=== PATIENT | female | born 1960 | race Caucasian/White ===

== ENCOUNTER → 2020-08-31 12:50 | Outpatient (BNVA) | payer OTHER, SELFPAY | PROVIDERS: PCP Internal Medicine; Referring Provider Internal Medicine; Visit Provider Internal Medicine Gastroenterology | DX: K57.92 Diverticulitis of intestine, part unspecified, without perforation or abscess without bleeding (principal); Z86.010 Personal history of colon polyps | CPT/HCPCS: 99212 ==

== ENCOUNTER 2020-10-02 11:37 | Outpatient (REF) | payer OTHER, SELFPAY ==
[2020-10-02 14:36] LABS: Hematocrit 45.6 % (37-47); Hemoglobin 14.2 g/dl (12.0-16.0); Mean Corpuscular HGB Conc 31.1 g/dl (31.0-35.0); Mean Corpuscular Hemoglobin 26.6 pg (27.0-33.0); Mean Corpuscular Volume 85.6 fL (80-98); Mean Platelet Volume 11.9 fL (9.4-12.3); Platelet Count 216 X10*3/uL (160-400); Red Blood Count 5.33 X10*6/uL (4.20-5.50); Red Cell Distribution Width 14.2 % (11.0-16.0); White Blood Count 9.5 X10*3/uL (4.8-10.8)
[2020-10-02 15:12] LABS: Alanine Aminotransferase 31 U/L (0-31); Albumin Level 4.3 g/dL (3.5-5.0); Alkaline Phosphatase 88 U/L (39-117); Anion Gap 14 (12-20); Aspartate Amino Transferase 20 U/L (5-31); Bilirubin Total 0.4 mg/dL (0.0-1.0); Blood Urea Nitrogen 14 mg/dL (9-16); Calcium 8.9 mg/dL (8.4-10.2); Carbon Dioxide 27 mmol/L (22-29); Chloride 103 mmol/L (96-108); Cholesterol 324 mg/dL; Estimated Glomerular Filt Rate > 60; Glucose Fasting 79 mg/dL (60-99); HDL Cholesterol 37 mg/dL; Potassium 4.1 mmol/l (3.3-5.1); Sodium 140 mmol/L (135-145); Total Protein 7.1 g/dL (6.5-8.0); Triglycerides 528 mg/dL
[2020-10-02 15:27] LABS: TSH reflex Free T4 0.77 mIU/mL (0.32-4.0)
== END 2020-10-02 11:38 | disposition home or self-care (01) ==
LOC: HO.HMGCLDS 11:37
PROVIDERS: PCP Internal Medicine; Visit Provider Internal Medicine
DX: E78.5 Hyperlipidemia, unspecified (principal); M54.30 Sciatica, unspecified side
CPT/HCPCS: 36415; 80053; 80061; 84443; 85027

== ENCOUNTER → 2020-12-28 09:01 | Outpatient (BNVA) | payer OTHER, SELFPAY | PROVIDERS: PCP Internal Medicine; Visit Provider Internal Medicine Gastroenterology ==

== ENCOUNTER 2021-01-12 09:00 | Outpatient (RCR) | payer OTHER, SELFPAY ==
--- NOTE | 2020-11-08 18:05 | MHC.PT.EP ---
[facility] [place] Office [place] Office [place] Office [address] Tyler Clark [address] [phone] F: [phone] F: [phone] F: [phone] F: [phone] Physical Therapy Plan of Care Date of Evaluation: 11/08/20 Date of Surgery: Diagnosis: This is a 60 yo female presenting to skilled PT with a script for LBP. Assessment: This is a 60 yo female presenting to skilled PT with a script for LBP. Patient reports chronic and recurrent lower back pain radiating to both lower extremities. Her pain started 10 years ago when she had surgery (unknown surgery, suspects discectomy?) and continues to have BLE pain and back pain. Today and more recently her pain is located more often on the R side low back and down the posterior aspect of the R leg into the bottom of the foot. Her pain comes and goes and is described as cramping and achy. Denies numbness or tingling. States that the doctor reports only PT will help this now. She has had cortisone injections and these do not help as well. She also has had an ankle surgery as well and reports that this was a year ago and still bothers her (she did have PT for this). Assessment reveals pain averaging about an 8/10 mainly with prolonged positioning. She demos decreased core strength and glut strength, impaired gross lumbar and hip ROM, impaired pain tolerance and management, decreased functional tolerance and mobility as well as impaired joint mobility. Patient is functionally limited in sitting, standing and walking. She is a good candidate for skilled PT 2x/wk for 6wks. Frequency and Duration: The patient will be seen 2x/wk and 6wks Short Term Goals: I in HEP Improvement in hip mobility ROM by 25% without pain when performing rotational movements Demos good core stability without cuing from PT Snf Goals: Patient will tolerate squatting and lifting without pain and without cuing Demos good ROM and strength Improvement in general well being by at least 50% Tolerate walking without pain for 10 mins Treatment Plan: Modalities to reduce pain, spasms and effusion. Manual therapy to restore motion and function. Therapeutic exercise to improve strength and flexibility. Neuromuscular re-education for posture and balance. Therapeutic activities to return to functional activities of daily living. Electronically signed by: Vickie Carranza PT Please sign and return to therapist. Thank you for your referral.
--- NOTE | 2021-04-30 14:33 | MHC.PT.DC ---
[facility] [place] Office [employer] Office [place] Office [address] Tyler Clark [address] [phone] F: [phone] F: [phone] F: [phone] F: [phone] Physical Therapy Discharge Report Diagnosis: This is a 60 yo female presenting to skilled PT with a script for LBP. Date of Surgery: Date of Evaluation: 11/08/20 Date of Discharge: 04/30/21 Treatments to Date: 11 Cancellations to Date: 0 No Shows to Date: 0 Discharge Status: Achieved Goals Improved Function Independent with HEP Discharge Summary: we reviewed her HEP And answered all questions. she d/c to HEP at this time due to plateau of s/s. Electronically signed by: Vickie Carranza PT Please sign and return to therapist. Thank you for your referral.
== END 2021-04-30 14:34 | disposition home or self-care (01) ==
LOC: HO.PTCHIC 09:00
PROVIDERS: PCP Internal Medicine; Visit Provider Internal Medicine
DX: M54.30 Sciatica, unspecified side (principal)
CPT/HCPCS: 97110; 97112; 97140; 97161

== ENCOUNTER 2021-02-26 08:08 | Outpatient (REF) | payer OTHER, SELFPAY ==
[2021-02-26 11:50] LABS: Hematocrit 46.1 % (37-47); Hemoglobin 14.3 g/dl (12.0-16.0); Mean Corpuscular Hemoglobin 26.3 pg (27.0-33.0); Mean Corpuscular Volume 84.9 fL (80-98); Mean Platelet Volume 11.6 fL (9.4-12.3); Platelet Count 217 X10*3/uL (160-400); Red Blood Count 5.43 X10*6/uL (4.20-5.50); Red Cell Distribution Width 14.4 % (11.0-16.0); White Blood Count 10.3 X10*3/uL (4.8-10.8)
[2021-02-26 11:57] LABS: Alanine Aminotransferase 22 U/L (0-31); Albumin Level 4.4 g/dL (3.5-5.0); Alkaline Phosphatase 107 U/L (39-117); Anion Gap 16 (12-20); Aspartate Amino Transferase 16 U/L (5-31); Bilirubin Total 0.5 mg/dL (0.0-1.0); Blood Urea Nitrogen 13 mg/dL (9-16); Calcium 8.9 mg/dL (8.4-10.2); Carbon Dioxide 24 mmol/L (22-29); Chloride 107 mmol/L (96-108); Cholesterol 168 mg/dL; Estimated Glomerular Filt Rate > 60; Glucose Fasting 126 mg/dL (60-99); HDL Cholesterol 36 mg/dL; LDL Cholesterol Calculated 94 mg/dl; Sodium 143 mmol/L (135-145); Triglycerides 190 mg/dL
[2021-02-26 12:20] LABS: TSH reflex Free T4 0.46 uIU/mL (0.32-4.0)
== END 2021-02-26 08:09 | disposition home or self-care (01) ==
LOC: HO.HMGCLDS 08:08
PROVIDERS: PCP Internal Medicine; Visit Provider Internal Medicine
DX: R07.9 Chest pain, unspecified (principal); E78.5 Hyperlipidemia, unspecified
CPT/HCPCS: 36415; 80053; 80061; 84443; 85027

== ENCOUNTER 2021-05-24 14:02 | Outpatient (REF) | payer OTHER, SELFPAY ==
[2021-05-24 15:51] LABS: MANUAL DIFF FLAG NO
[2021-05-24 15:59] LABS: Basophils Percent Auto 0.3 % (0-2); Eosinophils Percent Auto 0.2 % (0-4); Hematocrit 45.1 % (37-47); Hemoglobin 14.5 g/dl (12.0-16.0); Imm Gran Abs Auto 0.18 X10*3/uL (0.00-0.03); Imm Gran Pct Auto 1.2 % (0.0-0.4); Lymphocytes Percent Auto 12.9 % (20-40); Mean Corpuscular HGB Conc 32.2 g/dl (31.0-35.0); Mean Corpuscular Hemoglobin 26.5 pg (27.0-33.0); Mean Corpuscular Volume 82.4 fL (80-98); Mean Platelet Volume 10.6 fL (9.4-12.3); Monocytes Absolute Auto 0.8 X10*3/uL (0.1-1.2); Monocytes Percent Auto 5.3 % (2-11); Neutrophils Absolute Auto 12.2 X10*3/uL (2.0-8.3); Neutrophils Percent Auto 80.1 % (45-73); Platelet Count 227 X10*3/uL (160-400); Red Blood Count 5.47 X10*6/uL (4.20-5.50); Red Cell Distribution Width 14.6 % (11.0-16.0); White Blood Count 15.3 X10*3/uL (4.8-10.8)
[2021-05-24 16:11] LABS: C Reactive Protein 0.07 mg/dL (< or = 0.50)
== END 2021-05-24 14:03 | disposition home or self-care (01) ==
LOC: HO.LAB 14:02
PROVIDERS: PCP Internal Medicine; Referring Provider Internal Medicine; Visit Provider Internal Medicine Gastroenterology
DX: R10.31 Right lower quadrant pain (principal); K21.9 Gastro-esophageal reflux disease without esophagitis; E66.9 Obesity, unspecified; Z86.010 Personal history of colon polyps; Z87.19 Personal history of other diseases of the digestive system
CPT/HCPCS: 36415; 85025; 86140; 99212

== ENCOUNTER → 2021-09-03 12:46 | Outpatient (BNVA) | payer OTHER, SELFPAY | PROVIDERS: Visit Provider Internal Medicine Gastroenterology | DX: K21.9 Gastro-esophageal reflux disease without esophagitis (principal); Z86.010 Personal history of colon polyps; Z87.19 Personal history of other diseases of the digestive system | CPT/HCPCS: 99212 ==

== ENCOUNTER 2021-09-10 10:23 | Day surgery (SDC) | payer OTHER, SELFPAY ==
--- NOTE | 2021-09-07 11:36 | HO.ANESPROP2 ---
Documented by User: Christina Vargas NP 09/07/21 11:38 HPI - Anesthesia Eval Consult details Narrative: 61yo F for Upper Endoscopy PMFSH Active Problems Active Problems: All Active Problems (Updated 05/24/21 @ 15:06 by Seymour Fisher MD) Abdominal pain, acute, right lower quadrant (Acute) Tracheobronchitis (Acute) Hyperglycemia (Acute) Chronic GERD (Acute) Obesity (Acute) Chest pain (Acute) Mammogram normal (Acute) Hyperlipidemia (Acute) Sciatica (Acute) History of colon polyps (Acute) History of diverticulitis of colon (Acute) Nephrolithiasis (Acute) Past Medical History Medical History Chest pain Chronic GERD History of colon polyps History of diverticulitis of colon Hyperglycemia Hyperlipidemia Mammogram normal Nephrolithiasis Obesity Sciatica Family History Family History Father Heart attack Mother Diabetes Heart problem Arthritis Surgical History Surgical History H/O section H/O Spinal surgery History of ankle surgery (10/06/19) History of esophagogastroduodenoscopy (EGD) History of kidney surgery Hx of colonoscopy Social History Social History Household Members: Children Alcohol intake: current Alcohol intake frequency: does not drink Patient Tobacco Use Status: Current everyday Tobacco user Tobacco use type: Cigarette Cigarette Packs Per Day: 0.5 Cigarettes Per Day: 15 Years Smoked: 25 Use of substances other than those prescribed or required for medical reasons: No Are you DNR?: No Advance Directives: No Advance Directives Information Provided: Yes Meds Allergies Allergy/AdvReac Type Severity Reaction Status Date / Time No Known Allergies Allergy Verified 09/03/21 13:11 [No Known Allergies*] Home Medications Medication Instructions Recorded Confirmed Last Taken Type aspirin 81 mg tablet,delayed 81 mg PO DAILY 02/20/21 09/03/21 Unknown History release ibuprofen 600 mg tablet 600 mg PO Q6H PRN 03/27/21 09/03/21 Unknown History ondansetron HCl 4 mg tablet 4 mg PO Q8H PRN 03/27/21 09/03/21 Unknown History sulfamethoxazole 800 1 tab PO BID 03/27/21 09/03/21 Unknown History mg-trimethoprim 160 mg tablet Exam Exam Date and Time: September 07, 2021 1136 Pertinent Lab Results Pertinent Lab Results: Laboratory Tests 02/26/21 05/24/21 08:15 15:30 WBC 15.3 H Hgb 14.5 Hct 45.1 Plt Count 227 Sodium 143 Potassium 4.0 Chloride 107 Carbon Dioxide 24 BUN 13 Creatinine 0.74 Assessment and Plan Assessment Anesthesia Assessment: Chart Reviewed Documented by User: Antoinette Corona MD 09/10/21 10:54 PMFSH Past Medical History Medical History Chest pain Chronic GERD History of colon polyps History of diverticulitis of colon Hyperglycemia Hyperlipidemia Mammogram normal Nephrolithiasis Obesity Sciatica Family History Family History Father Heart attack Mother Diabetes Heart problem Arthritis Family history of problems with anesthesia: No Surgical History Surgical History H/O section H/O Spinal surgery History of ankle surgery (10/06/19) History of esophagogastroduodenoscopy (EGD) History of kidney surgery Hx of colonoscopy History of Problems with Anesthesia: No Social History Social History Household Members: Children Alcohol intake: current Alcohol intake frequency: does not drink Patient Tobacco Use Status: Current everyday Tobacco user Tobacco use type: Cigarette Cigarette Packs Per Day: 0.5 Cigarettes Per Day: 15 Years Smoked: 25 Use of substances other than those prescribed or required for medical reasons: No Are you DNR?: No Advance Directives: No Advance Directives Information Provided: Yes Meds Allergies Allergy/AdvReac Type Severity Reaction Status Date / Time No Known Allergies Allergy Verified 09/03/21 13:11 [No Known Allergies*] Home Medications Medication Instructions Recorded Confirmed Last Taken Type aspirin 81 mg tablet,delayed 81 mg PO DAILY 02/20/21 09/03/21 Unknown History release ibuprofen 600 mg tablet 600 mg PO Q6H PRN 03/27/21 09/03/21 Unknown History ondansetron HCl 4 mg tablet 4 mg PO Q8H PRN 03/27/21 09/03/21 Unknown History sulfamethoxazole 800 1 tab PO BID 03/27/21 09/03/21 Unknown History mg-trimethoprim 160 mg tablet Exam Airway Mallampati Class: II TM Dist: >3cm Neck ROM: Full Denture: Upper Heart: rrr Lungs: cta Assessment and Plan Assessment Anesthesia Assessment: Anesthesia Plan Discussed and Chart Reviewed Final Anesthetic Review Family History of Problems with Anesthesia: No History of Problems with Anesthesia: No NPO: Yes ASA Class: III Final Preanesthetic Review: No Changes in Pt Med Stat, Meds/Allgs Chart Reviewed and Consent Obtained/Reviewed Patient Risk: Intermediate Procedure Risk: Intermediate Anesthetic Plan Anesthetic Plan: MAC: Disposition: Standard PACU
[2021-09-10 10:31] VITALS: BMI 36.8
[2021-09-10 10:40] VITALS: BP 148/80; PULSE 74; RESP 18; TEMP 36.8; O2SAT 96
[2021-09-10] MEDS: Lactated Ringers 1,000 ML 100 ML IVCONT (11:02)
--- NOTE | 2021-09-10 11:25 | MHC.SHP ---
Pre-Procedural Eval Section A Date of Service: 09/10/21 The patient is an INPATIENT: No Changes since office visit: Yes Patient answered all questions; No Cold of Flu in the past 2 weeks, No New Medical Problems and No Changes in Medication The History & Physical has been completed within 30 days and I have reviewed it.: Yes Section B Chief Complaint: GERD Allergies: Allergies Allergy/AdvReac Type Severity Reaction Status Date / Time No Known Allergies Allergy Verified 09/03/21 13:11 [No Known Allergies*] Plan I have reviewed the history and physical and performed a pertinent physical examination on my patient. No changes have occurred unless specified.
--- NOTE | 2021-09-10 11:32 | W.PM.OPN ---
Operative Note Operative Note Date of Service: 09/10/21 Narrative: Pre-op diagnosis:?Atypical chest pain, GERD Post-op diagnosis:?other (GERD, Gastritis, pyloric channel ulcer) Procedure:? FLEXIBLE TRANSORAL UPPER GASTROINTESTINAL ENDOSCOPY WITH BIOPSIES Consent:?Indications for the procedure and potential complications of bleeding, perforation, reaction to medications and missed diagnosis were discussed with the patient with the help of a Romanian honing machine operator tool and informed consent was obtained. Instrument:?Olympus GIF H 190 mid size upper endoscope Monitoring: Vital signs and clinical assessment, continuous EKG monitoring, Pulse oximetry, Carbon Dioxide monitoring and blood pressure monitoring were done throughout the procedure. Procedure:?The patient was placed in the left lateral decubitis position and pre-procedure medications were administered and a bite block was placed. The endoscope was inserted into the mouth and advanced under direct vision to the third part of duodenum. A careful inspection was made as the upper endoscope was withdrawn including a retroflexed examination of the proximal stomach; Findings and interventions are described below. Findings: Larynx:? Normal Esophagus: GE junction at 38 cms. No esophagitis or Mckeon's. Biopsies were obtained from distal esophagus to check for esophagitis. Stomach: Mild gastric erythema. Biopsies were obtained. A 1 cms clean based ulcer in the pyloric channel - biopsied. Grade 2 flap valve on retroflexed examination of the cardia. Duodenum: Normal bulb and descending duodenum Intervention: Biopsies as noted above Intervention: Biopsies as noted above Impression and Post Procedure Diagnosis: Endoscopy Findings: ESOPHAGUS: GE junction at 38 cms. No esophagitis or Mckeon's. Biopsies were obtained from distal esophagus to check for esophagitis. STOMACH: Antral gastritis.? A 1 cms clean based ulcer in the pyloric channel - biopsied. Plan: Await pathology results. Repeat EGD in 10-12 weeks to confirm pyloric channel ulcer has healed. Patient has an appointment on 12/06/21 in the GI Clinic with Seymour Fisher M.D.. Above findings were reviewed with the patient and GERD and Gastritis handouts were given in the discharge area Surgeon:?Seymour Fisher MD Anesthesia:?MARTÍNEZ (Dr Blanchard) Was an Pantograph Transferrer used for this Procedure?:?No Pantograph Transferrer:?Chip Sibley Estimated blood loss (mL):?0 Pathology:?other (A- ANTRAL BXS? R/O H. PYLORI? B- ULCER PYLORIC CHANNEL BXS? C- BXS DISTAL ESOPHAGUS? R/O ESOPHAGITIS) Condition:?stable Disposition:?PACU
[2021-09-10 11:52] VITALS: BP 123/79; PULSE 80; RESP 16; TEMP 37.2; O2SAT 95
[2021-09-10 12:10] VITALS: BP 129/78; PULSE 80; RESP 18; TEMP 36.7; O2SAT 98
== END 2021-09-10 12:45 | disposition home or self-care (01) ==
PROVIDERS: PCP Internal Medicine; Visit Provider Internal Medicine Gastroenterology
PROC: 0DJ08ZZ Inspection of Upper Intestinal Tract, Via Natural or Artificial Opening Endoscopic (ICD-10-PCS; CPT 43235; principal; 2021-09-10 11:40)
DX: K21.9 Gastro-esophageal reflux disease without esophagitis (principal); R07.89 Other chest pain; K29.50 Unspecified chronic gastritis without bleeding; B96.81 Helicobacter pylori [H. pylori] as the cause of diseases classified elsewhere; K25.9 Gastric ulcer, unspecified as acute or chronic, without hemorrhage or perforation; Z87.19 Personal history of other diseases of the digestive system; R73.9 Hyperglycemia, unspecified; E78.5 Hyperlipidemia, unspecified; E66.9 Obesity, unspecified; Z79.82 Long term (current) use of aspirin; Z79.899 Other long term (current) drug therapy
CPT/HCPCS: 43239; 88305; 88342

== ENCOUNTER 2021-10-23 07:19 | Outpatient (REF) | payer OTHER, SELFPAY ==
[2021-10-23 11:39] LABS: Hematocrit 45.6 % (37.0-47.0); Hemoglobin 14.4 g/dl (12.0-16.0); Mean Corpuscular HGB Conc 31.6 g/dl (31.0-35.0); Mean Corpuscular Hemoglobin 26.6 pg (27.0-33.0); Mean Corpuscular Volume 84.3 fL (80.0-98.0); Mean Platelet Volume 11.7 fL (9.4-12.3); Platelet Count 196 X10*3/uL (160-400); Red Blood Count 5.41 X10*6/uL (4.20-5.50); White Blood Count 9.3 X10*3/uL (4.8-10.8)
[2021-10-23 11:44] LABS: Estimated Average Glucose 128 mg/dL; Hemoglobin A1c % 6.1 %
[2021-10-23 11:57] LABS: Appearance Urine HAZY; Color Urine YELLOW; Glucose Urine UA NEG (NEG); Leukocyte Esterase Urine 2+ (NEG); Nitrite Urine NEG (NEG); Urine Blood NEG (NEG); Urine Ketones NEG (NEG); Urine Protein NEG (NEG-TRACE)
[2021-10-23 12:09] LABS: Alanine Aminotransferase 29 U/L (0-31); Albumin Level 4.1 g/dL (3.5-5.0); Alkaline Phosphatase 85 U/L (39-117); Anion Gap 14 (12-20); Aspartate Amino Transferase 18 U/L (5-31); Bilirubin Total 0.4 mg/dL (0.0-1.0); Blood Urea Nitrogen 12 mg/dL (9-16); Calcium 9.3 mg/dL (8.4-10.2); Carbon Dioxide 23 mmol/L (22-29); Chloride 108 mmol/L (96-108); Cholesterol 276 mg/dL; Estimated Glomerular Filt Rate > 60; Glucose Fasting 121 mg/dL (60-99); HDL Cholesterol 33 mg/dL; LDL Cholesterol Calculated 183 mg/dl; Potassium 4.3 mmol/L (3.3-5.1); Sodium 141 mmol/L (135-145); Total Protein 6.9 g/dL (6.5-8.0); Triglycerides 300 mg/dL
[2021-10-23 12:16] LABS: TSH reflex Free T4 0.43 uIU/mL (0.32-4.0)
[2021-10-23 12:17] LABS: Creatinine Urine 149.35 mg/dL; Microalbum/Creatinine Ratio Ur 13.3 ug/mg cr
[2021-10-23 12:26] LABS: Bacteria Urine 1+ /LPF; Squamous Epithelial Cell Urine 2+ /LPF
== END 2021-10-23 07:20 | disposition home or self-care (01) ==
LOC: HO.HMGCLDS 07:19
PROVIDERS: PCP Internal Medicine; Visit Provider Internal Medicine
DX: E78.5 Hyperlipidemia, unspecified (principal); R73.9 Hyperglycemia, unspecified; M54.30 Sciatica, unspecified side
CPT/HCPCS: 36415; 80053; 80061; 81001; 82043; 83036; 84443; 85027

== ENCOUNTER → 2022-01-31 11:48 | Outpatient (BNVA) | payer MEDICARE, MEDICAID, SELFPAY | PROVIDERS: Visit Provider Internal Medicine Gastroenterology | DX: K21.9 Gastro-esophageal reflux disease without esophagitis (principal); Z86.010 Personal history of colon polyps; Z87.19 Personal history of other diseases of the digestive system | CPT/HCPCS: Q3014 ==

== ENCOUNTER 2022-02-20 16:00 | Outpatient (RCR) | payer MEDICARE, MEDICAID, SELFPAY ==
--- NOTE | 2022-01-16 19:15 | MHC.PT.EP ---
[facility] [place] Office [place] Office [place] Office [address]rika Clark [address] [phone] F: [phone] F: [phone] F: [phone] F: [phone] Physical Therapy Plan of Care Date of Evaluation: Date of Surgery: Diagnosis: Cervicalgia. Assessment: Pt is a 61 y/o female referred to PT fr eval and treat of cervicalgia which results in decreased tolerance for lifting objects of weight, performing HH chores, read for duration, as well as disturbed sleep and pain secondary to increased cervical tissue tension, ESTEVEZ, forward head and scap protraction posturing, decreased cervical strength, mild ROM deficit, and pain. Pt is deemed an appropriate candidate to receive skilled PT in order to address her physical limitations to improve her functional ability. Frequency and Duration: The patient will be seen 2 x / wk x 5 wks. Short Term Goals: Initiate HEP. improve baseline pain from 8/10 to < 5 / 10. Salon Stylist Goals: I with HEP. Pt will no longer be painful in bed. Pt will report at least 50% improvement in frequency and duration of ESTEVEZ. Improve DNF endurance from 8 sec to > 20 in order to demonstrate improved cervical stability. Treatment Plan: Modalities to reduce pain, spasms and effusion. Manual therapy to restore motion and function. Therapeutic exercise to improve strength and flexibility. Neuromuscular re-education for posture and balance. Therapeutic activities to return to functional activities of daily living. Electronically signed by: Chris Najera PT. Please sign and return to therapist. Thank you for your referral.
--- NOTE | 2022-03-01 09:43 | MHC.PT.DC ---
[facility] [place] Office [place] Office [place] Office [address] Tyler Clark [address] [phone] F: [phone] F: [phone] F: [phone] F: [phone] Physical Therapy Discharge Report Diagnosis: Cervicalgia. Date of Surgery: Date of Evaluation: 01/16/22 Date of Discharge: 03/01/22 Treatments to Date: 9 Cancellations to Date: 1 No Shows to Date: Discharge Status: Improved Function Independent with HEP Patient Elected to Stop Discharge Summary: Pt called to DC herself from therapy before her last visit; final assessment not performed though Pt reported improved Sx and has a basic home program she had reported she is motivated to continue. Electronically signed by: Chris Najera PT. Please sign and return to therapist. Thank you for your referral.
== END 2022-03-01 09:45 | disposition home or self-care (01) ==
LOC: HO.PTCHIC 16:00
PROVIDERS: PCP Internal Medicine; Visit Provider Internal Medicine
DX: M54.2 Cervicalgia (principal)
CPT/HCPCS: 97014; 97110; 97140; 97161

== ENCOUNTER → 2022-03-14 08:56 | Outpatient (BNVA) | payer MEDICARE, MEDICAID, SELFPAY | PROVIDERS: PCP Internal Medicine; Visit Provider Psychiatry & Neurology Neurology | DX: H93.19 Tinnitus, unspecified ear (principal); G47.00 Insomnia, unspecified; G47.10 Hypersomnia, unspecified; R06.83 Snoring; E66.9 Obesity, unspecified; M54.2 Cervicalgia; R25.2 Cramp and spasm; Z68.35 Body mass index [BMI] 35.0-35.9, adult | CPT/HCPCS: 99202 ==

== ENCOUNTER 2022-03-18 09:07 | Outpatient (REF) | payer MEDICARE, MEDICAID, SELFPAY ==
--- NOTE | ~2022-03-18 | XR_ITS ---
EXAMINATION: XR cervical spine 3V CLINICAL INFORMATION: Pain COMPARISON: None TECHNIQUE: 3 views of the cervical spine were obtained. XR/XR cervical spine 3V FINDINGS/IMPRESSION: * Vertebral body heights are maintained and vertebral body and atlantodental alignment are maintained without evidence of acute fracture. * Mild multilevel degenerative disc disease with loss of disc space height, degenerative endplate spurring and facet arthropathy.
[2022-03-18 11:49] LABS: Alanine Aminotransferase 33 U/L (0-31); Albumin Level 4.4 g/dL (3.5-5.0); Alkaline Phosphatase 97 U/L (39-117); Anion Gap 13 (12-20); Aspartate Amino Transferase 21 U/L (5-31); Bilirubin Total 0.5 mg/dL (0.0-1.0); Blood Urea Nitrogen 13 mg/dL (9-16); Calcium 9.5 mg/dL (8.4-10.2); Carbon Dioxide 25 mmol/L (22-29); Chloride 106 mmol/L (96-108); Cholesterol 216 mg/dL; Estimated Glomerular Filt Rate > 60; Glucose Fasting 122 mg/dL (60-99); HDL Cholesterol 37 mg/dL; LDL Cholesterol Calculated 131 mg/dl; Potassium 4.3 mmol/L (3.3-5.1); Sodium 140 mmol/L (135-145); Total Protein 7.2 g/dL (6.5-8.0); Triglycerides 242 mg/dL
[2022-03-18 11:51] LABS: Estimated Average Glucose 131 mg/dL; Hemoglobin A1c % 6.2 %
[2022-03-18 12:16] LABS: TSH reflex Free T4 0.69 uIU/mL (0.32-4.0)
== END 2022-03-18 09:08 | disposition home or self-care (01) ==
LOC: HO.HMGCX 09:07
PROVIDERS: PCP Internal Medicine; Visit Provider Psychiatry & Neurology Neurology
DX: E78.5 Hyperlipidemia, unspecified (principal); R73.9 Hyperglycemia, unspecified
CPT/HCPCS: 36415; 72040; 80053; 80061; 83036; 84443

== ENCOUNTER → 2022-03-26 10:10 | Outpatient (BNVA) | payer MEDICARE, MEDICAID, SELFPAY | PROVIDERS: PCP Internal Medicine; Visit Provider Psychiatry & Neurology Neurology | DX: M54.2 Cervicalgia (principal); H93.19 Tinnitus, unspecified ear; G47.00 Insomnia, unspecified; E66.9 Obesity, unspecified; G47.10 Hypersomnia, unspecified; R25.2 Cramp and spasm | CPT/HCPCS: 99212 ==

== ENCOUNTER 2022-05-07 18:08 | Outpatient (REF) | payer MEDICARE, MEDICAID, SELFPAY ==
--- NOTE | ~2022-05-07 | MR_ITS ---
EXAMINATION: MR BRAIN WITHOUT CONTRAST CLINICAL INFORMATION: Headache, unspecified. COMPARISON: None available. TECHNIQUE: Multiplanar, multisequence imaging of the brain was performed without intravenous contrast. FINDINGS: There is no acute infarction, mass, hemorrhage, or extra-axial collection. The ventricles, sulci, and basilar cisterns are normal in size and configuration. A few minimal nonspecific foci of T2/FLAIR hyperintensity are seen within the cerebral white matter. The flow voids of the major intracranial arteries appear intact. The bones and extracranial soft tissues are unremarkable. There is mild paranasal sinus mucosal thickening without fluid levels. MR/MR head/brain wo con IMPRESSION: No acute infarct, mass lesion, intracranial hemorrhage, or evidence of hydrocephalus. Mild nonspecific T2/FLAIR hyperintensity seen within the white matter.
== END 2022-05-07 18:09 | disposition home or self-care (01) ==
LOC: HO.MRI 18:08
PROVIDERS: Visit Provider Psychiatry & Neurology Neurology
DX: R51.9 Headache, unspecified (principal)
CPT/HCPCS: 70551

== ENCOUNTER → 2022-05-10 20:30 | Outpatient (REF) | payer MEDICARE, MEDICAID, SELFPAY | LOC: HO.SL 20:30 | PROVIDERS: Visit Provider Psychiatry & Neurology Neurology | DX: R06.83 Snoring (principal); R25.2 Cramp and spasm; R51.9 Headache, unspecified; G47.19 Other hypersomnia | CPT/HCPCS: 95810 ==

== ENCOUNTER → 2022-05-13 08:08 | Outpatient (BNVA) | payer MEDICARE, MEDICAID, SELFPAY | PROVIDERS: PCP Internal Medicine; Visit Provider Nurse Practitioner Family | DX: G47.10 Hypersomnia, unspecified (principal); G89.29 Other chronic pain; R51.9 Headache, unspecified; M54.2 Cervicalgia; F41.9 Anxiety disorder, unspecified; H93.19 Tinnitus, unspecified ear; R25.2 Cramp and spasm | CPT/HCPCS: 99212; Q3014 ==

== ENCOUNTER 2022-06-17 10:43 | Outpatient (REF) | payer MEDICARE, MEDICAID, SELFPAY ==
[2022-06-17 13:47] LABS: MANUAL DIFF FLAG NO
[2022-06-17 13:57] LABS: Estimated Average Glucose 123 mg/dL; Hemoglobin A1c % 5.9 %
[2022-06-17 14:03] LABS: Alanine Aminotransferase 28 U/L (0-31); Albumin Level 4.4 g/dL (3.5-5.0); Alkaline Phosphatase 85 U/L (39-117); Anion Gap 15 (12-20); Aspartate Amino Transferase 19 U/L (5-31); Bilirubin Total 0.7 mg/dL (0.0-1.0); Blood Urea Nitrogen 16 mg/dL (9-16); Calcium 9.1 mg/dL (8.4-10.2); Carbon Dioxide 25 mmol/L (22-29); Chloride 106 mmol/L (96-108); Cholesterol 184 mg/dL; Estimated Glomerular Filt Rate > 60; Glucose Fasting 109 mg/dL (60-99); HDL Cholesterol 36 mg/dL; LDL Cholesterol Calculated 105 mg/dl; Potassium 4.2 mmol/L (3.3-5.1); Sodium 142 mmol/L (135-145); Total Protein 7.1 g/dL (6.5-8.0); Triglycerides 219 mg/dL
[2022-06-17 18:26] LABS: Basophils Absolute Auto 0.1 X10*3/uL (0.0-0.2); Basophils Percent Auto 0.7 % (0-2); Eosinophils Absolute Auto 0.3 X10*3/uL (0.0-0.4); Eosinophils Percent Auto 3.5 % (0-4); Hematocrit 46.3 % (37.0-47.0); Hemoglobin 14.9 g/dl (12.0-16.0); Imm Gran Abs Auto 0.02 X10*3/uL (0.00-0.03); Imm Gran Pct Auto 0.2 % (0.0-0.4); Lymphocytes Absolute Auto 2.7 X10*3/uL (1.2-4.9); Lymphocytes Percent Auto 29.5 % (20-40); Mean Corpuscular HGB Conc 32.2 g/dl (31.0-35.0); Mean Corpuscular Hemoglobin 26.9 pg (27.0-33.0); Mean Corpuscular Volume 83.7 fL (80.0-98.0); Mean Platelet Volume 11.4 fL (9.4-12.3); Monocytes Percent Auto 10.4 % (2-11); Neutrophils Absolute Auto 5.1 x10*3/uL (2.0-8.3); Neutrophils Percent Auto 55.7 % (45-73); Platelet Count 203 X10*3/uL (160-400); Red Blood Count 5.53 X10*6/uL (4.20-5.50); Red Cell Distribution Width 14.4 % (11.0-16.0); White Blood Count 9.2 X10*3/uL (4.8-10.8)
== END 2022-06-17 10:44 | disposition home or self-care (01) ==
LOC: HO.HMGCLDS 10:43
PROVIDERS: PCP Internal Medicine; Visit Provider Internal Medicine
DX: E78.5 Hyperlipidemia, unspecified (principal); R73.9 Hyperglycemia, unspecified; G89.29 Other chronic pain; M25.529 Pain in unspecified elbow
CPT/HCPCS: 36415; 80053; 80061; 83036; 85025; 86140

== ENCOUNTER → 2022-06-24 15:19 | Outpatient (BNVA) | payer MEDICARE, MEDICAID, SELFPAY | PROVIDERS: PCP Internal Medicine; Visit Provider Psychiatry & Neurology Neurology | DX: M54.2 Cervicalgia (principal); R51.9 Headache, unspecified; R53.1 Weakness; F32.A Depression, unspecified; F41.9 Anxiety disorder, unspecified; G89.29 Other chronic pain; F17.210 Nicotine dependence, cigarettes, uncomplicated; Z79.899 Other long term (current) drug therapy | CPT/HCPCS: 99212 ==

== ENCOUNTER → 2022-07-15 07:48 | Outpatient (BNVA) | payer MEDICARE, MEDICAID, SELFPAY | PROVIDERS: PCP Internal Medicine; Visit Provider Nurse Practitioner Family | DX: R51.9 Headache, unspecified (principal); R29.898 Other symptoms and signs involving the musculoskeletal system; G89.29 Other chronic pain; F41.9 Anxiety disorder, unspecified; M54.2 Cervicalgia | CPT/HCPCS: 99212 ==

== ENCOUNTER → 2022-09-02 07:47 | Outpatient (BNVA) | payer MEDICARE, MEDICAID, SELFPAY | PROVIDERS: PCP Internal Medicine; Visit Provider Nurse Practitioner Family | DX: R51.9 Headache, unspecified (principal); G89.29 Other chronic pain; F41.9 Anxiety disorder, unspecified; F32.A Depression, unspecified; G47.00 Insomnia, unspecified; M54.2 Cervicalgia; Z79.899 Other long term (current) drug therapy | CPT/HCPCS: 99212 ==

== ENCOUNTER 2022-09-02 10:00 | Outpatient (RCR) | payer MEDICARE, MEDICAID, SELFPAY ==
--- NOTE | 2022-09-02 11:56 | MHC.PT.DC ---
[facility] [place] Office [place] Office [place] Office [address] Tyler Clark [address] [phone] F: [phone] F: [phone] F: [phone] F: [phone] Physical Therapy Discharge Report Diagnosis: cervicalgia Date of Surgery: n/a Date of Evaluation: 07/29/22 Date of Discharge: 09/02/22 Treatments to Date: 8 Cancellations to Date: 0 No Shows to Date: 0 Discharge Status: Achieved Goals Improved Function Independent with HEP Discharge Summary: 09/02/2022: Pt has made progress since beginning skilled PT. She has been presenting with no pain at the start of her sessions recently and feels further improvement after exercising. She does have long standing neck pain so discussed with her that she will need to be diligent with continuing with her HEP mcc to maintain gains made thus far. At this time max benefits of PT have been provided and skilled PT is no longer indicated. Pt is in agreement with d/c today. Electronically signed by: Emma Diggs, PT, DPT, ATC Please sign and return to therapist. Thank you for your referral.
== END 2022-09-02 10:51 | disposition home or self-care (01) ==
LOC: HO.PTCHIC 10:00
PROVIDERS: PCP Internal Medicine; Visit Provider Psychiatry & Neurology Neurology
DX: M54.2 Cervicalgia (principal); R29.898 Other symptoms and signs involving the musculoskeletal system
CPT/HCPCS: 97110; 97140; 97161

== ENCOUNTER 2022-09-23 15:46 | Outpatient (REF) | payer MEDICARE, MEDICAID, SELFPAY ==
--- NOTE | ~2022-09-23 | XR_ITS ---
EXAMINATION: XR KNEE, LEFT CLINICAL INFORMATION: Pain COMPARISON: None TECHNIQUE: Four views of the left knee. FINDINGS: Bone alignment is normal. No fracture or dislocation. Normal joint spaces. Large joint effusion. XR/XR knee LT 4V IMPRESSION: Large joint effusion.
== END 2022-09-23 15:47 | disposition home or self-care (01) ==
LOC: HO.HMGCX 15:46
PROVIDERS: PCP Internal Medicine; Visit Provider Nurse Practitioner Family
DX: M25.562 Pain in left knee (principal)
CPT/HCPCS: 73564

== ENCOUNTER 2022-11-11 07:11 | Day surgery (SDC) | payer MEDICARE, MEDICAID, SELFPAY ==
[2022-11-07 09:38] VITALS: BMI 35.3
--- NOTE | 2022-11-11 07:03 | HO.ANESPROP2 ---
[facility] Active Problems Active Problems: All Active Problems (Updated 09/02/22 @ 08:39 by Avis Landis CNP) Depression (Acute) Hand weakness (Acute) Chronic elbow pain (Acute) Chronic headache (Acute) Anxiety (Acute) Spasms of the hands or feet (Acute) Hypersomnia (Acute) Snoring (Acute) Insomnia (Acute) Chronic headaches (Acute) Tinnitus (Acute) Neck pain (Acute) Annual physical exam (Acute) Tracheobronchitis (Acute) Abdominal pain, acute, right lower quadrant (Acute) Hyperglycemia (Acute) Chronic GERD (Acute) Obesity (Acute) Chest pain (Acute) Mammogram normal (Acute) Hyperlipidemia (Acute) Sciatica (Acute) History of colon polyps (Acute) History of diverticulitis of colon (Acute) Nephrolithiasis (Acute) Past Medical History Medical History Annual physical exam Anxiety Chest pain Chronic GERD Chronic headaches History of colon polyps History of diverticulitis of colon Hyperglycemia Hyperlipidemia Mammogram normal Neck pain Nephrolithiasis Obesity Sciatica Tinnitus Functional capacity: independent ambulation Patient : No Family History Family History Father Heart attack Mother Diabetes Heart problem Arthritis Family history of problems with anesthesia: No Surgical History Surgical History H/O section H/O Spinal surgery History of ankle surgery (10/06/19) History of esophagogastroduodenoscopy (EGD) History of kidney surgery Hx of colonoscopy History of Problems with Anesthesia: No Social History Social History Household Members: Children Housing: House Alcohol intake: current Alcohol intake frequency: does not drink Patient Tobacco Use Status: Current everyday Tobacco user Tobacco use type: Cigarette Cigarette Packs Per Day: 0.5 Cigarettes Per Day: 12 Years Smoked: 25 e-Cigarette/Vaping Use: Never Used Use of substances other than those prescribed or required for medical reasons: No Are you DNR?: No Advance Directives: No Advance Directives Information Provided: Yes Patient : No Current occupational status: employed Cognitive needs: No Hearing needs: No Vision needs: Yes Meds Allergies Allergy/AdvReac Type Severity Reaction Status Date / Time No Known Allergies Allergy Verified 09/23/22 15:26 [No Known Allergies*] Home Medications Medication Instructions Recorded Confirmed Last Taken Type atorvastatin 80 mg tablet 1 tab PO DAILY 11/07/22 11/07/22 Unknown History buspirone 10 mg tablet 1 tab PO BID 11/07/22 11/07/22 Unknown History gabapentin 300 mg capsule 1 cap PO BEDTIME 11/07/22 11/07/22 Unknown History Exam Exam Date and Time: November 11, 2022702 Height,Weight and Vital Signs: Height 5 ft 6 in Weight 99.337 kg Airway Mallampati Class: II TM Dist: >3cm Neck ROM: Full Heart: RRR Lungs: CTA Assessment and Plan Final Anesthetic Review Family History of Problems with Anesthesia: No History of Problems with Anesthesia: No ASA Class: II Final Preanesthetic Review: Meds/Allgs Chart Reviewed, Consent Obtained/Reviewed and Anes Risks/Benef Reviewed Patient Risk: Low Procedure Risk: Low Anesthetic Plan Anesthetic Plan: MAC: Disposition: Standard PACU
[2022-11-11 07:45] VITALS: BP 146/89; PULSE 80; RESP 16; TEMP 36.6; O2SAT 96
--- NOTE | 2022-11-11 08:12 | MHC.SHP ---
Pre-Procedural Eval Section A Date of Service: 11/11/22 The patient is an INPATIENT: No The History & Physical has been completed within 30 days and I have reviewed it.: No Section B Chief Complaint: gastric ulcer,reflux disease Present Medications: see Short Stay Collaborative assessment Medical History: Significant History (Chest pain Chronic GERD History of colon polyps History of diverticulitis of colon Hyperglycemia Hyperlipidemia Mammogram normal Neck pain Nephrolithiasis Obesity Sciatica Tinnitus) History of Previous Operations: Relevant previous surgery/procedure and date(s) (H/O section H/O Spinal surgery History of ankle surgery (10/06/19) History of esophagogastroduodenoscopy (EGD) History of kidney surgery Hx of colonoscopy) Allergies: Allergies Allergy/AdvReac Type Severity Reaction Status Date / Time No Known Allergies Allergy Verified 09/23/22 15:26 [No Known Allergies*] Review of Systems Sugical H&P ROS: Negative: Constitution, Cardiovascular, Respiratory and Gastrointestinal Exam Surgical H&P Exam: Normal: Heart, Normal: Lungs, Normal: Extremities and Normal: Abdomen Plan Diagnosis/Plan: Unchanged I have reviewed the history and physical and performed a pertinent physical examination on my patient. No changes have occurred unless specified. Time Spent With Patient Time: Total time managing care of this patient today ____ minutes.
--- NOTE | 2022-11-11 08:32 | P.OP_ITS ---
Operative Note Operative Note Date of Service: 11/11/22 Narrative: Pre-op diagnosis: follow-up of peptic ulcer disease, GERD, postprandial bloating Post-op diagnosis:?other ( GERD, GASTRITIS, PYLORIC ULCER) Surgeon: Seymour Fisher MD Anesthesia:?MAC FLEXIBLE TRANSORAL UPPER GASTROINTESTINAL ENDOSCOPY WITH BIOPSIES Consent: Indications for the procedure and potential complications of bleeding, perforation, reaction to medications and missed diagnosis were discussed with the patient help of a Turkmen bilingual speech language pathologist and informed consent was obtained. Instrument: Olympus GIF H 190 mid size upper endoscope Monitoring: Vital signs and clinical assessment, continuous EKG monitoring, Pulse oximetry, Carbon Dioxide monitoring and blood pressure monitoring were done throughout the procedure. Procedure: The patient was placed in the left lateral decubitis position and pre-procedure medications were administered and a bite block was placed. The endoscope was inserted into the mouth and advanced under direct vision to the third part of duodenum. A careful inspection was made as the upper endoscope was withdrawn including a retroflexed examination of the proximal stomach; Findings and interventions are described below. Findings: Larynx: Normal Esophagus: GE junction at 38 cms. No esophagitis or Mckeon's. Stomach: Mild diffuse gastric erythema. Biopsies were obtained. A 1 cms clean based chronic appearing ulcer in the pyloric channel - biopsied. Grade 2 flap valve on retroflexed examination of the cardia. Duodenum: Normal bulb and descending duodenum. biopsies were obtained from 3rd part of the duodenum to check for celiac sprue Intervention: Biopsies as noted above Impression and Post Procedure Diagnosis: Endoscopy Findings: STOMACH: Mild diffuse gastric erythema. Biopsies were obtained. A 1 cms clean based chronic appearing ulcer in the pyloric channel - biopsied. DUODENUM: Normal - biopsied to check for celiac sprue Plan: Await pathology results Patient has an appointment on 11/28/22 in the GI Clinic with Seymour Fisher M.D. Above findings were reviewed with the patient with the help of a Turkmen bilingual speech language pathologist and PUD handout was given in the discharge area. Pt stated she takes Ibuprofen infrequently and has not been taking a PPI. She was advised to resume taking Omeprazole 20 mg every morning.
--- NOTE | 2022-11-11 08:32 | PM.OP ---
Brief Operative Note Date of Service: 11/11/22 Pre-op diagnosis: follow-up of peptic ulcer disease, GERD, postprandial bloating Post-op diagnosis: other ( GERD, GASTRITIS, PYLORIC ULCER) Procedure: EGD WITH BIOPSIES Surgeon: Seymour Fisher MD Anesthesia: MAC Was an Lockstitch Topstitcher used for this Procedure?: Yes Lockstitch Topstitcher: Cherrie Otero Estimated blood loss (mL): 0 Pathology: other ( A. small bowel bxs, R/O celiac B. ulcer pyloric channel bxs C. gastric antrum bxs, R/O H. pylori D. gastric body bxs) Condition: stable Disposition: PACU
[2022-11-11] MEDS: Lactated Ringers 1,000 ML 80 ML IVCONT (08:35)
[2022-11-11 09:00] VITALS: BP 147/83; PULSE 71; RESP 16; TEMP 36.6; O2SAT 95
[2022-11-11 09:15] VITALS: BP 126/77; PULSE 69; RESP 16; TEMP 36.6; O2SAT 98
--- NOTE | 2022-11-11 11:03 | HO.POSTANES ---
Post Anesthesia Evaluation Post Anesthesia Evaluation Vital Signs: Vital Signs Temp Pulse Resp BP Pulse Ox O2 Del Method 11/11/22 09:15 98 F 69 16 126/77 98 Room Air 11/11/22 09:00 98 F 71 16 147/83 H 95 Room Air 11/11/22 07:45 97.9 F 80 16 146/89 H 96 Room Air Anesthesia: Monitored Mental Status: Awake Pain Control: Satisfactory Nausea/Vomiting: None Hydration: Adequate Anesthesia-Related Issues: No Anes. Related Issues
== END 2022-11-11 09:42 | disposition home or self-care (01) ==
PROVIDERS: PCP Internal Medicine; Visit Provider Internal Medicine Gastroenterology
PROC: 0DJ08ZZ Inspection of Upper Intestinal Tract, Via Natural or Artificial Opening Endoscopic (ICD-10-PCS; CPT 43235; principal; 2022-11-11 08:30)
DX: K25.9 Gastric ulcer, unspecified as acute or chronic, without hemorrhage or perforation (principal); K21.9 Gastro-esophageal reflux disease without esophagitis; K29.50 Unspecified chronic gastritis without bleeding; B96.81 Helicobacter pylori [H. pylori] as the cause of diseases classified elsewhere; R73.9 Hyperglycemia, unspecified; E78.5 Hyperlipidemia, unspecified; Z87.19 Personal history of other diseases of the digestive system; Z79.82 Long term (current) use of aspirin; Z79.899 Other long term (current) drug therapy; F17.210 Nicotine dependence, cigarettes, uncomplicated
CPT/HCPCS: 43239; 88305; 88342

== ENCOUNTER → 2022-11-13 09:11 | Outpatient (BNVA) | payer MEDICARE, MEDICAID, SELFPAY | PROVIDERS: PCP Internal Medicine; Visit Provider Nurse Practitioner Family | DX: G47.00 Insomnia, unspecified (principal); F41.9 Anxiety disorder, unspecified; F32.A Depression, unspecified; R51.9 Headache, unspecified; G89.29 Other chronic pain; M54.2 Cervicalgia | CPT/HCPCS: 99212 ==

== ENCOUNTER → 2022-11-28 12:55 | Outpatient (BNVA) | payer MEDICARE, MEDICAID, SELFPAY | PROVIDERS: PCP Internal Medicine; Visit Provider Internal Medicine Gastroenterology | DX: K25.9 Gastric ulcer, unspecified as acute or chronic, without hemorrhage or perforation (principal); K21.9 Gastro-esophageal reflux disease without esophagitis; Z86.010 Personal history of colon polyps; Z87.19 Personal history of other diseases of the digestive system | CPT/HCPCS: 99212 ==

== ENCOUNTER → 2022-12-16 08:27 | Outpatient (BNVA) | payer MEDICARE, MEDICAID, SELFPAY | PROVIDERS: PCP Internal Medicine; Visit Provider Nurse Practitioner Family | DX: F41.9 Anxiety disorder, unspecified (principal); F32.A Depression, unspecified; M54.2 Cervicalgia; R51.9 Headache, unspecified; G89.29 Other chronic pain | CPT/HCPCS: 99212 ==

== ENCOUNTER 2022-12-30 09:25 | Outpatient (REF) | payer MEDICARE, MEDICAID, SELFPAY ==
[2022-12-30 11:50] LABS: MANUAL DIFF FLAG NO
[2022-12-30 12:16] LABS: Basophils Absolute Auto 0.1 X10*3/uL (0.0-0.2); Basophils Percent Auto 0.6 % (0-2); Eosinophils Absolute Auto 0.2 X10*3/uL (0.0-0.4); Eosinophils Percent Auto 1.8 % (0-4); Hematocrit 44.9 % (37.0-47.0); Hemoglobin 14.3 g/dl (12.0-16.0); Imm Gran Abs Auto 0.03 X10*3/uL (0.00-0.03); Imm Gran Pct Auto 0.4 % (0.0-0.4); Lymphocytes Absolute Auto 2.2 X10*3/uL (1.2-4.9); Lymphocytes Percent Auto 27.6 % (20-40); Mean Corpuscular HGB Conc 31.8 g/dl (31.0-35.0); Mean Corpuscular Hemoglobin 26.7 pg (27.0-33.0); Mean Corpuscular Volume 83.9 fL (80.0-98.0); Mean Platelet Volume 11.5 fL (9.4-12.3); Monocytes Absolute Auto 1.1 X10*3/uL (0.1-1.2); Monocytes Percent Auto 13.4 % (2-11); Neutrophils Absolute Auto 4.6 x10*3/uL (2.0-8.3); Neutrophils Percent Auto 56.2 % (45-73); Platelet Count 197 X10*3/uL (160-400); Red Blood Count 5.35 X10*6/uL (4.20-5.50); Red Cell Distribution Width 14.1 % (11.0-16.0); White Blood Count 8.1 X10*3/uL (4.8-10.8)
[2022-12-30 12:27] LABS: Alanine Aminotransferase 41 U/L (0-31); Albumin Level 4.1 g/dL (3.5-5.0); Alkaline Phosphatase 85 U/L (39-117); Anion Gap 12 (12-20); Aspartate Amino Transferase 22 U/L (5-31); Bilirubin Total 0.6 mg/dL (0.0-1.0); Blood Urea Nitrogen 12 mg/dL (9-16); Calcium 9.1 mg/dL (8.4-10.2); Carbon Dioxide 28 mmol/L (22-29); Chloride 107 mmol/L (96-108); Cholesterol 213 mg/dL; Estimated Glomerular Filt Rate > 60; Glucose Fasting 119 mg/dL (60-99); HDL Cholesterol 36 mg/dL; LDL Cholesterol Calculated 124 mg/dl; Potassium 4.3 mmol/L (3.3-5.1); Sodium 143 mmol/L (135-145); Total Protein 6.7 g/dL (6.5-8.0); Triglycerides 268 mg/dL
[2022-12-30 12:41] LABS: Estimated Average Glucose 137 mg/dL; Hemoglobin A1c % 6.4 %
== END 2022-12-30 09:26 | disposition home or self-care (01) ==
LOC: HO.HMGCLDS 09:25
PROVIDERS: PCP Internal Medicine; Visit Provider Internal Medicine
DX: R73.9 Hyperglycemia, unspecified (principal); E78.5 Hyperlipidemia, unspecified; R51.9 Headache, unspecified; G89.29 Other chronic pain
CPT/HCPCS: 36415; 80053; 80061; 83036; 85025

== ENCOUNTER 2023-01-21 18:13 | Outpatient (REF) | payer MEDICARE, MEDICAID, SELFPAY ==
--- NOTE | ~2023-01-21 | MR_ITS ---
EXAMINATION: MR CERVICAL SPINE WITHOUT CONTRAST CLINICAL INFORMATION: Radiculopathy, cervical region. COMPARISON: Plain films of the cervical spine 03/18/2022. TECHNIQUE: MRI of the cervical spine was obtained using routine sequences without contrast. FINDINGS: VERTEBRAL BODIES AND PARASPINAL SOFT TISSUES: There is a nonspecific mild hyperlordosis. Intervertebral disc heights are maintained. The vertebral bodies have normal height and contour and no fractures are demonstrated. Overall, marrow signal is homogenous. The paravertebral structures are unremarkable. CERVICOMEDULLARY JUNCTION AND VISUALIZED POSTERIOR FOSSA: The craniocervical and posterior fossa structures are normal. There is mild prominent of the central canal of the spinal cord extending caudad from the level of C4-C5 through T1-T2, with a maximum caliber of 2 mm at the level of C6-C7. There also appears to be mild prominence of the central canal of the cord more caudad in the thoracic spine, incompletely visualized SPINAL LEVELS: C2-C3: There is mild right facet arthropathy. Posterior disc contour is normal. There is no central stenosis and the neural foramina are patent bilaterally. C3-C4: There is mild bilateral facet arthropathy. Posterior disc contour is normal with no cord compression or central stenosis. There are uncovertebral osteophytes and there is mild right foraminal narrowing. C4-C5: There is mild right facet arthropathy. Posterior disc contour is normal and there is no cord compression or central stenosis. There are uncovertebral osteophytes, and there is moderate right and mild left foraminal narrowing. C5-C6: There is mild bilateral facet arthropathy. Posterior disc contour is normal with no cord compression or central stenosis. There are uncovertebral osteophytes, and there is moderate left and mild right foraminal narrowing. C6-C7: The facet joints appear normal bilaterally. Posterior disc contour is normal. There is no spinal cord compression or central stenosis. The neural foramina are patent bilaterally. C7-T1: There is moderate to severe left facet arthropathy. Posterior disc contour is normal and there is no central stenosis or cord compression. There is an intervertebral osteophyte on the left and there is moderate left foraminal narrowing. MR/MR cervical spine wo con IMPRESSION: 1. There is moderate to severe left facet arthropathy at C7-T1. There is no central stenosis or cord compression. There is moderate left foraminal narrowing. 2. At C4-C5 there is facet arthropathy and there are uncovertebral osteophytes. There is moderate right and mild left foraminal narrowing. There is no cord compression or central stenosis. 3. At C5-C6 there is facet arthropathy and there are uncovertebral osteophytes. There is moderate left and mild right foraminal narrowing. 4. There is mild prominence of the central canal of the spinal cord in the cervical and thoracic spine. This could be further evaluated with MRI scan of the thoracic spine without and with contrast and postcontrast images of the cervical spine.
== END 2023-01-21 18:14 | disposition home or self-care (01) ==
LOC: HO.MRI 18:13
PROVIDERS: PCP Internal Medicine; Visit Provider Internal Medicine
DX: M47.22 Other spondylosis with radiculopathy, cervical region (principal); M54.30 Sciatica, unspecified side
CPT/HCPCS: 72141

== ENCOUNTER 2023-02-24 | Outpatient (REF) | payer MEDICARE, MEDICAID, SELFPAY ==
[2023-02-25 15:18] LABS: H Pylori Breath Test Positive (Negative)
== END 2023-02-24 00:01 | disposition home or self-care (01) ==
LOC: HO.LNP
PROVIDERS: Visit Provider Internal Medicine Gastroenterology
DX: K25.9 Gastric ulcer, unspecified as acute or chronic, without hemorrhage or perforation (principal); B96.81 Helicobacter pylori [H. pylori] as the cause of diseases classified elsewhere
CPT/HCPCS: 83013

== ENCOUNTER → 2023-02-24 08:12 | Outpatient (BNVA) | payer MEDICARE, MEDICAID, SELFPAY | PROVIDERS: PCP Internal Medicine; Visit Provider Internal Medicine Gastroenterology | DX: K25.9 Gastric ulcer, unspecified as acute or chronic, without hemorrhage or perforation (principal); K21.9 Gastro-esophageal reflux disease without esophagitis; B96.81 Helicobacter pylori [H. pylori] as the cause of diseases classified elsewhere; Z86.010 Personal history of colon polyps; Z87.19 Personal history of other diseases of the digestive system | CPT/HCPCS: 99212 ==

== ENCOUNTER → 2023-03-03 11:20 | Outpatient (BNVA) | payer MEDICARE, MEDICAID, SELFPAY | PROVIDERS: PCP Internal Medicine; Visit Provider Nurse Practitioner Family | DX: G43.709 Chronic migraine without aura, not intractable, without status migrainosus (principal); M54.2 Cervicalgia; F41.9 Anxiety disorder, unspecified; F32.A Depression, unspecified; G89.29 Other chronic pain | CPT/HCPCS: 99212 ==

== ENCOUNTER 2023-03-12 17:00 | Outpatient (RCR) | payer MEDICARE, MEDICAID, SELFPAY ==
--- NOTE | 2023-02-10 14:55 | MHC.PT.EP ---
[facility] [place] Office [place] Office [place] [facility] [address] Tyler Clark [address] [phone] F: [phone] F: [phone] F: [phone] F: [phone] Physical Therapy Plan of Care Date of Evaluation: Date of Surgery: n/a Diagnosis: headache, cervicalgia Assessment: Patient is a 62 year old female presenting to PT with complaints of pain in her neck and headaches. Pt reports onset of pain began January 2022 due to insidious onset. She presents today with impairments in pain, cervical ROM, posture. Pt's current occupation is none, with baseline physical activities including ADLs. Pt expresses usp goal of reducing pain, and is motivated to work towards this in PT. Clinical presentation today is most consistent with signs and sx associated with degenerative changes as seen on MRI and pt will benefit from skilled PT 1 week x 4 weeks to address the following problems and impairments noted upon evaluation: pain, cervical ROM, posture. Her rehab potential is fair due to this being the third time in the last year she has attended PT for the same diagnosis each time with only slight improvement but minimal rn long term care carry over in terms of managing her pain indicating that it is likely time for her to follow up with a job training specialist as she has not done so in the past. These problems limit the patient with the following functional activities: ADLs. The prescribed treatment plan of care is medically necessary. Co-morbidities of chronic neck pain and headaches were identified and taken into considerations of plan of care. Pt was educated on HEP, role of PT, prognosis, POC. Frequency and Duration: The patient will be seen 1 x week x 4 weeks Short Term Goals: Pt will demonstrate ability to move through available cervical ROM with min to no pain in 2 weeks. Pt will demonstrate improved postural awareness by sitting with biomechanically correct posture without cues throughout session to improve overall postural function in 2 weeks. Yeast Stacker Goals: Pt will demonstrate improved NDI score by 10% in 4 weeks for improved functional mobility. Pt will demonstrate good understanding/compliance of HEP for long management of sx and use at home to maintain any gains made thus far in 4 weeks. Treatment Plan: Modalities to reduce pain, spasms and effusion. Manual therapy to restore motion and function. Therapeutic exercise to improve strength and flexibility. Neuromuscular re-education for posture and balance. Therapeutic activities to return to functional activities of daily living. Electronically signed by: Emma Diggs, PT, DPT, ATC Please sign and return to therapist. Thank you for your referral.
--- NOTE | 2023-03-21 08:34 | MHC.PT.DC ---
[facility] [place] Office [place] Office [place] Office [address] Tyler Clark [address] [phone] F: [phone] F: [phone] F: [phone] F: [phone] Physical Therapy Discharge Report Diagnosis: headache, cervicalgia Date of Surgery: n/a Date of Evaluation: 02/10/23 Date of Discharge: 03/21/23 Treatments to Date: 5 Cancellations to Date: 0 No Shows to Date: 0 Discharge Status: Independent with HEP Recommend MD Follow-up Discharge Summary: Pt saw IT SERVICE TECHNICIAN for final appointment. Pt independent in her program and should follow up with her doctor as scheduled. Electronically signed by: Emma Diggs, PT, DPT, ATC Please sign and return to therapist. Thank you for your referral.
== END 2023-03-21 08:34 | disposition home or self-care (01) ==
LOC: HO.PTCHIC 17:00
PROVIDERS: PCP Internal Medicine; Visit Provider Nurse Practitioner Family
DX: R51.9 Headache, unspecified (principal); M54.2 Cervicalgia
CPT/HCPCS: 97110; 97161

== ENCOUNTER → 2023-04-08 12:12 | Outpatient (BNVA) | payer MEDICARE, MEDICAID, SELFPAY | PROVIDERS: PCP Internal Medicine; Visit Provider Psychiatry & Neurology Neurology | DX: G43.709 Chronic migraine without aura, not intractable, without status migrainosus (principal) | CPT/HCPCS: 64615; 99211; J0585 ==

== ENCOUNTER 2023-05-20 08:15 | Outpatient (REF) | payer MEDICARE, MEDICAID, SELFPAY ==
[2023-05-20 11:32] LABS: MANUAL DIFF FLAG NO
[2023-05-20 11:49] LABS: Basophils Absolute Auto 0.1 X10*3/uL (0.0-0.2); Basophils Percent Auto 0.6 % (0-2); Eosinophils Absolute Auto 0.3 X10*3/uL (0.0-0.4); Eosinophils Percent Auto 3.1 % (0-4); Hematocrit 45.5 % (37.0-47.0); Hemoglobin 14.2 g/dl (12.0-16.0); Imm Gran Abs Auto 0.03 X10*3/uL (0.00-0.03); Imm Gran Pct Auto 0.3 % (0.0-0.4); Lymphocytes Percent Auto 34.8 % (20-40); Mean Corpuscular HGB Conc 31.2 g/dl (31.0-35.0); Mean Corpuscular Hemoglobin 26.2 pg (27.0-33.0); Mean Corpuscular Volume 83.8 fL (80.0-98.0); Mean Platelet Volume 11.6 fL (9.4-12.3); Monocytes Absolute Auto 1.1 X10*3/uL (0.1-1.2); Monocytes Percent Auto 12.6 % (2-11); Neutrophils Absolute Auto 4.3 x10*3/uL (2.0-8.3); Neutrophils Percent Auto 48.6 % (45-73); Platelet Count 196 X10*3/uL (160-400); Red Blood Count 5.43 X10*6/uL (4.20-5.50); Red Cell Distribution Width 14.3 % (11.0-16.0); White Blood Count 8.7 X10*3/uL (4.8-10.8)
[2023-05-20 12:05] LABS: Alanine Aminotransferase 35 U/L (0-31); Albumin Level 4.1 g/dL (3.5-5.0); Alkaline Phosphatase 90 U/L (39-117); Anion Gap 12 (12-20); Aspartate Amino Transferase 18 U/L (5-31); Bilirubin Total 0.5 mg/dL (0.0-1.0); Blood Urea Nitrogen 14 mg/dL (9-16); Calcium 9.3 mg/dL (8.4-10.2); Carbon Dioxide 25 mmol/L (22-29); Chloride 107 mmol/L (96-108); Cholesterol 182 mg/dL; Estimated Glomerular Filt Rate > 60; Glucose Fasting 108 mg/dL (60-99); HDL Cholesterol 33 mg/dL; Iron 99 mcg/dL (30-160); LDL Cholesterol Calculated 91 mg/dl; Percent Iron Saturation 37 % (15-50); Sodium 140 mmol/L (135-145); Total Iron Binding Capacity 269 mcg/dL (228-428); Triglycerides 290 mg/dL; Unsaturated Iron Binding 170 ug/dL
[2023-05-20 12:10] LABS: Estimated Average Glucose 131 mg/dL; Hemoglobin A1c % 6.2 %
== END 2023-05-20 08:16 | disposition home or self-care (01) ==
LOC: HO.HMGCLDS 08:15
PROVIDERS: PCP Internal Medicine; Visit Provider Internal Medicine
DX: R73.9 Hyperglycemia, unspecified (principal); E78.5 Hyperlipidemia, unspecified
CPT/HCPCS: 36415; 80053; 80061; 83036; 83540; 83735; 85025

== ENCOUNTER 2023-07-24 14:44 | Outpatient (AMB) | payer MEDICARE, MEDICAID, SELFPAY ==
--- NOTE | 2023-07-24 14:46 | A.OFFVIS_ITS ---
Intake Vital Signs 07/24/23 14:52 Weight 231 lb 6 oz BP 140/92 H Blood Pressure Location Rt brachial Position Sitting Pulse 106 H Pulse Source Pulse Oximeter Pulse Oximetry (%) 98 Intake Visit Reasons: Botox-confirmed Allergies amitriptyline Adverse Reaction (Intermediate, Verified 07/24/23 14:55) Palpitations propranolol Adverse Reaction (Intermediate, Verified 07/24/23 14:55) Palpitations Medication List - Last Reconciled 07/24/23 by Vane Salmeron MD alprazolam (Xanax) 1 tab 60 min prior to appointment and repeat in 30minutes orally daily; atorvastatin 80 mg PO DAILY buspirone 10 mg PO DAILY magnesium oxide 400 mg PO DAILY omeprazole 20 mg PO DAILY 90 days onabotulinumtoxinA (Botox) 200 units IM ONCE 12 weeks riboflavin (vitamin B2) 400 mg PO DAILY 30 days HPI HPI Comments History of Present Illness Details ? 63y/o female comes for treatment of migraines with botox. ??? Most frequent reported adverse reactions following injection of botox for chronic migraine include neck pain (9%), headache(5%), eyelid ptosis(4%), migraine(4%), muscular weakness(4%), musculuskeletal stiffness(4%), bronchitis(3%), injection site pain (3%), musculoskeletal pain(3%), myalgia(3%), facial paresis(2%), HTN(2%) and muscle spasms(2%) were discussed in detail. ??? Botulinum toxin typeA 200units Lot no [id number] expiration Dec 2025 was diluted with 4 cc of normal saline . ??? Muscles injected- ??? Frontalis 4 sites ??? Procerus 1 site ??? Operations Developer- 2 sites ??? Temporalis- 8 sites ??? Occipitalis- 6 sites ??? Cervical paraspinals- 4 sites ??? Trapezius- 6 sites- 10 units each ??? 5 units each in 31 site ??? Total use- 185units ??? Discarded-15units [facility] Medical History Anxiety Chronic headaches Tinnitus Neck pain Annual physical exam Hyperglycemia Chronic GERD Obesity Chest pain Mammogram normal Hyperlipidemia Sciatica History of colon polyps History of diverticulitis of colon Nephrolithiasis Surgical History History of esophagogastroduodenoscopy (EGD) Hx of colonoscopy History of ankle surgery (10/06/19) H/O Spinal surgery History of kidney surgery H/O section Family History Father Heart attack Mother Diabetes Heart problem Arthritis Social History Household Members: Children Housing: House Alcohol intake: never Patient Tobacco Use Status: Current everyday Tobacco user Tobacco use type: Cigarette Cigarette Packs Per Day: 0.5 Cigarettes Per Day: 12 Years Smoked: 25 e-Cigarette/Vaping Use: Never Used Current occupational status: employed Cognitive needs: No Hearing needs: No Vision needs: Yes Physical Exam Vital Signs: Last Vital Signs Pulse 106 H 07/24/23 14:52 BP 140/92 H 07/24/23 14:52 Pulse Ox 98 07/24/23 14:52 Const General: cooperative, healthy appearing, comfortable and anxious Nutritional Appearance: overweight Orientation/consciousness: patient oriented x3 HEENT Other: No scalp tenderness on palpation. Head: Yes normal to inspection Neck Other: tightness in her neck muscles Resp Effort & Inspection: normal respiratory effort and able to speak in complete sentences Neuro General: patient oriented x3, moves all extremities and CN's II-XI intact bilaterally Cognition (Neuro): normal cognition Motor exam (neuro): 5/5 motor strength present throughout, Normal motor muscle tone present throughout and Other motor observations present (alks with cane ) Deep tendon reflexes (DTR's): Right brachioradialis reflex intensity grade: 2+ and Left brachioradialis reflex intensity grade: 2+ Psych Appearance: grossly normal Mental Status: mental status grossly normal Affect: Anxious affect present Office Procedures Botulinum toxin Injection 94432 - Migraine Procedure code (CPT) selection complete Office Meds onabotulinumtoxinA 200 unit solution for injection Performing Provider: Vane Salmeron MD Performing Location: [facility] [place] [facility] Administered by: Vane Salmeron MD on 07/24/23 15:24 Dose Route Admin Location Dispensed Lot Number Expiration Date [facility] [place] Merchandise Displayer 185 unit subcut 200 units [id number] 12/04/25 5828-4522-30 [employer] Comments: see HPI Assessment & Plan Assessment & Plan (1) Chronic migraine without aura, not intractable, without status migrainosus: Code(s): G43.709 - Chronic migraine without aura, not intractable, without status migrainosus Plan Patient tolerated the procedure well she will call with any side effects, Orders: Orders AMB Botulinum toxin Injection Today G43.709 - Chronic migraine without aura, not intractable, without status migrainosus Medications: New alprazolam (Xanax) 1 tab 60 min prior to appointment and repeat in 30minutes orally daily; 2 tabs 0RF Coding Level of Care Code Est Pt Level 1 (11063) Diagnoses Chronic migraine without aura, not intractable, without status migrainosus G43.709 CPT Codes Botox Injection - Botox 3: 00763 - Migraine ([id number])
[2023-07-24 14:52] VITALS: BP 140/92; PULSE 106; O2SAT 98
== END 2023-07-24 15:35 | disposition home or self-care (01) ==
PROVIDERS: PCP Internal Medicine; Visit Provider Psychiatry & Neurology Neurology
DX: G43.709 Chronic migraine without aura, not intractable, without status migrainosus (principal)
CPT/HCPCS: 64615

== ENCOUNTER → 2023-07-24 14:44 | Outpatient (BNVA) | payer MEDICARE, MEDICAID, SELFPAY | PROVIDERS: PCP Internal Medicine; Visit Provider Psychiatry & Neurology Neurology | DX: G43.709 Chronic migraine without aura, not intractable, without status migrainosus (principal) | CPT/HCPCS: 64615; 99211; J0585 ==

== ENCOUNTER 2023-08-14 09:46 | Outpatient (AMB) | payer MEDICARE, MEDICAID, SELFPAY ==
--- NOTE | 2023-08-14 09:55 | A.OFFVIS_ITS ---
Intake Vital Signs 08/14/23 10:01 Height 5 ft 7 in Weight 232 lb BMI 36.3 BP 140/79 H Blood Pressure Location Lt brachial Position Sitting Pulse 88 Intake Visit Reasons: 6 month follow up Intake Note: Patient follow up for chronic GERD and h pylori results. Patient cc: GERD on and off. Denies any other GI issues. Language Path Required: No Accompanied by: Daughter Allergies amitriptyline Adverse Reaction (Intermediate, Verified 09/11/23 08:47) Palpitations propranolol Adverse Reaction (Intermediate, Verified 09/11/23 08:47) Palpitations Medication List - Last Reconciled 08/14/23 by Seymour Fisher MD alprazolam (Xanax) 1 tab 60 min prior to appointment and repeat in 30minutes orally daily; atorvastatin 80 mg PO DAILY buspirone 10 mg PO DAILY magnesium oxide 400 mg PO DAILY omeprazole 20 mg PO DAILY 90 days onabotulinumtoxinA (Botox) 200 units IM ONCE 12 weeks riboflavin (vitamin B2) 400 mg PO DAILY 30 days HPI 6 month follow up HPI Details CLINIC VISIT FOR THIS 62-YEAR-OLD URDU 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 ?IMAGING STUDIES: 12/28/[address] scan showed: ? Focal colonic wall thickening and pericolonic inflammatory changes in ? the mid ascending colon in the region of a small thickened ? diverticulum. Overall the appearance is most suggestive of right-side diverticulitis. ?ENDOSCOPIC STUDIES:?11/11/22 EGD SHOWED: STOMACH: Mild diffuse gastric erythema. Biopsies were obtained. A 1 cms clean based chronic appearing ulcer in the pyloric channel - biopsied. DUODENUM: Normal -? biopsied to check for celiac sprue Plan:? Patient has an appointment on 11/28/22 in the GI Clinic with Seymour Fisher M.D. Above findings were reviewed with the patient with the help of a Finnish language and literature division chair and PUD handout was given in the discharge area. Pt stated she takes Ibuprofen infrequently and has not been taking a PPI. She was advised to resume taking Omeprazole 20 mg every morning. BIOPSIES SHOWED: A.? Small bowel, biopsy:? Small intestinal mucosa with mildly increased intraepithelial lymphocytes and preserved villous architecture.? See comment. B.? Stomach, pyloric channel ulcer, biopsy: - Mixed pyloric and small intestinal muc alexandra with chronic active inflammation. - Positive for H pylori. C.? Stomach, antrum, biopsy: - Antral-type mucosa with moderate chron ic active inflammation. - Positive for H pylori. D.? Stomach, body, biopsy: - Oxyntic mucosa with mild chronic inact bertram inflammation. - Positive for H pylori. COMMENT:? The lymphocytes in the small bowel (part A) are likely secondary to the H pylori infection. 09/2021 EGD SHOWED: ESOPHAGUS: GE junction at 38 cms. No esophagitis or Mckeon's. Biopsies were obtained from distal esophagus to check for esophagitis. STOMACH: Antral gastritis.? A 1 cms clean based ulcer in the pyloric channel - biopsied. Plan:? Repeat EGD in 10-12 weeks to confirm pyloric channel ulcer has healed. Patient has an appointment on 12/06/21 in the GI Clinic with Seymour Fisher M.D.. 05/15/20? COLONOSCOPY SHOWED: Four polyps removed Moderate diverticulosis seen in the left colon Moderate hemorrhoids on retroflexed exam. Plan: Await pathology results Patient has an appointment on 05/15/20 in the GI Clinic with Seymour Fisher M.D.- Repeat Colonoscopy interval based on path results in 3-5 years if polyps are adenomatous and 10 years if polyps are hyperplastic. Above findings were reviewed with the patient and colon polyps and diverticulosis handouts were given in the discharge area BIOPSIES SHOWED: A. Colon, transverse polyps, polypectomy: Fragments of tubular adenomas. B. Colon, ascending polyp, polypectomy: Fragments of tubular adenoma. C. Rectum, polyp, polypectomy: Fragments of hyperplastic polyp. ?TODAY'S VISIT Pt is accompanied by her daughter who interpreted for the patient Continues to have intermittent heartburn - sometimes it feels like a heart attack Has not been taking Omeprazole for the past 2 months after she ran out - advised to resume. Complains of post prandial bloating Pt was treated with Pylera for H pylori gastritis associated with an ulcer. She stopped PPI for 2 weeks prior to today's visit. Continues to have abdominal bloating after she finishes eating. PAST VISIT: Called patient's daughter, Louise, at [phone] Patient cc: some abdominal pain and denies any other GI issues. 09/2021 pt was treated with Calrithromyc in 500 mg twice daily, amoxicillin 1 gram twice daily and Omeprazole 20 mg twice daily x 14 days for H Pylori infection. Pt completed antibiotic therapy in 09/2021 She was advised to schedule repeat EGD to confirm has healed and H pylori has been eradicated. Pt is accompanied by her daughter, Amy and her 17 month old son. Pt's daughter interpreted for the patient. Pt has been having chest pain and thought she was having a heart attack. Seen at [facility] ED and had blood tests which were negative. Had 8/10 burning retrosternal pain ? Pain was not related to exertion. Pain started in the evening, she went to sleep and pain became worse when she woke. Ate chocolate before pain started. Pain lasted all day. Prescribed Omeprazole 20 mg daily. Patient denies having an upper endoscopy in the past. Had some twinging pain a week ago in the same area as during past episode of diverticulitis. Pain lasted for a day.? Noted some pain today. ? patient denies fever or chills. an episode of diverticulitis in Oct and 2nd episode in Dec. ? Took antibiotics and symptoms have resolved. ? Now I have to be very careful with my diet. ? Notes piercing pain if she takes any spicy food. ? Patient denies change in bowel habits, black stools or rectal bleeding ? Denies dysphagia, heartburn, nausea or vomiting. ? Does not eat much and has gained weight since she is not working due to an ankle injury. ? Continues to have ankle pain ? due to suspected nerve injury. ? Patient denies major cardiac or pulmonary problems, loud snoring was sleep apnea. ? Patient denies being on chronic anticoagulation. ? She denies past problems with anesthesia. ? She had a colonoscopy in 2013 at [facility] in [place] which was negative. ? Patient denies known family history of colon polyps,, colon cancer or other GI malignancy COUNTS INCLUDE 234 BEDS AT THE [facility] Medical History (Updated 09/11/23 @ 09:51 by Lisa Porras MD) Anxiety Chronic headaches Tinnitus Neck pain Annual physical exam Chronic GERD Obesity Chest pain Mammogram normal Hyperlipidemia Sciatica History of colon polyps History of diverticulitis of colon Nephrolithiasis Surgical History History of esophagogastroduodenoscopy (EGD) Hx of colonoscopy History of ankle surgery (10/06/19) H/O Spinal surgery History of kidney surgery H/O section Family History Father Heart attack Mother Diabetes Heart problem Arthritis Social History Household Members: Children Housing: House Alcohol intake: never Patient Tobacco Use Status: Current everyday Tobacco user Tobacco use type: Cigarette Cigarette Packs Per Day: 0.5 Cigarettes Per Day: 12 Years Smoked: 25 e-Cigarette/Vaping Use: Never Used Current occupational status: employed Cognitive needs: No Hearing needs: No Vision needs: Yes Review of Systems Const All systems reviewed & are unremarkable except as noted in HPI and below Physical Exam Vital Signs: Last Vital Signs Pulse 88 08/14/23 10:01 BP 140/79 H 08/14/23 10:01 BMI result Body Mass Index 36.3 Const General: healthy appearing and no acute distress Nutritional Appearance: obese Orientation/consciousness: patient oriented x3 Limitations: language barrier HEENT Head: Yes normal to inspection Ears: hearing grossly normal bilaterally Mouth: Normal oral and palatal mucosa present Eyes Sclerae: sclerae normal Pupils: Equal, round and reactive pupils present Neck Neck: Yes normal visual inspection Chest Chest palpation & inspection: normal inspection of the chest Resp Effort & Inspection: normal respiratory effort Auscultation: clear to auscultation bilaterally Cardio Palpation: normal PMI Rate: regular rate Rhythm: regular rhythm Heart sounds: S1 normal heart sound present, S2 normal heart sound present and no murmurs GI Palpation (GI): Soft to palpation, nontender and No hepatosplenomegaly present Auscultation: normal bowel sounds Rectal Exam - Female: deferred Skin General skin exam: no rashes or lesions noted Neuro General: patient oriented x3, gait normal and moves all extremities Cranial nerves: Yes Equal, round and reactive pupils present Psych Appearance: grossly normal Mental Status: mental status grossly normal Assessment & Plan Assessment & Plan (1) Gastric ulcer due to Helicobacter pylori: Code(s): K25.9 - Gastric ulcer, unspecified as acute or chronic, without hemorrhage or perforation; B96.81 - Helicobacter pylori [H. pylori] as the cause of diseases classified elsewhere (2) Chronic GERD: Comment: EGD 09/2021 s/p H pylori tx Code(s): K21.9 - Gastro-esophageal reflux disease without esophagitis (3) History of colon polyps: Comment: 05/15/20 colonoscopy showed diverticulosis and 3 small (< 10 mm) adenomatous polyps were removed, repeat colon in 3 yrs. Code(s): Z86.010 - Personal history of colonic polyps (4) History of diverticulitis of colon: Code(s): Z87.19 - Personal history of other diseases of the digestive system (5) Abdominal bloating: Code(s): R14.0 - Abdominal distension (gaseous) Plan 63-year-old Finnish speaking female referred to GI to schedule a colonoscopy for screening and due to 2 episodes of diverticulitis over 6 months in the past. Patient denied known family history of colon polyps or cancer and is considered average risk for colon cancer. She had a colonoscopy in 2013 at [facility] in [place] which was negative. 05/15/2020 colonoscopy showed diverticulosis and 3 small (< 10 mm) adenomatous polyps were removed. ? Repeat colonoscopy is advised in 3 years. 05/23 pt was seen with abd pain and given PO antibiotics for suspected diverticu litis with resolution 09/03/21 Pt complains of atypical chest pain, seen at [facility] ED and prescribed Omeprazole 20 mg daily - only taking intermittently and advised to take daily. 09/2021 EGD showed a?1 cms clean based ulcer in the pyloric channel - biopsied. Gastric biopsies were positive for Helicobacter pylori - 09/2021 pt was treated with Calrithromycin 500 mg twice daily, amoxicillin 1 gram twice daily and Omeprazole 20 mg twice daily x 14 days for H Pylori infection. Pt completed antibiotic therapy in 09/2021 FU EGD was performed and showed a 1 cms clean based chronic appearing ulcer in the pyloric channel. Gastric biopsies were positive for H Pylori and pt was given a prescription for Pylera x 14 days. 02/24/23 H Pylori breath test today Schedule an EGD (FU of ) and a colonoscopy for FU of colon polyps - scheduled on 12/01/23 FU in 6 months. Medications: New simethicone (Gas Relief (simethicone)) 250 mg (2 x 125 mg) PO BID PRN 60 tabs 3RF abdominal distention 30 days R14.0 - Abdominal distension (gaseous) Refilled omeprazole 20 mg PO DAILY 90 caps 1RF 90 days K25.9 - Gastric ulcer, unspecified as acute or chronic, without hemorrhage or perforation, B96.81 - Helicobacter pylori [H. pylori] as the cause of diseases classified elsewhere Coding Level of Care Code Est Pt Level 4 (17208) Diagnoses Gastric ulcer due to Helicobacter pylori K25.9; B96.81 Chronic GERD K21.9 History of colon polyps Z86.010 History of diverticulitis of colon Z87.19 Abdominal bloating R14.0 Time Spent (min) 22
[2023-08-14 10:01] VITALS: BP 140/79; PULSE 88; BMI 36.3
== END 2023-08-14 10:19 | disposition home or self-care (01) ==
PROVIDERS: Visit Provider Internal Medicine Gastroenterology
DX: K25.9 Gastric ulcer, unspecified as acute or chronic, without hemorrhage or perforation (principal); B96.81 Helicobacter pylori [H. pylori] as the cause of diseases classified elsewhere; K21.9 Gastro-esophageal reflux disease without esophagitis; Z86.010 Personal history of colon polyps; Z87.19 Personal history of other diseases of the digestive system; R14.0 Abdominal distension (gaseous)
CPT/HCPCS: 99214

== ENCOUNTER → 2023-08-14 09:46 | Outpatient (BNVA) | payer MEDICARE, MEDICAID, SELFPAY | PROVIDERS: Visit Provider Internal Medicine Gastroenterology | DX: K25.9 Gastric ulcer, unspecified as acute or chronic, without hemorrhage or perforation (principal); B96.81 Helicobacter pylori [H. pylori] as the cause of diseases classified elsewhere; K21.9 Gastro-esophageal reflux disease without esophagitis; R14.0 Abdominal distension (gaseous); Z87.19 Personal history of other diseases of the digestive system; Z86.010 Personal history of colon polyps | CPT/HCPCS: 99212 ==

== ENCOUNTER 2023-09-11 08:45 | Outpatient (AMB) | payer MEDICARE, MEDICAID, SELFPAY ==
[2023-09-11 08:47] VITALS: BP 138/78; PULSE 99; O2SAT 99; BMI 36.3
--- NOTE | 2023-09-11 08:47 | A.OFFVIS_ITS ---
Intake Vital Signs 09/11/23 08:47 Height 5 ft 7 in Weight 232 lb BMI 36.3 BP 138/78 Blood Pressure Location Lt brachial Position Sitting Pulse 99 Pulse Source Pulse Oximeter Pulse Oximetry (%) 99 Oxygen Delivery Method Room Air Intake Visit Reasons: AWV G0439 Allergies amitriptyline Adverse Reaction (Intermediate, Verified 09/11/23 08:47) Palpitations propranolol Adverse Reaction (Intermediate, Verified 09/11/23 08:47) Palpitations Medication List - Last Reconciled 09/11/23 by Lisa Porras MD alprazolam (Xanax) 1 tab 60 min prior to appointment and repeat in 30minutes orally daily; atorvastatin 80 mg PO DAILY buspirone 10 mg PO DAILY magnesium oxide 400 mg PO DAILY omeprazole 20 mg PO DAILY 90 days onabotulinumtoxinA (Botox) 200 units IM ONCE 12 weeks riboflavin (vitamin B2) 400 mg PO DAILY 30 days simethicone (Gas Relief (simethicone)) 250 mg (2 x 125 mg) PO BID PRN 30 days HPI AWV G0439 HPI Details Pt presents for annual. Patient complains of intermittent chest pain pressure-like with left shoulder tingling sensation and numbness on and off usually when under lot of stress. The symptoms usually last few minutes, once or twice a week. Patient is not physically active. Patient denies diaphoresis palpitations radiation of the pain to the jaw, PND or orthopnea Initiated the conversation about Advanced Directives. Advanced Directives help? patients prepare for current and future decisions about their medical treatment? and place of care. Discussed with patient that it is a process where a patients? current condition and prognosis are reviewed, their wishes for information? regarding their illness are elicited, and likely medical dilemmas are presented? and options discussed. The form can be amended as needed, reviewed yearly and? make changes as needed IPPE/AWV ? year old presents? for her ? Annual? Wellness Visit, initial visit.? Medical / Social History Reviewed? Past Medical History ?Yes? . ? [place]? of Care / Care Team list updated ?Yes . ? Surgical/Hospitalization? History ?Yes . ? Current Medications? (including OTC and supplements) ?Yes . ? Family History ?Yes? . ? Tobacco? Control form ?Yes . ? AUDIT-C (Alcohol use) form? ?Yes . ? Illicit drug use in Social? History ?Yes . ? Current diagnosis of? depression? ?No ? Appropriate PHQ2/PHQ9? completed ?Yes . ? Data entered by ?Medical? Warehouse Specialist and reviewed by provider ? Fall Risk ? Fall? History? Have you had any falls with? injury in the past year? ?No . ? Have you had two or more? falls in the past year? ?No . ? Fall Risk Assessment: ?No? falls in the past year . ? HRA filled out by? the patient, reviewed by Provider and scanned. ? IPPE/AWV ? Balance? [place]? ?Yes . ? Tandem? walk ?Yes . ? Walk and? Turn ?Yes . ? Rise from? sit to stand ?Yes . ?Vision? Corrective? lens ?Yes ? Vision? screen ? Up-to-date, has an appointment [] for vision? screening and glaucoma screening ?Hearing? Whisper? test ?pass .? Initiated the conversation about Advanced Directives. Advanced Directives help? patients prepare for current and future decisions about their medical treatment? and place of care. Discussed with patient that it is a process where a patie nts? current condition and prognosis are reviewed, their wishes for information? regarding their illness are elicited, and likely medical dilemmas are presented? and options discussed. The form can be amended as needed, reviewed yearly and? make changes as needed Written? Plan?Completed. See Patient? Documents. [facility] Medical History (Updated 09/11/23 @ 09:51 by Lisa Porras MD) Anxiety Chronic headaches Tinnitus Neck pain Annual physical exam Chronic GERD Obesity Chest pain Mammogram normal Hyperlipidemia Sciatica History of colon polyps History of diverticulitis of colon Nephrolithiasis Surgical History History of esophagogastroduodenoscopy (EGD) Hx of colonoscopy History of ankle surgery (10/06/19) H/O Spinal surgery History of kidney surgery H/O section Family History Father Heart attack Mother Diabetes Heart problem Arthritis Social History Household Members: Children Housing: House Alcohol intake: never Patient Tobacco Use Status: Current everyday Tobacco user Tobacco use type: Cigarette Cigarette Packs Per Day: 0.5 Cigarettes Per Day: 12 Years Smoked: 25 e-Cigarette/Vaping Use: Never Used Current occupational status: employed Cognitive needs: No Hearing needs: No Vision needs: Yes Questionnaire Medicare Wellness Checkup What gender do you identify with?: female During the past 4 weeks, how much have you been bothered by emotional problems such as feeling anxious, depressed, irritable, sad or downhearted, and blue?: moderately During the past 4 weeks, has your physical & emotional health limited your social activities with family, friends, neighbors, or groups?: not at all During the past 4 weeks, how much bodily pain have you generally had?: moderate pain During the past 4 weeks, was someone available to help you if you needed & wanted help?: yes, as much as I wanted During the past 4 weeks, what was the hardest physical activity you could do for at least 2 minutes?: moderate Can you get to places out of walking distance without help? (For eg., can you travel alone on buses, taxis or drive your car?): Yes Can you go shopping for groceries or clothes without someone's help?: Yes Can you prepare your own meals?: Yes Can you do your housework without help?: No Because of any health problems, do you need the help of another person with your personal care needs such as eating, bathing, dressing or getting around the house?: No Can you handle your own money without help?: Yes During the past 4 weeks, how would you rate your health in general?: fair During the past 4 weeks how have things been going for you?: good & bad parts about equal Are you having difficulties driving your car?: no Do you always fasten your seat belt when you are in a car?: yes, usually During past 4 weeks, have you been bothered by the following: never: Falling or dizzy when standing up, Sexual problems?, Teeth or denture problems? and Problems using the telephone? and seldom: Trouble eating well? and Tiredness or fatigue? Have you fallen 2 or more times in the past year?: No Are you afraid of falling?: Yes Are you a smoker?: yes, and I might quit During the past 4 weeks, how many drinks of wine, beer, or other alcoholic beverages did you have?: no alcohol at all Do you exercise for about 20 minutes 3 or more times a week?: yes, some of the time Have you been given information to help with the following?: no: Hazards in your house that might hurt you? and no: Keeping track of your medications? How often do you have trouble taking medicines the way you have been told to take them?: I always take medicine as prescribed How confident are you that you can control & manage most of your health problems?: somewhat confident What is your race?: White Mini Mental State Exam (MMSE) Orientation What is the (year) (season) (date) (day) (month)?: year, season, date, day and month Where are we (state) (county) (town or city) (hospital) (floor)?: state, county, town or city, hospital/clinic and floor Registration Name of 3 unrelated objects clearly and slowly, then ask patient to repeat all 3 of them. (1st repeat determines score. Make sure they can repeat all three): object 1, object 2 and object 3 Attention & Calculation (CHOOSE ONE) Spell WORLD backwards (DLROW): 5 letters Recall Ask patient to repeat the 3 items from question #3.: object 1, object 2 and object 3 Language Show patient a wristwatch & ask what it is. Repeat for pencil.: watch and pencil Ask the patient to repeat the phrase 'No ifs, ands, or buts' after you.: correct Ask the patient to 'take a piece of paper with their right hand' 'fold paper in half' 'place paper on floor': take paper in right hand, fold paper in half and place paper on floor Print the sentence 'CLOSE YOUR EYES' on a piece. If patient actually closes eyes then score.: followed written direction Give patient a blank piece of paper & ask to write a sentence. Score if it contains a noun & verb.: sentence contains subject and verb Score Score: 29 Activity of Daily Living Bathing - sponge bath, tub bath or shower: receives no assistance (gets in/out by self, if usual bathing means Dressing - getting clothes from closets & drawers, including inner/outer garments & fasteners.: gets clothes & gets completely dressed without help Toileting - going to the 'toilet room' for urine/bowel elimination & cleaning self/arranging clothes: goes to toilet room, cleans self, arranges clothes without help Transfer: moves in & out of bed and chair without help (may use support object) Continence: controls urination/bowel movements completely by self Feeding: feeds self without help Total Score: 0 Information obtained from: patient Using telephone: independent Traveling: independent Shopping: independent Preparing meals: needs assistance Housework: needs assistance Taking medicine: independent Managing money: independent PHQ-9 Over the last 2 weeks, how often have you been bothered by any of the following problems? 1. Little interest or pleasure in doing things: not at all 2. Feeling down, depressed, or hopeless: not at all 3. Trouble falling or staying asleep, or sleeping too much: not at all 4. Feeling tired or having little energy: not at all 5. Poor appetite or overeating: not at all 6. Feeling bad about yourself - or that you are a failure or have let yourself or your family down: not at all 7. Trouble concentrating on things, such as reading the newspaper or watching television: not at all 8. Moving or speaking so slowly that other people could have noticed. Or the opposite - being so fidgety or restless that you have been moving around a lot more than usual: not at all 9. Thoughts that you would be better off or of hurting yourself in some way: not at all Total score: 0 Depression Screening Interpretation: Negative Depression Screening Done: Yes Source: Developed by Drs. Markel Mendes, Chuyita Da Silva, Chadwick Cabello and colleagues, with an educational bayron from [employer]. Review of Systems Const All systems reviewed & are unremarkable except as noted in HPI and below Reports no additional complaints Eyes Reports no additional complaints ENT Reports no additional complaints Card Reports no additional complaints Resp Reports no additional complaints GI Reports no additional complaints Reports no additional complaints Physical Exam Vital Signs: Last Vital Signs Pulse 99 09/11/23 08:47 BP 138/78 09/11/23 08:47 Pulse Ox 99 09/11/23 08:47 Oxygen Delivery Method Room Air 09/11/23 08:47 BMI result Body Mass Index 36.3 Const General: no acute distress HEENT Head: Yes normal to inspection Ears: hearing grossly normal bilaterally General nose exam: Normal external nose present Face and sinus: Yes normal facial exam Mouth: Normal oral and palatal mucosa present Throat: Yes posterior oropharynx normal Eyes General: appearance normal, both eyes and all related structures Neck Neck: Yes no lymphadenopathy and Yes supple Resp Effort & Inspection: normal respiratory effort Auscultation: clear to auscultation bilaterally Cardio Rhythm: regular rhythm Heart sounds: S1 normal heart sound present and S2 normal heart sound present GI Inspection: Yes normal to inspection Palpation (GI): Soft to palpation Auscultation: normal bowel sounds Extrem General: Yes normal to inspection and Yes no clubbing, cyanosis or edema Assessment & Plan Assessment & Plan (1) Hyperglycemia: Code(s): R73.9 - Hyperglycemia, unspecified Plan: Patient will return for fasting labs including A1c, ADA diet increase exercise weight loss discussed with the patient. If A1c is elevated GLP 1 agonist will be tried (2) Annual physical exam: Code(s): Z00.00 - Encounter for general adult medical examination without abnormal findings Plan: Of anesthetic physical activity weight loss discussed with the patient. She is up-to-date with mammogram. Patient follows up with GI for peptic ulcer disease and will have repeat EGD (3) Hyperlipidemia: Code(s): E78.5 - Hyperlipidemia, unspecified Plan: Continue statin (4) Depression: Comment: Follows up with Psychiatry counseling Code(s): F32.A - Depression, unspecified Plan: Continue buspirone for chronic anxiety and hydroxyzine as needed. (5) Chest pain: Code(s): R07.9 - Chest pain, unspecified Plan: For atypical chest pain and risk factors including hyperlipidemia morbid obesity and hyperglycemia patient will be referred for nuclear stress test (6) Sciatica: Code(s): M54.30 - Sciatica, unspecified side Plan: Refer for physical therapy (7) Chronic migraine without aura, not intractable, without status migrainosus: Comment: f/u with neurology , getting botox inj Code(s): G43.709 - Chronic migraine without aura, not intractable, without status migrainosus (8) Morbid obesity: Code(s): E66.01 - Morbid (severe) obesity due to excess calories Plan: Weight loss discussed with patient Orders: Orders Comprehensive [place]. Panel Fast Today E78.5 - Hyperlipidemia, unspecified, F32.A - Depression, unspecified, R07.9 - Chest pain, unspecified, R73.9 - Hyperglycemia, unspecified, Z00.00 - Encounter for general adult medical examination without abnormal findings Hemoglobin A1c Today E78.5 - Hyperlipidemia, unspecified, F32.A - Depression, unspecified, R07.9 - Chest pain, unspecified, R73.9 - Hyperglycemia, unspecified, Z00.00 - Encounter for general adult medical examination without abnormal findings Lipid Panel Today E78.5 - Hyperlipidemia, unspecified, F32.A - Depression, unspecified, R07.9 - Chest pain, unspecified, R73.9 - Hyperglycemia, unspecified, Z00.00 - Encounter for general adult medical examination without abnormal findings Comprehensive [place]. Panel Fast 6 Months E78.5 - Hyperlipidemia, unspecified, R73.9 - Hyperglycemia, unspecified, Z00.00 - Encounter for general adult medical examination without abnormal findings Complete Blood Count Auto Diff 6 Months E78.5 - Hyperlipidemia, unspecified, R73.9 - Hyperglycemia, unspecified, Z00.00 - Encounter for general adult medical examination without abnormal findings Complete Blood Count Auto Diff Today E78.5 - Hyperlipidemia, unspecified, F32.A - Depression, unspecified, R07.9 - Chest pain, unspecified, R73.9 - Hyperglycemia, unspecified, Z00.00 - Encounter for general adult medical examination without abnormal findings TSH reflex Free T4 Today E78.5 - Hyperlipidemia, unspecified, F32.A - Depression, unspecified, R07.9 - Chest pain, unspecified, R73.9 - Hyperglycemia, unspecified, Z00.00 - Encounter for general adult medical examination without abnormal findings CA stress test Today E78.5 - Hyperlipidemia, unspecified, R07.9 - Chest pain, unspecified, R73.9 - Hyperglycemia, unspecified CA lexiscan stress w sal Today R07.9 - Chest pain, unspecified PT Evaluation and Treatment Today M54.30 - Sciatica, unspecified side Hemoglobin A1c 6 Months E78.5 - Hyperlipidemia, unspecified, R73.9 - Hyperglycemia, unspecified, Z00.00 - Encounter for general adult medical examination without abnormal findings Lipid Panel 6 Months E78.5 - Hyperlipidemia, unspecified, R73.9 - Hyperglycemia, unspecified, Z00.00 - Encounter for general adult medical examination without abnormal findings Medications: New buspirone 10 mg PO BID 180 tabs 3RF Refilled atorvastatin 80 mg PO DAILY 90 tabs 3RF Quality Reporting (2019) Depression/Bipolar (159/160/161/177) PHQ-9: Total score: 0 Coding Level of Care Code Medicare Subsequent (G0439) Diagnoses Hyperglycemia R73.9 Annual physical exam Z00.00 Hyperlipidemia E78.5 Depression F32.A Chest pain R07.9 Sciatica M54.30 Chronic migraine without aura, not intractable, without status migrainosus G43.709 Morbid obesity E66.01 CPT Codes Advance Care Planning - Time spent: 1-15 minutes, not on file ([id number]) Advance Care Planning Advance Care Planning discussion: Exists, not on file Forms completed: Health Care Proxy Time spent: 1-15 minutes, not on file
== END 2023-09-11 09:41 | disposition home or self-care (01) ==
PROVIDERS: PCP Internal Medicine; Visit Provider Internal Medicine
DX: Z00.00 Encounter for general adult medical examination without abnormal findings (principal); E66.01 Morbid (severe) obesity due to excess calories; Z68.36 Body mass index [BMI] 36.0-36.9, adult; R73.9 Hyperglycemia, unspecified; E78.5 Hyperlipidemia, unspecified; F32.A Depression, unspecified; R07.9 Chest pain, unspecified; M54.30 Sciatica, unspecified side; G43.709 Chronic migraine without aura, not intractable, without status migrainosus
CPT/HCPCS: 1124F; G0439

== ENCOUNTER 2023-09-15 06:35 | Outpatient (REF) | payer MEDICARE, MEDICAID, SELFPAY ==
[2023-09-15 11:13] LABS: MANUAL DIFF FLAG NO
[2023-09-15 11:34] LABS: Estimated Average Glucose 137 mg/dL; Hemoglobin A1c % 6.4 % (<6.0)
[2023-09-15 11:35] LABS: Basophils Absolute Auto 0.1 X10*3/uL (0.0-0.2); Basophils Percent Auto 0.6 % (0-2); Eosinophils Absolute Auto 0.2 X10*3/uL (0.0-0.4); Eosinophils Percent Auto 2.6 % (0-4); Hematocrit 45.5 % (37.0-47.0); Hemoglobin 14.7 g/dl (12.0-16.0); Imm Gran Abs Auto 0.03 X10*3/uL (0.00-0.03); Imm Gran Pct Auto 0.3 % (0.0-0.4); Lymphocytes Absolute Auto 2.6 X10*3/uL (1.2-4.9); Lymphocytes Percent Auto 28.7 % (20-40); Mean Corpuscular HGB Conc 32.3 g/dl (31.0-35.0); Mean Corpuscular Hemoglobin 26.5 pg (27.0-33.0); Mean Platelet Volume 11.1 fL (9.4-12.3); Monocytes Percent Auto 11.1 % (2-11); Neutrophils Absolute Auto 5.1 x10*3/uL (2.0-8.3); Neutrophils Percent Auto 56.7 % (45-73); Platelet Count 201 X10*3/uL (160-400); Red Blood Count 5.55 X10*6/uL (4.20-5.50); Red Cell Distribution Width 14.1 % (11.0-16.0); White Blood Count 9.1 X10*3/uL (4.8-10.8)
[2023-09-15 11:38] LABS: Alanine Aminotransferase 40 U/L (0-31); Albumin Level 4.3 g/dL (3.5-5.0); Alkaline Phosphatase 94 U/L (39-117); Anion Gap 15 (12-20); Aspartate Amino Transferase 24 U/L (5-31); Bilirubin Total 0.5 mg/dL (0.0-1.0); Blood Urea Nitrogen 11 mg/dL (9-16); Calcium 9.4 mg/dL (8.4-10.2); Carbon Dioxide 28 mmol/L (22-29); Chloride 102 mmol/L (96-108); Cholesterol 209 mg/dL (<200); Estimated Glomerular Filt Rate > 60; Glucose Fasting 128 mg/dL (60-99); HDL Cholesterol 32 mg/dL (>40); LDL Cholesterol Calculated 125 mg/dL (<100); Potassium 3.8 mmol/L (3.3-5.1); Sodium 141 mmol/L (135-145); Total Protein 7.4 g/dL (6.5-8.0); Triglycerides 261 mg/dL (<150)
[2023-09-15 12:01] LABS: TSH reflex Free T4 0.84 uIU/mL (0.32-4.0)
== END 2023-09-15 06:36 | disposition home or self-care (01) ==
LOC: HO.HMGCLDS 06:35
PROVIDERS: PCP Internal Medicine; Visit Provider Internal Medicine
DX: Z00.00 Encounter for general adult medical examination without abnormal findings (principal); R73.9 Hyperglycemia, unspecified; E78.5 Hyperlipidemia, unspecified; F32.A Depression, unspecified; R07.9 Chest pain, unspecified
CPT/HCPCS: 36415; 80053; 80061; 83036; 84443; 85025

== ENCOUNTER → 2023-10-06 08:19 | Outpatient (REF) | payer MEDICARE, MEDICAID, SELFPAY ==
--- NOTE | 2023-10-06 08:21 | CA_ITS ---
Acquisition Time: 2023-10-06 08:34:37 Total Exercise Time: 00:05:01 Test Indications: CHEST PAIN Medications: ATORVASTATIN BUSPIRONE ALPRAZOLAM OMEPRAZOLE Protocol: AMIE Max HR: 146 BPM 92% of Pred: 157 BPM Max BP: 166/080 mmHG Max Work Load: 6.2 METS Exercise stress test exercise 5 min 1 sec of Amie protocol (stage 2 reduced speed to 2.2 MPH) achieving 92% MPHR, with mild SOB, no chest disomfort, without arrhythmias, with normotensive response to exericse, with ST depressions in leads 2, 3, aVF. Test reviewed with Dr. Sanchez. Referred By: Lisa Porras Overread By: Cynthia Wolfe
== END ==
LOC: HO.CARD 08:19
PROVIDERS: Visit Provider Internal Medicine
DX: R07.9 Chest pain, unspecified (principal); R73.9 Hyperglycemia, unspecified; E78.5 Hyperlipidemia, unspecified
CPT/HCPCS: 93017

== ENCOUNTER → 2023-10-06 08:21 | Outpatient (BNV) | payer MEDICARE, MEDICAID, SELFPAY | PROVIDERS: Visit Provider Nurse Practitioner | DX: R06.02 Shortness of breath (principal) | CPT/HCPCS: 93016; 93018 ==

== ENCOUNTER → 2023-11-04 14:04 | Outpatient (BNVA) | payer MEDICARE, MEDICAID, SELFPAY | PROVIDERS: PCP Internal Medicine; Visit Provider Psychiatry & Neurology Neurology ==

== ENCOUNTER 2023-11-10 09:07 | Outpatient (AMB) | payer MEDICARE, MEDICAID, SELFPAY ==
[2023-11-10 09:33] VITALS: BP 120/84; PULSE 91; O2SAT 95; BMI 36.3
--- NOTE | 2023-11-10 09:33 | MHC.OFFVIS ---
Intake Vital Signs 11/10/23 09:33 Height 5 ft 7 in Weight 231 lb 8 oz BMI 36.3 BP 120/84 Blood Pressure Location Lt brachial Position Sitting Pulse 91 Pulse Source Pulse Oximeter Pulse Oximetry (%) 95 Oxygen Delivery Method Room Air Intake Visit Reasons: Botox - Confirmed Intake Note: Pt presents to the office today for botox injections. Allergies amitriptyline Adverse Reaction (Intermediate, Verified 11/10/23 09:35) Palpitations propranolol Adverse Reaction (Intermediate, Verified 11/10/23 09:35) Palpitations Medication List - Last Reconciled 11/10/23 by Vane Salmerno MD alprazolam (Xanax) 1 tab 60 min prior to appointment and repeat in 30minutes orally daily; atorvastatin 80 mg PO DAILY duloxetine 30 mg PO DAILY hydroxyzine HCl 10 mg PO BEDTIME magnesium oxide 400 mg PO DAILY omeprazole 20 mg PO DAILY 90 days onabotulinumtoxinA (Botox) 200 units IM ONCE 12 weeks riboflavin (vitamin B2) 400 mg PO DAILY 30 days simethicone (Gas Relief (simethicone)) 250 mg (2 x 125 mg) PO BID PRN 30 days HPI HPI Comments History of Present Illness Details ? 63y/o female comes for treatment of migraines with botox. How many migraine days prior to botox 30 days How long do the migraines last- 1 day Intensity of migraine8/10 ER visits related to migraine -2 Effectiveness of botox from last two treatment(s) How many migraine days since receiving treatment:20 days Change? in intensity of migraine?4/10 Change in frequency of migraine?decreased Change in use of acute medication for migraine?decreased Change in quality of life?better ER visits related to migraine?none Have at least three months elapsed since last treatment (Last botox date - frequency of injections) 07/24/23 ??? Most frequent reported adverse reactions following injection of botox for chronic migraine include neck pain (9%), headache(5%), eyelid ptosis(4%), migraine(4%), muscular weakness(4%), musculuskeletal stiffness(4%), bronchitis(3%), injection site pain (3%), musculoskeletal pain(3%), myalgia(3%), facial paresis(2%), HTN(2%) and muscle spasms(2%) were discussed in detail. ??? Botulinum toxin typeA 200units Lot no [id number] expiration February 2026 was diluted with 4 cc of normal saline . ??? Muscles injected- ??? Frontalis 4 sites ??? Procerus 1 site ??? Human Resources Director- 2 sites ??? Temporalis- 8 sites ??? Occipitalis- 6 sites ??? Cervical paraspinals- 4 sites ??? Trapezius- 6 sites- 10 units each ??? 5 units each in 31 site ??? Total use- 185units ??? Discarded-15units [facility] Medical History Anxiety Chronic headaches Tinnitus Neck pain Annual physical exam Chronic GERD Obesity Chest pain Mammogram normal Hyperlipidemia Sciatica History of colon polyps History of diverticulitis of colon Nephrolithiasis Surgical History History of esophagogastroduodenoscopy (EGD) Hx of colonoscopy History of ankle surgery (10/06/19) H/O Spinal surgery History of kidney surgery H/O section Family History Father Heart attack Mother Diabetes Heart problem Arthritis Social History Household Members: Children Housing: House Alcohol intake: never Patient Tobacco Use Status: Current everyday Tobacco user Tobacco use type: Cigarette Cigarette Packs Per Day: 0.5 Cigarettes Per Day: 12 Years Smoked: 25 e-Cigarette/Vaping Use: Never Used Current occupational status: employed Cognitive needs: No Hearing needs: No Vision needs: Yes Physical Exam Vital Signs: Last Vital Signs Pulse 91 11/10/23 09:33 BP 120/84 11/10/23 09:33 Pulse Ox 95 11/10/23 09:33 Oxygen Delivery Method Room Air 11/10/23 09:33 BMI result Body Mass Index 36.3 Const General: cooperative, healthy appearing, comfortable and anxious Nutritional Appearance: overweight Orientation/consciousness: patient oriented x3 HEENT Other: No scalp tenderness on palpation. Head: Yes normal to inspection Neck Other: tightness in her neck muscles Resp Effort & Inspection: normal respiratory effort and able to speak in complete sentences Neuro General: patient oriented x3, moves all extremities and CN's II-XI intact bilaterally Cognition (Neuro): normal cognition Motor exam (neuro): 5/5 motor strength present throughout, Normal motor muscle tone present throughout and Other motor observations present (alks with cane ) Deep tendon reflexes (DTR's): Right brachioradialis reflex intensity grade: 2+ and Left brachioradialis reflex intensity grade: 2+ Psych Appearance: grossly normal Mental Status: mental status grossly normal Affect: Anxious affect present Office Procedures Botulinum toxin Injection 35576 - Migraine Procedure code (CPT) selection complete Office Meds onabotulinumtoxinA 200 unit solution for injection Performing Provider: Vane Salmeron MD Performing Location: [facility] [place] [facility] Administered by: Vane Salmeron MD on 11/10/23 10:12 Dose Route Admin Location Dispensed Lot Number Expiration Date [facility] [employer] 185 unit IM 200 units [id number] 02/01/26 2574-6903-85 [employer]OTOX Comments: see hpi Assessment & Plan Assessment & Plan (1) Chronic migraine without aura, not intractable, without status migrainosus: Comment: f/u with neurology , getting botox inj Code(s): G43.709 - Chronic migraine without aura, not intractable, without status migrainosus Plan Patient tolerated the procedure well she will call with any side effects, Orders: Orders AMB Botulinum toxin Injection Today G43.709 - Chronic migraine without aura, not intractable, without status migrainosus Coding Level of Care Code Est Pt Level 1 (78155) Diagnoses Chronic migraine without aura, not intractable, without status migrainosus G43.709 CPT Codes Botox Injection - Botox 3: 16634 - Migraine ([id number])
== END 2023-11-10 10:00 | disposition home or self-care (01) ==
PROVIDERS: PCP Internal Medicine; Visit Provider Psychiatry & Neurology Neurology
DX: G43.709 Chronic migraine without aura, not intractable, without status migrainosus (principal)
CPT/HCPCS: 64615

== ENCOUNTER → 2023-11-10 09:07 | Outpatient (BNVA) | payer MEDICARE, MEDICAID, SELFPAY | PROVIDERS: PCP Internal Medicine; Visit Provider Psychiatry & Neurology Neurology | DX: G43.709 Chronic migraine without aura, not intractable, without status migrainosus (principal) | CPT/HCPCS: 64615; 99211; J0585 ==

== ENCOUNTER → 2023-11-27 08:53 | Outpatient (REF) | payer MEDICARE, MEDICAID, SELFPAY ==
--- NOTE | ~2023-11-27 | NM_ITS ---
Exercise Myocardial perfusion study Indication: Chronic ischemic heart disease to evaluate for myocardial ischemia Technique: The patient was brought in for an exercise perfusion study on 11/27/2023. Patient performed exercise as per Roman protocol and was injected 35 mCi of sestamibi was given intravenously one target HR was achieved. Images were obtained using the SPECT gamma camera interlaced with the gating device. Images were obtained in supine position. Resting perfusion study was performed on 11/28/2023. Patient was administered 35 mCi of sestamibi intravenously at rest. Images were then obtained in supine position. Images obtained with and without CT attenuation. Total DLP 190 mGy-cm. Images were processed with the software and compared side to side in short axis, horizontal long axis and vertical long axis views. Findings: The stress perfusion study showed non attenuated images show absent uptake in the apex of the LV myocardium. Remainder of the myocardium is normally perfused. Attenuation corrected images show mildly reduced uptake in the apex of the LV myocardium.. The gated study shows normal LV systolic function with calculated LVEF of 58%. LV cavity is normal in size. The gated study shows normal systolic wall thickening and contraction of all segments. There is no transient ischemic dilation. Resting study shows non attenuated images show minimal thinning of the apex of the LV myocardium otherwise normal uptake. Gating at rest reveals normal systolic wall motion with visually estimated ejection fraction at greater than 60%. The findings are consistent with small area of at least moderate intensity apical ischemia. NM/NM cardiolite stress test Impression: 1. Moderate intensity apical ischemia 2. Gated LVEF is 58% 3. Transient ischemic dilatation not present Stress EKG is suggestive of ischemia
--- NOTE | 2023-11-27 08:57 | CA_ITS ---
Acquisition Time: 2023-11-27 09:18:50 Total Exercise Time: 00:05:01 Test Indications: ABN ETT, PREOP Medications: SEE H Protocol: AMIE Max HR: 137 BPM 87% of Pred: 157 BPM Max BP: 164/078 mmHG Max Work Load: 6.1 METS Exercise stress test exercise 5 min 1 sec of Amie protocol stage 2 decreased speed of 2.2 mph, achieving 87% MPHR, without anginal symptoms, without arrhythmias, with normotensive response to exercise, with horizontal depressions in leads 1, 2, 3, aVF, v3-v6. Nuclear images pending. Test reviewed with Dr. Oscar. Referred By: Lisa Porras Overread By: Cynthia Wolfe
== END ==
LOC: HO.CARD 08:53
PROVIDERS: PCP Internal Medicine; Visit Provider Internal Medicine
DX: R07.9 Chest pain, unspecified (principal); I25.9 Chronic ischemic heart disease, unspecified
CPT/HCPCS: 78452; 93017; A9500

== ENCOUNTER → 2023-11-27 08:57 | Outpatient (BNV) | payer MEDICARE, MEDICAID, SELFPAY | PROVIDERS: PCP Internal Medicine; Visit Provider Nurse Practitioner | DX: I25.10 Atherosclerotic heart disease of native coronary artery without angina pectoris (principal) | CPT/HCPCS: 78452; 93016; 93018 ==

== ENCOUNTER 2023-11-28 13:33 | Outpatient (AMB) | payer MEDICARE, MEDICAID, SELFPAY ==
--- NOTE | 2023-11-28 14:00 | MHC.PC.OV ---
Vital Signs 11/28/23 14:01 Height 5 ft 7 in Weight 235 lb BMI 36.8 BP 124/76 Blood Pressure Location Rt brachial Position Sitting Pulse 82 Pulse Source Pulse Oximeter Pulse Oximetry (%) 97 Oxygen Delivery Method Room Air Intake Visit Reasons: Follow up discuss referral Intake Note: Pt is here today for a follow up visit. Allergies amitriptyline Adverse Reaction (Intermediate, Verified 11/28/23 14:04) Palpitations propranolol Adverse Reaction (Intermediate, Verified 11/28/23 14:04) Palpitations Tobacco use date assessed: 11/28/23 Dental Screening Dental Screen Date: 11/28/23 Did you have a dental visit in the last 12 months?: No Did you have a dental problem in the last 6 months where you did not have access to dental care?: No Was dental information given to patient?: Patient declined HPI Follow up discuss referral HPI Details Patient presents for the follow-up on hypertension hyperlipidemia. She had nuclear stress test yesterday for intermittent atypical chest pains for colonoscopy/EGD clearance but results are still pending. Patient complains of chronic neck and shoulder pain and tension/migraine headaches. She has been taking duloxetine for 2 months and feels slightly better. [facility] Medical History (Updated 11/28/23 @ 14:53 by Lisa Porras MD) Anxiety Chronic headaches Tinnitus Neck pain Annual physical exam Chronic GERD Obesity Chest pain Mammogram normal Hyperlipidemia Sciatica History of colon polyps History of diverticulitis of colon Nephrolithiasis Surgical History History of esophagogastroduodenoscopy (EGD) Hx of colonoscopy History of ankle surgery (10/06/19) H/O Spinal surgery History of kidney surgery H/O section Family History Father Heart attack Mother Diabetes Heart problem Arthritis Social History Household Members: Children Housing: House Alcohol intake: never Patient Tobacco Use Status: Current everyday Tobacco user Tobacco use type: Cigarette Cigarette Packs Per Day: 0.5 Cigarettes Per Day: 12 Years Smoked: 25 Packs Per Year: 13 Packs per year/per ci.00 e-Cigarette/Vaping Use: Never Used Current occupational status: employed Cognitive needs: No Hearing needs: No Vision needs: Yes Questionnaire PHQ-9 Over the last 2 weeks, how often have you been bothered by any of the following problems? 1. Little interest or pleasure in doing things: not at all 2. Feeling down, depressed, or hopeless: not at all 3. Trouble falling or staying asleep, or sleeping too much: not at all 4. Feeling tired or having little energy: not at all 5. Poor appetite or overeating: not at all 6. Feeling bad about yourself - or that you are a failure or have let yourself or your family down: not at all 7. Trouble concentrating on things, such as reading the newspaper or watching television: not at all 8. Moving or speaking so slowly that other people could have noticed. Or the opposite - being so fidgety or restless that you have been moving around a lot more than usual: not at all 9. Thoughts that you would be better off or of hurting yourself in some way: not at all Total score: 0 Depression Screening Interpretation: Negative Depression Screening Done: Yes Source: Developed by Drs. Markel Mendes, Chuyita Da Silva, Chadwick Cabello and colleagues, with an educational bayron from [employer] Thrive Questionnaire Date Thrive assessed: 11/28/23 I am a: Patient What is your living situation today?: I have a steady place to live Within the past 12 months, did the food you bought not last and you didn't have the money to get more?: Never true Within the past 12 months, did you worry whether your food would run out before you got money to buy more?: Never true Do you have trouble paying for medicines?: No Do you have trouble getting transportation to medical appointments?: No Do you have trouble paying your heating and electricity bill?: No Do you have trouble taking care of your child, family member or friend?: No Do you have trouble with day-to-day activities such as bathing, preparing meals, shopping, managing finances, etc.?: No Are you currently unemployed and looking for a job?: No Are you interested in more education?: No Please select the resources that you would like help with: None THRIVE Score: 0 AUDIT C Alcohol Use Questionnaire (AUDIT-C) 1. How often do you have a drink containing alcohol?: Never 3. How often do you have six or more drinks on one occasion?: Never Total Score: 0 CHRISTIE-7 AMB Questionnaire CHRISTIE-7 Date CHRISTIE - 7 assessed: 11/28/23 Feeling nervous, anxious, or on edge: 0 = Not at all Not being able to stop or control worryin = Not at all Worrying too much about different things: 0 = Not at all Trouble relaxin = Not at all Being so restless that it is hard to sit still: 0 = Not at all Becoming easily annoyed or irritable: 0 = Not at all Feeling afraid as if something awful might happen: 0 = Not at all Total CHRISTIE-7 score (0-4 normal; 5-9 mild; 10-14 moderate; 15-21 severe): 0 Source: Developed by Drs. Markel Mendes, Chuyita Da Silva, Chadwick Cabello and colleagues, with an educational bayron from [employer] Review of Systems Const All systems reviewed & are unremarkable except as noted in HPI and below Reports no additional complaints Eyes Reports no additional complaints ENT Reports no additional complaints Card Reports no additional complaints Resp Reports no additional complaints GI Reports no additional complaints Physical exam (Primary Care) Vital Signs: Last Vital Signs Pulse 82 11/28/23 14:01 BP 124/76 11/28/23 14:01 Pulse Ox 97 11/28/23 14:01 Oxygen Delivery Method Room Air 11/28/23 14:01 BMI result Body Mass Index 36.8 Tobacco/Smoking Status: Tobacco use Status Tobacco use date assessed 11/28/23 11/28/23 14:05 Patient Tobacco Use Status Current everyday Tobacco 11/28/23 14:02 Tobacco use type Cigarette 11/28/23 14:02 e-Cigarette/Vaping Use Never Used 11/28/23 14:02 PHQ-9: PHQ-9 Score PHQ-9: Total score 0 11/28/23 14:06 Depression Screening Interpretation: Negative Thrive Assessment: Date of Thrive Assessment Date Thrive assessed 11/28/23 11/28/23 14:06 Const General: no acute distress HENMT Head: Yes normal to inspection Neck Neck: Yes no lymphadenopathy and Yes supple Resp Effort & Inspection: normal respiratory effort Auscultation: clear to auscultation bilaterally Cardio Rhythm: regular rhythm Heart sounds: S1 normal heart sound present and S2 normal heart sound present GI Inspection: Yes normal to inspection Palpation (GI): Soft to palpation Percussion: Yes normal to percussion Assessment and Plan Assessment & Plan (1) Neck pain: Code(s): M54.2 - Cervicalgia Plan: For chronic neck pain patient will be referred to physical therapy (2) Chronic headache: Comment: f/u Neurology, getting Botox injections Code(s): R51.9 - Headache, unspecified; G89.29 - Other chronic pain Plan: Continue duloxetine follow-up with Neurology (3) Hyperlipidemia: Code(s): E78.5 - Hyperlipidemia, unspecified Plan: Continue statin (4) Chest pain: Comment: Nuclear stress test 11/26 Code(s): R07.9 - Chest pain, unspecified Plan: Check results of the stress test Orders: Orders PT Evaluation and Treatment Today M54.2 - Cervicalgia Coding Level of Care Code Est Pt Level 4 (91172) Diagnoses Neck pain M54.2 Chronic headache R51.9; G89.29 Hyperlipidemia E78.5 Chest pain R07.9
[2023-11-28 14:01] VITALS: BP 124/76; PULSE 82; O2SAT 97; BMI 36.8
== END 2023-11-28 14:55 | disposition home or self-care (01) ==
PROVIDERS: PCP Internal Medicine; Visit Provider Internal Medicine
DX: M54.2 Cervicalgia (principal); R51.9 Headache, unspecified; G89.29 Other chronic pain; E78.5 Hyperlipidemia, unspecified; R07.9 Chest pain, unspecified
CPT/HCPCS: 99214

== ENCOUNTER 2023-12-17 13:34 | Outpatient (AMB) | payer MEDICARE, MEDICAID, SELFPAY ==
--- NOTE | 2023-12-17 13:46 | MHC.OFFVIS ---
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 Intake Note: New patient abnormal stress test c/o chest pain sometimes Transportation Job Titles Required: Yes Transportation Job Titles Name: Magjosé manuela cyracom Allergies amitriptyline Adverse Reaction (Intermediate, Verified 11/28/23 14:04) Palpitations propranolol Adverse Reaction (Intermediate, Verified 11/28/23 14:04) Palpitations Medication List - Last Reconciled 12/17/23 by Dylan Cordon MD atorvastatin 80 mg PO DAILY duloxetine 30 mg PO DAILY magnesium oxide 400 mg PO DAILY omeprazole 20 mg PO DAILY 90 days riboflavin (vitamin B2) 400 mg PO DAILY 30 days HPI HPI Comments History of Present Illness Details Thank you for referring Brittney in cardiology consultation today for abnormal myocardial perfusion imaging. History was obtained with help of for [employer] rehab care assistant over the telephone. Despite the rehab care assistant patient is not a very good historian. She says she underwent a stress test recently initially she says she was not clear but on further inquiry she says whenever she gets anxious she gets symptoms of rapid heart rate and then gets left inframammary chest discomfort. Patient also said few months ago she had severe retrosternal chest discomfort which she describes a burning but not sure if this was related to acid reflux. She subsequently underwent a regular treadmill stress test which was abnormal and subsequently underwent a myocardial perfusion imaging which shows apical ischemia. She has been referred here for further evaluation. She continues to have intermittent symptoms although not with exertion. She says with exertion she has no symptoms of chest discomfort or palpitations. She thinks the symptoms are related to anxiety/panic attacks. In 2012 she had chest discomfort at that time underwent a cardiac catheterization which had shown nonobstructive coronary artery disease. Since then she has been on high-intensity statin therapy. She does not exercise on a regular basis. Denies any heart failure symptoms. [facility] Medical History Anxiety Chronic headaches Tinnitus Neck pain Annual physical exam Chronic GERD Obesity Chest pain Mammogram normal Hyperlipidemia Sciatica History of colon polyps History of diverticulitis of colon Nephrolithiasis Surgical History History of esophagogastroduodenoscopy (EGD) Hx of colonoscopy History of ankle surgery (10/06/19) H/O Spinal surgery History of kidney surgery H/O section Family History Father Heart attack Mother Diabetes Heart problem Arthritis Social History Household Members: Children Housing: House Alcohol intake: never Patient Tobacco Use Status: Current everyday Tobacco user Tobacco use type: Cigarette Cigarette Packs Per Day: 0.5 Cigarettes Per Day: 12 Years Smoked: 25 e-Cigarette/Vaping Use: Never Used Current occupational status: employed Cognitive needs: No Hearing needs: No Vision needs: Yes Review of Systems Const Denies chills, Denies daytime sleepiness, Denies fatigue, Denies fever(s), Denies frequent falls, Denies poor appetite, Denies snoring, Denies stops breathing during sleep, Denies weakness, Denies weight gain and Denies weight loss Eyes Denies loss of vision ENT Denies dizziness and Denies hearing loss Card Denies chest pain, Denies claudication, Denies leg edema, Denies lightheadedness, Denies palpitations, Denies dyspnea, Denies dyspnea on exertion and Denies orthopnea Resp Denies cough, Denies excessive phlegm production, Denies dyspnea, Denies dyspnea on exertion, Denies snoring and Denies wheezing GI Denies abdominal pain, Denies hematochezia, Denies change in bowel habits, Denies nausea and Denies vomiting Denies urinary frequency and Denies dysuria Musc Denies arthralgias, Denies muscle weakness, Denies numbness and Denies other (frequent falls) Skin/Breast Denies nail changes and Denies rash Neuro Denies Abnormal speech present, Denies dizziness, Denies frequent falls, Denies loss of vision, Denies memory loss, Denies numbness and Denies weakness Psych Denies depression and Denies memory loss Endo Denies fatigue and Denies palpitations Dorian/Lymph Reports easy bruising and Reports other (anemia) Aller/Immun Denies wheezing Physical Exam Vital Signs: Last Vital Signs Pulse 84 12/17/23 13:47 BP 120/80 12/17/23 13:47 BMI result Body Mass Index 36.9 Const General: cooperative, comfortable, no acute distress, alert and awake Nutritional Appearance: obese Orientation/consciousness: patient oriented x3 Limitations: no limitations HEENT Head: Yes normocephalic and Yes atraumatic Neck Neck: Yes trachea midline, Yes supple and Yes no JVD Resp Effort & Inspection: normal respiratory effort Auscultation: clear to auscultation bilaterally Cardio Jugular venous distension: no JVD Rate: regular rate Rhythm: regular rhythm Heart sounds: S1 normal heart sound present, S2 normal heart sound present, no click, no gallops, no murmurs and no rubs GI Auscultation: normal bowel sounds Skin General skin exam: no rashes or lesions noted Neuro General: patient oriented x3 and no focal motor deficits Speech: No Abnormal speech present Extrem General: Yes no clubbing, cyanosis or edema Office Procedures EKG Details: EKG shows normal sinus rhythm with normal EKG [id number], Complete Assessment & Plan Assessment & Plan (1) Positive cardiac stress test: Code(s): R94.39 - Abnormal result of other cardiovascular function study Plan: Patient has abnormal EKG portion to treadmill stress test along with abnormal myocardial perfusion imaging finding of apical ischemia. There is likelihood of progressive coronary artery disease given her risk factors of significant obesity and hyperlipidemia with prior history of nonobstructive coronary disease although she has very atypical symptoms and no exertional symptoms. Likelihood of false-positive testing based on her body habitus is also likely. Continue high-intensity statin therapy based on her prior atherosclerotic coronary artery disease. I would suggest her to undergo coronary CTA for further evaluation of progressive coronary artery disease as her symptoms are very atypical. Further treatment based on the findings of the coronary CTA. This was discussed with her in details. She understands and agrees. Advised to seek emergency care she has unrelenting chest discomfort. Will follow up in the clinic after coronary CTA. Orders: Orders CT Cardiac Coronary Angio 1 Week R94.39 - Abnormal result of other cardiovascular function study Coding Level of Care Code Tele New Pt Level 4 (15775) Diagnoses Positive cardiac stress test R94.39 CPT Codes EKG - CPT: 35972-[id number], Complete ([id number])
[2023-12-17 13:47] VITALS: BP 120/80; PULSE 84; BMI 36.9
== END 2023-12-17 14:37 | disposition home or self-care (01) ==
PROVIDERS: PCP Internal Medicine; Visit Provider Internal Medicine Cardiovascular Disease
DX: R94.39 Abnormal result of other cardiovascular function study (principal)
CPT/HCPCS: 93010; 99203

== ENCOUNTER → 2023-12-17 13:34 | Outpatient (BNVA) | payer MEDICARE, MEDICAID, SELFPAY | PROVIDERS: PCP Internal Medicine; Visit Provider Internal Medicine Cardiovascular Disease | DX: R94.39 Abnormal result of other cardiovascular function study (principal) | CPT/HCPCS: 93005; 99202 ==

== ENCOUNTER 2024-02-12 13:16 | Outpatient (AMB) | payer MEDICARE, MEDICAID, SELFPAY ==
--- NOTE | 2024-02-12 13:19 | A.OFFVIS_ITS ---
Intake Vital Signs 02/12/24 13:28 Height 5 ft 7 in Weight 232 lb BMI 36.3 BP 149/76 H Blood Pressure Location Lt brachial Position Sitting Pulse 101 H Intake Visit Reasons: 6 month follow up Intake Note: Patient follow up for bloating. Patient cc: bloating with coffee. Denies any other GI issues. Director Social Welfare Required: Yes Director Social Welfare Name: Gracy Lennon [id number] Accompanied by: Self / Same As Patient Allergies amitriptyline Adverse Reaction (Intermediate, Verified 02/12/24 13:24) Palpitations propranolol Adverse Reaction (Intermediate, Verified 02/12/24 13:24) Palpitations Medication List - Last Reconciled 02/12/24 by Seymour Fisher MD atorvastatin 80 mg PO DAILY duloxetine 30 mg PO DAILY magnesium oxide 400 mg PO DAILY omeprazole 20 mg PO DAILY 90 days riboflavin (vitamin B2) 400 mg PO DAILY 30 days HPI 6 month follow up HPI Details CLINIC VISIT FOR THIS 63-YEAR-OLD HAITIAN 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 ?IMAGING STUDIES: 12/28/[address] scan showed: ? Focal colonic wall thickening and pericolonic inflammatory changes in ? the mid ascending colon in the region of a small thickened ? diverticulum. Overall the appearance is most suggestive of right-side diverticulitis. ?ENDOSCOPIC STUDIES:?11/11/22 EGD SHOWED: STOMACH: Mild diffuse gastric erythema. Biopsies were obtained. A 1 cms clean based chronic appearing ulcer in the pyloric channel - biopsied. DUODENUM: Normal -? biopsied to check for celiac sprue Plan:? Patient has an appointment on 11/28/22 in the GI Clinic with Seymour Fisher M.D. Above findings were reviewed with the patient with the help of a [place] speech language pathologist travel and PUD handout was given in the discharge area. Pt stated she takes Ibuprofen infrequently and has not been taking a PPI. She was advised to resume taking Omeprazole 20 mg every morning. BIOPSIES SHOWED: A.? Small bowel, biopsy:? Small intestinal mucosa with mildly increased intraepithelial lymphocytes and preserved villous architecture.? See comment. B.? Stomach, pyloric channel ulcer, biopsy: - Mixed pyloric and small intestinal muc alexandra with chronic active inflammation. - Positive for H pylori.C.? Stomach, ant rum, biopsy: - Antral-type mucosa with moderate chron ic active inflammation. - Positive for H pylori.D.? Stomach, bod y, biopsy: - Oxyntic mucosa with mild chronic inact bertram inflammation. - Positive for H pylori. COMMENT:? The lymphocytes in the small bowel (part A) are likely secondary to the H pylori infection. 09/2021 EGD SHOWED:ESOPHAGUS: GE junctio n at 38 cms. No esophagitis or Mckeon's. Biopsies were obtained from distal esophagus to check for esophagitis. STOMACH: Antral gastritis.? A 1 cms clean based ulcer in the pyloric channel - biopsied. Plan:? Repeat EGD in 10-12 weeks to confirm pyloric channel ulcer has healed. Patient has an appointment on 12/06/21 in the GI Clinic with Seymour Fisher M.D.. 05/15/20? COLONOSCOPY SHOWED: Four polyps removed Moderate diverticulosis seen in the left colon Moderate hemorrhoids on retroflexed exam. Plan: Await pathology results Patient has an appointment on 05/15/20 in the GI Clinic with Seymour Fisher M.D.- Repeat Colonoscopy interval based on path results in 3-5 years if polyps are adenomatous and 10 years if polyps are hyperplastic. Above findings were reviewed with the patient and colon polyps and diverticulosis handouts were given in the discharge area BIOPSIES SHOWED: A. Colon, transverse polyps, polypectomy: Fragments of tubular adenomas. B. Colon, ascending polyp, polypectomy: Fragments of tubular adenoma. C. Rectum, polyp, polypectomy: Fragments of hyperplastic polyp. ?TODAY'S VISIT Telephone [place] Director Social WelfareRaven # [id number] Notes intermittent heartburn - rare since she resumed taking Omeprazole. Feels nervous when she drinks coffee Notes bloating when she eats cabbage and drinks coffee. EGD and colon were cancelled since she was undergoing cardiac aviles. Scheduled for coronary angiography in Mar, 2024 PAST VISIT: Pt is accompanied by her daughter who interpreted for the patient Continues to have intermittent heartburn - sometimes it feels like a heart attack Has not been taking Omeprazole for the past 2 months after she ran out - advised to resume. Complains of post prandial bloating Pt was treated with Pylera for H pylori gastritis associated with an ulcer. She stopped PPI for 2 weeks prior to today's visit. Continues to have abdominal bloating after she finishes eating. Called patient's daughter, Louise, at [phone] Patient cc: some abdominal pain and denies any other GI issues. 09/2021 pt was treated with Calrithromyc in 500 mg twice daily, amoxicillin 1 gram twice daily and Omeprazole 20 mg twice daily x 14 days for H Pylori infection.Pt completed antibiotic therapy in 09/2021 She was advised to schedule repeat EGD to confirm has healed and H pylori has been eradicated. Pt is accompanied by her daughter, Amy and her 17 month old son. Pt's daughter interpreted for the patient. Pt has been having chest pain and thought she was having a heart attack. Seen at [facility] ED and had blood tests which were negative. Had 8/10 burning retrosternal pain ? Pain was not related to exertion. Pain started in the evening, she went to sleep and pain became worse when she woke. Ate chocolate before pain started. Pain lasted all day. Prescribed Omeprazole 20 mg daily. Patient denies having an upper endoscopy in the past. Had some twinging pain a week ago in the same area as during past episode of diverticulitis. Pain lasted for a day.? Noted some pain today. ? patient denies fever or chills. an episode of diverticulitis in Oct and 2nd episode in Dec. ? Took antibiotics and symptoms have resolved. ? Now I have to be very careful with my diet. ? Notes piercing pain if she takes any spicy food. ? Patient denies change in bowel habits, black stools or rectal bleeding ? Denies dysphagia, heartburn, nausea or vomiting. ? Does not eat much and has gained weight since she is not working due to an ankle injury. ? Continues to have ankle pain ? due to suspected nerve injury. ? Patient denies major cardiac or pulmonary problems, loud snoring was sleep apnea. ? Patient denies being on chronic anticoagulation. ? She denies past problems with anesthesia. ? She had a colonoscopy in 2013 at [facility] in [place] which was negative. ? Patient denies known family history of colon polyps,, colon cancer or other GI malignancy [facility] Medical History Anxiety Chronic headaches Tinnitus Neck pain Annual physical exam Chronic GERD Obesity Chest pain Mammogram normal Hyperlipidemia Sciatica History of colon polyps History of diverticulitis of colon Nephrolithiasis Surgical History History of esophagogastroduodenoscopy (EGD) Hx of colonoscopy History of ankle surgery (10/06/19) H/O Spinal surgery History of kidney surgery H/O section Family History Father Heart attack Mother Diabetes Heart problem Arthritis Social History Household Members: Children Housing: House Alcohol intake: never Patient Tobacco Use Status: Current everyday Tobacco user Tobacco use type: Cigarette Cigarette Packs Per Day: 0.5 Cigarettes Per Day: 12 Years Smoked: 25 e-Cigarette/Vaping Use: Never Used Current occupational status: employed Cognitive needs: No Hearing needs: No Vision needs: Yes Review of Systems Const All systems reviewed & are unremarkable except as noted in HPI and below Physical Exam Vital Signs: Last Vital Signs Pulse 101 H 02/12/24 13:28 BP 149/76 H 02/12/24 13:28 BMI result Body Mass Index 36.3 Const General: no acute distress Nutritional Appearance: obese Orientation/consciousness: patient oriented x3 Limitations: language barrier ([place] speaking) HEENT Head: Yes normal to inspection Ears: hearing grossly normal bilaterally Eyes Sclerae: sclerae normal Pupils: Equal, round and reactive pupils present Neck Neck: Yes normal visual inspection Chest Chest palpation & inspection: normal inspection of the chest Resp Effort & Inspection: normal respiratory effort Auscultation: clear to auscultation bilaterally Cardio Palpation: normal PMI Rate: regular rate Rhythm: regular rhythm Heart sounds: S1 normal heart sound present, S2 normal heart sound present and no murmurs GI Palpation (GI): Soft to palpation, nontender and No hepatosplenomegaly present Auscultation: normal bowel sounds Rectal Exam - Female: deferred Skin General skin exam: no rashes or lesions noted Neuro General: patient oriented x3, gait normal and moves all extremities Cranial nerves: Yes Equal, round and reactive pupils present Psych Appearance: grossly normal Mental Status: mental status grossly normal Assessment & Plan Assessment & Plan (1) History of diverticulitis of colon: Code(s): Z87.19 - Personal history of other diseases of the digestive system (2) History of colon polyps: Comment: 05/15/20 colonoscopy showed diverticulosis and 3 small (< 10 mm) adenomatous polyps were removed, repeat colon in 3 yrs. Code(s): Z86.010 - Personal history of colonic polyps (3) Chronic GERD: Comment: EGD 09/2021 s/p H pylori tx Code(s): K21.9 - Gastro-esophageal reflux disease without esophagitis (4) Gastric ulcer due to Helicobacter pylori: Code(s): K25.9 - Gastric ulcer, unspecified as acute or chronic, without hemorrhage or perforation; B96.81 - Helicobacter pylori [H. pylori] as the cause of diseases classified elsewhere (5) Abdominal bloating: Code(s): R14.0 - Abdominal distension (gaseous) Plan 63-year-old [place] speaking female referred to GI to schedule a colonoscopy for screening and due to 2 episodes of diverticulitis over 6 months in the past. Patient denied known family history of colon polyps or cancer and is considered average risk for colon cancer. She had a colonoscopy in 2013 at [facility] in [place] which was negative. 05/15/2020 colonoscopy showed diverticulosis and 3 small (< 10 mm) adenomatous polyps were removed. ? Repeat colonoscopy is advised in 3 years. 05/23 pt was seen with abd pain and given PO antibiotics for suspected diverticulitis with resolution 09/03/21 Pt complains of atypical chest pain, seen at [facility] ED and prescribed Omeprazole 20 mg daily - only taking intermittently and advised to take daily. 09/2021 EGD showed a?1 cms clean based ulcer in the pyloric channel - biopsied. Gastric biopsies were positive for Helicobacter pylori - 09/2021 pt was treated with Calrithromycin 500 mg twice daily, amoxicillin 1 gram twice daily and Omeprazole 20 mg twice daily x 14 days for H Pylori infection. Pt completed antibiotic therapy in 09/2021 FU EGD was performed and showed a 1 cms clean based chronic appearing ulcer in the pyloric channel. Gastric biopsies were positive for H Pylori and pt was given a prescription for Pylera x 14 days. 02/24/23 H Pylori breath test today Schedule an EGD (FU of ) and a colonoscopy for FU of colon polyps - scheduled on 12/01/23 02/12/24 Notes intermittent heartburn - rare since she resumed taking Omeprazole. Feels nervous when she drinks coffee Notes bloating when she eats cabbage and drinks coffee. EGD and colon scheduled in Nov, 2023 were cancelled since she was undergoing cardiac work up Scheduled for coronary angiography in Mar, 2024 and a FU appt with Dr Cordon on 04/19/24 Pt advised to schedule EGD + bx for HP culture and sensitivity (FU of and persistent H Pylori infection) and a colonoscopy (FU of polyps) in Jul, 2024 Prep - Dulcolax + Miralax split prep FU in 6 months. Coding Level of Care Code Est Pt Level 4 (82235) Diagnoses History of diverticulitis of colon Z87.19 History of colon polyps Z86.010 Chronic GERD K21.9 Gastric ulcer due to Helicobacter pylori K25.9; B96.81 Abdominal bloating R14.0 Time Spent (min) 24
[2024-02-12 13:28] VITALS: BP 149/76; PULSE 101; BMI 36.3
== END 2024-02-12 14:40 | disposition home or self-care (01) ==
PROVIDERS: PCP Internal Medicine; Visit Provider Internal Medicine Gastroenterology
DX: Z87.19 Personal history of other diseases of the digestive system (principal); Z86.010 Personal history of colon polyps; K21.9 Gastro-esophageal reflux disease without esophagitis; K25.9 Gastric ulcer, unspecified as acute or chronic, without hemorrhage or perforation; B96.81 Helicobacter pylori [H. pylori] as the cause of diseases classified elsewhere; R14.0 Abdominal distension (gaseous)
CPT/HCPCS: 99214

== ENCOUNTER → 2024-02-12 13:16 | Outpatient (BNVA) | payer MEDICARE, MEDICAID, SELFPAY | PROVIDERS: PCP Internal Medicine; Visit Provider Internal Medicine Gastroenterology | DX: K21.9 Gastro-esophageal reflux disease without esophagitis (principal); K25.9 Gastric ulcer, unspecified as acute or chronic, without hemorrhage or perforation; R14.0 Abdominal distension (gaseous); B96.81 Helicobacter pylori [H. pylori] as the cause of diseases classified elsewhere; Z86.010 Personal history of colon polyps; Z87.19 Personal history of other diseases of the digestive system | CPT/HCPCS: 99212 ==

== ENCOUNTER 2024-02-17 16:00 | Outpatient (RCR) | payer MEDICARE, MEDICAID, SELFPAY ==
--- NOTE | 2024-01-21 14:00 | MHC.PT.EP ---
[facility] [place] Office [place] Office [place] Office [address] Tyler Clark [address] [phone] F: [phone] F: [phone] F: [phone] F: [phone] Physical Therapy Plan of Care Date of Evaluation: 01/20/24 Date of Surgery: Diagnosis: neck pain, headaches Assessment: Pt is a 63yo female who was referred to PT for treatment of neck pain with headaches. PT exam reveals abnormal movement pattern, poor cervicothoracic posture, weakness of periscap and DNF musculature, reduced ROM. Skilled PT indicated to address these impairments, teach HEP to manage symptoms at home I. Pt in agreement with POC and is motivated to participate. Frequency and Duration: The patient will be seen 2x/week, x 4 weeks Short Term Goals: 1. In 2 weeks, patient will tolerate neutral cervical positioning x 20 minutes without increased pain/numbness. 2. In 2 weeks, patient will be I with HEP for chin tucks and scapular stability exercises with compliance > 50%. 3. In 2 weeks, patient will report ability to rotate head in both directions without marked difference in tightness or restriction one side. Orange Picking Supervisor Goals: 1. In 4 weeks, patient will improve DNF endurance to 20 seconds to improve cervical stability. 2. In 4 weeks, patient will be able to complete modified prone exercises with neutral cervical spine for periscap strengthening exercises, I for HEP. 3. Improve NDI score by 25% indicating reduced pain and improved function overall. Treatment Plan: Modalities to reduce pain, spasms and effusion. Manual therapy to restore motion and function. Therapeutic exercise to improve strength and flexibility. Neuromuscular re-education for posture and balance. Therapeutic activities to return to functional activities of daily living. Electronically signed by: Beverley Sommer PT, DPT Please sign and return to therapist. Thank you for your referral.
--- NOTE | 2024-08-30 13:29 | MHC.PT.DC ---
[facility] [place] Office [place] Office [place] Office [address] Tyler Clark [address] [phone] F: [phone] F: [phone] F: [phone] F: [phone] Physical Therapy Discharge Report Diagnosis: neck pain, headaches Date of Surgery: Date of Evaluation: 01/20/24 Date of Discharge: 02/17/24 Treatments to Date: 8 Cancellations to Date: No Shows to Date: Discharge Status: Achieved Goals Improved Function Independent with HEP Discharge Summary: Pt is a 63yo female referred to PT for head/neck pain and some dizziness. PT exam reveals abnormal movement pattern, poor cervicothoracic posture, weakness of periscap and DNF musculature, reduced ROM. Skilled PT indicated to address these impairments, teach HEP to manage symptoms at home I. Pt in agreement with POC fully participated in 8 sessions. ROM improvements: R c/s rotation 70 degrees, L c/s rotation 60 degrees. Pt I with HEP. Pt pain 0-10-2 decreased pain overall. Pt DC with HEP. Electronically signed by: Beverley Sommer PT, DPT Please sign and return to therapist. Thank you for your referral.
== END 2024-08-30 13:29 | disposition home or self-care (01) ==
LOC: HO.PTCHIC 16:00
PROVIDERS: PCP Internal Medicine; Visit Provider Internal Medicine
DX: M54.2 Cervicalgia (principal)
CPT/HCPCS: 97110; 97140; 97161

== ENCOUNTER 2024-03-15 08:13 | Outpatient (AMB) | payer MEDICARE, MEDICAID, SELFPAY ==
[2024-03-15 08:16] VITALS: BP 124/78; PULSE 98; O2SAT 97; BMI 36.8
--- NOTE | 2024-03-15 08:16 | MHC.PC.OV ---
Vital Signs 03/15/24 08:16 Height 5 ft 7 in Weight 235 lb BMI 36.8 BP 124/78 Blood Pressure Location Lt brachial Position Sitting Pulse 98 Pulse Source Pulse Oximeter Pulse Oximetry (%) 97 Oxygen Delivery Method Room Air Intake Visit Reasons: 6 Month follow up Intake Note: Pt is here today for 6 months follow up visit. Allergies amitriptyline Adverse Reaction (Intermediate, Verified 03/15/24 08:34) Palpitations propranolol Adverse Reaction (Intermediate, Verified 03/15/24 08:34) Palpitations Medication List - Last Reconciled 03/15/24 by Lisa Porras MD atorvastatin 80 mg PO DAILY duloxetine 30 mg PO DAILY hydroxyzine HCl 10 mg PO BEDTIME omeprazole 20 mg PO DAILY 90 days riboflavin (vitamin B2) 400 mg PO DAILY 30 days Tobacco use date assessed: 03/15/24 Dental Screening Dental Screen Date: 11/28/23 HPI 6 Month follow up HPI Details Patient presents for the follow-up of hyperlipidemia chronic anxiety and depression. She complains of chronic lower back pain and bilateral leg pain and urgency to move worse when trying to fall asleep. Patient denies claudication but reports lower extremity pain after prolonged walking relieved by sitting down consistent with spinal stenosis [facility] Medical History Anxiety Chronic headaches Tinnitus Neck pain Annual physical exam Chronic GERD Obesity Chest pain Mammogram normal Hyperlipidemia Sciatica History of colon polyps History of diverticulitis of colon Nephrolithiasis Surgical History History of esophagogastroduodenoscopy (EGD) Hx of colonoscopy History of ankle surgery (10/06/19) H/O Spinal surgery History of kidney surgery H/O section Family History Father Heart attack Mother Diabetes Heart problem Arthritis Social History Household Members: Children Housing: House Alcohol intake: never Patient Tobacco Use Status: Current everyday Tobacco user Tobacco use type: Cigarette Cigarette Packs Per Day: 0.5 Cigarettes Per Day: 12 Years Smoked: 25 e-Cigarette/Vaping Use: Never Used service: No Current occupational status: employed Cognitive needs: No Hearing needs: No Vision needs: Yes Questionnaire Thrive Questionnaire Date Thrive assessed: 11/28/23 AUDIT C Alcohol Use Questionnaire (AUDIT-C) 1. How often do you have a drink containing alcohol?: Never 3. How often do you have six or more drinks on one occasion?: Never Total Score: 0 CHRISTIE-7 AMB Questionnaire CHRISTIE-7 Date CHRISTIE - 7 assessed: 11/28/23 Source: Developed by Drs. Markel Mendes, Chuyita Da Silva, Chadwick Cabello and colleagues, with an educational bayron from [employer]. Review of Systems Const All systems reviewed & are unremarkable except as noted in HPI and below Eyes Reports no additional complaints Card Reports no additional complaints Resp Reports no additional complaints GI Reports no additional complaints Reports no additional complaints Physical exam (Primary Care) Vital Signs: Last Vital Signs Pulse 98 03/15/24 08:16 BP 124/78 03/15/24 08:16 Pulse Ox 97 03/15/24 08:16 Oxygen Delivery Method Room Air 03/15/24 08:16 BMI result Body Mass Index 36.8 Tobacco/Smoking Status: Tobacco use Status Tobacco use date assessed 03/15/24 03/15/24 08:37 Patient Tobacco Use Status Current everyday Tobacco 03/15/24 08:16 Tobacco use type Cigarette 03/15/24 08:16 e-Cigarette/Vaping Use Never Used 03/15/24 08:16 Thrive Assessment: Date of Thrive Assessment Date Thrive assessed 11/28/23 03/15/24 08:16 Const General: no acute distress Resp Effort & Inspection: normal respiratory effort Auscultation: clear to auscultation bilaterally Cardio Rhythm: regular rhythm Heart sounds: S1 normal heart sound present and S2 normal heart sound present GI Inspection: Yes normal to inspection Palpation (GI): Soft to palpation Percussion: Yes normal to percussion Auscultation: normal bowel sounds Assessment and Plan Assessment & Plan (1) Morbid obesity: Code(s): E66.01 - Morbid (severe) obesity due to excess calories Plan: Increase physical activity decrease caloric intake and weight loss discussed with the patient (2) Hyperglycemia: Code(s): R73.9 - Hyperglycemia, unspecified Plan: Continue ADA diet return for fasting blood work including A1c (3) Hyperlipidemia: Code(s): E78.5 - Hyperlipidemia, unspecified Plan: Continue atorvastatin (4) Anxiety: Code(s): F41.9 - Anxiety disorder, unspecified Plan: Continue current medication and follow-up with the therapist (5) Lower back pain: Code(s): M54.50 - Low back pain, unspecified Plan: For chronic lower back pain spinal stenosis patient will try PT, (6) Restless leg syndrome: Code(s): G25.81 - Restless legs syndrome Plan: Check iron studies and try ropinirole 1 mg q.h.s. Orders: Orders Comprehensive [place]. Panel Fast Today E66.01 - Morbid (severe) obesity due to excess calories, E78.5 - Hyperlipidemia, unspecified, F41.9 - Anxiety disorder, unspecified, R73.9 - Hyperglycemia, unspecified Lipid Panel Today E66.01 - Morbid (severe) obesity due to excess calories, E78.5 - Hyperlipidemia, unspecified, F41.9 - Anxiety disorder, unspecified, R73.9 - Hyperglycemia, unspecified Microalbumin, Random (w Creat) Today E66.01 - Morbid (severe) obesity due to excess calories, E78.5 - Hyperlipidemia, unspecified, F41.9 - Anxiety disorder, unspecified, R73.9 - Hyperglycemia, unspecified Lipid Panel 6 Months E78.5 - Hyperlipidemia, unspecified, R73.9 - Hyperglycemia, unspecified Hemoglobin A1c 6 Months E78.5 - Hyperlipidemia, unspecified, R73.9 - Hyperglycemia, unspecified PT Evaluation and Treatment Today M54.50 - Low back pain, unspecified Vitamin D 25-OH Total Today E66.01 - Morbid (severe) obesity due to excess calories, E78.5 - Hyperlipidemia, unspecified, F41.9 - Anxiety disorder, unspecified, R73.9 - Hyperglycemia, unspecified IRON PROFILE Today E66.01 - Morbid (severe) obesity due to excess calories, E78.5 - Hyperlipidemia, unspecified, F41.9 - Anxiety disorder, unspecified, R73.9 - Hyperglycemia, unspecified Complete Blood Count Auto Diff Today E66.01 - Morbid (severe) obesity due to excess calories, E78.5 - Hyperlipidemia, unspecified, F41.9 - Anxiety disorder, unspecified, R73.9 - Hyperglycemia, unspecified Hemoglobin A1c Today E66.01 - Morbid (severe) obesity due to excess calories, E78.5 - Hyperlipidemia, unspecified, F41.9 - Anxiety disorder, unspecified, R73.9 - Hyperglycemia, unspecified Comprehensive [place]. Panel Fast 6 Months E78.5 - Hyperlipidemia, unspecified, R73.9 - Hyperglycemia, unspecified Vitamin D 25-OH Total 6 Months E78.5 - Hyperlipidemia, unspecified, R73.9 - Hyperglycemia, unspecified Medications: New ropinirole administer 1-3 hours before bedtime 1 mg PO BEDTIME 90 tabs 1RF Coding Level of Care Code Est Pt Level 4 (75691) Diagnoses Morbid obesity E66.01 Hyperglycemia R73.9 Hyperlipidemia E78.5 Anxiety F41.9 Lower back pain M54.50 Restless leg syndrome G25.81
== END 2024-03-15 09:09 | disposition home or self-care (01) ==
PROVIDERS: PCP Internal Medicine; Visit Provider Internal Medicine
DX: R73.9 Hyperglycemia, unspecified (principal); E66.01 Morbid (severe) obesity due to excess calories; Z68.43 Body mass index [BMI] 50.0-59.9, adult; E78.5 Hyperlipidemia, unspecified; F41.9 Anxiety disorder, unspecified; M54.50 Low back pain, unspecified; G25.81 Restless legs syndrome
CPT/HCPCS: 99214

== ENCOUNTER 2024-03-15 09:10 | Outpatient (REF) | payer MEDICARE, MEDICAID, SELFPAY ==
[2024-03-15 10:31] LABS: Basophils Percent Auto 0.3 % (0-2); Eosinophils Absolute Auto 0.2 X10*3/uL (0.0-0.4); Eosinophils Percent Auto 2.5 % (0-4); Hematocrit 45.5 % (37.0-47.0); Hemoglobin 14.7 g/dl (12.0-16.0); Imm Gran Abs Auto 0.03 X10*3/uL (0.00-0.03); Imm Gran Pct Auto 0.3 % (0.0-0.4); Lymphocytes Absolute Auto 2.4 X10*3/uL (1.2-4.9); Lymphocytes Percent Auto 26.5 % (20-40); MANUAL DIFF FLAG NO; Mean Corpuscular HGB Conc 32.3 g/dl (31.0-35.0); Mean Corpuscular Hemoglobin 26.6 pg (27.0-33.0); Mean Corpuscular Volume 82.3 fL (80.0-98.0); Mean Platelet Volume 10.5 fL (9.4-12.3); Monocytes Percent Auto 11.5 % (2-11); Neutrophils Absolute Auto 5.3 x10*3/uL (2.0-8.3); Neutrophils Percent Auto 58.9 % (45-73); Platelet Count 195 X10*3/uL (160-400); Red Blood Count 5.53 X10*6/uL (4.20-5.50); Red Cell Distribution Width 14.7 % (11.0-16.0)
[2024-03-15 10:36] LABS: Estimated Average Glucose 148 mg/dL; Hemoglobin A1c % 6.8 % (<6.0)
[2024-03-15 11:04] LABS: Alanine Aminotransferase 50 U/L (0-31); Albumin Level 4.4 g/dL (3.5-5.0); Alkaline Phosphatase 103 U/L (39-117); Anion Gap 18 (12-20); Aspartate Amino Transferase 29 U/L (5-31); Bilirubin Total 0.4 mg/dL (0.0-1.0); Blood Urea Nitrogen 11 mg/dL (9-16); Calcium 9.6 mg/dL (8.4-10.2); Carbon Dioxide 23 mmol/L (22-29); Chloride 106 mmol/L (96-108); Cholesterol 199 mg/dL (<200); Estimated Glomerular Filt Rate > 60; Glucose Fasting 137 mg/dL (60-99); HDL Cholesterol 28 mg/dL (>40); Iron 82 mcg/dL (30-160); LDL Cholesterol Calculated 116 mg/dL (<100); Percent Iron Saturation 31 % (15-50); Sodium 143 mmol/L (135-145); Total Iron Binding Capacity 267 mcg/dL (228-428); Total Protein 7.5 g/dL (6.5-8.0); Triglycerides 279 mg/dL (<150); Unsaturated Iron Binding 185 ug/dL
[2024-03-15 11:19] LABS: Vitamin D 25-OH Total 27.5 ng/mL (>30)
[2024-03-15 14:28] LABS: Creatinine Urine 186.04 mg/dL; Microalbum/Creatinine Ratio Ur 23.1 ug/mg cr (<30)
== END 2024-03-15 09:11 | disposition home or self-care (01) ==
LOC: HO.HMGCLDS 09:10
PROVIDERS: PCP Internal Medicine; Visit Provider Internal Medicine
DX: R73.9 Hyperglycemia, unspecified (principal); Z00.00 Encounter for general adult medical examination without abnormal findings; E78.5 Hyperlipidemia, unspecified; E66.01 Morbid (severe) obesity due to excess calories; F41.9 Anxiety disorder, unspecified
CPT/HCPCS: 36415; 80053; 80061; 82043; 82306; 82570; 83036; 83540; 85025

== ENCOUNTER 2024-04-19 13:38 | Outpatient (AMB) | payer MEDICARE, MEDICAID, SELFPAY ==
[2024-04-19 13:57] VITALS: BP 124/80; PULSE 96; BMI 35.6
--- NOTE | 2024-04-19 13:57 | A.OFFVIS_ITS ---
Vital Signs 04/19/24 13:57 Height 5 ft 7 in Weight 227 lb 1.218 oz BMI 35.6 BP 124/80 Blood Pressure Location Lt brachial Position Sitting Pulse 96 Intake Visit Reasons: f/up cta Intake Note: Follow-up CTA feeling ok has a pain on left breast but not sure if its mx Physics Technical Officer: Physics Technical Officer Present Accompanied by: Friend Allergies amitriptyline Adverse Reaction (Intermediate, Verified 03/15/24 08:34) Palpitations propranolol Adverse Reaction (Intermediate, Verified 03/15/24 08:34) Palpitations Medication List - Last Reconciled 04/19/24 by Dylan Cordon MD atorvastatin 80 mg PO DAILY duloxetine 30 mg PO DAILY hydroxyzine HCl 10 mg PO BEDTIME PRN multivitamin (Daily Multi-Vitamin tablet) 1 tab PO DAILY omeprazole 20 mg PO DAILY 90 days riboflavin (vitamin B2) 400 mg PO DAILY 30 days HPI Comments Details: Brittney comes for follow-up accompanied by her friend who acts as clipper machine operator. Declined a certified clipper machine operator. Patient has no active chest pain syndrome. Coronary CTA shows branch vessel disease in a medium caliber diagonal branch at 60%, nonobstructive. She takes all her medications. Does not exercise on regular basis. Last LDL at 160 mg/dL. [facility] Medical History (Updated 04/19/24 @ 14:35 by Dylan Cordon MD) CAD (coronary artery disease) Anxiety Chronic headaches Tinnitus Neck pain Annual physical exam Chronic GERD Obesity Chest pain Mammogram normal Hyperlipidemia Sciatica History of colon polyps History of diverticulitis of colon Nephrolithiasis Surgical History History of esophagogastroduodenoscopy (EGD) Hx of colonoscopy History of ankle surgery (10/06/19) H/O Spinal surgery History of kidney surgery H/O section Family History Father Heart attack Mother Diabetes Heart problem Arthritis Social History Household Members: Children Housing: House Alcohol intake: never Patient Tobacco Use Status: Current everyday Tobacco user Tobacco use type: Cigarette Cigarette Packs Per Day: 0.5 Cigarettes Per Day: 12 Years Smoked: 25 e-Cigarette/Vaping Use: Never Used service: No Current occupational status: employed Cognitive needs: No Hearing needs: No Vision needs: Yes Review of Systems Const Denies chills, Denies fatigue, Denies fever(s), Denies frequent falls, Denies weakness, Denies weight gain and Denies weight loss ENT Denies dizziness Card Denies chest pain, Denies leg edema, Denies lightheadedness, Denies palpitations, Denies dyspnea, Denies dyspnea on exertion, Denies orthopnea and Denies other (loss of consciousness) Resp Denies cough, Denies dyspnea and Denies dyspnea on exertion GI Denies hematochezia and Denies change in stool character Musc Denies abnormal gait, Denies muscle weakness, Denies numbness, Denies radiating pain into limb and Denies tingling Neuro Denies Abnormal speech present, Denies abnormal gait, Denies dizziness, Denies frequent falls, Denies numbness, Denies tingling and Denies weakness Endo Denies fatigue and Denies palpitations Physical Exam Vital Signs: Last Vital Signs Pulse 96 04/19/24 13:57 BP 124/80 04/19/24 13:57 BMI result Body Mass Index 35.6 Const General: cooperative, comfortable, no acute distress, alert and awake Nutritional Appearance: obese Orientation/consciousness: patient oriented x3 Limitations: no limitations HEENT Head: Yes normocephalic and Yes atraumatic Neck Neck: Yes trachea midline, Yes supple and Yes no JVD Resp Effort & Inspection: normal respiratory effort Auscultation: clear to auscultation bilaterally Cardio Jugular venous distension: no JVD Rate: regular rate Rhythm: regular rhythm Heart sounds: S1 normal heart sound present, S2 normal heart sound present, no click, no gallops, no murmurs and no rubs GI Auscultation: normal bowel sounds Skin General skin exam: no rashes or lesions noted Neuro General: patient oriented x3 and no focal motor deficits Speech: No Abnormal speech present Extrem General: Yes no clubbing, cyanosis or edema Assessment & Plan Assessment & Plan (1) CAD (coronary artery disease): Code(s): I25.10 - Atherosclerotic heart disease of [place] coronary artery without angina pectoris Category: Medical Plan: CAD nonobstructive by coronary CTA and in the small to medium size branch vessel. Not likely to cause symptoms. Continue aggressive medical therapy. Advise low-dose aspirin therapy. Advised to add ezetimibe 10 mg to regimen. Follow-up lipid panel in 3 months with target goal LDL less than 70 mg/dL. More aggressive weight loss as well as dietary modification was discussed with her. Blood pressure is currently well optimized. Continue current therapy. Importance of regular physical activity was discussed. She understands agrees. Follow up in the clinic if need be. Thank you for allowing me to partake in the care Orders: Orders Lipid Panel 3 Months I25.10 - Atherosclerotic heart disease of [place] coronary artery without angina pectoris Medications: New aspirin (Ecotrin Low Strength) 81 mg PO DAILY 30 tabs 5RF ezetimibe 10 mg PO DAILY 30 tabs 5RF Coding Level of Care Code Est Pt Level 3 (18289) Diagnoses CAD (coronary artery disease) I25.10
== END 2024-04-19 14:45 | disposition home or self-care (01) ==
PROVIDERS: PCP Internal Medicine; Visit Provider Internal Medicine Cardiovascular Disease
DX: I25.10 Atherosclerotic heart disease of native coronary artery without angina pectoris (principal)
CPT/HCPCS: 99213

== ENCOUNTER → 2024-04-19 13:38 | Outpatient (BNVA) | payer MEDICARE, MEDICAID, SELFPAY | PROVIDERS: PCP Internal Medicine; Visit Provider Internal Medicine Cardiovascular Disease | DX: I25.10 Atherosclerotic heart disease of native coronary artery without angina pectoris (principal) | CPT/HCPCS: 99212 ==

== ENCOUNTER 2024-04-28 19:18 | Emergency (ER) | payer MEDICARE, MEDICAID, SELFPAY ==
--- NOTE | ~2024-04-28 | CT_ITS ---
EXAMINATION: CT ABDOMEN AND PELVIS WITHOUT CONTRAST CLINICAL INFORMATION: Bilateral inguinal hernias and abdominal pain COMPARISON: CT abdomen pelvis 12/28/2019 TECHNIQUE: Multidetector volumetric imaging was performed from the superior aspect of the liver through the pubic symphysis. Sagittal and coronal reformatted images were obtained on the technologist's workstation. This CT examination was performed using dose optimization techniques as appropriate, variously including the following: *Automated exposure control *Adjustment of mA and/or kV according to patient size (this includes techniques or standardized protocols for targeted exams where dose is matched to indication/reason for exam; i.e. extremities or head) *Use of iterative reconstruction technique DLP: 882 mGy-cm FINDINGS: LUNG BASES: The visualized lung bases are unremarkable. LIVER, GALLBLADDER, AND BILIARY TREE: The liver is enlarged measuring over 21 cm in greatest length with decreased attenuation consistent with hepatic steatosis. Some minimal focal fatty sparing seen around the gallbladder. No focal hepatic lesion or biliary ductal dilatation is present. The gallbladder is unremarkable with no evidence of radiopaque gallstones, gallbladder wall thickening, or obvious pericholecystic inflammatory changes. PANCREAS: Unremarkable. SPLEEN: Spleen is enlarged measuring 13.5 cm in greatest transverse dimension ADRENAL GLANDS: Unremarkable. KIDNEYS AND URETERS: The kidneys are normal in size, shape, and attenuation. No hydronephrosis, hydroureter, or calculi seen. No perinephric stranding. BLADDER: Unremarkable. GASTROINTESTINAL TRACT: The small and large bowel are unremarkable. The appendix is unremarkable. ABDOMINAL WALL: No significant hernia is appreciated. LYMPH NODES: No retroperitoneal lymphadenopathy. VASCULAR: Calcific atherosclerotic changes are present in the aorta and iliofemoral vessels. There is no evidence of an abdominal aortic aneurysm. PELVIC VISCERA: The uterus and adnexa are unremarkable. OSSEOUS STRUCTURES: Degenerative changes are present throughout the spine. No bony destructive lesions. CT/CT abdomen pelvis wo IV con IMPRESSION: 1. A cause for the patient's abdominal pain has not been found. 2. There are no abdominal wall hernias. 3. Incidental note made of an enlarged fatty liver and mild splenomegaly. Fleischner guidelines were followed.
[2024-04-28 19:52] VITALS: BP 151/86; PULSE 91; RESP 18; TEMP 36.7; O2SAT 96; BMI 36.6
--- NOTE | 2024-04-28 19:57 | ED.GENADULT ---
HPI - General Adult General Chief complaint: Abdominal Pain Stated complaint: Severe abd pain since this morning Time Seen by Provider: 04/29/24 00:14 Source: patient and family Mode of arrival: ambulatory Limitations: no limitations History of Present Illness ED Provider: Dr. Julia Jha HPI narrative: Patient comes to the emergency room complaining of bilateral inguinal pain. 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 Patient states that it has not abdominal pain, but whenever she moves a certain way or flexes her legs/hips it hurts more. Patient denies any falls. Denies any URI or UTI symptoms. Denies fever chills, no flank pain. Related Data Home Medications ?Medication ?Instructions ?Recorded ?Confirmed duloxetine 30 mg capsule,delayed 30 mg PO DAILY 11/10/23 04/19/24 release hydroxyzine HCl 10 mg tablet 10 mg PO BEDTIME PRN 04/19/24 04/19/24 multivitamin (Daily Multi-Vitamin 1 tab PO DAILY 04/19/24 04/19/24 tablet) Previous Rx's ?Medication ?Instructions ?Recorded riboflavin (vitamin B2) 400 mg 400 mg PO DAILY 30 days #30 tabs 03/03/23 tablet atorvastatin 80 mg tablet 80 mg PO DAILY #90 tabs 09/11/23 omeprazole 20 mg capsule,delayed 20 mg PO DAILY 90 days #90 caps 11/17/23 release aspirin 81 mg tablet,delayed 81 mg PO DAILY #30 tabs 04/19/24 release (Ecotrin Low Strength) ezetimibe 10 mg tablet 10 mg PO DAILY #30 tabs 04/19/24 ibuprofen 600 mg tablet 600 mg PO TID PRN fever or pain 04/29/24 #20 tabs Allergies Allergy/AdvReac Type Severity Reaction Status Date / Time amitriptyline AdvReac Intermediate Palpitation Verified 04/28/24 19:57 s propranolol AdvReac Intermediate Palpitation Verified 04/28/24 19:57 s Review of Systems Review of Systems: Constitutional : No Weight loss, No Fever, No Chills, No Night Sweats, No Fatigue, No Malaise ENT/Mouth : No Hearing loss, No Ear Pain, No Nasal Congestion, No Sinus Pain, No Hoarseness, No sore throat, No Rhinorrhea, No Swallowing Difficulty Eyes: No Eye Pain, No Swelling, No Redness, No Foreign Body, No Discharge, No Vision Changes Cardiovascular : No Chest Pain, No SOB, No Dyspnea on Exertion, No Orthopnea, No Edema, No Palpitations Respiratory : No Cough, No Sputum, No Wheezing, No Smoke Exposure, No Dyspnea Gastrointestinal : No Nausea, No Vomiting, No Diarrhea, No Constipation, No abdominal Pain, No Hematochezia, No Melena Genitourinary : no irregular bleeding, No Dysuria, No Urinary Frequency, No Hematuria, No Urinary Incontinence, No Urgency, No Flank Pain, No Urinary Flow Changes, No Hesitancy Musculoskeletal : Complaining of bilateral inguinal pain No joint pain, No Myalgias, No Joint Swelling Skin : No Skin Lesions, No rash Neuro : No Weakness, No Numbness, No Paresthesias, No Loss of Consciousness, No Dizziness, No Headache Psych : No Anxiety/Panic, No Depression, No SI/HI/AH/VH, No Social Issues, Heme/Lymph: No Bruising, No Bleeding,No Lymphadenopathy Endocrine : No Polyuria, No Polydipsia, No Temperature Intolerance [facility] Past Medical History Medical History (Updated 04/29/24 @ 00:31 by Julia Jha MD) CAD (coronary artery disease) Anxiety Chronic headaches Tinnitus Neck pain Annual physical exam Chronic GERD Obesity Chest pain Mammogram normal Hyperlipidemia Sciatica History of colon polyps History of diverticulitis of colon Nephrolithiasis Surgical History History of esophagogastroduodenoscopy (EGD) Hx of colonoscopy History of ankle surgery (10/06/19) H/O Spinal surgery History of kidney surgery H/O section Family History Family History Father Heart attack Mother Diabetes Heart problem Arthritis Social History Social History Household Members: Children Housing: House Alcohol intake: never Patient Tobacco Use Status: Current everyday Tobacco user Tobacco use type: Cigarette Cigarette Packs Per Day: 0.5 Cigarettes Per Day: 12 Years Smoked: 25 Smoked in Last 30 Days: Yes e-Cigarette/Vaping Use: Never Used Advance Directives: No Advance Directives Information Provided: No Do you have a plan to hurt others: No Plan Patient : No service: No Current occupational status: employed Cognitive needs: No Hearing needs: No Vision needs: Yes Physical Exam ED Vital Signs: Vital Signs - 24 hr 04/28/24 19:52 04/28/24 23:35 04/29/24 00:00 Temperature 98.1 F 98.1 F 98.2 F Pulse Rate 91 79 81 Respiratory Rate 18 20 16 Blood Pressure 151/86 H 142/78 H 142/71 H Pulse Oximetry 96 96 95 Oxygen Delivery Method Room Air Room Air Room Air BMI result Body Mass Index 36.6 Const Other: Appearance: Alert. Oriented X3. No acute distress. Patient well-appearing Eyes: Pupils equal, round and reactive to light. ENT: Pharynx normal. Neck: Normal inspection. Neck supple. No lymph nodes noted. No crepitus CVS: Normal heart rate and rhythm. Pulses normal. Normal S1 and S2 Respiratory: No respiratory distress. Breath sounds normal. No Wheezing. No rales Abdomen: Soft and nontender. No rigidity. No distention. No pain to palpation on abdominal pain. However, when patient flexes her legs upwards, it reproduces the pain., no rebound, no guarding, no palpable inguinal or femoral hernias Skin: Skin warm and dry. Normal skin color. Normal skin turgor. Extremities: No lower extremity edema. No Lacerations. No Rash Neuro: Oriented X 3. No motor deficit. No sensory deficit. Moving all extremities. No slurred speech. CN 2 through 12 grossly intact Psych: calm, cooperative, normal affect Course Course Course Narrative: This is a Rapid Medical Examination (RME) performed by Ousmane Brunner PA-C in triage. Full HPI, ROS, assessment and treatment plan per primary provider in the Main ED. 64-year-old female with hx of coronary artery disease, nephrolithiasis, diverticulitis, GERD, anxiety here for evaluation of lower abdominal pain that began acutely this morning while walking down her stairs. She reports bending forward and feeling like something popped in her lower abdomen. Reports pain to bilateral lower abdomen, improved with bending over. Not exacerbated with coughing. Reports 9/10 pain with palpation. She denies constipation, diarrhea, dysuria, hematuria, nausea or vomiting. On exam, obese abdomen, tender to palpation of bilateral lower abdomen, jumping as I press down. No palpable hernia however exam limited in triage. Plan: Labs, CT, UA ordered. Medical Decision Making Medical Decision Making [facility] Narrative: -I discussed the labs with the patient, hematology at baseline, chemistry at baseline, urine has +2 leukocyte esterase with normal white blood cell count and no bacteria seen, no UTI symptoms, antibiotics not indicated at this time -my interpretation of CT scan, no obvious abnormality. Discussed with the patient and her daughter that the source of the pain most likely musculoskeletal given the patient's physical exam and mechanism of injury -at this time, patient declined any pain medication Differential Diagnosis Differential Diagnoses: The differential diagnosis associated with the presentation includes (SBO, inguinal hernia, femoral hernia, UTI musculoskeletal pain) Admission/Observation Consideration of admission/observation: Escalation of care including admission/observation considered (Given patient's presentation complaints, observation considered) Lab Data [facility] Lab Attestation statement: I reviewed the patient's lab results. 04/28/24 20:43 04/28/24 20:43 Labs: Lab Results 04/28/24 04/28/24 Range/Units 20:43 23:28 WBC 9.8 (4.8-10.8) X10*3/uL RBC 5.23 (4.20-5.50) X10*6/uL Hgb 13.9 (12.0-16.0) g/dl Hct 42.3 (37.0-47.0) % MCV 80.9 (80.0-98.0) fL MCH 26.6 L (27.0-33.0) pg MCHC 32.9 (31.0-35.0) g/dl RDW 14.6 (11.0-16.0) % Plt Count 189 (160-400) X10*3/uL MPV 10.4 (9.4-12.3) fL Immature Gran % (Auto) 0.2 (0.0-0.4) % Neut % (Auto) 51.9 (45-73) % Lymph % (Auto) 30.8 (20-40) % [place] % (Auto) 12.8 H (2-11) % Eos % (Auto) 3.9 (0-4) % Baso % (Auto) 0.4 (0-2) % Lymph # (Auto) 3.0 (1.2-4.9) X10*3/uL [place] # (Auto) 1.3 H (0.1-1.2) X10*3/uL Eos # (Auto) 0.4 (0.0-0.4) X10*3/uL Baso # (Auto) 0.0 (0.0-0.2) X10*3/uL Abs Immat Gran (auto) 0.02 (0.00-0.03) X10*3/uL Absolute Neuts (auto) 5.1 (2.0-8.3) x10*3/uL Absolute Nucleated RBC 0.000 (0.0-0.012) X10*3/uL Nucleated RBC % (auto) 0.0 (0.0-0.2) /100WBC Sodium 142 (135-145) mmol/L Potassium 4.1 (3.3-5.1) mmol/L Chloride 107 (96-108) mmol/L Carbon Dioxide 23 (22-29) mmol/L Anion Gap 16 (12-20) BUN 13 (9-16) mg/dL Creatinine 0.70 (0.5-1.4) mg/dL Estim Creat Clear Calc 101.7 Estimated GFR > 60 Random Glucose 153 H (60-115) mg/dL Calcium 9.1 (8.4-10.2) mg/dL Magnesium 2.1 (1.6-2.6) mg/dL Total Bilirubin 0.3 (0.0-1.0) mg/dL AST 36 H (5-31) U/L ALT 56 H (0-31) U/L Alkaline Phosphatase 92 (39-117) U/L Total Protein 7.2 (6.5-8.0) g/dL Albumin 4.1 (3.5-5.0) g/dL Lipase 27 (8-78) U/L Urine Color Yellow Urine Appearance Clear Urine pH 6.5 (5.0-9.0) Ur Specific [place] 1.025 (1.005-1.025) Urine Protein Negative (Neg-Trace) mg/dL Urine Glucose (UA) Negative (Negative) mg/dL Urine Ketones Negative (Negative) mg/dL Urine Blood Negative (Negative) Urine Nitrite Negative (Negative) Ur Leukocyte Esterase Moderate (2+) H (Negative) Urine RBC 0-2 (0-2) /HPF Urine WBC 0-5 (0-5) /HPF Ur Squamous Epith Cells 0-2 (0-2) /HPF Urine Bacteria None Seen (None Seen) Hyaline Casts 0-2 (0-2) /LPF Independent Interpretation I performed an independent interpretation of an: CT Scan Radiology Impression Discussion of test interpretation with radiology: I have reviewed the radiologist's reading. Radiologist Impression: FINDINGS: LUNG BASES: The visualized lung bases are unremarkable. LIVER, GALLBLADDER, AND BILIARY TREE: The liver is enlarged measuring over 21 cm in greatest length with decreased attenuation consistent with hepatic steatosis. Some minimal focal fatty sparing seen around the gallbladder. No focal hepatic lesion or biliary ductal dilatation is present. The gallbladder is unremarkable with no evidence of radiopaque gallstones, gallbladder wall thickening, or obvious pericholecystic inflammatory changes. PANCREAS: Unremarkable. SPLEEN: Spleen is enlarged measuring 13.5 cm in greatest transverse dimension ADRENAL GLANDS: Unremarkable. KIDNEYS AND URETERS: The kidneys are normal in size, shape, and attenuation. No hydronephrosis, hydroureter, or calculi seen. No perinephric stranding. BLADDER: Unremarkable. GASTROINTESTINAL TRACT: The small and large bowel are unremarkable. The appendix is unremarkable. ABDOMINAL WALL: No significant hernia is appreciated. LYMPH NODES: No retroperitoneal lymphadenopathy. VASCULAR: Calcific atherosclerotic changes are present in the aorta and iliofemoral vessels. There is no evidence of an abdominal aortic aneurysm. PELVIC VISCERA: The uterus and adnexa are unremarkable. OSSEOUS STRUCTURES: Degenerative changes are present throughout the spine. No bony destructive lesions. CT/CT abdomen pelvis wo IV con IMPRESSION: 1. A cause for the patient's abdominal pain has not been found. 2. There are no abdominal wall hernias. 3. Incidental note made of an enlarged fatty liver and mild splenomegaly. Fleischner guidelines were followed. Discharge Plan Discharge Clinical Impression: Abdominal pain Patient Disposition: Home, Self-Care Instructions: Abdominal Pain (ED) Additional Instructions: Please follow-up with your primary care physician tomorrow. If you have any worsening or new symptoms, please return to the emergency room or call 911 Prescriptions: New ibuprofen 600 mg tablet 600 mg PO TID PRN (Reason: fever or pain) Qty: 20 0RF No Action omeprazole 20 mg capsule,delayed release(DR/EC) 20 mg PO DAILY 90 Days Qty: 90 1RF atorvastatin 80 mg tablet 80 mg PO DAILY Qty: 90 3RF hydroxyzine HCl 10 mg tablet 10 mg PO BEDTIME PRN riboflavin (vitamin B2) 400 mg tablet 400 mg PO DAILY 30 Days Qty: 30 1RF multivitamin [Daily Multi-Vitamin] Tablet 1 tab PO DAILY aspirin [Ecotrin Low Strength] 81 mg tablet,delayed release (DR/EC) 81 mg PO DAILY Qty: 30 5RF ezetimibe 10 mg tablet 10 mg PO DAILY Qty: 30 5RF duloxetine 30 mg capsule,delayed release(DR/EC) 30 mg PO DAILY Print Language: Belarusian
[2024-04-28 20:52] LABS: MANUAL DIFF FLAG NO
[2024-04-28 20:53] LABS: Basophils Percent Auto 0.4 % (0-2); Eosinophils Absolute Auto 0.4 X10*3/uL (0.0-0.4); Eosinophils Percent Auto 3.9 % (0-4); Hematocrit 42.3 % (37.0-47.0); Hemoglobin 13.9 g/dl (12.0-16.0); Imm Gran Abs Auto 0.02 X10*3/uL (0.00-0.03); Imm Gran Pct Auto 0.2 % (0.0-0.4); Lymphocytes Percent Auto 30.8 % (20-40); Mean Corpuscular HGB Conc 32.9 g/dl (31.0-35.0); Mean Corpuscular Hemoglobin 26.6 pg (27.0-33.0); Mean Corpuscular Volume 80.9 fL (80.0-98.0); Mean Platelet Volume 10.4 fL (9.4-12.3); Monocytes Absolute Auto 1.3 X10*3/uL (0.1-1.2); Monocytes Percent Auto 12.8 % (2-11); Neutrophils Absolute Auto 5.1 x10*3/uL (2.0-8.3); Neutrophils Percent Auto 51.9 % (45-73); Platelet Count 189 X10*3/uL (160-400); Red Blood Count 5.23 X10*6/uL (4.20-5.50); Red Cell Distribution Width 14.6 % (11.0-16.0); White Blood Count 9.8 X10*3/uL (4.8-10.8)
[2024-04-28 21:09] LABS: Alanine Aminotransferase 56 U/L (0-31); Albumin Level 4.1 g/dL (3.5-5.0); Alkaline Phosphatase 92 U/L (39-117); Anion Gap 16 (12-20); Aspartate Amino Transferase 36 U/L (5-31); Bilirubin Total 0.3 mg/dL (0.0-1.0); Blood Urea Nitrogen 13 mg/dL (9-16); Calcium 9.1 mg/dL (8.4-10.2); Carbon Dioxide 23 mmol/L (22-29); Chloride 107 mmol/L (96-108); Creatinine Clr Calc Pharmacy 101.7; Estimated Glomerular Filt Rate > 60; Glucose Random 153 mg/dL (60-115); Lipase 27 U/L (8-78); Magnesium 2.1 mg/dL (1.6-2.6); Potassium 4.1 mmol/L (3.3-5.1); Sodium 142 mmol/L (135-145); Total Protein 7.2 g/dL (6.5-8.0)
--- NOTE | 2024-04-28 23:32 | PC.NURSE ---
[id number] historic interpreter ID
[2024-04-28 23:34] LABS: Appearance Urine Clear; Color Urine Yellow; Glucose Urine UA Negative (Negative); Leukocyte Esterase Urine Moderate (2+) (Negative); Nitrite Urine Negative (Negative); PH 6.5 (5.0-9.0); Specific Gravity - Urine 1.025 (1.005-1.025); UMIC TRIGGER UACC YES; Urine Blood Negative (Negative); Urine Ketones Negative (Negative); Urine Protein Negative (Neg-Trace)
--- NOTE | 2024-04-28 23:34 | PC.NURSE ---
Patient refused to utilize seismic interpreter, insisted on daughter interpreting. was able to use the seismic interpreter to undertand that she is up to date on her immunizations, does smoke, does not drink alcohol or use other illicit substances.
[2024-04-28 23:35] VITALS: BP 142/78; PULSE 79; RESP 20; TEMP 36.7; O2SAT 96
[2024-04-28 23:41] LABS: Bacteria Urine None Seen (None Seen); Hyaline Casts Urine 0-2 /LPF (0-2); RBC Urine 0-2 /HPF (0-2); Squamous Epithelial Cell Urine 0-2 /HPF (0-2); WBC Urine 0-5 /HPF (0-5)
[2024-04-29] VITALS: BP 142/71; PULSE 81; RESP 16; TEMP 36.8; O2SAT 95
[2024-04-29 00:53] VITALS: BP 145/82; PULSE 79; RESP 15; TEMP 36.6; O2SAT 95
== END 2024-04-29 00:54 | disposition home or self-care (01) ==
PROVIDERS: Physician Assistant Medical; Emergency Provider Emergency Medicine; PCP Internal Medicine
DX: R10.30 Lower abdominal pain, unspecified (principal); E78.5 Hyperlipidemia, unspecified; Z79.899 Other long term (current) drug therapy; Z79.02 Long term (current) use of antithrombotics/antiplatelets; Z79.82 Long term (current) use of aspirin; F17.210 Nicotine dependence, cigarettes, uncomplicated
CPT/HCPCS: 36415; 74176; 80053; 81001; 83690; 83735; 85025; 99284

== ENCOUNTER 2024-06-22 08:47 | Outpatient (AMB) | payer MEDICARE, MEDICAID, SELFPAY ==
[2024-06-22 08:55] VITALS: BP 134/80; PULSE 90; O2SAT 96; BMI 36.6
--- NOTE | 2024-06-22 08:55 | MHC.PC.OV ---
Vital Signs 06/22/24 08:55 Height 5 ft 7 in Weight 234 lb BMI 36.6 BP 134/80 Blood Pressure Location Lt brachial Position Sitting Pulse 90 Pulse Source Pulse Oximeter Pulse Oximetry (%) 96 Oxygen Delivery Method Room Air Intake Visit Reasons: Lower back pain Intake Note: Pt is here today for a sick visit. Pt c/o L side lower back pain that goes down her L leg. Allergies amitriptyline Adverse Reaction (Intermediate, Verified 06/22/24 09:08) Palpitations propranolol Adverse Reaction (Intermediate, Verified 06/22/24 09:08) Palpitations Medication List - Last Reconciled 06/22/24 by Lisa Porras MD aspirin (Ecotrin Low Strength) 81 mg PO DAILY atorvastatin 80 mg PO DAILY duloxetine 30 mg PO DAILY ezetimibe 10 mg PO DAILY hydroxyzine HCl 10 mg PO BEDTIME PRN ibuprofen 600 mg PO TID PRN multivitamin (Daily Multi-Vitamin tablet) 1 tab PO DAILY omeprazole 20 mg PO DAILY 90 days Ozempic (semaglutide) 0.25 mg (0.368 mL) subcut QWEEK NS riboflavin (vitamin B2) 400 mg PO DAILY 30 days Tobacco use date assessed: 06/22/24 Fall risk assessment: No Falls in past year Last assessed Fall Risk: 06/22/24 Dental Screening Dental Screen Date: 06/22/24 Did you have a dental visit in the last 12 months?: No Did you have a dental problem in the last 6 months where you did not have access to dental care?: No Was dental information given to patient?: Patient declined HPI Lower back pain HPI Details Pt c/o LBP radiating to LLE for 2 months worse when walking for long time or sitting. Patient has been taking ibuprofen 400 mg 3 times a day and baclofen as needed without significant improvement. Pt will be starting PT. Pt denies leg weakness or change in BM. For type 2 diabetes she has been following ADA diet decreasing caloric intake for at least 3 months. [facility] Medical History CAD (coronary artery disease) Anxiety Chronic headaches Tinnitus Neck pain Annual physical exam Chronic GERD Obesity Chest pain Mammogram normal Hyperlipidemia Sciatica History of colon polyps History of diverticulitis of colon Nephrolithiasis Surgical History History of esophagogastroduodenoscopy (EGD) Hx of colonoscopy History of ankle surgery (10/06/19) H/O Spinal surgery History of kidney surgery H/O section Family History Father Heart attack Mother Diabetes Heart problem Arthritis Social History Household Members: Children Housing: House Alcohol intake: never Patient Tobacco Use Status: Current everyday Tobacco user Tobacco use type: Cigarette Cigarette Packs Per Day: 0.5 Cigarettes Per Day: 12 Years Smoked: 25 e-Cigarette/Vaping Use: Never Used service: No Current occupational status: employed Cognitive needs: No Hearing needs: No Vision needs: Yes Questionnaire Thrive Questionnaire Date Thrive assessed: 11/28/23 AUDIT C Alcohol Use Questionnaire (AUDIT-C) 1. How often do you have a drink containing alcohol?: Never 3. How often do you have six or more drinks on one occasion?: Never Total Score: 0 CHRISTIE-7 AMB Questionnaire CHRISTIE-7 Date CHRISTIE - 7 assessed: 11/28/23 Source: Developed by Drs. Markel Mendes, Chuyita Da Silva, Chadwick Cabello and colleagues, with an educational bayron from [employer]. Review of Systems Const All systems reviewed & are unremarkable except as noted in HPI and below Eyes Reports no additional complaints ENT Reports no additional complaints Card Reports no additional complaints Resp Reports no additional complaints GI Reports no additional complaints Reports no additional complaints Physical exam (Primary Care) Vital Signs: Last Vital Signs Pulse 90 06/22/24 08:55 BP 134/80 06/22/24 08:55 Pulse Ox 96 06/22/24 08:55 Oxygen Delivery Method Room Air 06/22/24 08:55 BMI result Body Mass Index 36.6 Tobacco/Smoking Status: Tobacco use Status Tobacco use date assessed 06/22/24 06/22/24 09:16 Patient Tobacco Use Status Current everyday Tobacco 06/22/24 08:55 Tobacco use type Cigarette 06/22/24 08:55 e-Cigarette/Vaping Use Never Used 06/22/24 08:55 Thrive Assessment: Date of Thrive Assessment Date Thrive assessed 11/28/23 06/22/24 08:55 Const General: no acute distress HENMT Face and sinus: Yes normal facial exam Mouth: Normal oral and palatal mucosa present Resp Effort & Inspection: normal respiratory effort Auscultation: clear to auscultation bilaterally Cardio Rhythm: regular rhythm Heart sounds: S1 normal heart sound present and S2 normal heart sound present Extrem Other: Paraspinal tenderness lower lumbar region left more than right, straight leg raising 40 degrees on the left, 90 degrees on the right, deep tendon reflexes 1+ bilaterally. Results AMB Hemoglobin A1c AMB Hemoglobin A1c 7.0 % Last Edit by CED Jones on 06/22/24 09:55 Assessment and Plan Assessment & Plan (1) Sciatica: Code(s): M54.30 - Sciatica, unspecified side Plan: Patient will be starting physical therapy. Continue ibuprofen baclofen p.r.n. weight loss discussed with the patient (2) Type 2 diabetes mellitus: Comment: Intolerant to metformin causing diarrhea Code(s): E11.9 - Type 2 diabetes mellitus without complications Plan: A1c is 7.0 today, increasing A1c despite ADA diet increase physical activity. Patient is intolerant to metformin causing diarrhea. Ozempic 0.25 mg for the 1st month then increase to 0.5 mg weekly will be started (3) Hyperlipidemia: Code(s): E78.5 - Hyperlipidemia, unspecified Plan: Continue atorvastatin and Zetia added by Cardiology in April. Check lipid profile before next visit Orders: Orders AMB Hemoglobin A1c Today Z13.9 - Encounter for screening, unspecified Medications: New Ozempic (semaglutide) for 4 weeks then 0.5 mg weekly 0.25 mg (0.368 mL) subcut QWEEK 9 mL 1RF NS Coding Level of Care Code Est Pt Level 4 (86974) Diagnoses Sciatica M54.30 Type 2 diabetes mellitus E11.9 Hyperlipidemia E78.5
== END 2024-06-22 10:07 | disposition home or self-care (01) ==
PROVIDERS: PCP Internal Medicine; Visit Provider Internal Medicine
DX: M54.30 Sciatica, unspecified side (principal); E11.9 Type 2 diabetes mellitus without complications; E78.5 Hyperlipidemia, unspecified; Z13.9 Encounter for screening, unspecified
CPT/HCPCS: 83036; 99214

== ENCOUNTER 2024-07-26 08:40 | Day surgery (SDC) | payer MEDICARE, MEDICAID, SELFPAY ==
--- NOTE | 2023-11-28 09:58 | P.CONAN_ITS ---
HPI - Anesthesia Eval Consult details Narrative: 63yo F for Upper Endoscopy and Colonoscopy [facility] Active Problems Active Problems: All Active Problems (Updated 09/11/23 @ 09:51 by Lisa Porras MD) Morbid obesity (Acute) Abdominal bloating (Acute) Hyperglycemia (Acute) Chronic migraine without aura, not intractable, without status migrainosus (Acute) Gastric ulcer due to Helicobacter pylori (Acute) Depression (Acute) Chronic elbow pain (Acute) Chronic headache (Acute) Anxiety (Acute) Spasms of the hands or feet (Acute) Hypersomnia (Acute) Snoring (Acute) Insomnia (Acute) Chronic headaches (Acute) Tinnitus (Acute) Neck pain (Acute) Annual physical exam (Acute) Abdominal pain, acute, right lower quadrant (Acute) Chronic GERD (Acute) Obesity (Acute) Chest pain (Acute) Mammogram normal (Acute) Hyperlipidemia (Acute) Sciatica (Acute) History of colon polyps (Acute) History of diverticulitis of colon (Acute) Nephrolithiasis (Acute) Past Medical History Medical History Anxiety Chronic headaches Tinnitus Neck pain Annual physical exam Chronic GERD Obesity Chest pain Mammogram normal Hyperlipidemia Sciatica History of colon polyps History of diverticulitis of colon Nephrolithiasis Family History Family History Father Heart attack Mother Diabetes Heart problem Arthritis Family history of problems with anesthesia: No Surgical History Surgical History History of esophagogastroduodenoscopy (EGD) Hx of colonoscopy History of ankle surgery (10/06/19) H/O Spinal surgery History of kidney surgery H/O section History of Problems with Anesthesia: No Social History Social History Household Members: Children Housing: House Alcohol intake: never Patient Tobacco Use Status: Current everyday Tobacco user Tobacco use type: Cigarette Cigarette Packs Per Day: 0.5 Cigarettes Per Day: 12 Years Smoked: 25 e-Cigarette/Vaping Use: Never Used Current occupational status: employed Cognitive needs: No Hearing needs: No Vision needs: Yes Meds Allergies Allergy/AdvReac Type Severity Reaction Status Date / Time amitriptyline AdvReac Intermediate Palpitation Verified 11/10/23 09:35 s propranolol AdvReac Intermediate Palpitation Verified 11/10/23 09:35 s Home Medications Medication Instructions Recorded Confirmed Last Taken Type duloxetine 30 mg capsule,delayed 30 mg PO DAILY 11/10/23 11/10/23 Unknown History release Assessment and Plan Assessment Anesthesia Assessment: Chart Reviewed Final Anesthetic Review Family History of Problems with Anesthesia: No History of Problems with Anesthesia: No
--- NOTE | 2024-07-23 07:53 | HO.ANESPROP2 ---
Documented by User: Christina Vargas NP 07/23/24 08:02 HPI - Anesthesia Eval Consult details Narrative: 64yo F for Upper Endoscopy and Colonoscopy [place] [facility] [place] Stable at 04/2024 office visit. Anesthesia Pre-Procedure Meds Is the patient on any of the following meds?: GLP1/DPP4 PMFSH Active Problems Active Problems: All Active Problems Type 2 diabetes mellitus (Acute) CAD (coronary artery disease) (Acute) Restless leg syndrome (Acute) Lower back pain (Acute) Positive cardiac stress test (Acute) Morbid obesity (Acute) Abdominal bloating (Acute) Hyperglycemia (Acute) Chronic migraine without aura, not intractable, without status migrainosus (Acute) Gastric ulcer due to Helicobacter pylori (Acute) Depression (Acute) Chronic elbow pain (Acute) Chronic headache (Acute) Anxiety (Acute) Spasms of the hands or feet (Acute) Hypersomnia (Acute) Snoring (Acute) Insomnia (Acute) Chronic headaches (Acute) Tinnitus (Acute) Neck pain (Acute) Annual physical exam (Acute) Abdominal pain, acute, right lower quadrant (Acute) Chronic GERD (Acute) Obesity (Acute) Chest pain (Acute) Mammogram normal (Acute) Hyperlipidemia (Acute) Sciatica (Acute) History of colon polyps (Acute) History of diverticulitis of colon (Acute) Nephrolithiasis (Acute) Past Medical History Medical History CAD (coronary artery disease) Anxiety Chronic headaches Tinnitus Neck pain Annual physical exam Chronic GERD Obesity Chest pain Mammogram normal Hyperlipidemia Sciatica History of colon polyps History of diverticulitis of colon Nephrolithiasis Family History Family History Father Heart attack Mother Diabetes Heart problem Arthritis Family history of problems with anesthesia: No Surgical History Surgical History History of esophagogastroduodenoscopy (EGD) Hx of colonoscopy History of ankle surgery (10/06/19) H/O Spinal surgery History of kidney surgery H/O section History of Problems with Anesthesia: No Social History Social History Household Members: Children Housing: House Are you a primary career law clerk to a significant other at home: No Do you presently have visiting nurse or other home services: No Alcohol intake: never Patient Tobacco Use Status: Current everyday Tobacco user Tobacco use type: Cigarette Cigarette Packs Per Day: 0.5 Cigarettes Per Day: 10.0 Years Smoked: 25 Smoked in Last 30 Days: Yes e-Cigarette/Vaping Use: Never Used Are you DNR?: No Advance Directives: No Advance Directives Information Provided: Yes Recently lost weight without trying: No Nutrition Risks: No Nutritional Risk service: No Current occupational status: employed Cognitive needs: No Hearing needs: No Vision needs: Yes Meds Allergies Allergy/AdvReac Type Severity Reaction Status Date / Time amitriptyline AdvReac Intermediate Palpitation Verified 06/22/24 09:08 s propranolol AdvReac Intermediate Palpitation Verified 06/22/24 09:08 s Home Medications ?Medication ?Instructions ?Recorded ?Confirmed ?Last Taken ?Type duloxetine 30 mg capsule,delayed 30 mg PO DAILY 11/10/23 06/22/24 Unknown History release hydroxyzine HCl 10 mg tablet 10 mg PO BEDTIME PRN 04/19/24 06/22/24 Unknown History multivitamin (Daily Multi-Vitamin 1 tab PO DAILY 04/19/24 06/22/24 Unknown History tablet) Exam Pertinent Lab Results Pertinent Lab Results: Laboratory Tests 04/28/24 20:43 WBC 9.8 Hgb 13.9 Hct 42.3 Plt Count 189 Sodium 142 Potassium 4.1 Chloride 107 Carbon Dioxide 23 BUN 13 Creatinine 0.70 Narrative Narrative: EKG 12/2023 normal sinus rhythm with normal EKG CTA 03/2024 CAD nonobstructive by coronary CTA and in the small to medium size branch vessel. Assessment and Plan Assessment Anesthesia Assessment: Chart Reviewed Final Anesthetic Review Family History of Problems with Anesthesia: No History of Problems with Anesthesia: No Documented by User: Antoinette Corona MD 07/26/24 09:49 [facility] Past Medical History Medical History CAD (coronary artery disease) Anxiety Chronic headaches Tinnitus Neck pain Annual physical exam Chronic GERD Obesity Chest pain Mammogram normal Hyperlipidemia Sciatica History of colon polyps History of diverticulitis of colon Nephrolithiasis Family History Family History Father Heart attack Mother Diabetes Heart problem Arthritis Surgical History Surgical History History of esophagogastroduodenoscopy (EGD) Hx of colonoscopy History of ankle surgery (10/06/19) H/O Spinal surgery History of kidney surgery H/O section Social History Social History Household Members: Children Housing: House Are you a primary career law clerk to a significant other at home: No Do you presently have visiting nurse or other home services: No Alcohol intake: never Patient Tobacco Use Status: Current everyday Tobacco user Tobacco use type: Cigarette Cigarette Packs Per Day: 0.5 Cigarettes Per Day: 10.0 Years Smoked: 25 Smoked in Last 30 Days: Yes e-Cigarette/Vaping Use: Never Used Are you DNR?: No Advance Directives: No Advance Directives Information Provided: Yes Recently lost weight without trying: No Nutrition Risks: No Nutritional Risk service: No Current occupational status: employed Cognitive needs: No Hearing needs: No Vision needs: Yes Meds Allergies Allergy/AdvReac Type Severity Reaction Status Date / Time amitriptyline AdvReac Intermediate Palpitation Verified 06/22/24 09:08 s propranolol AdvReac Intermediate Palpitation Verified 06/22/24 09:08 s Home Medications ?Medication ?Instructions ?Recorded ?Confirmed ?Last Taken ?Type duloxetine 30 mg capsule,delayed 30 mg PO DAILY 11/10/23 06/22/24 Unknown History release hydroxyzine HCl 10 mg tablet 10 mg PO BEDTIME PRN 04/19/24 06/22/24 Unknown History multivitamin (Daily Multi-Vitamin 1 tab PO DAILY 04/19/24 06/22/24 Unknown History tablet) Exam Airway Mallampati Class: II (edentulous) TM Dist: >3cm Neck ROM: Full Heart: rrr Lungs: cta Assessment and Plan Assessment Anesthesia Assessment: Anesthesia Plan Discussed Final Anesthetic Review NPO: Yes ASA Class: III Final Preanesthetic Review: No Changes in Pt Med Stat, Meds/Allgs Chart Reviewed and Consent Obtained/Reviewed Patient Risk: Intermediate Procedure Risk: Intermediate Anesthetic Plan Anesthetic Plan: MAC: Disposition: Standard PACU
--- NOTE | 2024-07-26 09:07 | MHC.SHP ---
Pre-Procedural Eval Section A - 24 Hr Update-Section A only Date of Service: 07/26/24 The patient is an INPATIENT: No The patient has been examined within 24 hours of the surgical procedure. The History & Physical has been completed within 30 days and I have reviewed it.: No Section B - Complete if H&P > 30 days Chief Complaint: Personal history of other diseases of the digestiv Relevant Family History (Specify if Yes): No Relevant Social History: Tobacco Use Present Medications: see Short Stay Collaborative assessment Medical History: Significant History (Chronic headaches Tinnitus Neck pain Annual physical exam Chronic GERD Obesity Chest pain Mammogram normal Hyperlipidemia Sciatica History of colon polyps History of diverticulitis of colon Nephrolithiasis) History of Previous Operations: Relevant previous surgery/procedure and date(s) (History of esophagogastroduodenoscopy (EGD) Hx of colonoscopy History of ankle surgery (10/06/19) H/O Spinal surgery History of kidney surgery H/O section) Allergies: Allergies Allergy/AdvReac Type Severity Reaction Status Date / Time amitriptyline AdvReac Intermediate Palpitation Verified 06/22/24 09:08 s propranolol AdvReac Intermediate Palpitation Verified 06/22/24 09:08 s Review of Systems Sugical H&P ROS: Negative: Constitution, Cardiovascular, Respiratory and Gastrointestinal Exam Surgical H&P Exam: Normal: Heart, Normal: Lungs, Normal: Extremities and Normal: Abdomen Plan Diagnosis/Plan: Unchanged I have reviewed the history and physical and performed a pertinent physical examination on my patient. No changes have occurred unless specified. Time Spent With Patient Time: Total time managing care of this patient today ____ minutes.
[2024-07-26 09:26] VITALS: BMI 39.4
[2024-07-26] MEDS: Lactated Ringers 1,000 ML 100 ML IVCONT (09:45)
--- NOTE | 2024-07-26 09:55 | P.OPN-COLO_ITS ---
Colonoscopy Operative Note Operative Note Date of Service: 07/26/24 Narrative: FLEXIBLE TRANSORAL UPPER GASTROINTESTINAL ENDOSCOPY WITH BIOPSIES AND COLONOSCOPY TILL CECUM WITH SNARE POLYPECTOMY Pre-op diagnosis: Surveillance for colon polyps, GERD, FU of gastric ulcer and H pylori infection Post-op diagnosis: Gastritis, Colon Polyps, Diverticulosis, hemorrhoids Endoscopist:? Seymour Fisher MD Anesthesia:?MAC UPPER ENDOSCOPY Consent: Indications for the procedure and potential complications of bleeding, perforation, reaction to medications and missed diagnosis were discussed with the patient and informed consent was obtained. Instrument: Olympus GIF H 190 mid size upper endoscope Monitoring: Vital signs and clinical assessment, continuous EKG monitoring, Pulse oximetry, Carbon Dioxide monitoring and blood pressure monitoring were done throughout the procedure. Procedure: The patient was placed in the left lateral decubitis position and pre-procedure medications were administered and a bite block was placed. The endoscope was inserted into the mouth and advanced under direct vision to the third part of duodenum. A careful inspection was made as the upper endoscope was withdrawn including a retroflexed examination of the proximal stomach; Findings and interventions are described below. Findings: Larynx: Normal Esophagus: GE junction at 40 cms. No esophagitis or Mckeon's. Stomach: Mild diffuse gastric erythema. Biopsies were obtained from the gastric body. Biopsies were obtained from the gastric antrum and sent for H Pylori culture and sensitivities Pyloric channel ulcer seen on past EGD healed completely. Grade 2 flap valve on retroflexed examination of the cardia. Duodenum: Normal bulb and descending duodenum. Intervention: Biopsies as noted above COLONOSCOPY PROCEDURE NOTE Instrument: Olympus PCF H 190 L variable stiffness pediatric colonoscope Monitoring: Vital signs and clinical assessment, intermittent blood pressure monitoring, continuous EKG monitoring, Pulse oximetry and Carbon Dioxide monitoring were done throughout the procedure. Please see anesthesia flowsheet. Colon withdrawl time was 15 minutes. Procedure: The patient was placed in the left lateral decubitis position and pre-procedure medications were administered. After a digital rectal examination of the ano-rectum, the video colonoscope was inserted into the rectum and advanced through the colon to the cecum. The colonoscope was slowly withdrawn in a retrograde panoramic fashion and the colon mucosa was carefully examined including a retroflexed view of the rectum. Findings and interventions are described below. Procedure Difficulty: without difficulty Findings: Terminal Ileum: Not evaluated Cecum: Normal Ascending Colon: Moderate diverticulosis scattered throughout the entire colon Transverse Colon: A 4-5 mm sessile polyp in the distal TC - removed with a cold snare. Moderate diverticulosis scattered throughout the entire colon Descending Colon: Moderate diverticulosis scattered throughout the entire colon Sigmoid Colon: A few 5 -10 mm diminutive appearing in the rectosigmoid - 1 was removed with a cold snare. Moderate diverticulosis Rectum: A few 5 -10 mm diminutive appearing in the rectosigmoid Ano-rectum: Small internal hemorrhoids Colon preparation: Good after some irrigation. [place] Bowel Preparation Scale Right colon; 2 Transverse colon: 2 Left colon; 2 (0 = Unprepared colon segment with mucosa not seen due to solid stool that cannot be cleared. 1 = Portion of mucosa of the colon segment seen, but other areas of the colon segment not well seen due to staining, residual stool and/or opaque liquid. 2 = Minor amount of residual staining, small fragments of stool and/or opaque li quid, but mucosa of colon segment seen well. 3 = Entire mucosa of colon segment seen well with no residual staining, small fragments of stool or opaque liquid) Impression and Post Procedure Diagnosis: Endoscopy Findings: STOMACH: Mild diffuse gastric erythema. Biopsies were obtained from the gastric body. Biopsies were obtained from the gastric antrum and sent for H Pylori culture and sensitivities Pyloric channel ulcer seen on past EGD healed completely. Colonoscopy Findings: Two small polyps were removed Moderate diverticulosis seen in the entire colon small hemorrhoids on retroflexed exam. Plan: Pt has a FU appointment on 08/05/[address] Fisher Repeat Colonoscopy in 5 years if polyps are adenomatous and due to history of adenomatous colon polyps Above findings were reviewed with the patient and relevant handouts were given and the discharge area. BIOPSIES SHOWED: A. Stomach, antrum, biopsy: Gastric antral mucosa with moderate chronic active gastritis and numerous Helicobacter pylori organisms along with intestinal metaplasia; negative for dysplasia. B. Stomach, body, biopsy: Gastric antral and body mucosa with moderate chronic active gastritis and numerous Helicobacter pylori organisms; negative for intestinal metaplasia and dysplasia. C. Colon, transverse, biopsy: Colonic mucosa within normal limits; negative for active, chronic or microscopic colitis. D. Colon, sigmoid, polypectomy: Hyperplastic polyp Letter sent to the patient advising repeat Colonoscopy in 5 years Awaiting results of H Pylori C&S testing to guide antibiotic therapy for H Pylori.
[2024-07-26 10:21] LABS: Glucose, Whole Blood 144 mg/dL (60-115)
[2024-07-26 10:46] VITALS: BP 128/104; PULSE 98; RESP 16; TEMP 36.3; O2SAT 97
[2024-07-26 11:00] VITALS: BP 157/84; PULSE 76; RESP 16; O2SAT 96
[2024-07-26] MEDS: Acetaminophen 325 MG TABLET 650 MG PO (11:00)
[2024-07-26 11:14] VITALS: BP 142/72; PULSE 72; RESP 16; TEMP 36.9; O2SAT 98
== END 2024-07-26 11:42 | disposition home or self-care (01) ==
PROVIDERS: PCP Internal Medicine; Visit Provider Internal Medicine Gastroenterology
PROC: (CPT 45385; principal; 2024-07-26 11:00)
DX: Z12.11 Encounter for screening for malignant neoplasm of colon (principal); Z86.010 Personal history of colon polyps; K63.5 Polyp of colon; K57.30 Diverticulosis of large intestine without perforation or abscess without bleeding; K64.8 Other hemorrhoids; K21.9 Gastro-esophageal reflux disease without esophagitis; R14.0 Abdominal distension (gaseous); K25.9 Gastric ulcer, unspecified as acute or chronic, without hemorrhage or perforation; Z87.19 Personal history of other diseases of the digestive system; K29.50 Unspecified chronic gastritis without bleeding; B96.81 Helicobacter pylori [H. pylori] as the cause of diseases classified elsewhere; I25.10 Atherosclerotic heart disease of native coronary artery without angina pectoris; Z87.442 Personal history of urinary calculi; Z79.899 Other long term (current) drug therapy; Z98.890 Other specified postprocedural states; F17.210 Nicotine dependence, cigarettes, uncomplicated
CPT/HCPCS: 45385; 43239; 82947; 87081; 87205; 88305; 88313; 88342; J2704

== ENCOUNTER → 2024-07-26 08:40 | Outpatient (BNV) | payer MEDICARE, MEDICAID, SELFPAY | PROVIDERS: PCP Internal Medicine; Visit Provider Internal Medicine Gastroenterology | DX: Z12.11 Encounter for screening for malignant neoplasm of colon (principal); Z86.010 Personal history of colon polyps; K63.5 Polyp of colon; K57.90 Diverticulosis of intestine, part unspecified, without perforation or abscess without bleeding; K21.9 Gastro-esophageal reflux disease without esophagitis; K29.70 Gastritis, unspecified, without bleeding | CPT/HCPCS: 43239; 45385 ==

== ENCOUNTER 2024-08-05 09:49 | Outpatient (AMB) | payer MEDICARE, MEDICAID, SELFPAY ==
--- NOTE | 2024-08-05 10:08 | MHC.OFFVIS ---
Vital Signs 08/05/24 10:12 Height 5 ft 5 in Weight 231 lb BMI 38.4 BP 137/65 Blood Pressure Location Lt brachial Position Sitting Pulse 72 Intake Visit Reasons: S/P Double; Dr. Fisher Intake Note: Patient follow up for abdominal bloating and EGD/Colonoscopy results. Patient cc: abdominal pain on and off with dizziness. Securities Counselor Required: Yes Securities Counselor Name: Sheryl [id number] Accompanied by: Self / Same As Patient Allergies amitriptyline Adverse Reaction (Intermediate, Verified 08/05/24 10:08) Palpitations propranolol Adverse Reaction (Intermediate, Verified 08/05/24 10:08) Palpitations Medication List - Last Reconciled 08/05/24 by Seymour Fisher MD aspirin (Ecotrin Low Strength) 81 mg PO DAILY atorvastatin 80 mg PO DAILY duloxetine 30 mg PO DAILY ezetimibe 10 mg PO DAILY hydroxyzine HCl 10 mg PO BEDTIME PRN ibuprofen 600 mg PO TID PRN multivitamin (Daily Multi-Vitamin tablet) 1 tab PO DAILY omeprazole 20 mg PO DAILY 90 days Ozempic (semaglutide) 0.25 mg (0.368 mL) subcut QWEEK NS riboflavin (vitamin B2) 400 mg PO DAILY 30 days HPI HPI S/P Double; Dr. Fisher: Details: CLINIC VISIT FOR THIS 64-YEAR-OLD ITALIAN 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 TODAY'S VISIT Telephone Malay Securities Counselor, Sheryl # [id number] Patient cc: abdominal pain on and noted some dizziness the day after the procedure which has resolved. EGD and Colon results were reviewed with the patient. Notes intermittent heartburn - rare since she resumed taking Omeprazole. PAST VISIT: Feels nervous when she drinks coffee Notes bloating when she eats cabbage and drinks coffee. EGD and colon were cancelled since she was undergoing cardiac aviles. Scheduled for coronary angiography in Mar, 2024 Pt is accompanied by her daughter who interpreted for the patient Continues to have intermittent heartburn - sometimes it feels like a heart attack Has not been taking Omeprazole for the past 2 months after she ran out - advised to resume. Complains of post prandial bloating Pt was treated with Pylera for H pylori gastritis associated with an ulcer. She stopped PPI for 2 weeks prior to today's visit. Continues to have abdominal bloating after she finishes eating. Called patient's daughter, Louise, at [phone] Patient cc: some abdominal pain and denies any other GI issues. 09/2021 pt was treated with Calrithromycin 500 mg twice daily, amoxicillin 1 gram twice daily and Omeprazole 20 mg twice daily x 14 days for H Pylori infection.Pt completed antibiotic therapy in he was advised to schedule repeat EGD to confirm has healed and H pylori has been eradicated. Pt is accompanied by her daughter, Louise and her 17 month old son. Pt's daughter interpreted for the patient. Pt has been having chest pain and thought she was having a heart attack. Seen at [facility] ED and had blood tests which were negative. Had 8/10 burning retrosternal pain ? Pain was not related to exertion. Pain started in the evening, she went to sleep and pain became worse when she woke. Ate chocolate before pain started. Pain lasted all day. Prescribed Omeprazole 20 mg daily. Patient denies having an upper endoscopy in the past. Had some twinging pain a week ago in the same area as during past episode of diverticulitis. Pain lasted for a day.? Noted some pain today. ? patient denies fever or chills. an episode of diverticulitis in Oct and 2nd episode in Dec. ? Took antibiotics and symptoms have resolved. ? Now I have to be very careful with my diet. ? Notes piercing pain if she takes any spicy food. ? Patient denies change in bowel habits, black stools or rectal bleeding ? Denies dysphagia, heartburn, nausea or vomiting. ? Does not eat much and has gained weight since she is not working due to an ankle injury. ? Continues to have ankle pain ? due to suspected nerve injury. ? Patient denies major cardiac or pulmonary problems, loud snoring was sleep apnea. ? Patient denies being on chronic anticoagulation. ? She denies past problems with anesthesia. ? She had a colonoscopy in 2013 at [facility] in [place] which was negative. ? Patient denies known family history of colon polyps,, colon cancer or other GI malignancy ??IMAGING STUDIES: 12/28/[address] scan showed: ? Focal colonic wall thickening and pericolonic inflammatory changes in ? the mid ascending colon in the region of a small thickened ? diverticulum. Overall the appearance is most suggestive of right-side diverticulitis. ?ENDOSCOPIC STUDIES:?11/11/22 EGD SHOWED: STOMACH: Mild diffuse gastric erythema. Biopsies were obtained. A 1 cms clean based chronic appearing ulcer in the pyloric channel - biopsied. DUODENUM: Normal -? biopsied to check for celiac sprue Plan:? Patient has an appointment on 11/28/22 in the GI Clinic with Seymour Fisher M.D. Above findings were reviewed with the patient with the help of a Malay speech language pathology assistant and PUD handout was given in the discharge area. Pt stated she takes Ibuprofen infrequently and has not been taking a PPI. She was advised to resume taking Omeprazole 20 mg every morning. BIOPSIES SHOWED: A.? Small bowel, biopsy:? Small intestinal mucosa with mildly increased intraepithelial lymphocytes and preserved villous architecture.? See comment. B.? Stomach, pyloric channel ulcer, biopsy: - Mixed pyloric and small intestinal mucosa with chronic active inflammation. - Positive for H pylori.C.? Stomach, antrum, biopsy: - Antral-type mucosa with moderate chronic active inflammation. - Positive for H pylori.D.? Stomach, body, biopsy: - Oxyntic mucosa with mild chronic inactive inflammation. - Positive for H pylori.COMMENT:? The lymphocytes in the small bowel (part A) are likely secondary to the H pylori infection. 09/2021 EGD SHOWED: ESOPHAGUS: GE junction at 38 cms. No esophagitis or Mckeon's.Biopsies were obtained from distal esophagus to check for esophagitis. STOMACH: Antral gastritis.? A 1 cms clean based ulcer in the pyloric channel - biopsied. Plan:? Repeat EGD in 10-12 weeks to confirm pyloric channel ulcer has healed. Patient has an appointment on 12/06/21 in the GI Clinic with Seymour Fisher M.D.. 05/15/20? COLONOSCOPY SHOWED:Four polyps removed Moderate diverticulosis seen in the left colon Moderate hemorrhoids on retroflexed exam. Plan: Await pathology results Patient has an appointment on 05/15/20 in the GI Clinic with Seymour Fisher M.D.- Repeat Colonoscopy interval based on path results in 3-5 years if polyps are adenomatous and 10 years if polyps are hyperplastic. Above findings were reviewed with the patient and colon polyps and diverticulosis handouts were given in the discharge area BIOPSIES SHOWED: A. Colon, transverse polyps, polypectomy: Fragments of tubular adenomas. B. Colon, ascending polyp, polypectomy: Fragments of tubular adenoma. C. Rectum, polyp, polypectomy: Fragments of hyperplastic polyp. [facility] Medical History (Updated 08/05/24 @ 15:51 by Seymour Fisher MD) CAD (coronary artery disease) Anxiety Chronic headaches Tinnitus Neck pain Annual physical exam Chronic GERD Obesity Chest pain Mammogram normal Hyperlipidemia Sciatica History of colon polyps History of diverticulitis of colon Nephrolithiasis Surgical History History of esophagogastroduodenoscopy (EGD) Hx of colonoscopy History of ankle surgery (10/06/19) H/O Spinal surgery History of kidney surgery H/O section Family History Father Heart attack Mother Diabetes Heart problem Arthritis Social History Household Members: Children Housing: House Are you a primary medicare insurance specialist to a significant other at home: No Do you presently have visiting nurse or other home services: No Alcohol intake: never Patient Tobacco Use Status: Current everyday Tobacco user Tobacco use type: Cigarette Cigarette Packs Per Day: 0.5 Cigarettes Per Day: 10.0 Years Smoked: 25 e-Cigarette/Vaping Use: Never Used service: No Current occupational status: employed Cognitive needs: No Hearing needs: No Vision needs: Yes Review of Systems Const All systems reviewed & are unremarkable except as noted in HPI and below Physical Exam Vital Signs: Last Vital Signs Pulse 72 08/05/24 10:12 BP 137/65 08/05/24 10:12 BMI result Body Mass Index 38.4 Const General: healthy appearing and no acute distress Nutritional Appearance: obese Orientation/consciousness: patient oriented x3 Limitations: language barrier HEENT Head: Yes normal to inspection Ears: hearing grossly normal bilaterally Mouth: Normal oral and palatal mucosa present Eyes Sclerae: sclerae normal Pupils: Equal, round and reactive pupils present Neck Neck: Yes normal visual inspection Chest Chest palpation & inspection: normal inspection of the chest Resp Effort & Inspection: normal respiratory effort Auscultation: clear to auscultation bilaterally Cardio Palpation: normal PMI Rate: regular rate Rhythm: regular rhythm Heart sounds: S1 normal heart sound present, S2 normal heart sound present and no murmurs GI Palpation (GI): Soft to palpation, nontender and No hepatosplenomegaly present Auscultation: normal bowel sounds Rectal Exam - Female: deferred Skin General skin exam: no rashes or lesions noted Neuro General: patient oriented x3, gait normal and moves all extremities Cranial nerves: Yes Equal, round and reactive pupils present Psych Appearance: grossly normal Mental Status: mental status grossly normal Assessment & Plan Assessment & Plan (1) History of diverticulitis of colon: Code(s): Z87.19 - Personal history of other diseases of the digestive system Category: Medical (2) History of colon polyps: Comment: 05/15/20 colonoscopy showed diverticulosis and 3 small (< 10 mm) adenomatous polyps were removed, repeat colon in 3 yrs. 07/26/24 Colonoscopy showed: Two small hyperplastic polyps were removed Moderate diverticulosis seen in the entire colon small hemorrhoids on retroflexed exam. Plan: Repeat Colonoscopy in 5 years if polyps are adenomatous and due to history of adenomatous colon polyps Code(s): Z86.010 - Personal history of colon polyps Category: Medical (3) Chronic GERD: Comment: EGD 09/2021 s/p H pylori tx Code(s): K21.9 - Gastro-esophageal reflux disease without esophagitis Category: Medical (4) Gastric ulcer due to Helicobacter pylori: Code(s): K25.9 - Gastric ulcer, unspecified as acute or chronic, without hemorrhage or perforation; B96.81 - Helicobacter pylori [H. pylori] as the cause of diseases classified elsewhere Category: Medical (5) Abdominal bloating: Code(s): R14.0 - Abdominal distension (gaseous) Category: Medical Plan 64-year-old Malay speaking female referred to GI to schedule a colonoscopy for screening and due to 2 episodes of diverticulitis over 6 months in the past. Patient denied known family history of colon polyps or cancer and is considered average risk for colon cancer. She had a colonoscopy in 2013 at [facility] in [place] which was negative. 05/15/2020 colonoscopy showed diverticulosis and 3 small (< 10 mm) adenomatous polyps were removed. ? Repeat colonoscopy is advised in 3 years. 05/23 pt was seen with abd pain and given PO antibiotics for suspected diverticulitis with resolution 09/03/21 Pt complains of atypical chest pain, seen at [facility] ED and prescribed Omeprazole 20 mg daily - only taking intermittently and advised to take daily. 09/2021 EGD showed a?1 cms clean based ulcer in the pyloric channel - biopsied. Gastric biopsies were positive for Helicobacter pylori - 09/2021 pt was treated with Calrithromycin 500 mg twice daily, amoxicillin 1 gram twice daily and Omeprazole 20 mg twice daily x 14 days for H Pylori infection. Pt completed antibiotic therapy in 09/2021 FU EGD was performed and showed a 1 cms clean based chronic appearing ulcer in the pyloric channel. Gastric biopsies were positive for H Pylori and pt was given a prescription for Pylera x 14 days. 02/24/23 H Pylori breath test today Schedule an EGD (FU of ) and a colonoscopy for FU of colon polyps - scheduled on 12/01/23 02/12/24 Notes intermittent heartburn - rare since she resumed taking Omeprazole. Feels nervous when she drinks coffee Notes bloating when she eats cabbage and drinks coffee. EGD and colon scheduled in Nov, 2023 were cancelled since she was undergoing cardiac work up Scheduled for coronary angiography in Mar, 2024 and a FU appt with Dr Cordon on 04/19/24 07/26/24 EGD + bx for HP culture and sensitivity (FU of and persistent H Pylori infection) and a colonoscopy was performed and results as noted above. Gastric biopsies were positive for HP and culture and sensitivity results are still pending. Appropriate antibiotics will be prescribed based on above results (pt has been treated for HP x 2 in the past without eradication) Repeat EGD in 3 years for Fu of gastric intestinal metaplasia FU in 3 months - Pt advised to hold Omperazole x 2 weeks prior to her FU appt so HP breath test can be performed. Patient Instructions: Please stop taking Omeprazole 2 weeks before follow up appointment Coding Level of Care Code Est Pt Level 3 (79297) Diagnoses History of diverticulitis of colon Z87.19 History of colon polyps Z86.010 Chronic GERD K21.9 Gastric ulcer due to Helicobacter pylori K25.9; B96.81 Abdominal bloating R14.0 Time Spent (min) 18
[2024-08-05 10:12] VITALS: BP 137/65; PULSE 72; BMI 38.4
== END 2024-08-05 11:02 | disposition home or self-care (01) ==
PROVIDERS: PCP Internal Medicine; Visit Provider Internal Medicine Gastroenterology
DX: K21.9 Gastro-esophageal reflux disease without esophagitis (principal); Z87.19 Personal history of other diseases of the digestive system; Z86.0100 Personal history of colon polyps, unspecified; K25.9 Gastric ulcer, unspecified as acute or chronic, without hemorrhage or perforation; B96.81 Helicobacter pylori [H. pylori] as the cause of diseases classified elsewhere
CPT/HCPCS: 99213

== ENCOUNTER → 2024-08-05 09:49 | Outpatient (BNVA) | payer MEDICARE, MEDICAID, SELFPAY | PROVIDERS: PCP Internal Medicine; Visit Provider Internal Medicine Gastroenterology | DX: K21.9 Gastro-esophageal reflux disease without esophagitis (principal); K25.9 Gastric ulcer, unspecified as acute or chronic, without hemorrhage or perforation; B96.81 Helicobacter pylori [H. pylori] as the cause of diseases classified elsewhere; R14.0 Abdominal distension (gaseous); Z87.19 Personal history of other diseases of the digestive system; Z86.0100 Personal history of colon polyps, unspecified | CPT/HCPCS: 99212 ==

== ENCOUNTER 2024-09-07 09:00 | Outpatient (RCR) | payer MEDICARE, MEDICAID, SELFPAY ==
--- NOTE | 2024-08-02 12:55 | MHC.PT.EP ---
[facility] [place] [facility] [place] [facility] [place] [facility] [address] Tyler Clark [address] [phone] F: [phone] F: [phone] F: [phone] F: [phone] Physical Therapy Plan of Care Date of Evaluation: 08/02/24 Date of Surgery: Diagnosis: low back pain Assessment: Patient is a 64 year old R handed female who presents with s/s consistent with low back pain. She does not work and is fairly sedentary during the day, tending to home chores as able and rarely getting out into the community. Patient past medical history includes obesity, neck pain, ankle surgery and CAD. Current impairments include pain, posture, flexibility, ROM, strength, activity tolerance and functional mobility. Functional limitations include decreased ability to walk, stand, negotiate stairs, transfer, vacuum and sleep. Patient is motivated with good rehab potential. Skilled PT will address impairments and functional limitations in order to achieve goals. Frequency and Duration: The patient will be seen 2x/week for 5 weeks Short Term Goals: I with HEP - 2 weeks AROM rotation 75% and pain free - 3 weeks Able to walk 2 minutes without increased pain or need for rest - 3 weeks centralize s/s. - 3 weeks Intermediate Goals: Able to vacuum 1 room without increased pain - 5 weeks Able to walk 5 min with need for rest or increased pain - 5 weeks Oswestry 40% or better -5 weeks Treatment Plan: Modalities to reduce pain, spasms and effusion. Manual therapy to restore motion and function. Therapeutic exercise to improve strength and flexibility. Neuromuscular re-education for posture and balance. Therapeutic activities to return to functional activities of daily living. Electronically signed by: Aron Dominguez, PT Please sign and return to therapist. Thank you for your referral.
--- NOTE | 2025-01-21 07:58 | MHC.PT.DC ---
[facility] [place] Office [place] Office [place] [facility] [address] Tyler Clark [address] [phone] F: [phone] F: [phone] F: [phone] F: [phone] Physical Therapy Discharge Report Diagnosis: low back pain Date of Surgery: Date of Evaluation: 08/02/24 Date of Discharge: 10/03/24 Treatments to Date: 10 Cancellations to Date: No Shows to Date: Discharge Status: Improved Function Independent with HEP Discharge Summary: 09/07; Pt I with HEP. Pt had reduced c/o l L/S pain to a 01/10. Pt L L.E xs to ant tib int in nature and sre less intense. Pt DC with program. 09/02; Pt has 2 more ruben visits before DC. 08/31; Pt I with HEP. Pt progressing with L/S rom and L.E strength. 08/26; Pt had less sensitivity with STM. Improved alignment. Equal leg lengt. 08/24; Pt reported L L.E sxs improved after RX. Pt had less c/o sensitivity with STM and TPR's. 08/19; Pt reported less pain after RX. Pt fatigued after hip exs. 08/17; Pt interperter didn't show second time. Pt noted reduced L L.E sxs after mobs.. Balance challenged no foam SLS 1 sec. 08/12; Pt L SI deep in standing. L L.E longer. RX with MET and aamir well. 08/10; Pt L PSIS sup. Pt L L.E longer. Pt had decreased sxs after RX. Patient is a 64 year old R handed female who presents with s/s consistent with low back pain. She does not work and is fairly sedentary during the day, tending to home chores as able and rarely getting out into the community. Patient past medical history includes obesity, neck pain, ankle surgery and CAD. Current impairments include pain, posture, flexibility, ROM, strength, activity tolerance and functional mobility. Functional limitations include decreased ability to walk, stand, negotiate stairs, transfer, vacuum and sleep. Patient is motivated with good rehab potential. Skilled PT will address impairments and functional limitations in order to achieve goals. Electronically signed by: Aron Dominguez, PT Please sign and return to therapist. Thank you for your referral.
== END 2025-01-21 07:59 | disposition home or self-care (01) ==
LOC: HO.PTCHIC 09:00
PROVIDERS: PCP Internal Medicine; Visit Provider Internal Medicine
DX: M54.50 Low back pain, unspecified (principal)
CPT/HCPCS: 97014; 97110; 97140; 97163

== ENCOUNTER 2024-09-14 08:30 | Outpatient (REF) | payer MEDICARE, MEDICAID, SELFPAY ==
[2024-09-14 10:49] LABS: Estimated Average Glucose 163 mg/dL; Hemoglobin A1C 221.2535 umol/L; Hemoglobin A1c % 7.3 % (<6.0); Total Hemoglobin (HGBA1C) 3923.6179 umol/L
[2024-09-14 11:02] LABS: Alanine Aminotransferase 43 U/L (0-31); Albumin Level 4.3 g/dL (3.5-5.0); Alkaline Phosphatase 97 U/L (39-117); Anion Gap 14 (12-20); Aspartate Amino Transferase 32 U/L (5-31); Bilirubin Total 0.5 mg/dL (0.0-1.0); Blood Urea Nitrogen 13 mg/dL (9-16); Carbon Dioxide 24 mmol/L (22-29); Chloride 106 mmol/L (96-108); Cholesterol 216 mg/dL (<200); Estimated Glomerular Filt Rate > 60; Glucose Fasting 162 mg/dL (60-99); HDL Cholesterol 32 mg/dL (>40); LDL Cholesterol Calculated 114 mg/dL (<100); Potassium 4.2 mmol/L (3.3-5.1); Sodium 140 mmol/L (135-145); Total Protein 7.3 g/dL (6.5-8.0); Triglycerides 350 mg/dL (<150)
[2024-09-14 11:09] LABS: Vitamin D 25-OH Total 36.5 ng/mL (>30)
== END 2024-09-14 08:31 | disposition home or self-care (01) ==
LOC: HO.HMGCLDS 08:30
PROVIDERS: PCP Internal Medicine; Visit Provider Internal Medicine
DX: R73.9 Hyperglycemia, unspecified (principal); E78.5 Hyperlipidemia, unspecified
CPT/HCPCS: 36415; 80053; 80061; 82306; 83036

== ENCOUNTER 2024-09-22 08:47 | Outpatient (AMB) | payer MEDICARE, MEDICAID, SELFPAY ==
[2024-09-22 08:54] VITALS: BP 124/78; PULSE 73; O2SAT 97; BMI 39.3
--- NOTE | 2024-09-22 08:54 | AM.OFFVISMDC ---
Intake Vital Signs 09/22/24 08:54 Height 5 ft 5 in Weight 236 lb BMI 39.3 BP 124/78 Blood Pressure Location Lt brachial Position Sitting Pulse 73 Pulse Source Pulse Oximeter Pulse Oximetry (%) 97 Oxygen Delivery Method Room Air Intake Visit Reasons: SWV [id number] Allergies amitriptyline Adverse Reaction (Intermediate, Verified 09/22/24 08:57) Palpitations metformin Adverse Reaction (Intermediate, Verified 09/22/24 09:40) Diarrhea propranolol Adverse Reaction (Intermediate, Verified 09/22/24 08:57) Palpitations Medication List - Last Reconciled 09/22/24 by Lisa Porras MD aspirin (Ecotrin Low Strength) 81 mg PO DAILY atorvastatin 80 mg PO DAILY duloxetine 30 mg PO DAILY ezetimibe 10 mg PO DAILY hydroxyzine HCl 10 mg PO BEDTIME PRN ibuprofen 600 mg PO TID PRN multivitamin (Daily Multi-Vitamin tablet) 1 tab PO DAILY omeprazole 20 mg PO DAILY 90 days Ozempic (semaglutide) 0.25 mg (0.368 mL) subcut QWEEK NS riboflavin (vitamin B2) 400 mg PO DAILY 30 days HPI SWV G0439 HPI Details Initiated the conversation about Advanced Directives. Advanced Directives help? patients prepare for current and future decisions about their medical treatment? and place of care. Discussed with patient that it is a process where a patients? current condition and prognosis are reviewed, their wishes for information? regarding their illness are elicited, and likely medical dilemmas are presented? and options discussed. The form can be amended as needed, reviewed yearly and? make changes as needed IPPE/AWV ? year old presents? for her ? Annual? Wellness Visit, initial visit.? Medical / Social History Reviewed? Past Medical History ?Yes? . ? [place]? of Care / Care Team list updated ?Yes . ? Surgical/Hospitalization? History ?Yes . ? Current Medications? (including OTC and supplements) ?Yes . ? Family History ?Yes? . ? Tobacco? Control form ?Yes . ? AUDIT-C (Alcohol use) form? ?Yes . ? Illicit drug use in Social? History ?Yes . ? Current diagnosis of? depression? ?No ? Appropriate PHQ2/PHQ9? completed ?Yes . ? Data entered by ?Medical? Radiology Practitioner Assistant and reviewed by provider ? Fall Risk ? Fall? History? Have you had any falls with? injury in the past year? ?No . ? Have you had two or more? falls in the past year? ?No . ? Fall Risk Assessment: ?No? falls in the past year . ? HRA filled out by? the patient, reviewed by Provider and scanned. ? IPPE/AWV ? Balance? [place]? ?Yes . ? Tandem? walk ?Yes . ? Walk and? Turn ?Yes . ? Rise from? sit to stand ?Yes . ?Vision? Corrective? lens ?Yes ? Vision? screen ? Up-to-date, has an appointment [] for vision? screening and glaucoma screening ?Hearing? Whisper? test ?pass .? Initiated the conversation about Advanced Directives. Advanced Directives help? patients prepare for current and future decisions about their medical treatment? and place of care. Discussed with patient that it is a process where a patients? current condition and prognosis are reviewed, their wishes for information? regarding their illness are elicited, and likely medical dilemmas are presented? and options discussed. The form can be amended as needed, reviewed yearly and? make changes as needed Written? Plan?Completed. See Patient? Documents. [facility] Medical History (Updated 09/22/24 @ 09:44 by Lisa Porras MD) CAD (coronary artery disease) Anxiety Chronic headaches Tinnitus Neck pain Annual physical exam Chronic GERD Obesity Chest pain Mammogram normal Hyperlipidemia Sciatica History of colon polyps History of diverticulitis of colon Nephrolithiasis Surgical History (Updated 09/22/24 @ 09:28 by Lisa Porras MD) History of esophagogastroduodenoscopy (EGD) Hx of colonoscopy History of ankle surgery (10/06/19) H/O Spinal surgery History of kidney surgery H/O section Family History (Updated 09/22/24 @ 09:07 by CED Jones) Father Heart attack Mother Diabetes Heart problem Arthritis Social History Household Members: Children Housing: House Are you a primary care support representative to a significant other at home: No Do you presently have visiting nurse or other home services: No Alcohol intake: never Patient Tobacco Use Status: Current everyday Tobacco user Tobacco use type: Cigarette Cigarette Packs Per Day: 0.5 Cigarettes Per Day: 10.0 Years Smoked: 25 e-Cigarette/Vaping Use: Never Used service: No Current occupational status: employed Cognitive needs: No Hearing needs: No Vision needs: Yes Questionnaire Medicare Wellness Checkup [age] 65-69 What gender do you identify with?: female During the past 4 weeks, how much have you been bothered by emotional problems such as feeling anxious, depressed, irritable, sad or downhearted, and blue?: moderately During the past 4 weeks, has your physical & emotional health limited your social activities with family, friends, neighbors, or groups?: moderately During the past 4 weeks, how much bodily pain have you generally had?: moderate pain During the past 4 weeks, was someone available to help you if you needed & wanted help?: yes, as much as I wanted During the past 4 weeks, what was the hardest physical activity you could do for at least 2 minutes?: light Can you get to places out of walking distance without help? (For eg., can you travel alone on buses, taxis or drive your car?): Yes Can you go shopping for groceries or clothes without someone's help?: Yes Can you prepare your own meals?: Yes Can you do your housework without help?: No Because of any health problems, do you need the help of another person with your personal care needs such as eating, bathing, dressing or getting around the house?: No Can you handle your own money without help?: Yes During the past 4 weeks, how would you rate your health in general?: good During the past 4 weeks how have things been going for you?: good & bad parts about equal Are you having difficulties driving your car?: no Do you always fasten your seat belt when you are in a car?: yes, usually During past 4 weeks, have you been bothered by the following: never: Sexual problems?, Trouble eating well? and Problems using the telephone?, seldom: Teeth or denture problems? and sometimes: Falling or dizzy when standing up and Tiredness or fatigue? Have you fallen 2 or more times in the past year?: No Are you afraid of falling?: Yes Are you a smoker?: yes, and I might quit During the past 4 weeks, how many drinks of wine, beer, or other alcoholic beverages did you have?: no alcohol at all Do you exercise for about 20 minutes 3 or more times a week?: yes, some of the time Have you been given information to help with the following?: no: Hazards in your house that might hurt you? and no: Keeping track of your medications? How often do you have trouble taking medicines the way you have been told to take them?: I always take medicine as prescribed How confident are you that you can control & manage most of your health problems?: somewhat confident What is your race?: White Mini Mental State Exam (MMSE) Orientation What is the (year) (season) (date) (day) (month)?: year, season, date, day and month Where are we (state) (county) (town or city) (hospital) (floor)?: state, county, town or city, hospital/clinic and floor Registration Name of 3 unrelated objects clearly and slowly, then ask patient to repeat all 3 of them. (1st repeat determines score. Make sure they can repeat all three): object 1, object 2 and object 3 Attention & Calculation (CHOOSE ONE) Spell WORLD backwards (DLROW): 5 letters Recall Ask patient to repeat the 3 items from question #3.: object 1, object 2 and object 3 Language Show patient a wristwatch & ask what it is. Repeat for pencil.: watch and pencil Ask the patient to repeat the phrase 'No ifs, ands, or buts' after you.: correct Ask the patient to 'take a piece of paper with their right hand' 'fold paper in half' 'place paper on floor': take paper in right hand, fold paper in half and place paper on floor Print the sentence 'CLOSE YOUR EYES' on a piece. If patient actually closes eyes then score.: followed written direction Give patient a blank piece of paper & ask to write a sentence. Score if it contains a noun & verb.: sentence contains subject and verb Score Score: 29 Activity of Daily Living Bathing - sponge bath, tub bath or shower: receives no assistance (gets in/out by self, if usual bathing means Dressing - getting clothes from closets & drawers, including inner/outer garments & fasteners.: gets clothes & gets completely dressed without help Toileting - going to the 'toilet room' for urine/bowel elimination & cleaning self/arranging clothes: goes to toilet room, cleans self, arranges clothes without help Transfer: moves in & out of bed and chair without help (may use support object) Continence: controls urination/bowel movements completely by self Feeding: feeds self without help Total Score: 0 Information obtained from: patient Using telephone: independent Traveling: independent Shopping: independent Preparing meals: independent Housework: needs assistance Taking medicine: independent Managing money: independent PHQ-9 Over the last 2 weeks, how often have you been bothered by any of the following problems? 1. Little interest or pleasure in doing things: not at all 2. Feeling down, depressed, or hopeless: not at all 3. Trouble falling or staying asleep, or sleeping too much: not at all 4. Feeling tired or having little energy: not at all 5. Poor appetite or overeating: not at all 6. Feeling bad about yourself - or that you are a failure or have let yourself or your family down: not at all 7. Trouble concentrating on things, such as reading the newspaper or watching television: not at all 8. Moving or speaking so slowly that other people could have noticed. Or the opposite - being so fidgety or restless that you have been moving around a lot more than usual: not at all 9. Thoughts that you would be better off or of hurting yourself in some way: not at all Total score: 0 Depression Screening Interpretation: Negative Depression Screening Done: Yes 87904 - PHQ-9 Billing: Yes Source: Developed by Drs. Markel Mendes, Chuyita Da Silva, Chadwick Cabello and colleagues, with an educational bayron from [employer]. Review of Systems Const All systems reviewed & are unremarkable except as noted in HPI and below Eyes Reports no additional complaints ENT Reports no additional complaints Card Reports no additional complaints Resp Reports no additional complaints GI Reports no additional complaints Reports no additional complaints Musc Reports no additional complaints Physical Exam Vital Signs: Last Vital Signs Pulse 73 09/22/24 08:54 BP 124/78 09/22/24 08:54 Pulse Ox 97 09/22/24 08:54 Oxygen Delivery Method Room Air 09/22/24 08:54 BMI result Body Mass Index 39.3 Const General: no acute distress HEENT Head: Yes normal to inspection Ears: hearing grossly normal bilaterally Neck Neck: Yes no lymphadenopathy and Yes supple Resp Effort & Inspection: normal respiratory effort Auscultation: clear to auscultation bilaterally Cardio Rhythm: regular rhythm Heart sounds: S1 normal heart sound present and S2 normal heart sound present GI Inspection: Yes normal to inspection Palpation (GI): Soft to palpation Percussion: Yes normal to percussion Auscultation: normal bowel sounds Extrem General: Yes no clubbing, cyanosis or edema Assessment & Plan Assessment & Plan (1) Type 2 diabetes mellitus: Comment: Intolerant to metformin causing diarrhea Code(s): E11.9 - Type 2 diabetes mellitus without complications Plan: A1c is 7.3. ADA diet increase exercise weight loss discussed with the patient. She could not tolerate metformin because of diarrhea. Ozempic 0.25 weekly sent to the pharmacy and patient received a paper copy of the prescription, she follow-up in 3 months with a fasting labs before (2) Depression: Comment: Follows up with Psychiatry counseling Code(s): F32.A - Depression, unspecified Plan: Continue current medications and counseling (3) Annual physical exam: Code(s): Z00.00 - Encounter for general adult medical examination without abnormal findings Plan: Well-balanced diet regular exercise weight loss discussed with the patient. She is up-to-date with the mammogram colonoscopy (4) Hyperlipidemia: Code(s): E78.5 - Hyperlipidemia, unspecified Plan: Continue statin and Zetia Orders: Orders Comprehensive [place]. Panel Fast 3 Months E11.9 - Type 2 diabetes mellitus without complications, E66.01 - Morbid (severe) obesity due to excess calories Complete Blood Count Auto Diff 3 Months E11.9 - Type 2 diabetes mellitus without complications, E66.01 - Morbid (severe) obesity due to excess calories Hemoglobin A1c 3 Months E11.9 - Type 2 diabetes mellitus without complications, E66.01 - Morbid (severe) obesity due to excess calories Lipid Panel 3 Months E11.9 - Type 2 diabetes mellitus without complications, E66.01 - Morbid (severe) obesity due to excess calories TSH reflex Free T4 3 Months E11.9 - Type 2 diabetes mellitus without complications, E66.01 - Morbid (severe) obesity due to excess calories Microalbumin, Random (w Creat) 3 Months E11.9 - Type 2 diabetes mellitus without complications, E66.01 - Morbid (severe) obesity due to excess calories Medications: Changed From Ozempic (semaglutide) for 4 weeks then 0.5 mg weekly 0.25 mg (0.368 mL) subcut QWEEK 9 mL 1RF NS To Ozempic (semaglutide) 0.25 mg (0.368 mL) subcut QWEEK 9 mL 1RF NS Refilled Ozempic (semaglutide) 0.25 mg (0.368 mL) subcut QWEEK 9 mL 1RF NS Quality Reporting (2019) Depression/Bipolar (159/160/161/177) PHQ-9: Total score: 0 Coding Level of Care Code Medicare Subsequent (G0439) Diagnoses Type 2 diabetes mellitus E11.9 Depression F32.A Annual physical exam Z00.00 Hyperlipidemia E78.5 CPT Codes Advance Care Planning - Advance Care Planning discussion: On file, no changes ([id number]) Advance Care Planning - Time spent: 1-15 minutes, on File ([id number]) Additional Codes PHQ-9 - 74082 - PHQ-9 Billing: Yes ([id number]) Advance Care Planning Advance Care Planning discussion: On file, no changes Forms completed: Health Care Proxy Time spent: 1-15 minutes, on File Did not discuss due to Cultural/Spiritual beliefs: Yes
== END 2024-09-22 09:36 | disposition home or self-care (01) ==
PROVIDERS: PCP Internal Medicine; Visit Provider Internal Medicine
DX: Z00.00 Encounter for general adult medical examination without abnormal findings (principal); E11.69 Type 2 diabetes mellitus with other specified complication; F32.A Depression, unspecified; E78.5 Hyperlipidemia, unspecified

== ENCOUNTER → 2024-09-22 08:47 | Outpatient (BNVA) | payer MEDICARE, MEDICAID, SELFPAY | PROVIDERS: PCP Internal Medicine; Visit Provider Internal Medicine | DX: Z00.00 Encounter for general adult medical examination without abnormal findings (principal); E11.9 Type 2 diabetes mellitus without complications; F32.A Depression, unspecified; E78.5 Hyperlipidemia, unspecified | CPT/HCPCS: 96127 ==

== ENCOUNTER 2024-12-02 08:43 | Outpatient (AMB) | payer MEDICARE, MEDICAID, SELFPAY ==
--- NOTE | 2024-12-02 08:54 | MHC.OFFVIS ---
Vital Signs 12/02/24 08:59 Height 5 ft 5 in Weight 234 lb BMI 38.9 BP 151/80 H Blood Pressure Location Lt brachial Position Sitting Pulse 80 Pulse Oximetry (%) 94 Oxygen Delivery Method Room Air Intake Visit Reasons: 3 month follow up Allergies amitriptyline Adverse Reaction (Intermediate, Verified 12/02/24 08:51) Palpitations metformin Adverse Reaction (Intermediate, Verified 09/22/24 09:40) Diarrhea propranolol Adverse Reaction (Intermediate, Verified 09/22/24 08:57) Palpitations Medication List - Last Reconciled 12/02/24 by Seymour Fisher MD aspirin (Ecotrin Low Strength) 81 mg PO DAILY atorvastatin 80 mg PO DAILY duloxetine 30 mg PO DAILY ezetimibe 10 mg PO DAILY hydroxyzine HCl 10 mg PO BEDTIME PRN multivitamin (Daily Multi-Vitamin tablet) 1 tab PO DAILY omeprazole 20 mg PO DAILY 90 days riboflavin (vitamin B2) 400 mg PO DAILY 30 days HPI HPI 3 month follow up: Details: CLINIC VISIT FOR THIS 64-YEAR-OLD PORTUGUESE 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 TODAY'S VISIT Telephone Mosotho Chin Strap Maker, Lilly I had something going on 3 days ago - some burning in her throat Has not been taking the Omeprazole for the past 2 weeks. Denies diarrhea or constipation EGD and Colon results were reviewed with the patient. Notes intermittent heartburn - rare since she resumed taking Omeprazole. PAST VISIT: Feels nervous when she drinks coffee Notes bloating when she eats cabbage and drinks coffee. EGD and colon were cancelled since she was undergoing cardiac aviles. Scheduled for coronary angiography in Mar, 2024 Pt is accompanied by her daughter who interpreted for the patient Continues to have intermittent heartburn - sometimes it feels like a heart attack Has not been taking Omeprazole for the past 2 months after she ran out - advised to resume. Complains of post prandial bloating Pt was treated with Pylera for H pylori gastritis associated with an ulcer. She stopped PPI for 2 weeks prior to today's visit. Continues to have abdominal bloating after she finishes eating. Called patient's daughter, Louise, at [phone] Patient cc: some abdominal pain and denies any other GI issues. 09/2021 pt was treated with Calrithromycin 500 mg twice daily, amoxicillin 1 gram twice daily and Omeprazole 20 mg twice daily x 14 days for H Pylori infection.Pt completed antibiotic therapy in he was advised to schedule repeat EGD to confirm has healed and H pylori has been eradicated. Pt is accompanied by her daughter, Louise and her 17 month old son. Pt's daughter interpreted for the patient. Pt has been having chest pain and thought she was having a heart attack. Seen at [facility] ED and had blood tests which were negative. Had 8/10 burning retrosternal pain ? Pain was not related to exertion. Pain started in the evening, she went to sleep and pain became worse when she woke. Ate chocolate before pain started. Pain lasted all day. Prescribed Omeprazole 20 mg daily. Patient denies having an upper endoscopy in the past. Had some twinging pain a week ago in the same area as during past episode of diverticulitis. Pain lasted for a day.? Noted some pain today. ? patient denies fever or chills. an episode of diverticulitis in Oct and 2nd episode in Dec. ? Took antibiotics and symptoms have resolved. ? Now I have to be very careful with my diet. ? Notes piercing pain if she takes any spicy food. ? Patient denies change in bowel habits, black stools or rectal bleeding ? Denies dysphagia, heartburn, nausea or vomiting. ? Does not eat much and has gained weight since she is not working due to an ankle injury. ? Continues to have ankle pain ? due to suspected nerve injury. ? Patient denies major cardiac or pulmonary problems, loud snoring was sleep apnea. ? Patient denies being on chronic anticoagulation. ? She denies past problems with anesthesia. ? She had a colonoscopy in 2013 at [facility] in [place] which was negative. ? Patient denies known family history of colon polyps,, colon cancer or other GI malignancy ??IMAGING STUDIES: 12/28/[address] scan showed: ? Focal colonic wall thickening and pericolonic inflammatory changes in ? the mid ascending colon in the region of a small thickened ? diverticulum. Overall the appearance is most suggestive of right-side diverticulitis. ?ENDOSCOPIC STUDIES:?11/11/22 EGD SHOWED: STOMACH: Mild diffuse gastric erythema. Biopsies were obtained. A 1 cms clean based chronic appearing ulcer in the pyloric channel - biopsied. DUODENUM: Normal -? biopsied to check for celiac sprue Plan:? Patient has an appointment on 11/28/22 in the GI Clinic with Seymour Fisher M.D. Above findings were reviewed with the patient with the help of a Mosotho digital x ray service engineer and PUD handout was given in the discharge area. Pt stated she takes Ibuprofen infrequently and has not been taking a PPI. She was advised to resume taking Omeprazole 20 mg every morning. BIOPSIES SHOWED: A.? Small bowel, biopsy:? Small intestinal mucosa with mildly increased intraepithelial lymphocytes and preserved villous architecture.? See comment. B.? Stomach, pyloric channel ulcer, biopsy: - Mixed pyloric and small intestinal mucosa with chronic active inflammation. - Positive for H pylori.C.? Stomach, antrum, biopsy: - Antral-type mucosa with moderate chronic active inflammation. - Positive for H pylori.D.? Stomach, body, biopsy: - Oxyntic mucosa with mild chronic inactive inflammation. - Positive for H pylori.COMMENT:? The lymphocytes in the small bowel (part A) are likely secondary to the H pylori infection. 09/2021 EGD SHOWED: ESOPHAGUS: GE junction at 38 cms. No esophagitis or Mckeon's.Biopsies were obtained from distal esophagus to check for esophagitis. STOMACH: Antral gastritis.? A 1 cms clean based ulcer in the pyloric channel - biopsied. Plan:? Repeat EGD in 10-12 weeks to confirm pyloric channel ulcer has healed. Patient has an appointment on 12/06/21 in the GI Clinic with Seymour Fisher M.D.. 05/15/20? COLONOSCOPY SHOWED:Four polyps removed Moderate diverticulosis seen in the left colon Moderate hemorrhoids on retroflexed exam. Plan: Await pathology results Patient has an appointment on 05/15/20 in the GI Clinic with Seymour Fisher M.D.- Repeat Colonoscopy interval based on path results in 3-5 years if polyps are adenomatous and 10 years if polyps are hyperplastic. Above findings were reviewed with the patient and colon polyps and diverticulosis handouts were given in the discharge area BIOPSIES SHOWED: A. Colon, transverse polyps, polypectomy: Fragments of tubular adenomas. B. Colon, ascending polyp, polypectomy: Fragments of tubular adenoma. C. Rectum, polyp, polypectomy: Fragments of hyperplastic polp [facility] Medical History (Updated 09/22/24 @ 09:44 by Lisa Porras MD) CAD (coronary artery disease) Anxiety Chronic headaches Tinnitus Neck pain Annual physical exam Chronic GERD Obesity Chest pain Mammogram normal Hyperlipidemia Sciatica History of colon polyps History of diverticulitis of colon Nephrolithiasis Surgical History (Updated 09/22/24 @ 09:28 by Lisa Porras MD) History of esophagogastroduodenoscopy (EGD) Hx of colonoscopy History of ankle surgery (10/06/19) H/O Spinal surgery History of kidney surgery H/O section Family History (Updated 09/22/24 @ 09:07 by CED Jones) Father Heart attack Mother Diabetes Heart problem Arthritis Social History Household Members: Children Housing: House Are you a primary resident care assistant to a significant other at home: No Do you presently have visiting nurse or other home services: No Alcohol intake: never Patient Tobacco Use Status: Current everyday Tobacco user Tobacco use type: Cigarette Cigarette Packs Per Day: 0.5 Cigarettes Per Day: 10.0 Years Smoked: 25 e-Cigarette/Vaping Use: Never Used service: No Current occupational status: employed Cognitive needs: No Hearing needs: No Vision needs: Yes Review of Systems Const All systems reviewed & are unremarkable except as noted in HPI and below Physical Exam Const General: healthy appearing and no acute distress Nutritional Appearance: obese Orientation/consciousness: patient oriented x3 Limitations: language barrier HEENT Head: Yes normal to inspection Ears: hearing grossly normal bilaterally Eyes Sclerae: sclerae normal Pupils: Equal, round and reactive pupils present Neck Neck: Yes normal visual inspection Chest Chest palpation & inspection: normal inspection of the chest Resp Effort & Inspection: normal respiratory effort Auscultation: clear to auscultation bilaterally Cardio Palpation: normal PMI Rate: regular rate Rhythm: regular rhythm Heart sounds: S1 normal heart sound present, S2 normal heart sound present and no murmurs GI Palpation (GI): Soft to palpation, nontender and No hepatosplenomegaly present Auscultation: normal bowel sounds Rectal Exam - Female: deferred Skin General skin exam: no rashes or lesions noted Neuro General: patient oriented x3, gait normal and moves all extremities Cranial nerves: Yes Equal, round and reactive pupils present Psych Appearance: grossly normal Mental Status: mental status grossly normal Assessment & Plan Assessment & Plan (1) History of diverticulitis of colon: Code(s): Z87.19 - Personal history of other diseases of the digestive system Category: Medical (2) History of colon polyps: Comment: 05/15/20 diverticulosis and 3 small (< 10 mm) adenomatous polyps removed 07/26/24 Colonoscopy showed: Two small hyperplastic polyps Plan: Repeat Colonoscopy in 5 years Code(s): Z86.010 - Personal history of colon polyps Category: Medical (3) Chronic GERD: Comment: EGD 09/2021 s/p H pylori tx Code(s): K21.9 - Gastro-esophageal reflux disease without esophagitis Category: Medical (4) Gastric ulcer due to Helicobacter pylori: Code(s): K25.9 - Gastric ulcer, unspecified as acute or chronic, without hemorrhage or perforation; B96.81 - Helicobacter pylori [H. pylori] as the cause of diseases classified elsewhere Category: Medical Plan 64-year-old Mosotho speaking female referred to GI to schedule a colonoscopy for screening and due to 2 episodes of diverticulitis over 6 months in the past. Patient denied known family history of colon polyps or cancer and is considered average risk for colon cancer. She had a colonoscopy in 2013 at [facility] in [place] which was negative. 05/15/2020 colonoscopy showed diverticulosis and 3 small (< 10 mm) adenomatous polyps were removed. ? Repeat colonoscopy is advised in 3 years. 05/23 pt was seen with abd pain and given PO antibiotics for suspected diverticulitis with resolution 09/03/21 Pt complains of atypical chest pain, seen at [facility] ED and prescribed Omeprazole 20 mg daily - only taking intermittently and advised to take daily. 09/2021 EGD showed a?1 cms clean based ulcer in the pyloric channel - biopsied. Gastric biopsies were positive for Helicobacter pylori - 09/2021 pt was treated with Calrithromycin 500 mg twice daily, amoxicillin 1 gram twice daily and Omeprazole 20 mg twice daily x 14 days for H Pylori infection. Pt completed antibiotic therapy in 09/2021 FU EGD was performed and showed a 1 cms clean based chronic appearing ulcer in the pyloric channel. Gastric biopsies were positive for H Pylori and pt was given a prescription for Pylera x 14 days. 02/24/23 H Pylori breath test today Schedule an EGD (FU of ) and a colonoscopy for FU of colon polyps - scheduled on 12/01/23 02/12/24 Notes intermittent heartburn - rare since she resumed taking Omeprazole. Feels nervous when she drinks coffee Notes bloating when she eats cabbage and drinks coffee. EGD and colon scheduled in Nov, 2023 were cancelled since she was undergoing cardiac work up Scheduled for coronary angiography in Mar, 2024 and a FU appt with Dr Cordon on 04/19/24 07/26/24 EGD + bx for HP culture and sensitivity (FU of and persistent H Pylori infection) and a colonoscopy was performed and results as noted above. Gastric biopsies were positive for HP and no H Pylori was isolated on culture and sensitivity. Appropriate antibiotics will be prescribed based on above results (pt has been treated for HP x 2 in the past without eradication) Repeat EGD in 3 years for Fu of gastric intestinal metaplasia 12/02/24 H Pylori breath test (Omeprazole on hold x 2 weeks) I will contact the pt with results Elevated LFTs -likely due to fatty liver. Pt advised wt reduction FU in 4 months - Orders: Orders H Pylori Breath Test Today B96.81 - Helicobacter pylori [H. pylori] as the cause of diseases classified elsewhere, K25.9 - Gastric ulcer, unspecified as acute or chronic, without hemorrhage or perforation Coding Level of Care Code Est Pt Level 4 (90074) Diagnoses History of diverticulitis of colon Z87.19 History of colon polyps Z86.010 Chronic GERD K21.9 Gastric ulcer due to Helicobacter pylori K25.9; B96.81 Time Spent (min) 21
--- NOTE | 2024-12-02 08:56 | A.OFFVIS_ITS ---
Vital Signs 12/02/24 08:59 Height 5 ft 5 in Weight 234 lb BMI 38.9 BP 151/80 H Blood Pressure Location Lt brachial Position Sitting Pulse 80 Pulse Oximetry (%) 94 Oxygen Delivery Method Room Air Intake Visit Reasons: 3 month follow up Intake Note: Patient follow up for abdominal bloating. Patient cc: swallowing problems and denies any other GI issues. Digital Asset Manager Required: Yes Digital Asset Manager Name: Lilly Cobos Accompanied by: Self / Same As Patient Allergies amitriptyline Adverse Reaction (Intermediate, Verified 12/02/24 08:51) Palpitations metformin Adverse Reaction (Intermediate, Verified 09/22/24 09:40) Diarrhea propranolol Adverse Reaction (Intermediate, Verified 09/22/24 08:57) Palpitations PFSH Medical History (Updated 09/22/24 @ 09:44 by Lisa Porras MD) CAD (coronary artery disease) Anxiety Chronic headaches Tinnitus Neck pain Annual physical exam Chronic GERD Obesity Chest pain Mammogram normal Hyperlipidemia Sciatica History of colon polyps History of diverticulitis of colon Nephrolithiasis Surgical History History of esophagogastroduodenoscopy (EGD) Hx of colonoscopy History of ankle surgery (10/06/19) H/O Spinal surgery History of kidney surgery H/O section Family History Father Heart attack Mother Diabetes Heart problem Arthritis Social History Household Members: Children Housing: House Are you a primary pet care worker to a significant other at home: No Do you presently have visiting nurse or other home services: No Alcohol intake: never Patient Tobacco Use Status: Current everyday Tobacco user Tobacco use type: Cigarette Cigarette Packs Per Day: 0.5 Cigarettes Per Day: 10.0 Years Smoked: 25 e-Cigarette/Vaping Use: Never Used service: No Current occupational status: employed Cognitive needs: No Hearing needs: No 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
[2024-12-02 08:59] VITALS: BP 151/80; PULSE 80; O2SAT 94; BMI 38.9
--- OUTSIDE RECORDS SUMMARY | 2024-12-02 11:28 | XMS_ITS | Patient Health Record ---
Author Organization [facility] Address [address] [place] [address] Care Team Providers Care Head Of Research & Insights Name Role Phone Chad Deleon Primary Care Provider Reason For Referral No Information Plan Of Treatment No Information Insurance Providers Payer Name Payer Address Payer Phone Subscriber Number Group Number Insured Name Patient Relationship to Insured Coverage Start Date Coverage End Date [facility] [employer] [address] [address] [id number] Brittnye Jasso Self - patient is the insured
--- OUTSIDE RECORDS SUMMARY | 2024-12-02 11:28 | XMS_ITS | Clinical Summary ---
Author Organization [facility] Address [address] [place] [address] Care Team Providers Care Landscape Manager Name Role Phone Lisa Porras MD Primary Care Provider [phone] Surgical History Surgery Date Site/Laterality Comments KIDNEY STONE SURGERY PROCEDURE: [place] NEPHROLITHOTOMY REMOVAL CALCULUS OTHER SURGICAL HISTORY 12/2010 PROCEDURE: [place] TRANSPEDICULAR DCMPRN SPINAL CORD 1 SEG LUMBAR; COMMENT: and microdiscectomy L4-5 COLONOSCOPY 03/03/12 PROCEDURE: HISTORICAL COLONOSCOPY; COMMENT: normal; repeat in ten yrs ESOPHAGOGASTRODUODENOSCOPY Nov 2015 PROCEDURE: [place] ESOPHAGOGASTRODUODENOSCOPY TRANSORAL DIAGNOSTIC; COMMENT: normal Medical History Medical History Date Comments Headache(784.0) 02/23/2006 DX:Headache(784. 0) Calculus of kidney 02/23/2006 DX:Calculus o f kidney Depressive disorder, not els ewhere classified 01/01/2007 DX:Depressive disorder, not elsewhere classified Family History Medical History Relation Name Comments Heart attack Father at 52 Hypertension Mother Other: heart disease Mother alive - triple bypass Breast cancer Neg Hx Colon cancer Neg Hx Ovarian cancer Neg Hx Relation Name Status Comments Brother Alive Daughter Alive Father Mother Sister 1 Alive Sister 2 Alive Son 1 Alive Son 2 Alive Son 3 Alive Social History Tobacco Use Types Packs/Day Years Used Date Smoking Tobacco: Every Day Cigarettes 0.5 44.8 Started: 1980 Smokeless Tobacco: Never Alcohol Use Standard Drinks/Week Comments No 0 (1 standard drink = 0.6 oz pur e alcohol) Sex and Gender Information Value Date Recorded Sex Assigned at Not on file Gender Identity Not on file Sexual Orientation Not on file Obstetrics History Plan of Treatment Upcoming Encounters Date Type Department Care Team ([facility] Contact Info) Description 06/18/2025 9:00 AM EDT Appointment Radiology Department - [place] [address] [place] [address] Health Maintenance Due Date Last Done Comments Pneumococcal Vaccine: Pediatrics (0 to 5 Years) and At-Risk Patients (6 to 64 Years) (1 of 2 - PCV) 02/25/1966 Cervical Cancer Screening: Pap Smear 02/25/1981 Zoster Vaccines (1 of 2) 02/25/2010 Cholesterol Screening (Lipid Panel) 10/12/2022 Colorectal Cancer Screening: Colonoscopy 10/12/2022 Depression Screening 10/12/2022 HIV Screening 10/12/2022 Hepatitis C Screening 10/12/2022 Lung Cancer Screening (Low Dose CT) 10/12/2022 Social Influencers of Health Screening 10/12/2022 COVID-19 Vaccine ( - season) 2024 Influenza Vaccine (#1) 2024 DTaP,Tdap,and Td Vaccines (2 - Td or Tdap) 08/04/2025 08/04/2015 Breast Cancer Screening 05/29/2026 05/29/20 24, 05/29/2024, 04/19/2023, Additional history exists RSV Immunization Patients 60+ Years Old (1 - 1-dose 75+ series) 02/25/2035 HIB Vaccines Aged Out No longer eligi ble based on patient's age to complete this topic HPV Vaccines Aged Out No longer eligi ble based on patient's age to complete this topic Hepatitis A Vaccines Aged Out No long er eligible based on patient's age to complete this topic Hepatitis B Vaccines Aged Out No long er eligible based on patient's age to complete this topic IPV Vaccines Aged Out No longer eligi ble based on patient's age to complete this topic MMR Vaccines Aged Out No longer eligi ble based on patient's age to complete this topic Meningococcal ACWY Vaccine Aged Out N o longer eligible based on patient's age to complete this topic RSV Immunization Patients Under 20 months Aged Out No longer eligible based on patient's age to complete this topic Varicella Vaccines Aged Out No longer eligible based on patient's age to complete this topic Procedures Procedure Name Priority Date/Time Associated Diagnosis Comments SCREENING MAMMOGRAPHY BI 2-VIEW BREAST INC CAD Routine 05/29/2024 10:50 AM EDT Encounter for screening mammogram for malignant neoplasm of breast from Last 3 Months or Most Recently Relevant to Health Maintenance Results * SCREENING MAMMOGRAPHY BI 2-VIEW BREAST INC CAD (05/29/2024 10:50 AM EDT) Anatomical Region Laterality Modality Radiographic Audrey ging 04/19/2023 8:36 AM EDT Narrative 05/29/2024 2:32 PM EDT This is a summary report. The complete report is available in the patient's medical record. If you cannot access the medical record, please contact the sending organization for a detailed fax or copy. Study: SCREENING MAMMOGRAPHY BI 2-VIEW BREAST INC CAD Technique: Bilateral full-field digital screening mammography is obtained and read in conjunction with computer aided detection. ??Tomosynthesis as well as 2D C-View imaging were obtained. Comparison: Comparison made to multiple priors, most recent April 19, 2023, and most remote August 27, 2014. Breast composition: There are scattered areas of fibroglandular density. Bilateral breasts: No significant masses, suspicious calcifications or other abnormalities are seen in either breast. IMPRESSION: Impression: Bilateral breasts: Negative, no specific mammographic evidence of malignancy. ??Normal interval follow-up is recommended in 12 months. BI-RADS: Category 1: Negative Procedure Note Tico Dickerson MD - 09/27/2024 This is a summary report. The complete report is available in thepatient's medical record. If you cannot access the medical record, pleasecontact the sending organization for a detailed fax or copy. Study: SCREENING MAMMOGRAPHY BI 2-VIEW BREAST INC CAD Technique: Bilateral full-field digital screening mammography is obtainedand read in conjunction with computer aided detection. Tomosynthesis aswell as 2D C-View imaging were obtained. Comparison: Comparison made to multiple priors, most recent April 19, 2023,and most remote August 27, 2014. Breast composition: There are scattered areas of fibroglandular density. Bilateral breasts: No significant masses, suspicious calcifications orother abnormalities are seen in either breast. IMPRESSION: Impression: Bilateral breasts: Negative, no specific mammographic evidence ofmalignancy. Normal interval follow-up is recommended in 12 months. BI-RADS: Category 1: Negative Lisa Porras MD IMG XR PROCEDURES from Last 3 Months or Most Recently Relevant to Health Maintenance Care Teams Landscape Manager Relationship Specialty Start Date End Date Lisa Porras MD PCP - General Internal Medicine 10/20/19
== END 2024-12-02 09:36 | disposition home or self-care (01) ==
PROVIDERS: PCP Internal Medicine; Visit Provider Internal Medicine Gastroenterology
DX: Z87.19 Personal history of other diseases of the digestive system (principal); Z86.0100 Personal history of colon polyps, unspecified; K21.9 Gastro-esophageal reflux disease without esophagitis; K25.9 Gastric ulcer, unspecified as acute or chronic, without hemorrhage or perforation; B96.81 Helicobacter pylori [H. pylori] as the cause of diseases classified elsewhere
CPT/HCPCS: 99214

== ENCOUNTER 2024-12-02 15:40 | Outpatient (REF) | payer MEDICARE, MEDICAID, SELFPAY ==
--- OUTSIDE RECORDS SUMMARY | 2024-12-03 15:42 | XMS_ITS | Clinical Summary ---
Author Organization [facility] Address [address] [place] [address] Care Team Providers Care Batch Mixer Operator Name Role Phone Lisa Porras MD Primary Care Provider [phone] Surgical History Surgery Date Site/Laterality Comments KIDNEY STONE SURGERY PROCEDURE: [place] NEPHROLITHOTOMY REMOVAL CALCULUS OTHER SURGICAL HISTORY 12/2010 PROCEDURE: [place] TRANSPEDICULAR DCMPRN SPINAL CORD 1 SEG LUMBAR; COMMENT: and microdiscectomy L4-5 COLONOSCOPY 03/03/12 PROCEDURE: HISTORICAL COLONOSCOPY; COMMENT: normal; repeat in ten yrs ESOPHAGOGASTRODUODENOSCOPY Nov 2015 PROCEDURE: [place] ESOPHAGOGASTRODUODENOSCOPY TRANSORAL DIAGNOSTIC; COMMENT: normal Medical History [...] Upcoming Encounters Date Type Department Care Team ([facility] Contact Info) Description 06/18/2025 9:00 AM EDT Appointment Radiology Department - [place] [address] [place] [address] Health Maintenance Due Date Last Done Comments [...] Recently Relevant to Health Maintenance Care Teams Batch Mixer Operator Relationship Specialty Start Date End Date Lisa Porras MD PCP - General Internal Medicine 10/20/19
[2024-12-04 12:30] LABS: H Pylori Breath Test Positive (Negative)
== END 2024-12-02 15:41 | disposition home or self-care (01) ==
LOC: HO.LNP 15:40
PROVIDERS: Visit Provider Internal Medicine Gastroenterology
DX: K25.9 Gastric ulcer, unspecified as acute or chronic, without hemorrhage or perforation (principal); B96.81 Helicobacter pylori [H. pylori] as the cause of diseases classified elsewhere
CPT/HCPCS: 83013; 99212

== ENCOUNTER 2024-12-27 09:54 | Outpatient (AMB) | payer MEDICARE, MEDICAID, SELFPAY ==
[2024-12-27 10:08] VITALS: BP 140/82; PULSE 92; RESP 20; TEMP 36.9; O2SAT 96; BMI 38.9
--- NOTE | 2024-12-27 10:08 | A.OFFPC_ITS ---
Vital Signs 12/27/24 10:08 Height 5 ft 5 in Weight 234 lb BMI 38.9 BP 140/82 H Blood Pressure Location Lt brachial Position Sitting Respiration 20 Pulse 92 Pulse Source Pulse Oximeter Temp 98.4 F Temp Source Oral Pulse Oximetry (%) 96 Oxygen Delivery Method Room Air Intake Visit Reasons: 3 months f/up Intake Note: Pt is here today for 3 months follow up visit. Pt states that she has been sick for the last 2 weeks cough congestion. Allergies amitriptyline Adverse Reaction (Intermediate, Verified 12/27/24 10:24) Palpitations metformin Adverse Reaction (Intermediate, Verified 12/27/24 10:24) Diarrhea propranolol Adverse Reaction (Intermediate, Verified 12/27/24 10:24) Palpitations Medication List - Last Reconciled 12/27/24 by Lisa Porras MD aspirin (Ecotrin Low Strength) 81 mg PO DAILY atorvastatin 80 mg PO DAILY duloxetine 30 mg PO DAILY ezetimibe 10 mg PO DAILY hydroxyzine HCl 10 mg PO BEDTIME PRN multivitamin (Daily Multi-Vitamin tablet) 1 tab PO DAILY omeprazole 20 mg PO DAILY 90 days riboflavin (vitamin B2) 400 mg PO DAILY 30 days Tobacco use date assessed: 12/27/24 Dental Screening Dental Screen Date: 06/22/24 HPI 3 months f/up HPI Details Pt presents for the follow-up of type 2 diabetes and hyperlipidemia. Patient took Trulicity only for 1 month and they could not get it refilled due to the shortage. Patient has not been checking her blood glucose regularly. She complains of 2 weeks of productive cough with yellow sputum sinus congestion postnasal drip, night sweats. Patient denies shortness or breath pleurisy GI or complaints. [facility] Medical History (Updated 12/27/24 @ 10:53 by Lisa Porras MD) CAD (coronary artery disease) Anxiety Chronic headaches Tinnitus Neck pain Annual physical exam Chronic GERD Obesity Chest pain Mammogram normal Hyperlipidemia Sciatica History of colon polyps History of diverticulitis of colon Nephrolithiasis Surgical History History of esophagogastroduodenoscopy (EGD) Hx of colonoscopy History of ankle surgery (10/06/19) H/O Spinal surgery History of kidney surgery H/O section Family History Father Heart attack Mother Diabetes Heart problem Arthritis Social History Household Members: Children Housing: House Are you a primary home health care respiratory therapist to a significant other at home: No Do you presently have visiting nurse or other home services: No Alcohol intake: never Patient Tobacco Use Status: Current everyday Tobacco user Tobacco use type: Cigarette Cigarette Packs Per Day: 0.5 Cigarettes Per Day: 10.0 Years Smoked: 25 e-Cigarette/Vaping Use: Never Used service: No Current occupational status: employed Cognitive needs: No Hearing needs: No Vision needs: Yes Questionnaire Thrive Questionnaire Date Thrive assessed: 11/28/23 CHRISTIE-7 AMB Questionnaire CHRISTIE-7 Date CHRISTIE - 7 assessed: 11/28/23 Source: Developed by Drs. Markel Mendes, Chuyita Da Silva, Chadwick Cabello and colleagues, with an educational bayron from [employer]. Review of Systems Const All systems reviewed & are unremarkable except as noted in HPI and below Eyes Reports no additional complaints ENT Reports no additional complaints Card Reports no additional complaints Resp Reports no additional complaints Reports no additional complaints Physical exam (Primary Care) Vital Signs: Last Vital Signs Temp 98.4 F 12/27/24 10:08 Pulse 92 12/27/24 10:08 Resp 20 12/27/24 10:08 BP 140/82 H 12/27/24 10:08 Pulse Ox 96 12/27/24 10:08 Oxygen Delivery Method Room Air 12/27/24 10:08 BMI result Body Mass Index 38.9 Tobacco/Smoking Status: Tobacco use Status Tobacco use date assessed 12/27/24 12/27/24 10:25 Patient Tobacco Use Status Current everyday Tobacco 12/27/24 10:08 Tobacco use type Cigarette 12/27/24 10:08 e-Cigarette/Vaping Use Never Used 12/27/24 10:08 Thrive Assessment: Date of Thrive Assessment Date Thrive assessed 11/28/23 12/27/24 10:08 Const General: no acute distress HENMT Ears: TM's normal bilaterally Face and sinus: Yes sinus tenderness Throat: Yes postnasal drainage Eyes General: appearance normal, both eyes and all related structures Resp Effort & Inspection: normal respiratory effort Auscultation: rhonchi and diminished lung sounds Cardio Rhythm: regular rhythm Heart sounds: S1 normal heart sound present and S2 normal heart sound present Coding Level of Care Code Est Pt Level 4 (73045) Diagnoses Type 2 diabetes mellitus E11.9 Morbid obesity E66.01 Sinusitis J32.9 Hyperlipidemia E78.5 Assessment & Plan Assessment & Plan (1) Type 2 diabetes mellitus: Comment: Intolerant to metformin causing diarrhea Code(s): E11.9 - Type 2 diabetes mellitus without complications Category: Medical Plan: A1c was 7.3 in September. ADA diet increase physical activity weight loss discussed with the patient she will restart Trulicity at 0.75 mg weekly follow- up in 2 months with a fasting labs including A1c (2) Morbid obesity: Code(s): E66.01 - Morbid (severe) obesity due to excess calories Category: Medical Plan: Decreasing caloric intake increasing physical activity discussed with the patient (3) Sinusitis: Code(s): J32.9 - Chronic sinusitis, unspecified Category: Medical Plan: Alisson-Ramana and Navneet Taylor prescribed supportive care discussed with the patient (4) Hyperlipidemia: Code(s): E78.5 - Hyperlipidemia, unspecified Category: Medical Plan: Continue statin Orders: Orders Comprehensive [place]. Panel Fast 2 Months E11.9 - Type 2 diabetes mellitus without complications, E78.5 - Hyperlipidemia, unspecified Complete Blood Count Auto Diff 2 Months E11.9 - Type 2 diabetes mellitus without complications, E78.5 - Hyperlipidemia, unspecified Lipid Panel 2 Months E11.9 - Type 2 diabetes mellitus without complications, E78.5 - Hyperlipidemia, unspecified Hemoglobin A1c 2 Months E11.9 - Type 2 diabetes mellitus without complications, E78.5 - Hyperlipidemia, unspecified Microalbumin, Random (w Creat) 2 Months E11.9 - Type 2 diabetes mellitus without complications, E78.5 - Hyperlipidemia, unspecified Medications: New dulaglutide (Trulicity) 0.75 mg (0.5 mL) subcut QWEEK 6 mL 2RF benzonatate 100 mg PO BID-TID PRN 30 caps 0RF cough azithromycin For 250 mg dose pack: take 500 mg today (day 1), then 250 mg for 4 days (days 2-5) PO 6 tabs 0RF Refilled omeprazole 20 mg PO DAILY 90 days 90 caps 1RF B96.81 - Helicobacter pylori [H. pylori] as the cause of diseases classified elsewhere, K25.9 - Gastric ulcer, unspecified as acute or chronic, without hemorrhage or perforation
--- OUTSIDE RECORDS SUMMARY | 2024-12-27 10:58 | XMS_ITS | Clinical Summary ---
Author Organization [facility] it Address [address] [place] [address] Care Team Providers Care Ux Specialist Name Role Phone Lisa Porras MD Primary Care Provider [phone] Surgical History Surgery Date Site/Laterality Comments KIDNEY STONE SURGERY PROCEDURE: [place] NEPHROLITHOTOMY REMOVAL CALCULUS OTHER SURGICAL HISTORY 12/2010 PROCEDURE: [place] TRANSPEDICULAR DCMPRN SPINAL CORD 1 SEG LUMBAR; COMMENT: and microdiscectomy L4-5 COLONOSCOPY 03/03/12 PROCEDURE: HISTORICAL COLONOSCOPY; COMMENT: normal; repeat in ten yrs ESOPHAGOGASTRODUODENOSCOPY Nov 2015 PROCEDURE: [place] ESOPHAGOGASTRODUODENOSCOPY TRANSORAL DIAGNOSTIC; COMMENT: normal Medical History [...] drink = 0.6 oz pur e alcohol) Comments Unknown Sex and Gender Information Value Date Recorded Sex Assigned at Not on file Legal Sex Female 10:30 PM EST Gender Identity Not on file Sexual Orientation Not on file Obstetrics History Plan of Treatment Upcoming Encounters Date Type Department Care Team ([facility] Contact Info) Description 06/18/2025 9:00 AM EDT Appointment Radiology Department - [address] [phone] Health Maintenance Due Date Last Done Comments Pneumococcal Vaccine: 50+ Years (1 of 2 - PCV) 02/25/1979 Pneumococcal Vaccine: Pediatrics (0 to 5 Years) and At-Risk Patients (6 to 64 Years) (1 of 2 - PCV) 02/25/1979 Cervical Cancer Screening: Pap Smear 02/25/1981 Zoster [...] Tdap) 08/04/2025 08/04/2015 Breast Cancer Screening 05/29/2026 05/29/20, 05/29/2024, 04/19/2023, Additional history exists RSV Immunization [...] patient's age to complete this topic Meningococcal B Vacine Aged Out No lo nger eligible based on patient's age to complete [...] in 12 months. BI-RADS: Category 1: Negative us Lisa Porras MD IMG XR PROCEDURES Final Result from Last 3 Months or Most Recently Relevant to Health Maintenance Care Teams Ux Specialist Relationship Specialty Start Date End Date Lisa Porras MD PCP - General Internal Medicine 10/20/19
== END 2024-12-27 11:03 | disposition home or self-care (01) ==
PROVIDERS: PCP Internal Medicine; Visit Provider Internal Medicine
DX: E11.69 Type 2 diabetes mellitus with other specified complication (principal); E66.01 Morbid (severe) obesity due to excess calories; Z68.38 Body mass index [BMI] 38.0-38.9, adult; J32.9 Chronic sinusitis, unspecified; E78.5 Hyperlipidemia, unspecified

== ENCOUNTER → 2024-12-27 09:54 | Outpatient (BNVA) | payer MEDICARE, MEDICAID, SELFPAY | PROVIDERS: PCP Internal Medicine; Visit Provider Internal Medicine | DX: E11.9 Type 2 diabetes mellitus without complications (principal); E66.01 Morbid (severe) obesity due to excess calories; E78.5 Hyperlipidemia, unspecified; J32.9 Chronic sinusitis, unspecified | CPT/HCPCS: 99212 ==

== ENCOUNTER → 2025-01-10 11:12 | Outpatient (BNVA) | payer MEDICARE, MEDICAID, SELFPAY | PROVIDERS: PCP Internal Medicine | DX: R07.81 Pleurodynia (principal); E11.9 Type 2 diabetes mellitus without complications | CPT/HCPCS: 81003; 99212 ==

== ENCOUNTER 2025-01-10 11:56 | Outpatient (AMB) | payer MEDICARE, MEDICAID, SELFPAY ==
--- NOTE | 2025-01-10 12:09 | MHC.PC.OV ---
Intake Visit Reasons: LT sided stomach pain Allergies amitriptyline Adverse Reaction (Intermediate, Verified 01/10/25 11:20) Palpitations metformin Adverse Reaction (Intermediate, Verified 01/10/25 11:20) Diarrhea propranolol Adverse Reaction (Intermediate, Verified 01/10/25 11:20) Palpitations Medication List - Last Reconciled 01/10/25 by Lisa Porras MD aspirin (Ecotrin Low Strength) 81 mg PO DAILY atorvastatin 80 mg PO DAILY azithromycin For 250 mg dose pack: take 500 mg today (day 1), then 250 mg for 4 days (days 2-5) PO benzonatate 100 mg PO BID-TID PRN dulaglutide (Trulicity) 0.75 mg (0.5 mL) subcut QWEEK duloxetine 30 mg PO DAILY ezetimibe 10 mg PO DAILY hydroxyzine HCl 10 mg PO BEDTIME PRN multivitamin (Daily Multi-Vitamin tablet) 1 tab PO DAILY omeprazole 20 mg PO DAILY 90 days riboflavin (vitamin B2) 400 mg PO DAILY 30 days Tobacco use date assessed: 12/27/24 Dental Screening Dental Screen Date: 06/22/24 HPI LT sided stomach pain HPI Details Patient presents complaining of left lower rib and left upper abdominal pain positional worse with deep breathing for 1 week. Patient had upper respiratory infection with persistent cough last week and was treated with Z-Ramana. Patient denies fever chills cough shortness or breath, nausea vomiting change in bowel habits or appetite. [facility] Medical History CAD (coronary artery disease) Anxiety Chronic headaches Tinnitus Neck pain Annual physical exam Chronic GERD Obesity Chest pain Mammogram normal Hyperlipidemia Sciatica History of colon polyps History of diverticulitis of colon Nephrolithiasis Surgical History History of esophagogastroduodenoscopy (EGD) Hx of colonoscopy History of ankle surgery (10/06/19) H/O Spinal surgery History of kidney surgery H/O section Family History Father Heart attack Mother Diabetes Heart problem Arthritis Social History Household Members: Children Housing: House Are you a primary palliative care specialist to a significant other at home: No Do you presently have visiting nurse or other home services: No Alcohol intake: never Patient Tobacco Use Status: Current everyday Tobacco user Tobacco use type: Cigarette Cigarette Packs Per Day: 0.5 Cigarettes Per Day: 10.0 Years Smoked: 25 Packs Per Year: 13 Packs per year/per ci.50 e-Cigarette/Vaping Use: Never Used service: No Current occupational status: employed Cognitive needs: No Hearing needs: No Vision needs: Yes Questionnaire Thrive Questionnaire Date Thrive assessed: 11/28/23 CHRISTIE-7 AMB Questionnaire CHRISTIE-7 Date CHRISTIE - 7 assessed: 11/28/23 Source: Developed by Drs. Markel Mendes, Chuyita Da Silva, Chadwick Cabello and colleagues, with an educational bayron from [employer]. Review of Systems Const All systems reviewed & are unremarkable except as noted in HPI and below Reports no additional complaints Eyes Reports no additional complaints ENT Reports no additional complaints Card Reports no additional complaints Resp Reports no additional complaints GI Reports no additional complaints Reports no additional complaints Physical exam (Primary Care) Tobacco/Smoking Status: Tobacco use Status Tobacco use date assessed 12/27/24 01/10/25 12:09 Patient Tobacco Use Status Current everyday Tobacco 01/10/25 12:09 Tobacco use type Cigarette 01/10/25 12:09 e-Cigarette/Vaping Use Never Used 01/10/25 12:09 Thrive Assessment: Date of Thrive Assessment Date Thrive assessed 11/28/23 01/10/25 12:09 Const General: no acute distress HENMT Head: Yes normal to inspection Neck Neck: Yes supple Chest Other: Reproducible tenderness over left lower rib area Resp Effort & Inspection: normal respiratory effort Auscultation: clear to auscultation bilaterally Cardio Rhythm: regular rhythm Heart sounds: S1 normal heart sound present and S2 normal heart sound present GI Inspection: Yes normal to inspection Palpation (GI): Soft to palpation and nontender Percussion: Yes normal to percussion Auscultation: normal bowel sounds Results AMB Urinalysis, Automated UA Leukoctes 0 Monserrat/uL Last Edit by PAMELA Lewis on 01/10/25 12:10 UA Nitrite Negative Last Edit by PAMELA Lewis on 01/10/25 12:10 UA Urobilinogen 0.2 mg/dL Last Edit by Shashank Avendaño [facility] on 01/10/25 12:10 UA Protein 0 mg/dL Last Edit by Shashank Avendaño [facility] on 01/10/25 12:10 UA pH 6.5 Last Edit by Shashank Avendaño, [facility] on 01/10/25 12:10 UA Blood 0 Ankit/uL Last Edit by Shashank Avendaño, [facility] on 01/10/25 12:10 UA Specific [place] 1.005 Last Edit by Shashank Avendaño, [facility] on 01/10/25 12:10 UA Ketone Negative Last Edit by Shashank Avendaño, [facility] on 01/10/25 12:10 UA Bilirubin 0 mg/dL Last Edit by Shashank Avendaño [facility] on 01/10/25 12:10 UA Glucose 0 mg/dL Last Edit by Shashank Avendaño [facility] on 01/10/25 12:10 Results Reviewed Results Reviewed: Laboratory Last Values Urine pH (Auto) 6.5 01/10/25 12:09 Specific [place] (Auto) 1.005 01/10/25 12:09 Urine Protein (Auto) 0 mg/dL 01/10/25 12:09 Glucose (UA)(Auto) 0 mg/dL 01/10/25 12:09 Urine Ketones (Auto) Negative 01/10/25 12:09 Urine Blood (Auto) 0 Ankit/uL 01/10/25 12:09 Urine Nitrite (Auto) Negative 01/10/25 12:09 Urine Bilirubin (Auto) 0 mg/dL 01/10/25 12:09 Urine Urobilinogen (Auto) 0.2 mg/dL 01/10/25 12:09 Leukocyte Esterase (Auto) 0 Monserrat/uL 01/10/25 12:09 Coding Level of Care Code Est Pt Level 3 (19395) Diagnoses Rib pain on left side R07.81 Type 2 diabetes mellitus E11.9 Assessment & Plan Assessment & Plan (1) Rib pain on left side: Code(s): R07.81 - Pleurodynia Category: Medical Plan: For musculoskeletal pain meloxicam is prescribed (2) Type 2 diabetes mellitus: Comment: Intolerant to metformin causing diarrhea Code(s): E11.9 - Type 2 diabetes mellitus without complications Category: Medical Plan: Patient will restart Trulicity and will schedule a follow-up visit with fasting labs before, ADA diet increase exercise weight loss discussed with the patient Orders: Orders AMB Urinalysis Automated Today Z13.9 - Encounter for screening, unspecified Medications: New duloxetine 30 mg PO DAILY 90 caps 1RF meloxicam 15 mg PO DAILY 7 tabs 0RF Refilled atorvastatin 80 mg PO DAILY 90 tabs 3RF dulaglutide (Trulicity) 0.75 mg (0.5 mL) subcut QWEEK 6 mL 2RF ezetimibe 10 mg PO DAILY 90 tabs 3RF Discontinued benzonatate Discontinued Reason: Doctor's Order 100 mg PO BID-TID PRN 30 caps 0RF cough azithromycin Discontinued Reason: Doctor's Order For 250 mg dose pack: take 500 mg today (day 1), then 250 mg for 4 days (days 2-5) PO 6 tabs 0RF
--- OUTSIDE RECORDS SUMMARY | 2025-01-10 13:39 | XMS_ITS | Clinical Summary ---
Author Organization [facility] it Address [address] [place] [address] Care Team Providers Care Gate Cutter Name Role Phone Lisa Porras MD Primary Care Provider [phone] Surgical History Surgery Date Site/Laterality Comments KIDNEY STONE SURGERY PROCEDURE: [place] NEPHROLITHOTOMY REMOVAL CALCULUS OTHER SURGICAL HISTORY 12/2010 PROCEDURE: [place] TRANSPEDICULAR DCMPRN SPINAL CORD 1 SEG LUMBAR; COMMENT: and microdiscectomy L4-5 COLONOSCOPY 03/03/12 PROCEDURE: HISTORICAL COLONOSCOPY; COMMENT: normal; repeat in ten yrs ESOPHAGOGASTRODUODENOSCOPY Nov 2015 PROCEDURE: [place] ESOPHAGOGASTRODUODENOSCOPY TRANSORAL DIAGNOSTIC; COMMENT: normal Medical History [...] Date Smoking Tobacco: Every Day Cigarettes 0.5 44.9 Started: 1980 Smokeless Tobacco: Never Alcohol Use [...] Upcoming Encounters Date Type Department Care Team ([facility] Contact Info) Description 06/18/2025 9:00 AM EDT Appointment Radiology Department - [address] [phone] Health Maintenance Due Date Last Done Comments [...] Recently Relevant to Health Maintenance Care Teams Gate Cutter Relationship Specialty Start Date End Date Lisa Porras MD PCP - General Internal Medicine 10/20/19
== END 2025-01-10 13:00 | disposition home or self-care (01) ==
LOC: HO.HMCC 11:56
PROVIDERS: PCP Internal Medicine; Visit Provider Internal Medicine
DX: R07.81 Pleurodynia (principal); E11.9 Type 2 diabetes mellitus without complications; Z13.9 Encounter for screening, unspecified

== ENCOUNTER 2025-02-02 09:34 | Outpatient (REF) | payer MEDICARE, MEDICAID, SELFPAY ==
--- OUTSIDE RECORDS SUMMARY | 2025-02-02 12:10 | XMS_ITS | Clinical Summary ---
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; COMMENT: and microdiscectomy L4-5 COLONOSCOPY 03/03/12 PROCEDURE: HISTORICAL COLONOSCOPY; COMMENT: normal; repeat in ten yrs ESOPHAGOGASTRODUODENOSCOPY Nov 2015 PROCEDURE: CT ESOPHAGOGASTRODUODENOSCOPY TRANSORAL DIAGNOSTIC; COMMENT: normal Medical History [...] Upcoming Encounters Date Type Department Care Team ([facility] Contact Info) Description 06/18/2025 9:00 AM EDT Appointment Radiology Department - [address] [phone] Health Maintenance Due Date Last Done Comments [...] Recently Relevant to Health Maintenance Care Teams Manager Med Surg Relationship Specialty Start Date End Date Lisa Porras MD PCP - General Internal Medicine 10/20/19
[2025-02-02 13:23] LABS: MANUAL DIFF FLAG NO
[2025-02-02 13:32] LABS: Basophils Absolute Auto 0.1 X10*3/uL (0.0-0.2); Basophils Percent Auto 0.5 % (0-2); Eosinophils Absolute Auto 0.3 X10*3/uL (0.0-0.4); Imm Gran Abs Auto 0.04 X10*3/uL (0.00-0.03); Imm Gran Pct Auto 0.4 % (0.0-0.4); Lymphocytes Absolute Auto 2.1 X10*3/uL (1.2-4.9); Lymphocytes Percent Auto 22.4 % (20-40); Mean Corpuscular HGB Conc 31.9 g/dl (31.0-35.0); Mean Corpuscular Hemoglobin 26.4 pg (27.0-33.0); Mean Corpuscular Volume 82.7 fL (80.0-98.0); Mean Platelet Volume 11.6 fL (9.4-12.3); Monocytes Absolute Auto 1.1 X10*3/uL (0.1-1.2); Monocytes Percent Auto 12.2 % (2-11); Neutrophils Absolute Auto 5.7 x10*3/uL (2.0-8.3); Neutrophils Percent Auto 61.5 % (45-73); Platelet Count 209 X10*3/uL (160-400); Red Blood Count 5.68 X10*6/uL (4.20-5.50); Red Cell Distribution Width 14.6 % (11.0-16.0); White Blood Count 9.3 X10*3/uL (4.8-10.8)
[2025-02-02 13:40] LABS: Estimated Average Glucose 166 mg/dL; Hemoglobin A1C 226.2982 umol/L; Hemoglobin A1c % 7.4 % (<6.0); Total Hemoglobin (HGBA1C) 3909.9106 umol/L
[2025-02-02 14:00] LABS: Appearance Urine Clear; Color Urine Yellow; Glucose Urine UA Negative (Negative); Leukocyte Esterase Urine Small (1+) (Negative); Nitrite Urine Negative (Negative); UMIC TRIGGER UA YES; Urine Blood Negative (Negative); Urine Ketones Negative (Negative); Urine Protein Negative (Neg-Trace)
[2025-02-02 14:12] LABS: Bacteria Urine 1+ (None Seen); Hyaline Casts Urine 0-2 /LPF (0-2); RBC Urine 0-2 /HPF (0-2); WBC Urine 21-50 /HPF (0-5)
[2025-02-02 14:21] LABS: Alanine Aminotransferase 60 U/L (0-31); Albumin Level 4.5 g/dL (3.5-5.0); Alkaline Phosphatase 84 U/L (39-117); Anion Gap 13 (12-20); Aspartate Amino Transferase 41 U/L (5-31); Bilirubin Total 0.6 mg/dL (0.0-1.0); Blood Urea Nitrogen 12 mg/dL (9-16); Carbon Dioxide 26 mmol/L (22-29); Chloride 105 mmol/L (96-108); Cholesterol 175 mg/dL (<200); Estimated Glomerular Filt Rate > 60; Glucose Fasting 144 mg/dL (60-99); Glucose Random 144 mg/dL (60-115); HDL Cholesterol 33 mg/dL (>40); LDL Cholesterol Calculated 85 mg/dL (<100); Potassium 4.3 mmol/L (3.3-5.1); Sodium 140 mmol/L (135-145); TSH reflex Free T4 0.79 uIU/mL (0.32-4.0); Total Protein 7.8 g/dL (6.5-8.0); Triglycerides 287 mg/dL (<150)
[2025-02-02 14:47] LABS: Creatinine Urine 133.56 mg/dL; Microalbum/Creatinine Ratio Ur 17.9 ug/mg cr (<30)
== END 2025-02-02 09:35 | disposition home or self-care (01) ==
LOC: HO.HMGCLDS 09:34
PROVIDERS: PCP Internal Medicine; Visit Provider Internal Medicine
DX: R10.9 Unspecified abdominal pain (principal); E11.9 Type 2 diabetes mellitus without complications; E78.5 Hyperlipidemia, unspecified; N20.0 Calculus of kidney
CPT/HCPCS: 36415; 80053; 80061; 81001; 82043; 82570; 83036; 84443; 85025; 87086; 96127; 99212

== ENCOUNTER 2025-02-02 09:34 | Outpatient (AMB) | payer MEDICARE, MEDICAID, SELFPAY ==
[2025-02-02 09:36] VITALS: BP 136/80; PULSE 102; RESP 20; TEMP 36.8; O2SAT 97; BMI 39.1
--- NOTE | 2025-02-02 09:36 | A.OFFPC_ITS ---
Vital Signs 02/02/25 09:36 Height 5 ft 5 in Weight 235 lb BMI 39.1 BP 136/80 Blood Pressure Location Rt brachial Position Sitting Respiration 20 Pulse 102 H Pulse Source Pulse Oximeter Temp 98.3 F Temp Source Oral Pulse Oximetry (%) 97 Oxygen Delivery Method Room Air Intake Visit Reasons: EP-stomach & medication concern Intake Note: Pt is here today for a follow up visit on medication.Pt states that she has been having L side abdominal pain and discomfort for 6 weeks now. Allergies amitriptyline Adverse Reaction (Intermediate, Verified 02/02/25 09:52) Palpitations metformin Adverse Reaction (Intermediate, Verified 02/02/25 09:52) Diarrhea propranolol Adverse Reaction (Intermediate, Verified 02/02/25 09:52) Palpitations Medication List - Last Reconciled 02/02/25 by Lisa Porras MD aspirin (Ecotrin Low Strength) 81 mg PO DAILY atorvastatin 80 mg PO DAILY dulaglutide (Trulicity) 0.75 mg (0.5 mL) subcut QWEEK duloxetine 30 mg PO DAILY ezetimibe 10 mg PO DAILY hydroxyzine HCl 10 mg PO BEDTIME PRN meloxicam 15 mg PO DAILY multivitamin (Daily Multi-Vitamin tablet) 1 tab PO DAILY omeprazole 20 mg PO DAILY 90 days riboflavin (vitamin B2) 400 mg PO DAILY 30 days Tobacco use date assessed: 02/02/25 Dental Screening Dental Screen Date: 02/02/25 Did you have a dental visit in the last 12 months?: No Did you have a dental problem in the last 6 months where you did not have access to dental care?: No Was dental information given to patient?: Patient declined HPI EP-stomach & medication concern HPI Details Patient presents complaining of left-sided abdominal pain worse after eating for 1 week with some nausea but no vomiting. Patient denies fever chills hematochezia melena diarrhea or constipation. [facility] Medical History CAD (coronary artery disease) Anxiety Chronic headaches Tinnitus Neck pain Annual physical exam Chronic GERD Obesity Chest pain Mammogram normal Hyperlipidemia Sciatica History of colon polyps History of diverticulitis of colon Nephrolithiasis Surgical History History of esophagogastroduodenoscopy (EGD) Hx of colonoscopy History of ankle surgery (10/06/19) H/O Spinal surgery History of kidney surgery H/O section Family History Father Heart attack Mother Diabetes Heart problem Arthritis Social History Household Members: Children Housing: House Are you a primary career placement specialist to a significant other at home: No Do you presently have visiting nurse or other home services: No Alcohol intake: never Patient Tobacco Use Status: Current everyday Tobacco user Tobacco use type: Cigarette Cigarette Packs Per Day: 0.5 Cigarettes Per Day: 10.0 Years Smoked: 25 Packs Per Year: 13 Packs per year/per ci.50 e-Cigarette/Vaping Use: Never Used service: No Current occupational status: employed Cognitive needs: No Hearing needs: No Vision needs: Yes Questionnaire PHQ-9 Over the last 2 weeks, how often have you been bothered by any of the following problems? 1. Little interest or pleasure in doing things: not at all 2. Feeling down, depressed, or hopeless: not at all 3. Trouble falling or staying asleep, or sleeping too much: not at all 4. Feeling tired or having little energy: several days 5. Poor appetite or overeating: not at all 6. Feeling bad about yourself - or that you are a failure or have let yourself or your family down: not at all 7. Trouble concentrating on things, such as reading the newspaper or watching television: not at all 8. Moving or speaking so slowly that other people could have noticed. Or the opposite - being so fidgety or restless that you have been moving around a lot more than usual: not at all 9. Thoughts that you would be better off or of hurting yourself in some way: not at all Total score: 1 Depression Screening Interpretation: Negative Depression Screening Done: Yes 80829 - PHQ-9 Billing: Yes Source: Developed by Drs. Markel Mendes, Chuyita Da Silva, Chadwick Cabello and colleagues, with an educational bayron from [employer]. Thrive Questionnaire Date Thrive assessed: 02/02/25 I am a: Patient What is your living situation today?: I have a steady place to live Within the past 12 months, did the food you bought not last and you didn't have the money to get more?: Never true Within the past 12 months, did you worry whether your food would run out before you got money to buy more?: Never true Do you have trouble paying for medicines?: No Do you have trouble getting transportation to medical appointments?: No Do you have trouble paying your heating and electricity bill?: No Do you have trouble taking care of your child, family member or friend?: No Do you have trouble with day-to-day activities such as bathing, preparing meals, shopping, managing finances, etc.?: No Are you currently unemployed and looking for a job?: No Are you interested in more education?: No Please select the resources that you would like help with: None THRIVE Score: 0 CHRISTIE-7 AMB Questionnaire CHRISTIE-7 Date CHRISTIE - 7 assessed: 02/02/25 Feeling nervous, anxious, or on edge: 0 = Not at all Not being able to stop or control worryin = Not at all Worrying too much about different things: 0 = Not at all Trouble relaxin = Not at all Being so restless that it is hard to sit still: 0 = Not at all Becoming easily annoyed or irritable: 0 = Not at all Feeling afraid as if something awful might happen: 0 = Not at all Total CHRISTIE-7 score (0-4 normal; 5-9 mild; 10-14 moderate; 15-21 severe): 0 Source: Developed by Drs. Markel Mendes, Chuyita Da Silva, Chadwick Cabello and colleagues, with an educational bayron from [employer]. CHRISTIE-7 Assessment Billing CHRISTIE-7 Assessment Tool: CHRISTIE-7 Assessment 73645 Review of Systems Const All systems reviewed & are unremarkable except as noted in HPI and below Eyes Reports no additional complaints ENT Reports no additional complaints Card Reports no additional complaints Resp Reports no additional complaints GI Reports no additional complaints Reports no additional complaints Physical exam (Primary Care) Vital Signs: Last Vital Signs Temp 98.3 F 02/02/25 09:36 Pulse 102 H 02/02/25 09:36 Resp 20 02/02/25 09:36 BP 136/80 02/02/25 09:36 Pulse Ox 97 02/02/25 09:36 Oxygen Delivery Method Room Air 02/02/25 09:36 BMI result Body Mass Index 39.1 Tobacco/Smoking Status: Tobacco use Status Tobacco use date assessed 02/02/25 02/02/25 09:40 Patient Tobacco Use Status Current everyday Tobacco 02/02/25 09:36 Tobacco use type Cigarette 02/02/25 09:36 e-Cigarette/Vaping Use Never Used 02/02/25 09:36 PHQ-9: PHQ-9 Score PHQ-9: Total score 1 02/02/25 09:40 Depression Screening Interpretation: Negative Thrive Assessment: Date of Thrive Assessment Date Thrive assessed 02/02/25 02/02/25 09:40 Const General: no acute distress HENMT Head: Yes normal to inspection Mouth: Normal oral and palatal mucosa present Neck Neck: Yes supple Resp Effort & Inspection: normal respiratory effort Auscultation: clear to auscultation bilaterally Cardio Rhythm: regular rhythm Heart sounds: S1 normal heart sound present and S2 normal heart sound present GI Inspection: Yes normal to inspection Palpation (GI): Soft to palpation and Tenderness to palpation present (GI) in the LLQ; with no rebound tenderness Percussion: Yes normal to percussion Auscultation: normal bowel sounds Coding Level of Care Code Est Pt Level 3 (18317) Diagnoses Type 2 diabetes mellitus E11.9 Abdominal pain R10.9 Additional Codes CHRISTIE-7 Assessment Billing - CHRISTIE-7 Assessment Tool: CHRISTIE-7 Assessment 94878 ([id number]) PHQ-9 - 97994 - PHQ-9 Billing: Yes ([id number]) Assessment & Plan Assessment & Plan (1) Type 2 diabetes mellitus: Comment: Intolerant to metformin causing diarrhea Code(s): E11.9 - Type 2 diabetes mellitus without complications Category: Medical Plan: Continue ADA diet patient will restart Trulicity (2) Abdominal pain: Code(s): R10.9 - Unspecified abdominal pain Category: Medical Plan: For left lower quadrant abdominal pain obtain CT of the abdomen to evaluate for diverticulitis. Check comprehensive panel CBC UA and urine culture Orders: Orders Complete Blood Count Auto Diff Today E11.9 - Type 2 diabetes mellitus without complications, E78.5 - Hyperlipidemia, unspecified, N20.0 - Calculus of kidney, R10.9 - Unspecified abdominal pain TSH reflex Free T4 Today E11.9 - Type 2 diabetes mellitus without complications, E78.5 - Hyperlipidemia, unspecified, N20.0 - Calculus of kidney, R10.9 - Unspecified abdominal pain Comprehensive Met. Panel Today E11.9 - Type 2 diabetes mellitus without complications, E78.5 - Hyperlipidemia, unspecified, N20.0 - Calculus of kidney, R10.9 - Unspecified abdominal pain Hemoglobin A1c Today E11.9 - Type 2 diabetes mellitus without complications, E78.5 - Hyperlipidemia, unspecified, N20.0 - Calculus of kidney, R10.9 - Unspecified abdominal pain UA w Microscopic Today E11.9 - Type 2 diabetes mellitus without complications, E78.5 - Hyperlipidemia, unspecified, N20.0 - Calculus of kidney, R10.9 - Unspecified abdominal pain Urine Culture Today N20.0 - Calculus of kidney, R10.9 - Unspecified abdominal pain CT abdomen pelvis w IV con Today K57.92 - Diverticulitis of intestine, part unspecified, without perforation or abscess without bleeding Medications: Refilled dulaglutide (Trulicity) 0.75 mg (0.5 mL) subcut QWEEK 6 mL 2RF
--- OUTSIDE RECORDS SUMMARY | 2025-02-02 10:43 | XMS_ITS | Clinical Summary ---
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 Contact Info) Description 06/18/2025 9:00 AM EDT Appointment Radiology Department - [address] [phone] Health Maintenance Due Date Last Done Comments [...] 05/29/2024, 04/19/2023, Additional history exists RSV Immunization Adult Patients (1 - 1-dose 75+ series) 02/25/2035 HIB [...] Recently Relevant to Health Maintenance Care Teams Operations Research Analyst Relationship Specialty Start Date End Date Lisa Porras MD PCP - General Internal Medicine 10/20/19
--- OUTSIDE RECORDS SUMMARY | 2025-02-02 10:43 | XMS_ITS | Patient Health Record ---
Author Organization [facility] Address [address] [place] [address] Care Team Providers Care Lint Cleaner Name Role Phone Chad Deleon Primary Care Provider Reason For Referral No Information Plan Of Treatment No Information Insurance Providers Payer Name Payer Address Payer Phone Subscriber Number Group Number Insured Name Patient Relationship to Insured Coverage Start Date Coverage End Date [facility] [place] [employer] [address] [address] [id number] Brittney Jasso Self - patient is the insured
== END 2025-02-02 12:38 | disposition home or self-care (01) ==
LOC: HO.HMCC 09:34
PROVIDERS: PCP Internal Medicine; Visit Provider Internal Medicine
DX: E11.9 Type 2 diabetes mellitus without complications (principal); R10.9 Unspecified abdominal pain

== ENCOUNTER 2025-03-24 09:02 | Outpatient (AMB) | payer MEDICARE, MEDICAID, SELFPAY ==
--- NOTE | 2025-03-24 09:08 | A.OFFVIS_ITS ---
Vital Signs 03/24/25 09:09 Height 5 ft 5 in Weight 228 lb BMI 37.9 BP 137/78 Blood Pressure Location Lt brachial Position Sitting Pulse 87 Pulse Oximetry (%) 96 Oxygen Delivery Method Room Air Intake Visit Reasons: 4 mo Intake Note: Patient follow up for GERD and h-pylori result. Patient cc: abdominal pain radiating to her sides more in the left side with bloating/went to the ED/[facility] and [facility], patient is feeling discomfort on her intestine. Denies any other GI issues. 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: No Accompanied by: Daughter Allergies amitriptyline Adverse Reaction (Intermediate, Verified 04/12/25 08:44) Palpitations metformin Adverse Reaction (Intermediate, Verified 04/12/25 08:44) Diarrhea propranolol Adverse Reaction (Intermediate, Verified 04/12/25 08:44) Palpitations Medication List - Last Reconciled 03/24/25 by Seymour Fisher MD aspirin (Ecotrin Low Strength) 81 mg PO DAILY atorvastatin 80 mg PO DAILY duloxetine 30 mg PO DAILY ezetimibe 10 mg PO DAILY hydroxyzine HCl 10 mg PO BEDTIME PRN meloxicam 15 mg PO DAILY multivitamin (Daily Multi-Vitamin tablet) 1 tab PO DAILY omeprazole 20 mg PO DAILY 90 days riboflavin (vitamin B2) 400 mg PO DAILY 30 days HPI HPI 4 mo: Details: CLINIC VISIT FOR THIS 65-YEAR-OLD ROMANSH 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 TODAY'S VISIT Patient is accompanied by her daughter who interpreted for the patient. Patient cc: abdominal pain radiating to her sides more in the left side with bloating/went to the ED/[facility] and [facility], patient is feeling discomfort on her intestine. URI infection in January and treated with Azithromycin for 5-6 days. Has been having abdominal pain since - seen in the ER and evaluated by abd US and CT scan Prescribed Sucralfate once a day. Complains of 2-7/10 LUQ pain which radiates to the rt side Feels like her intestines are twisting/knoting. Pain goes away when she lies down and notes pain when she walks Changed her diet - eating yogurt and crackers, baked chicken. Pain gets worse after eating sour foods. Pt states she has regular BM and denies constipation or diarrhea. Denies hematochezia or melena. Notes intermittent heartburn - rare since she resumed taking Omeprazole. PAST VISIT: I had something going on 3 days ago - some burning in her throat Has not been taking the Omeprazole for the past 2 weeks. Denies diarrhea or constipation EGD and Colon results were reviewed with the patient. Feels nervous when she drinks coffee Notes bloating when she eats cabbage and drinks coffee. EGD and colon were cancelled since she was undergoing cardiac aviles. Scheduled for coronary angiography in Mar, 2024 Pt is accompanied by her daughter who interpreted for the patient Continues to have intermittent heartburn - sometimes it feels like a heart attack Has not been taking Omeprazole for the past 2 months after she ran out - advised to resume. Complains of post prandial bloating Pt was treated with Pylera for H pylori gastritis associated with an ulcer. She stopped PPI for 2 weeks prior to today's visit. Continues to have abdominal bloating after she finishes eating. Called patient's daughter, Louise, at [phone] Patient cc: some abdominal pain and denies any other GI issues. 09/2021 pt was treated with Calrithromycin 500 mg twice daily, amoxicillin 1 gram twice daily and Omeprazole 20 mg twice daily x 14 days for H Pylori infection.Pt completed antibiotic therapy in he was advised to schedule repeat EGD to confirm has healed and H pylori has been eradicated. Pt is accompanied by her daughter, Louise and her 17 month old son. Pt's daughter interpreted for the patient. Pt has been having chest pain and thought she was having a heart attack. Seen at [facility] ED and had blood tests which were negative. Had 8/10 burning retrosternal pain ? Pain was not related to exertion. Pain started in the evening, she went to sleep and pain became worse when she woke. Ate chocolate before pain started. Pain lasted all day. Prescribed Omeprazole 20 mg daily. Patient denies having an upper endoscopy in the past. Had some twinging pain a week ago in the same area as during past episode of diverticulitis. Pain lasted for a day.? Noted some pain today. ? patient denies fever or chills. an episode of diverticulitis in Oct and 2nd episode in Dec. ? Took antibiotics and symptoms have resolved. ? Now I have to be very careful with my diet. ? Notes piercing pain if she takes any spicy food. ? Patient denies change in bowel habits, black stools or rectal bleeding ? Denies dysphagia, heartburn, nausea or vomiting. ? Does not eat much and has gained weight since she is not working due to an ankle injury. ? Continues to have ankle pain ? due to suspected nerve injury. ? Patient denies major cardiac or pulmonary problems, loud snoring was sleep apnea. ? Patient denies being on chronic anticoagulation. ? She denies past problems with anesthesia. ? She had a colonoscopy in 2013 at [facility] in [place] which was negative. ? Patient denies known family history of colon polyps,, colon cancer or other GI malignancy ??IMAGING STUDIES: 12/28/[address] scan showed: ? Focal colonic wall thickening and pericolonic inflammatory changes in ? the mid ascending colon in the region of a small thickened ? diverticulum. Overall the appearance is most suggestive of right-side diverticulitis. ?ENDOSCOPIC STUDIES:?11/11/22 EGD SHOWED: STOMACH: Mild diffuse gastric erythema. Biopsies were obtained. A 1 cms clean based chronic appearing ulcer in the pyloric channel - biopsied. DUODENUM: Normal -? biopsied to check for celiac sprue Plan:? Patient has an appointment on 11/28/22 in the GI Clinic with Seymour Fisher M.D. Above findings were reviewed with the patient with the help of a [place]ian sign language instructor and PUD handout was given in the discharge area. Pt stated she takes Ibuprofen infrequently and has not been taking a PPI. She was advised to resume taking Omeprazole 20 mg every morning. BIOPSIES SHOWED: A.? Small bowel, biopsy:? Small intestinal mucosa with mildly increased intraepithelial lymphocytes and preserved villous architecture.? See comment. B.? Stomach, pyloric channel ulcer, biopsy: - Mixed pyloric and small intestinal mucosa with chronic active inflammation. - Positive for H pylori.C.? Stomach, antrum, biopsy: - Antral-type mucosa with moderate chronic active inflammation. - Positive for H pylori.D.? Stomach, body, biopsy: - Oxyntic mucosa with mild chronic inactive inflammation. - Positive for H pylori.COMMENT:? The lymphocytes in the small bowel (part A) are likely secondary to the H pylori infection. 09/2021 EGD SHOWED: ESOPHAGUS: GE junction at 38 cms. No esophagitis or Mckeon's.Biopsies were obtained from distal esophagus to check for esophagitis. STOMACH: Antral gastritis.? A 1 cms clean based ulcer in the pyloric channel - biopsied. Plan:? Repeat EGD in 10-12 weeks to confirm pyloric channel ulcer has healed. Patient has an appointment on 12/06/21 in the GI Clinic with Seymour Fisher M.D.. 05/15/20? COLONOSCOPY SHOWED:Four polyps removed Moderate diverticulosis seen in the left colon Moderate hemorrhoids on retroflexed exam. Plan: Await pathology results Patient has an appointment on 05/15/20 in the GI Clinic with Seymour Fisher M.D.- Repeat Colonoscopy interval based on path results in 3-5 years if polyps are adenomatous and 10 years if polyps are hyperplastic. Above findings were reviewed with the patient and colon polyps and diverticulosis handouts were given in the discharge area BIOPSIES SHOWED: A. Colon, transverse polyps, polypectomy: Fragments of tubular adenomas. B. Colon, ascending polyp, polypectomy: Fragments of tubular adenoma. C. Rectum, polyp, polypectomy: Fragments of hyperplastic polyp [facility] Medical History (Updated 04/12/25 @ 09:51 by Seymour Fisher MD) Type 2 diabetes mellitus Chronic migraine without aura, not intractable, without status migrainosus H. pylori infection CAD (coronary artery disease) Anxiety Chronic headaches Tinnitus Neck pain Annual physical exam Chronic GERD Obesity Chest pain Mammogram normal Hyperlipidemia Sciatica History of colon polyps History of diverticulitis of colon Nephrolithiasis Surgical History History of esophagogastroduodenoscopy (EGD) Hx of colonoscopy History of ankle surgery (10/06/19) H/O Spinal surgery History of kidney surgery H/O section Family History Father Heart attack Mother Diabetes Heart problem Arthritis Social History Household Members: Children Housing: House Are you a primary career development consultant to a significant other at home: No Do you presently have visiting nurse or other home services: No Alcohol intake: never Patient Tobacco Use Status: Current everyday Tobacco user Tobacco use type: Cigarette Cigarette Packs Per Day: 0.5 Cigarettes Per Day: 10.0 Years Smoked: 25 e-Cigarette/Vaping Use: Never Used service: No Current occupational status: employed Cognitive needs: No Hearing needs: No Vision needs: Yes Review of Systems Const All systems reviewed & are unremarkable except as noted in HPI and below Physical Exam Vital Signs: Last Vital Signs Pulse 87 03/24/25 09:09 BP 137/78 03/24/25 09:09 Pulse Ox 96 03/24/25 09:09 Oxygen Delivery Method Room Air 03/24/25 09:09 BMI result Body Mass Index 37.9 Const General: healthy appearing and no acute distress Nutritional Appearance: obese Orientation/consciousness: patient oriented x3 Limitations: language barrier HEENT Head: Yes normal to inspection Ears: hearing grossly normal bilaterally Eyes Sclerae: sclerae normal Pupils: Equal, round and reactive pupils present Neck Neck: Yes normal visual inspection Chest Chest palpation & inspection: normal inspection of the chest Resp Effort & Inspection: normal respiratory effort Auscultation: clear to auscultation bilaterally Cardio Palpation: normal PMI Rate: regular rate Rhythm: regular rhythm Heart sounds: S1 normal heart sound present, S2 normal heart sound present and no murmurs GI Palpation (GI): Soft to palpation, nontender and No hepatosplenomegaly present Auscultation: normal bowel sounds Rectal Exam - Female: deferred Skin General skin exam: no rashes or lesions noted Neuro General: patient oriented x3, gait normal and moves all extremities Cranial nerves: Yes Equal, round and reactive pupils present Psych Appearance: grossly normal Mental Status: mental status grossly normal Assessment & Plan Assessment & Plan (1) History of diverticulitis of colon: Code(s): Z87.19 - Personal history of other diseases of the digestive system Category: Medical (2) Hx of colonoscopy: Comment: 05/15/2020, 07/2024 Phillip Code(s): Z98.890 - Other specified postprocedural states Category: Surgical (3) History of colon polyps: Comment: 05/15/20 diverticulosis and 3 small (< 10 mm) adenomatous polyps removed 07/26/24 Colonoscopy showed: Two small hyperplastic polyps Plan: Repeat Colonoscopy in 5 years Code(s): Z86.010 - Personal history of colon polyps Category: Medical (4) Chronic GERD: Comment: EGD 09/2021 s/p H pylori tx Code(s): K21.9 - Gastro-esophageal reflux disease without esophagitis Category: Medical (5) Gastric ulcer due to Helicobacter pylori: Code(s): K25.9 - Gastric ulcer, unspecified as acute or chronic, without hemorrhage or perforation; B96.81 - Helicobacter pylori [H. pylori] as the cause of diseases classified elsewhere Category: Medical (6) Abdominal bloating: Code(s): R14.0 - Abdominal distension (gaseous) Category: Medical (7) Diverticulitis: Code(s): K57.92 - Diverticulitis of intestine, part unspecified, without perforation or abscess without bleeding Category: Medical Plan 65-year-old Gambian speaking female referred to GI to schedule a colonoscopy for screening and due to 2 episodes of diverticulitis over 6 months in the past. Patient denied known family history of colon polyps or cancer and is considered average risk for colon cancer. She had a colonoscopy in 2013 at [facility] in [place] which was negative. 05/15/2020 colonoscopy showed diverticulosis and 3 small (< 10 mm) adenomatous polyps were removed. ? Repeat colonoscopy is advised in 3 years. 05/23 pt was seen with abd pain and given PO antibiotics for suspected diverticulitis with resolution 09/03/21 Pt complains of atypical chest pain, seen at [facility] ED and prescribed Omeprazole 20 mg daily - only taking intermittently and advised to take daily. 09/2021 EGD showed a?1 cms clean based ulcer in the pyloric channel - biopsied. Gastric biopsies were positive for Helicobacter pylori - 09/2021 pt was treated with Calrithromycin 500 mg twice daily, amoxicillin 1 gram twice daily and Omeprazole 20 mg twice daily x 14 days for H Pylori infection. Pt completed antibiotic therapy in 09/2021 FU EGD was performed and showed a 1 cms clean based chronic appearing ulcer in the pyloric channel. Gastric biopsies were positive for H Pylori and pt was given a prescription for Pylera x 14 days. 02/24/23 H Pylori breath test today Schedule an EGD (FU of ) and a colonoscopy for FU of colon polyps - scheduled on 12/01/23 02/12/24 Notes intermittent heartburn - rare since she resumed taking Omeprazole. Feels nervous when she drinks coffee Notes bloating when she eats cabbage and drinks coffee. EGD and colon scheduled in Nov, 2023 were cancelled since she was undergoing cardiac work up Scheduled for coronary angiography in Mar, 2024 and a FU appt with Dr Cordon on 04/19/24 07/26/24 EGD + bx for HP culture and sensitivity (FU of and persistent H Pylori infection) and a colonoscopy was performed and results as noted above. Gastric biopsies were positive for HP and no H Pylori was isolated on culture and sensitivity. Appropriate antibiotics will be prescribed based on above results (pt has been treated for HP x 2 in the past without eradication) Repeat EGD in 3 years for Fu of gastric intestinal metaplasia 12/02/24 H Pylori breath test (Omeprazole on hold x 2 weeks) I will contact the pt with results Elevated LFTs -likely due to fatty liver. Pt advised wt reduction 03/24/25 URI infection in January and treated with Azithromycin for 5-6 days. Has been having abdominal pain since - seen in the ER and evaluated by abd US and CT scan Prescribed Sucralfate once a day. Review of pt's medication showed she ran out of Omeprazole and has not been taking it ? since the past 3 months Pt advised to resume Omeprazole and take Pylera for persistent H Pylori infection FU in 6 weeks - scheduled 06/14/25 Medications: New dicyclomine 20 mg PO BID PRN 60 tabs 3RF abdominal pain 30 days R10.10 - Upper abdominal pain, unspecified bismuth subcit [id number] 140-125-125 mg (Pylera) 3 caps PO QID 168 caps 0RF 14 days K29.70 - Gastritis, unspecified, without bleeding, B96.81 - Helicobacter pylori [H. pylori] as the cause of diseases classified elsewhere Refilled omeprazole 20 mg PO DAILY 90 caps 1RF 90 days K25.9 - Gastric ulcer, unspecified as acute or chronic, without hemorrhage or perforation, B96.81 - Helicobacter pylori [H. pylori] as the cause of diseases classified elsewhere Coding Level of Care Code Est Pt Level 4 (75935) Diagnoses History of diverticulitis of colon Z87.19 Hx of colonoscopy Z98.890 History of colon polyps Z86.010 Chronic GERD K21.9 Gastric ulcer due to Helicobacter pylori K25.9; B96.81 Abdominal bloating R14.0 Diverticulitis K57.92 Time Spent (min) 30
[2025-03-24 09:09] VITALS: BP 137/78; PULSE 87; O2SAT 96; BMI 37.9
--- OUTSIDE RECORDS SUMMARY | 2025-03-24 09:16 | XMS_ITS | Clinical Summary ---
Author Organization [facility] it Address [address] [place] [address] Care Team Providers Care Injection Molding Engineer Name Role Phone Lisa Porras MD Primary Care Provider [phone] Surgical History Surgery Date Site/Laterality Comments KIDNEY STONE SURGERY PROCEDURE: ND NEPHROLITHOTOMY REMOVAL CALCULUS OTHER SURGICAL HISTORY 12/2010 PROCEDURE: ND TRANSPEDICULAR DCMPRN SPINAL CORD 1 SEG LUMBAR; COMMENT: and microdiscectomy L4-5 COLONOSCOPY 03/03/12 PROCEDURE: HISTORICAL COLONOSCOPY; COMMENT: normal; repeat in ten yrs ESOPHAGOGASTRODUODENOSCOPY Nov 2015 PROCEDURE: ND ESOPHAGOGASTRODUODENOSCOPY TRANSORAL DIAGNOSTIC; COMMENT: normal Medical History [...] Date Smoking Tobacco: Every Day Cigarettes 0.5 45.1 Started: 1980 Smokeless Tobacco: Never Alcohol Use [...] Upcoming Encounters Date Type Department Care Team ([facility] Contact Info) Description 06/18/2025 9:00 AM EDT Appointment Radiology Department - [address] [phone] Health Maintenance Due Date Last Done Comments Pneumococcal Vaccine: 50+ Years (1 of 2 - PCV) 02/25/1979 Pneumococcal Vaccine: Pediatrics (0 to 5 Years) and At-Risk Patients (6 to 64 Years) (1 of 2 - PCV) 02/25/1979 Cervical Cancer Screening: Pap Smear 02/25/1981 Zoster Vaccines (1 of 2) 02/25/2010 Cholesterol Screening (Lipid Panel) 10/12/2022 Colorectal Cancer Screening: Colonoscopy 10/12/2022 Depression Screening 10/12/2022 Hepatitis C Screening 10/12/2022 Lung Cancer Screening (Low Dose CT) 10/12/2022 Osteoporosis Screening (Bone Density Screening) 10/12/2022 Social Influencers of Health Screening 10/12/2022 COVID-19 Vaccine ( - season) 2024 Falls Risk Assessment 02/25/2025 Influenza Vaccine (Season Ended) 2025 DTaP,Tdap,and Td Vaccines (2 - Td or [...] age to complete this topic Meningococcal B Vaccine Aged Out No l onger eligible based on patient's age to complete [...] Recently Relevant to Health Maintenance Care Teams Injection Molding Engineer Relationship Specialty Start Date End Date Lisa Porras MD PCP - General Internal Medicine 10/20/19
--- OUTSIDE RECORDS SUMMARY | 2025-03-24 09:16 | XMS_ITS | Patient Health Record ---
Author Organization [facility] Address [address] [place] [address] Care Team Providers Care Mixer And Blender Name Role Phone Chad Deleon Primary Care Provider Reason For Referral No Information Plan Of Treatment No Information Insurance Providers Payer Name Payer Address Payer Phone Subscriber Number Group Number Insured Name Patient Relationship to Insured Coverage Start Date Coverage End Date [facility] [address] [id number] Brittney Jasso Self - patient is the insured
== END 2025-03-24 14:15 | disposition home or self-care (01) ==
LOC: HO.HGI 09:03
PROVIDERS: PCP Internal Medicine; Visit Provider Internal Medicine Gastroenterology
DX: K21.9 Gastro-esophageal reflux disease without esophagitis (principal); K25.9 Gastric ulcer, unspecified as acute or chronic, without hemorrhage or perforation; B96.81 Helicobacter pylori [H. pylori] as the cause of diseases classified elsewhere; Z87.19 Personal history of other diseases of the digestive system; Z98.890 Other specified postprocedural states; Z86.0100 Personal history of colon polyps, unspecified; R14.0 Abdominal distension (gaseous); K57.92 Diverticulitis of intestine, part unspecified, without perforation or abscess without bleeding
CPT/HCPCS: 99214

== ENCOUNTER → 2025-03-24 09:02 | Outpatient (BNVA) | payer MEDICARE, SELFPAY | PROVIDERS: PCP Internal Medicine; Visit Provider Internal Medicine Gastroenterology | DX: K21.9 Gastro-esophageal reflux disease without esophagitis (principal); K25.9 Gastric ulcer, unspecified as acute or chronic, without hemorrhage or perforation; B96.81 Helicobacter pylori [H. pylori] as the cause of diseases classified elsewhere; R14.0 Abdominal distension (gaseous); K29.70 Gastritis, unspecified, without bleeding; R10.12 Left upper quadrant pain; F17.210 Nicotine dependence, cigarettes, uncomplicated; Z79.899 Other long term (current) drug therapy | CPT/HCPCS: 99212 ==

== ENCOUNTER 2025-03-30 09:45 | Outpatient (AMB) | payer MEDICARE, MEDICAID, SELFPAY ==
[2025-03-30 10:23] VITALS: BP 124/78; PULSE 90; RESP 20; TEMP 36.9; O2SAT 97; BMI 38.6
--- NOTE | 2025-03-30 10:23 | A.OFFPC_ITS ---
Vital Signs 03/30/25 10:23 Height 5 ft 5 in Weight 232 lb BMI 38.6 BP 124/78 Blood Pressure Location Lt brachial Position Sitting Respiration 20 Pulse 90 Pulse Source Pulse Oximeter Temp 98.5 F Temp Source Oral Pulse Oximetry (%) 97 Oxygen Delivery Method Room Air Intake Visit Reasons: ER follow up Intake Note: Pt is here today for ER follow up visit. Allergies amitriptyline Adverse Reaction (Intermediate, Verified 03/30/25 10:28) Palpitations metformin Adverse Reaction (Intermediate, Verified 03/30/25 10:28) Diarrhea propranolol Adverse Reaction (Intermediate, Verified 03/30/25 10:28) Palpitations Medication List - Last Reconciled 03/30/25 by Lisa Porras MD aspirin (Ecotrin Low Strength) 81 mg PO DAILY atorvastatin 80 mg PO DAILY bismuth subcit [id number] 140-125-125 mg (Pylera) 3 caps PO QID 14 days dicyclomine 20 mg PO BID PRN 30 days duloxetine 30 mg PO DAILY ezetimibe 10 mg PO DAILY hydroxyzine HCl 10 mg PO BEDTIME PRN meloxicam 15 mg PO DAILY multivitamin (Daily Multi-Vitamin tablet) 1 tab PO DAILY omeprazole 20 mg PO DAILY 90 days riboflavin (vitamin B2) 400 mg PO DAILY 30 days Tobacco use date assessed: 02/02/25 Dental Screening Dental Screen Date: 02/02/25 HPI ER follow up HPI Details Pt presents for f/u ER and GI visit for recurrent abdominal pain and persistent H pylori. CT of the abdomen was negative. Pt was started on PPI and Pylera by GI and is feeling better. Hyperlipidemia chronic anxiety and depression are stable on current medications. [facility], [facility] Medical History (Updated 03/30/25 @ 15:58 by Lisa Porras MD) Type 2 diabetes mellitus Chronic migraine without aura, not intractable, without status migrainosus H. pylori infection CAD (coronary artery disease) Anxiety Chronic headaches Tinnitus Neck pain Annual physical exam Chronic GERD Obesity Chest pain Mammogram normal Hyperlipidemia Sciatica History of colon polyps History of diverticulitis of colon Nephrolithiasis Surgical History History of esophagogastroduodenoscopy (EGD) Hx of colonoscopy History of ankle surgery (10/06/19) H/O Spinal surgery History of kidney surgery H/O section Family History Father Heart attack Mother Diabetes Heart problem Arthritis Social History Household Members: Children Housing: House Are you a primary home care and home health aides teacher to a significant other at home: No Do you presently have visiting nurse or other home services: No Alcohol intake: never Patient Tobacco Use Status: Current everyday Tobacco user Tobacco use type: Cigarette Cigarette Packs Per Day: 0.5 Cigarettes Per Day: 10.0 Years Smoked: 25 Packs Per Year: 13 Packs per year/per ci.50 e-Cigarette/Vaping Use: Never Used service: No Current occupational status: employed Cognitive needs: No Hearing needs: No Vision needs: Yes Questionnaire Thrive Questionnaire Date Thrive assessed: 02/02/25 I am a: Patient What is your living situation today?: I have a steady place to live Within the past 12 months, did the food you bought not last and you didn't have the money to get more?: Never true Within the past 12 months, did you worry whether your food would run out before you got money to buy more?: Never true Do you have trouble paying for medicines?: I choose not to answer this question Do you have trouble getting transportation to medical appointments?: No Do you have trouble paying your heating and electricity bill?: Yes Do you have trouble taking care of your child, family member or friend?: No Do you have trouble with day-to-day activities such as bathing, preparing meals, shopping, managing finances, etc.?: Yes Are you currently unemployed and looking for a job?: No Are you interested in more education?: No THRIVE Score: 1 CRHISTIE-7 AMB Questionnaire CHRISTIE-7 Date CHRISTIE - 7 assessed: 02/02/25 Source: Developed by Drs. Markel Mendes, Chuyita Da Silva, Chadwick Cabello and colleagues, with an educational bayron from [employer]. Review of Systems Const All systems reviewed & are unremarkable except as noted in HPI and below Eyes Reports no additional complaints ENT Reports no additional complaints Card Reports no additional complaints Resp Reports no additional complaints GI Reports no additional complaints Reports no additional complaints Physical exam (Primary Care) Vital Signs: Last Vital Signs Temp 98.5 F 05/28/25 10:23 Pulse 90 03/30/25 10:23 Resp 20 03/30/25 10:23 BP 124/78 03/30/25 10:23 Pulse Ox 97 03/30/25 10:23 Oxygen Delivery Method Room Air 03/30/25 10:23 BMI result Body Mass Index 38.6 Tobacco/Smoking Status: Tobacco use Status Tobacco use date assessed 02/02/25 03/30/25 10:23 Patient Tobacco Use Status Current everyday Tobacco 03/30/25 10:23 Tobacco use type Cigarette 03/30/25 10:23 e-Cigarette/Vaping Use Never Used 03/30/25 10:23 Thrive Assessment: Date of Thrive Assessment Date Thrive assessed 02/02/25 03/30/25 10:23 Const General: no acute distress HENMT Head: Yes normal to inspection Ears: hearing grossly normal bilaterally Face and sinus: Yes normal facial exam Mouth: Normal oral and palatal mucosa present Throat: Yes posterior oropharynx normal Eyes General: appearance normal, both eyes and all related structures Neck Neck: Yes no lymphadenopathy and Yes supple Resp Effort & Inspection: normal respiratory effort Auscultation: clear to auscultation bilaterally Cardio Rhythm: regular rhythm Heart sounds: S1 normal heart sound present and S2 normal heart sound present GI Inspection: Yes normal to inspection Palpation (GI): Soft to palpation Percussion: Yes normal to percussion Auscultation: normal bowel sounds Coding Level of Care Code Est Pt Level 4 (41175) Complex EM visit Add On G2211 Diagnoses Hyperlipidemia E78.5 Morbid obesity E66.01 Type 2 diabetes mellitus E11.9 H. pylori infection A04.8 Depression F32.A Assessment & Plan Assessment & Plan (1) Hyperlipidemia: Code(s): E78.5 - Hyperlipidemia, unspecified Category: Medical Plan: Continue atorvastatin (2) Morbid obesity: Code(s): E66.01 - Morbid (severe) obesity due to excess calories Category: Medical Plan: Decrease caloric intake increase physical activity discussed with the patient (3) Type 2 diabetes mellitus: Code(s): E11.9 - Type 2 diabetes mellitus without complications Category: Medical Plan: A1c is 7.4, ADA diet increase exercise weight loss discussed with the patient's start metformin ER 750 mg daily follow-up in 3 months with a fasting labs before (4) H. pylori infection: Comment: Recurrent Positive breath test 11/2024, ? Noncompliance to treatment. Started on Pylera by GI 03/2025 Code(s): A04.8 - Other specified bacterial intestinal infections Category: Medical Plan: Continue PPI and Pylera follow-up with GI (5) Depression: Comment: Follows up with Psychiatry counseling Code(s): F32.A - Depression, unspecified Category: Medical Plan: Continue duloxetine Orders: Orders Hemoglobin A1c 3 Months E11.9 - Type 2 diabetes mellitus without complications, E66.01 - Morbid (severe) obesity due to excess calories, E78.5 - Hyperlipidemia, unspecified Comprehensive [place]. Panel Fast 3 Months E11.9 - Type 2 diabetes mellitus without complications, E66.01 - Morbid (severe) obesity due to excess calories, E78.5 - Hyperlipidemia, unspecified Lipid Panel 3 Months E11.9 - Type 2 diabetes mellitus without complications, E66.01 - Morbid (severe) obesity due to excess calories, E78.5 - Hyperlipidemia, unspecified Complete Blood Count Auto Diff 3 Months E11.9 - Type 2 diabetes mellitus without complications, E66.01 - Morbid (severe) obesity due to excess calories, E78.5 - Hyperlipidemia, unspecified Microalbumin, Random (w Creat) 3 Months E11.9 - Type 2 diabetes mellitus without complications, E66.01 - Morbid (severe) obesity due to excess calories, E78.5 - Hyperlipidemia, unspecified Referrals Podiatry Referral B35.1 - Tinea unguium Medications: New metformin ER 750 mg PO DAILY 90 tabs 1RF
--- OUTSIDE RECORDS SUMMARY | 2025-03-30 10:30 | XMS_ITS | Patient Health Record ---
Author Organization [facility] Address [address] [place] [address] Care Team Providers [facility] Technical Lead Senior Developer Name Role Phone Chad Deleon Primary Care Provider Reason For Referral No Information Plan Of Treatment No Information Insurance Providers Payer Name Payer Address Payer Phone Subscriber Number Group Number Insured Name Patient Relationship to Insured Coverage Start Date Coverage End Date [facility] [address] [id number] Brittney Jasso Self - patient is the insured
== END 2025-03-30 14:00 | disposition home or self-care (01) ==
LOC: HO.HMCC 09:46
PROVIDERS: PCP Internal Medicine; Visit Provider Internal Medicine
DX: E78.5 Hyperlipidemia, unspecified (principal); E66.01 Morbid (severe) obesity due to excess calories; E11.9 Type 2 diabetes mellitus without complications; Z68.38 Body mass index [BMI] 38.0-38.9, adult; A04.8 Other specified bacterial intestinal infections; F32.A Depression, unspecified

== ENCOUNTER → 2025-03-30 09:45 | Outpatient (BNVA) | payer MEDICARE, SELFPAY | PROVIDERS: PCP Internal Medicine; Visit Provider Internal Medicine | DX: E78.5 Hyperlipidemia, unspecified (principal); E11.9 Type 2 diabetes mellitus without complications; A04.8 Other specified bacterial intestinal infections; F32.A Depression, unspecified; E66.01 Morbid (severe) obesity due to excess calories; Z68.38 Body mass index [BMI] 38.0-38.9, adult; Z71.3 Dietary counseling and surveillance | CPT/HCPCS: 99212 ==

== ENCOUNTER 2025-04-12 08:42 | Outpatient (AMB) | payer MEDICARE, MEDICAID, SELFPAY ==
--- NOTE | 2025-04-12 08:44 | MHC.OFFVIS ---
Vital Signs 04/12/25 08:45 Height 5 ft 5 in Weight 230 lb BMI 38.3 BP 133/75 Blood Pressure Location Lt brachial Position Sitting Pulse 70 Pulse Oximetry (%) 98 Oxygen Delivery Method Room Air Intake Visit Reasons: Gastroesophageal reflux disease (GERD) Intake Note: Patient follow up for GERD. Patient cc: abdominal discomfort on and off, denies any other GI issues. J2Ee Programmer Required: Yes Accompanied by: Self / Same As Patient Allergies amitriptyline Adverse Reaction (Intermediate, Verified 04/12/25 08:44) Palpitations metformin Adverse Reaction (Intermediate, Verified 04/12/25 08:44) Diarrhea propranolol Adverse Reaction (Intermediate, Verified 04/12/25 08:44) Palpitations Medication List - Last Reconciled 04/12/25 by Seymour Fisher MD aspirin (Ecotrin Low Strength) 81 mg PO DAILY atorvastatin 80 mg PO DAILY bismuth subcit [id number] 140-125-125 mg (Pylera) 3 caps PO QID 14 days dicyclomine 20 mg PO BID PRN 30 days duloxetine 30 mg PO DAILY ezetimibe 10 mg PO DAILY hydroxyzine HCl 10 mg PO BEDTIME PRN meloxicam 15 mg PO DAILY metformin ER 750 mg PO DAILY multivitamin (Daily Multi-Vitamin tablet) 1 tab PO DAILY omeprazole 20 mg PO DAILY 90 days riboflavin (vitamin B2) 400 mg PO DAILY 30 days HPI HPI Gastroesophageal reflux disease (GERD): Details: CLINIC VISIT FOR THIS 65-YEAR-OLD [place] 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 TODAY'S VISIT Patient daughter who interpreted for the patient over the phone (pt refused to use the telephone/video full time staff interpreter). Taking antibiotics for H Pylori - unsure when she will finish them ? in a week Can miss a dose here and there Continues to have intermittent abdominal pain Has a BM every other day. PAST VISIT: Patient cc: abdominal discomfort on and off, denies any other GI issues. URI infection in January and treated with Azithromycin for 5-6 days. Has been having abdominal pain since - seen in the ER and evaluated by abd US and CT scan Prescribed Sucralfate once a day. Complains of 2-7/10 LUQ pain which radiates to the rt side Feels like her intestines are twisting/knoting. Pain goes away when she lies down and notes pain when she walks Changed her diet - eating yogurt and crackers, baked chicken. Pain gets worse after eating sour foods. Pt states she has regular BM and denies constipation or diarrhea. Denies hematochezia or melena. Notes intermittent heartburn - rare since she resumed taking Omeprazole. I had something going on 3 days ago - some burning in her throat Has not been taking the Omeprazole for the past 2 weeks. Denies diarrhea or constipation EGD and Colon results were reviewed with the patient. Feels nervous when she drinks coffee Notes bloating when she eats cabbage and drinks coffee. EGD and colon were cancelled since she was undergoing cardiac aviles. Scheduled for coronary angiography in Mar, 2024 Pt is accompanied by her daughter who interpreted for the patient Continues to have intermittent heartburn - sometimes it feels like a heart attack Has not been taking Omeprazole for the past 2 months after she ran out - advised to resume. Complains of post prandial bloating Pt was treated with Pylera for H pylori gastritis associated with an ulcer. She stopped PPI for 2 weeks prior to today's visit. Continues to have abdominal bloating after she finishes eating. Called patient's daughter, Louise, at [phone] Patient cc: some abdominal pain and denies any other GI issues. 09/2021 pt was treated with Calrithromycin 500 mg twice daily, amoxicillin 1 gram twice daily and Omeprazole 20 mg twice daily x 14 days for H Pylori infection.Pt completed antibiotic therapy in he was advised to schedule repeat EGD to confirm has healed and H pylori has been eradicated. Pt is accompanied by her daughter, Louise and her 17 month old son. Pt's daughter interpreted for the patient. Pt has been having chest pain and thought she was having a heart attack. Seen at [facility] ED and had blood tests which were negative. Had 8/10 burning retrosternal pain ? Pain was not related to exertion. Pain started in the evening, she went to sleep and pain became worse when she woke. Ate chocolate before pain started. Pain lasted all day. Prescribed Omeprazole 20 mg daily. Patient denies having an upper endoscopy in the past. Had some twinging pain a week ago in the same area as during past episode of diverticulitis. Pain lasted for a day.? Noted some pain today. ? patient denies fever or chills. an episode of diverticulitis in Oct and 2nd episode in Dec. ? Took antibiotics and symptoms have resolved. ? Now I have to be very careful with my diet. ? Notes piercing pain if she takes any spicy food. ? Patient denies change in bowel habits, black stools or rectal bleeding ? Denies dysphagia, heartburn, nausea or vomiting. ? Does not eat much and has gained weight since she is not working due to an ankle injury. ? Continues to have ankle pain ? due to suspected nerve injury. ? Patient denies major cardiac or pulmonary problems, loud snoring was sleep apnea. ? Patient denies being on chronic anticoagulation. ? She denies past problems with anesthesia. ? She had a colonoscopy in 2013 at [facility] in [place] which was negative. ? Patient denies known family history of colon polyps,, colon cancer or other GI malignancy ??IMAGING STUDIES: 12/28/[address] scan showed: ? Focal colonic wall thickening and pericolonic inflammatory changes in ? the mid ascending colon in the region of a small thickened ? diverticulum. Overall the appearance is most suggestive of right-side diverticulitis. ?ENDOSCOPIC STUDIES:?11/11/22 EGD SHOWED: STOMACH: Mild diffuse gastric erythema. Biopsies were obtained. A 1 cms clean based chronic appearing ulcer in the pyloric channel - biopsied. DUODENUM: Normal -? biopsied to check for celiac sprue Plan:? Patient has an appointment on 11/28/22 in the GI Clinic with Seymour Fisher M.D. Above findings were reviewed with the patient with the help of a [place] american sign language interpreter and PUD handout was given in the discharge area. Pt stated she takes Ibuprofen infrequently and has not been taking a PPI. She was advised to resume taking Omeprazole 20 mg every morning. BIOPSIES SHOWED: A.? Small bowel, biopsy:? Small intestinal mucosa with mildly increased intraepithelial lymphocytes and preserved villous architecture.? See comment. B.? Stomach, pyloric channel ulcer, biopsy: - Mixed pyloric and small intestinal mucosa with chronic active inflammation. - Positive for H pylori.C.? Stomach, antrum, biopsy: - Antral-type mucosa with moderate chronic active inflammation. - Positive for H pylori.D.? Stomach, body, biopsy: - Oxyntic mucosa with mild chronic inactive inflammation. - Positive for H pylori.COMMENT:? The lymphocytes in the small bowel (part A) are likely secondary to the H pylori infection. 09/2021 EGD SHOWED: ESOPHAGUS: GE junction at 38 cms. No esophagitis or Mckeon's.Biopsies were obtained from distal esophagus to check for esophagitis. STOMACH: Antral gastritis.? A 1 cms clean based ulcer in the pyloric channel - biopsied. Plan:? Repeat EGD in 10-12 weeks to confirm pyloric channel ulcer has healed. Patient has an appointment on 12/06/21 in the GI Clinic with Seymour Fisher M.D.. 05/15/20? COLONOSCOPY SHOWED:Four polyps removed Moderate diverticulosis seen in the left colon Moderate hemorrhoids on retroflexed exam. Plan: Await pathology results Patient has an appointment on 05/15/20 in the GI Clinic with Seymour Fisher M.D.- Repeat Colonoscopy interval based on path results in 3-5 years if polyps are adenomatous and 10 years if polyps are hyperplastic. Above findings were reviewed with the patient and colon polyps and diverticulosis handouts were given in the discharge area BIOPSIES SHOWED: A. Colon, transverse polyps, polypectomy: Fragments of tubular adenomas. B. Colon, ascending polyp, polypectomy: Fragments of tubular adenoma. C. Rectum, polyp, polypectomy: Fragments of hyperplastic polyp [facility] Medical History (Updated 04/12/25 @ 09:51 by Seymour Fisher MD) Type 2 diabetes mellitus Chronic migraine without aura, not intractable, without status migrainosus H. pylori infection CAD (coronary artery disease) Anxiety Chronic headaches Tinnitus Neck pain Annual physical exam Chronic GERD Obesity Chest pain Mammogram normal Hyperlipidemia Sciatica History of colon polyps History of diverticulitis of colon Nephrolithiasis Surgical History History of esophagogastroduodenoscopy (EGD) Hx of colonoscopy History of ankle surgery (10/06/19) H/O Spinal surgery History of kidney surgery H/O section Family History Father Heart attack Mother Diabetes Heart problem Arthritis Social History Household Members: Children Housing: House Are you a primary plant care worker to a significant other at home: No Do you presently have visiting nurse or other home services: No Alcohol intake: never Patient Tobacco Use Status: Current everyday Tobacco user Tobacco use type: Cigarette Cigarette Packs Per Day: 0.5 Cigarettes Per Day: 10.0 Years Smoked: 25 e-Cigarette/Vaping Use: Never Used service: No Current occupational status: employed Cognitive needs: No Hearing needs: No Vision needs: Yes Review of Systems Const All systems reviewed & are unremarkable except as noted in HPI and below Physical Exam Vital Signs: Last Vital Signs Pulse 70 04/12/25 08:45 BP 133/75 04/12/25 08:45 Pulse Ox 98 04/12/25 08:45 Oxygen Delivery Method Room Air 04/12/25 08:45 BMI result Body Mass Index 38.3 Const General: healthy appearing and no acute distress Nutritional Appearance: obese Orientation/consciousness: patient oriented x3 Limitations: language barrier HEENT Head: Yes normal to inspection Ears: hearing grossly normal bilaterally Eyes Sclerae: sclerae normal Pupils: Equal, round and reactive pupils present Neck Neck: Yes normal visual inspection Chest Chest palpation & inspection: normal inspection of the chest Resp Effort & Inspection: normal respiratory effort Auscultation: clear to auscultation bilaterally Cardio Palpation: normal PMI Rate: regular rate Rhythm: regular rhythm Heart sounds: S1 normal heart sound present, S2 normal heart sound present and no murmurs GI Palpation (GI): Soft to palpation, nontender and No hepatosplenomegaly present Auscultation: normal bowel sounds Rectal Exam - Female: deferred Skin General skin exam: no rashes or lesions noted Neuro General: patient oriented x3, gait normal and moves all extremities Cranial nerves: Yes Equal, round and reactive pupils present Psych Appearance: grossly normal Mental Status: mental status grossly normal Assessment & Plan Assessment & Plan (1) History of diverticulitis of colon: Code(s): Z87.19 - Personal history of other diseases of the digestive system Category: Medical (2) Hx of colonoscopy: Comment: 05/15/2020, 07/2024 Phillip Code(s): Z98.890 - Other specified postprocedural states Category: Surgical (3) History of colon polyps: Comment: 05/15/20 diverticulosis and 3 small (< 10 mm) adenomatous polyps removed 07/26/24 Colonoscopy showed: Two small hyperplastic polyps Plan: Repeat Colonoscopy in 5 years Code(s): Z86.010 - Personal history of colon polyps Category: Medical (4) Chronic GERD: Comment: EGD 09/2021 s/p H pylori tx Code(s): K21.9 - Gastro-esophageal reflux disease without esophagitis Category: Medical (5) Gastric ulcer due to Helicobacter pylori: Code(s): K25.9 - Gastric ulcer, unspecified as acute or chronic, without hemorrhage or perforation; B96.81 - Helicobacter pylori [H. pylori] as the cause of diseases classified elsewhere Category: Medical (6) Abdominal bloating: Code(s): R14.0 - Abdominal distension (gaseous) Category: Medical (7) H. pylori infection: Comment: Recurrent Positive breath test 11/2024, ? Noncompliance to treatment. Started on Pylera by GI 03/2025 Code(s): A04.8 - Other specified bacterial intestinal infections Category: Medical (8) NAFL (nonalcoholic fatty liver): Code(s): K76.0 - Fatty (change of) liver, not elsewhere classified Category: Medical Plan 65-year-old [place] speaking female referred to GI to schedule a colonoscopy for screening and due to 2 episodes of diverticulitis over 6 months in the past. Patient denied known family history of colon polyps or cancer and is considered average risk for colon cancer. She had a colonoscopy in 2013 at [facility] in [place] which was negative. 05/15/2020 colonoscopy showed diverticulosis and 3 small (< 10 mm) adenomatous polyps were removed. ? Repeat colonoscopy is advised in 3 years. 05/23 pt was seen with abd pain and given PO antibiotics for suspected diverticulitis with resolution 09/03/21 Pt complains of atypical chest pain, seen at [facility] ED and prescribed Omeprazole 20 mg daily - only taking intermittently and advised to take daily. 09/2021 EGD showed a?1 cms clean based ulcer in the pyloric channel - biopsied. Gastric biopsies were positive for Helicobacter pylori - 09/2021 pt was treated with Calrithromycin 500 mg twice daily, amoxicillin 1 gram twice daily and Omeprazole 20 mg twice daily x 14 days for H Pylori infection. Pt completed antibiotic therapy in 09/2021 FU EGD was performed and showed a 1 cms clean based chronic appearing ulcer in the pyloric channel. Gastric biopsies were positive for H Pylori and pt was given a prescription for Pylera x 14 days. 02/24/23 H Pylori breath test today Schedule an EGD (FU of ) and a colonoscopy for FU of colon polyps - scheduled on 12/01/23 02/12/24 Notes intermittent heartburn - rare since she resumed taking Omeprazole. Feels nervous when she drinks coffee Notes bloating when she eats cabbage and drinks coffee. EGD and colon scheduled in Nov, 2023 were cancelled since she was undergoing cardiac work up Scheduled for coronary angiography in Mar, 2024 and a FU appt with Dr Cordon on 04/19/24 07/26/24 EGD + bx for HP culture and sensitivity (FU of and persistent H Pylori infection) and a colonoscopy was performed and results as noted above. Gastric biopsies were positive for HP and no H Pylori was isolated on culture and sensitivity. Appropriate antibiotics will be prescribed based on above results (pt has been treated for HP x 2 in the past without eradication) Repeat EGD in 3 years for Fu of gastric intestinal metaplasia 12/02/24 H Pylori breath test (Omeprazole on hold x 2 weeks) I will contact the pt with results Elevated LFTs -likely due to fatty liver. Pt advised wt reduction 03/24/25 URI infection in January and treated with Azithromycin for 5-6 days. Has been having abdominal pain since - seen in the ER and evaluated by abd US and CT scan Prescribed Sucralfate once a day. Review of pt's medication showed she ran out of Omeprazole and has not been taking it ? since the past 3 months 04/12/25 Intermittent abd pain of unclear etiology. Abd CT scan showed fatty liver and LFTs are elevated. Pt advised to schedule an abdominal ultrasound with elastography. FU in 6 weeks for H Pylori breath test NEHEMIAS FU in 3 months Orders: Orders US abdomen scott w elastography Today K76.0 - Fatty (change of) liver, not elsewhere classified Coding Level of Care Code Est Pt Level 4 (48019) Diagnoses History of diverticulitis of colon Z87.19 Hx of colonoscopy Z98.890 History of colon polyps Z86.010 Chronic GERD K21.9 Gastric ulcer due to Helicobacter pylori K25.9; B96.81 Abdominal bloating R14.0 H. pylori infection A04.8 NAFL (nonalcoholic fatty liver) K76.0 Time Spent (min) 25
[2025-04-12 08:45] VITALS: BP 133/75; PULSE 70; O2SAT 98; BMI 38.3
--- OUTSIDE RECORDS SUMMARY | 2025-04-12 09:04 | XMS_ITS | Patient Health Record ---
Author Organization [facility] Address [address] [place] [address] Care Team Providers Care Wooden Fence Erector Name Role Phone Chad Dleeon Primary Care Provider Reason For Referral No Information Plan Of Treatment No Information Insurance Providers Payer Name Payer Address Payer Phone Subscriber Number Group Number Insured Name Patient Relationship to Insured Coverage Start Date Coverage End Date [facility] [employer] [address] [address] [id number] Brittney Jasso Self - patient is the insured
== END 2025-04-12 09:54 | disposition home or self-care (01) ==
PROVIDERS: PCP Internal Medicine; Visit Provider Internal Medicine Gastroenterology
DX: Z87.19 Personal history of other diseases of the digestive system (principal); Z98.890 Other specified postprocedural states; Z86.0100 Personal history of colon polyps, unspecified; K21.9 Gastro-esophageal reflux disease without esophagitis; K25.9 Gastric ulcer, unspecified as acute or chronic, without hemorrhage or perforation; B96.81 Helicobacter pylori [H. pylori] as the cause of diseases classified elsewhere; R14.0 Abdominal distension (gaseous); A04.8 Other specified bacterial intestinal infections; K76.0 Fatty (change of) liver, not elsewhere classified
CPT/HCPCS: 99214

== ENCOUNTER → 2025-04-12 08:42 | Outpatient (BNVA) | payer MEDICARE, SELFPAY | PROVIDERS: PCP Internal Medicine; Visit Provider Internal Medicine Gastroenterology | DX: K21.9 Gastro-esophageal reflux disease without esophagitis (principal); K25.9 Gastric ulcer, unspecified as acute or chronic, without hemorrhage or perforation; B96.81 Helicobacter pylori [H. pylori] as the cause of diseases classified elsewhere; K76.0 Fatty (change of) liver, not elsewhere classified; A04.8 Other specified bacterial intestinal infections; R14.0 Abdominal distension (gaseous); Z87.19 Personal history of other diseases of the digestive system; Z98.890 Other specified postprocedural states; Z86.0100 Personal history of colon polyps, unspecified | CPT/HCPCS: 99212 ==

== ENCOUNTER 2025-05-31 08:32 | Outpatient (REF) | payer MEDICARE, MEDICAID, SELFPAY ==
--- NOTE | ~2025-05-31 | US_ITS ---
EXAMINATION: US ABDOMEN LIMITED WITH LIVER ELASTOGRAPHY HISTORY: K76.0 - Fatty (change of) liver, not elsewhere classified TECHNIQUE: Real-time grayscale ultrasound imaging of the right upper quadrant was performed and images were reviewed. COMPARISON: Correlation is made with a CT of the abdomen without contrast dated 04/28/2024. FINDINGS: Liver: The right lobe of the liver measures 20.5 cm in size. The left lobe of the liver measures 14.6 cm in size. The liver demonstrates increased echotexture, consistent with steatosis. No focal mass or intrahepatic biliary ductal dilatation is identified. There is normal hepatopedal flow in the portal vein. Ultrasound elastography of the liver was performed with 10 separate measurements of the liver parenchyma with the patient in the supine position. Measurements were obtained approximately 2 cm below Noelle's capsule and perpendicular to the capsule. The median shear wave velocity is 1.39 m/s. The interquartile range/median (IQR/median) is 0.06. Gallbladder and biliary tree: The gallbladder is unremarkable, without evidence of calculi, wall thickening, or pericholecystic fluid. There is no sonographic Marc sign. The common bile duct measures 7 mm diameter. Right Kidney: The right kidney measures 11.5 cm in length. The right kidney is unremarkable, without evidence of masses, hydronephrosis, or calculi. Pancreas: The pancreatic head, neck, and body are unremarkable. The pancreatic tail is obscured by bowel gas. Abdominal aorta and inferior vena cava: The visualized portions of the abdominal aorta and inferior vena cava are normal in caliber. There is no free fluid in the right upper quadrant. US/US abdomen scott w elastography IMPRESSION: Hepatomegaly and hepatic steatosis. The median shear wave velocity in the liver is 1.39 m/s, corresponding to a median liver stiffness of 5.98 kPa. The IQR/median value is 0.06. This is indicative of a quality data set. Findings are indicative of a low elastography value which rules out advanced chronic liver disease in asymptomatic patients. REFERENCE: Society of Radiologists in Ultrasound Liver Stiffness Thresholds (2019): LIVER STIFFNESS THRESHOLDS: *Shear wave velocity less than 1.3 m/s (Liver Stiffness equal or less than 5 kPa): High probability of being normal. *Shear wave velocity less than 1.7 m/s (Liver Stiffness less than 9 kPa): In the absence of other known clinical signs, rules out compensated advanced chronic liver disease. *Shear wave velocity between 1.7-2.1 m/s (Liver Stiffness 9-13 kPa): Suggestive of compensated advanced chronic liver disease but need further test for confirmation. *Shear wave velocity between 2.1-2.4 m/s (Liver Stiffness 13-17 kPa): Rules in compensated advanced chronic liver disease. *Shear wave velocity greater than 2.4 m/s (Liver Stiffness over 17 kPa): Suggestive of clinically significant portal hypertension. QUALITY OF DATA SET: *IQR/Median value equal or less than 0.15 implies a quality data set. *IQR/Median value over 0.15 implies a poor quality data set. SIGNIFICANT CHANGE FROM PRIOR EXAM: Significant change if liver stiffness measurement is 10% or greater from prior exam. OTHER CONSIDERATIONS: The stage of liver fibrosis may be overestimated in the setting of acute hepatitis, liver inflammation, elevated liver function tests, hepatic vascular congestion, obstructive cholestasis, non-fasting state, and infiltrative diseases such as amyloidosis and lymphoma. In some patients with NAFLD, the liver stiffness thresholds for compensated advanced chronic liver disease may be lower. In causes other than viral hepatitis and NAFLD, liver stiffness thresholds are not well established. Electronically signed by: Markel Storey MD 05/31/2025 09:26 AM EDT
--- OUTSIDE RECORDS SUMMARY | 2025-05-31 08:48 | XMS_ITS | Patient Health Record ---
Author Organization [facility] Address [address] [place] [address] Care Team Providers Care Senior Sustainability Consultant Name Role Phone Chad Deleon Primary Care Provider Reason For Referral No Information Plan Of Treatment No Information Insurance Providers Payer Name Payer Address Payer Phone Subscriber Number Group Number Insured Name Patient Relationship to Insured Coverage Start Date Coverage End Date [facility] [employer] PLAN [address] [id number] Brittney Jasso Self - patient is the insured
--- OUTSIDE RECORDS SUMMARY | 2025-05-31 08:48 | XMS_ITS | Clinical Summary ---
Author Organization 175 [facility] Address [address] [place] [address] Phone Care Team Providers Care Doweling Machine Operator Name Role Phone Lisa Porras MD Primary Care Provider [phone] Surgical History Surgery Date Site/Laterality Comments KIDNEY STONE SURGERY PROCEDURE: DC NEPHROLITHOTOMY REMOVAL CALCULUS OTHER SURGICAL HISTORY 12/2010 PROCEDURE: DC TRANSPEDICULAR DCMPRN SPINAL CORD 1 SEG LUMBAR; COMMENT: and microdiscectomy L4-5 COLONOSCOPY 03/03/12 PROCEDURE: HISTORICAL COLONOSCOPY; COMMENT: normal; repeat in ten yrs ESOPHAGOGASTRODUODENOSCOPY Nov 2015 PROCEDURE: DC ESOPHAGOGASTRODUODENOSCOPY TRANSORAL DIAGNOSTIC; COMMENT: normal Medical History [...] Date Smoking Tobacco: Every Day Cigarettes 0.5 45.3 Started: 1980 Smokeless Tobacco: Never Alcohol Use [...] Upcoming Encounters Date Type Department Care Team ([facility] st Contact Info) Description 06/18/2025 9:00 AM EDT Appointment Radiology Department - [address] [phone] 07/11/2025 1:45 PM EDT Office Visit Orthopedic Surgery - [place] [address] [phone] Cleve Eckert, DPM [address] [address] Health Maintenance Due Date Last Done Comments Pneumococcal Vaccine: 50+ Years (1 of 2 - PCV) 02/25/1979 Cervical Cancer Screening: Pap Smear 02/25/1981 Zoster Vaccines (1 of 2) 02/25/2010 Colorectal Cancer Screening: Colonoscopy 10/12/2022 Hepatitis C Screening 10/12/2022 Lung Cancer Screening (Low Dose CT) 10/12/2022 Medicare Annual Wellness Visit 10/12/2022 Osteoporosis Screening (Bone Density Screening) 10/12/2022 Social Influencers of Health Screening 10/12/2022 COVID-19 Vaccine ( season) 2024 11/25/2021, 10/28/2021 Depression Screening 11/03/2024 Falls Risk Assessment 02/25/2025 Influenza Vaccine (#1) 2025 DTaP,Tdap,and Td Vaccines (2 - Td or Tdap) 08/04/2025 08/04/2015 Breast Cancer Screening 05/29/2026 05/29/20 24, 05/29/2024, 04/19/2023, Additional history exists Cholesterol Screening (Lipid Panel) 05/09/2030 05/09/2025 RSV Immunization Adult Patients (1 - 1-dose [...] Procedure Name Priority Date/Time Associated Diagnosis Comments COMPREHENSIVE METABOLIC PANEL Routine 05/09/2025 10:01 AM EDT Depression with anxiety Drug therapy THYROID STIMULATING HORMONE Routine 05/09/2025 10:01 AM EDT Depression with anxiety Drug therapy LIPID PANEL WITH REFLEX TO DIRECT LDL Routine 05/09/2025 10:01 AM EDT Depression with anxiety Drug therapy HEMOGLOBIN A1C Routine 05/09/2025 10:01 AM EDT Depression with anxiety Drug therapy SCREENING MAMMOGRAPHY BI 2-VIEW BREAST INC CAD Routine 05/29/2024 10:50 AM EDT Encounter for screening mammogram for malignant neoplasm of breast from Last 3 Months or Most Recently Relevant to Health Maintenance Results * (ABNORMAL) Lipid panel with reflex to direct LDL (05/09/2025 10:01 AM EDT) Cholesterol 159 0 - 200 mg/dL LAB CHEMISTRY METHOD 05/09/2025 2:44 PM EDT [facility] Triglycerides 284(H) 0 - 150 mg/dL LAB CHEMISTRY METHOD 05/09/2025 2:44 PM EDT [facility] HDL 37(L) >=40 mg/dL LAB CHEMISTRY METHOD 05/09/2025 2:44 PM EDT [facility] LDL Calculated 65 0 - 100 mg/dL LAB CHEMISTRY METHOD 05/09/2025 2:44 PM EDT [facility] VLDL Cholesterol Yuri 56.8 mg/dL LAB CHEMISTRY METHOD 05/09/2025 2:44 PM EDT [facility] Non HDL Chol. (LDL+VLDL) 122 <145 mg/dL LAB CHEMISTRY METHOD 05/09/2025 2:44 PM EDT [facility] Chol/HDL Ratio 4.3 0.0 - 4.4 LAB CHEMISTRY METHOD 05/09/2025 2:44 PM EDT [facility] Blood Venous blood specimen / Unknown Venipuncture / Unknown 05/09/2025 10:01 AM EDT 05/09/2025 10:01 AM EDT us Montez Mena MD LAB BLOOD ORDERABLES Final Resu lt Performing Organization Address [facility]/ZIP Co de Phone Number [facility] [address] [place] [address], [place] [phone] * Thyroid stimulating hormone (05/09/2025 10:01 AM EDT) TSH 0.82 0.40 - 4.00 mcIU/mL LAB CHEMISTRY METHOD 05/09/2025 3:24 PM EDT [facility] Blood Venous blood specimen / Unknown Venipuncture / Unknown 05/09/2025 10:01 AM EDT 05/09/2025 10:01 AM EDT us Montez Mena MD LAB BLOOD ORDERABLES Final Resu lt [facility] [address] [place] [address], [place] [phone] * (ABNORMAL) Hemoglobin A1c (05/09/2025 10:01 AM EDT) Hemoglobin A1C 7.6(H) <6.5 % LAB CHEMISTRY METHOD 05/09/2025 2:02 PM EDT [facility] Mean Bld Glu Estim. 171 mg/dL LAB CHEMISTRY METHOD 05/09/2025 2:02 PM [facility] Blood Venous blood specimen / Unknown Venipuncture / Unknown 05/09/2025 10:01 AM EDT 05/09/2025 10:01 AM EDT us Montez Mena MD LAB BLOOD ORDERABLES Final Resu lt [facility] [address] [place] [address], * (ABNORMAL) Comprehensive metabolic panel (05/09/2025 10:01 AM EDT) Sodium 138 133 - 145 mmol/L LAB CHEMISTRY METHOD 05/09/2025 2:44 PM [facility] Potassium 4.3 3.5 - 5.5 mmol/L LAB CHEMISTRY METHOD 05/09/2025 2:44 PM [facility] Chloride 104 96 - 110 mmol/L LAB CHEMISTRY METHOD 05/09/2025 2:44 PM [facility] CO2 26 21 - 32 mmol/L LAB CHEMISTRY METHOD 05/09/2025 2:44 PM [facility] Anion Gap 8 3 - 11 LAB CHEMISTRY METHOD 05/09/2025 2:44 PM [facility] Glucose 143(H) 70 - 100 mg/dL LAB CHEMISTRY METHOD 05/09/2025 2:44 PM [facility] BUN 14 5 - 25 mg/dL LAB CHEMISTRY METHOD 05/09/2025 2:44 PM [facility] Creatinine 0.70 0.50 - 1.10 mg/dL LAB CHEMISTRY METHOD 05/09/2025 2:44 PM [facility] eGFR 96 >=60 mL/min/1. 73m2 LAB CHEMISTRY METHOD 05/09/2025 2:44 PM [facility] Comment:Calculation based on the Chronic Kidney Disease Epidemiology Collaboration (CKD-EPI) equation refit without adjustment for race. BUN/Creatinine Ratio 20.0 LAB CHEMISTRY METHOD 05/09/2025 2:44 PM EDT [facility] Calcium 9.3 8.5 - 10.5 mg/dL LAB CHEMISTRY METHOD 05/09/2025 2:44 PM EDT [facility] AST (SGOT) 25 10 - 42 unit/L LAB CHEMISTRY METHOD 05/09/2025 2:44 PM EDT [facility] ALT (SGPT) 42 10 - 60 unit/L LAB CHEMISTRY METHOD 05/09/2025 2:44 PM EDT [facility] Alkaline Phosphatase 100 42 - 121 unit/L LAB CHEMISTRY METHOD 05/09/2025 2:44 PM EDT [facility] Total Protein 7.4 6.0 - 8.0 g/dL LAB CHEMISTRY METHOD 05/09/2025 2:44 PM EDT [facility] Albumin 4.1 3.2 - 5.0 g/dL LAB CHEMISTRY METHOD 05/09/2025 2:44 PM EDT [facility] Total Bilirubin 0.6 0.0 - 1.4 mg/dL LAB CHEMISTRY METHOD 05/09/2025 2:44 PM EDT [facility] Blood Venous blood specimen / Unknown Venipuncture / Unknown 05/09/2025 10:01 AM EDT 05/09/2025 10:01 AM EDT us Montez Mena MD LAB BLOOD ORDERABLES Final Resu lt [facility] [address] [place] [address], * SCREENING MAMMOGRAPHY BI 2-VIEW BREAST INC [...] in conjunction with computer aided detection. Tomosynthesis as well as 2D C-View imaging were obtained. Comparison: Comparison made to multiple priors, most recent April 19, 2023, and most remote August 27, 2014. Breast composition: There are scattered areas of fibroglandular density. Bilateral breasts: No significant masses, suspicious calcifications or other abnormalities are seen in either breast. IMPRESSION: Impression: Bilateral breasts: Negative, no specific mammographic evidence of malignancy. Normal interval follow-up is recommended in 12 [...] Negative Lisa Porras MD IMG XR PROCEDURES Final Resul t from Last 3 Months or Most Recently Relevant to Health Maintenance Insurance MEDICARE MEDICAID - [place] Care Teams Doweling Machine Operator Relationship Specialty Start Date End Date Lisa Porras MD PCP - General Internal Medicine 05/09/25
== END 2025-05-31 08:33 | disposition home or self-care (01) ==
LOC: HO.US 08:32
PROVIDERS: PCP Internal Medicine; Visit Provider Internal Medicine Gastroenterology
DX: I25.10 Atherosclerotic heart disease of native coronary artery without angina pectoris (principal); K76.0 Fatty (change of) liver, not elsewhere classified; Z79.82 Long term (current) use of aspirin; Z79.899 Other long term (current) drug therapy
CPT/HCPCS: 76705; 76981; 93005; 99212

== ENCOUNTER → 2025-05-31 08:35 | Outpatient (BNV) | payer MEDICARE, MEDICAID, SELFPAY | PROVIDERS: PCP Internal Medicine; Visit Provider Radiology Diagnostic Radiology | DX: K76.0 Fatty (change of) liver, not elsewhere classified (principal) | CPT/HCPCS: 76705 ==

== ENCOUNTER 2025-05-31 15:25 | Outpatient (AMB) | payer MEDICARE, MEDICAID, SELFPAY ==
--- NOTE | 2025-05-31 15:26 | MHC.OFFVIS ---
Vital Signs 05/31/25 15:27 Height 5 ft 5 in Weight 227 lb 1.218 oz BMI 37.8 BP 130/82 Blood Pressure Location Lt brachial Position Sitting Pulse 85 Intake Visit Reasons: 1 yr f/up Intake Note: 1 year follow-up with ekg feeling good General Office Associate Required: Yes General Office Associate Services: General Office Associate Present General Office Associate Name: ate Reyes Allergies amitriptyline Adverse Reaction (Intermediate, Verified 04/12/25 08:44) Palpitations metformin Adverse Reaction (Intermediate, Verified 04/12/25 08:44) Diarrhea propranolol Adverse Reaction (Intermediate, Verified 04/12/25 08:44) Palpitations Medication List - Last Reconciled 05/31/25 by Dylan Cordon MD aspirin (Ecotrin Low Strength) 81 mg PO DAILY atorvastatin 80 mg PO DAILY ezetimibe 10 mg PO DAILY metformin ER 750 mg PO DAILY multivitamin (Daily Multi-Vitamin tablet) 1 tab PO DAILY omeprazole 20 mg PO DAILY 90 days riboflavin (vitamin B2) 400 mg PO DAILY 30 days HPI Comments Details: Brittney comes for follow-up. Taking all her medications. She is still struggling with losing weight. She says she has been active but does not exercise on regular basis. Takes all her medications. No clear exertional chest pain. She denies any lightheadedness, syncope. She is currently on high-intensity statin therapy with ezetimibe with last LDL of 85 mg/dL at which time ezetimibe was added. She has not had any repeat lipid panel. Hemoglobin A1c has been elevated at 7.4. Currently on metformin therapy for the same. She denies any heart failure symptoms. [facility] Medical History Type 2 diabetes mellitus Chronic migraine without aura, not intractable, without status migrainosus H. pylori infection CAD (coronary artery disease) Anxiety Chronic headaches Tinnitus Neck pain Annual physical exam Chronic GERD Obesity Chest pain Mammogram normal Hyperlipidemia Sciatica History of colon polyps History of diverticulitis of colon Nephrolithiasis Surgical History History of esophagogastroduodenoscopy (EGD) Hx of colonoscopy History of ankle surgery (10/06/19) H/O Spinal surgery History of kidney surgery H/O section Family History Father Heart attack Mother Diabetes Heart problem Arthritis Social History Household Members: Children Housing: House Are you a primary manager critical care unit to a significant other at home: No Do you presently have visiting nurse or other home services: No Alcohol intake: never Patient Tobacco Use Status: Current everyday Tobacco user Tobacco use type: Cigarette Cigarette Packs Per Day: 0.5 Cigarettes Per Day: 10.0 Years Smoked: 25 e-Cigarette/Vaping Use: Never Used service: No Current occupational status: employed Cognitive needs: No Hearing needs: No Vision needs: Yes Review of Systems Const Denies chills, Denies fatigue, Denies fever(s), Denies frequent falls, Denies weakness, Denies weight gain and Denies weight loss ENT Denies dizziness Card Denies chest pain, Denies leg edema, Denies lightheadedness, Denies palpitations, Denies dyspnea, Denies dyspnea on exertion, Denies orthopnea and Denies other (loss of consciousness) Resp Denies cough, Denies dyspnea and Denies dyspnea on exertion GI Denies hematochezia and Denies change in stool character Musc Denies abnormal gait, Denies muscle weakness, Denies numbness, Denies radiating pain into limb and Denies tingling Neuro Denies Abnormal speech present, Denies abnormal gait, Denies dizziness, Denies frequent falls, Denies numbness, Denies tingling and Denies weakness Endo Denies fatigue and Denies palpitations Physical Exam Vital Signs: Last Vital Signs Pulse 85 05/31/25 15:27 BP 130/82 05/31/25 15:27 BMI result Body Mass Index 37.8 Const General: cooperative, comfortable, no acute distress, alert and awake Nutritional Appearance: obese Orientation/consciousness: patient oriented x3 Limitations: no limitations HEENT Head: Yes normocephalic and Yes atraumatic Neck Neck: Yes trachea midline, Yes supple and Yes no JVD Resp Effort & Inspection: normal respiratory effort Auscultation: clear to auscultation bilaterally Cardio Jugular venous distension: no JVD Rate: regular rate Rhythm: regular rhythm Heart sounds: S1 normal heart sound present, S2 normal heart sound present, no click, no gallops, no murmurs and no rubs GI Auscultation: normal bowel sounds Skin General skin exam: no rashes or lesions noted Neuro General: patient oriented x3 and no focal motor deficits Speech: No Abnormal speech present Extrem General: Yes no clubbing, cyanosis or edema Office Procedures EKG Details: EKG shows normal sinus rhythm with low-voltage QRS with poor R-wave progression nonspecific STT wave changes [id number], Complete Assessment & Plan Assessment & Plan (1) CAD (coronary artery disease): Code(s): I25.10 - Atherosclerotic heart disease of [place] coronary artery without angina pectoris Category: Medical Plan: Coronary artery disease in this elderly woman which is nonobstructive by prior testing. She has not had any repeat panel will repeat an ezetimibe therapy. Advise to repeat lipid panel in near future. Target goal LDL less than 60 mg/dL. Continue aspirin therapy. She is currently not having any active symptoms. Her main concern currently he is inability to lose weight. We discussed about various options including that she would benefit with her weight with her elevated sugar than metabolic syndrome with GLP 1 antagonist. I have taken the liberty to prescribe Ozempic from that perspective. Potential side effects with this was discussed. She is agreeable. Will try to obtain insurance prior authorization. Will follow up in the clinic otherwise in 1 year's time, sooner p.r.n.. Thank you for allowing me to partake in her care Orders: Orders Lipid Panel 3 Months I25.10 - Atherosclerotic heart disease of [place] coronary artery without angina pectoris Medications: New semaglutide (Ozempic) for 4 weeks 0.25 mg (0.368 mL) subcut QWEEK 3 mL 1RF Coding Level of Care Code Est Pt Level 4 (02212) Complex EM visit Add On G2211 Diagnoses CAD (coronary artery disease) I25.10 CPT Codes EKG - CPT: 65800-[id number], Complete ([id number])
[2025-05-31 15:27] VITALS: BP 130/82; PULSE 85; BMI 37.8
== END 2025-05-31 15:56 | disposition home or self-care (01) ==
PROVIDERS: PCP Internal Medicine; Visit Provider Internal Medicine Cardiovascular Disease
DX: I25.10 Atherosclerotic heart disease of native coronary artery without angina pectoris (principal)
CPT/HCPCS: 93010; 99214; G2211

== ENCOUNTER 2025-06-14 09:44 | Outpatient (REF) | payer MEDICARE, MEDICAID, SELFPAY ==
--- OUTSIDE RECORDS SUMMARY | 2025-06-14 11:10 | XMS_ITS | Patient Health Record ---
Author Organization [facility] Address [address] [place] [address] Care Team Providers Care Cash Application Representative Name Role Phone Chad Deleon Primary Care Provider [phone] Reason For Referral No Information Plan Of Treatment No Information Insurance Providers Payer Name Payer Address Payer Phone Subscriber Number Group Number Insured Name Patient Relationship to Insured Coverage Start Date Coverage End Date [facility] / [facility] PLAN [address] [address] [id number] Brittney Jasso Self - patient is the insured
== END 2025-06-14 09:45 | disposition home or self-care (01) ==
LOC: HO.LAB 09:44
PROVIDERS: PCP Internal Medicine; Visit Provider Internal Medicine Gastroenterology
DX: K21.9 Gastro-esophageal reflux disease without esophagitis (principal); A04.8 Other specified bacterial intestinal infections
CPT/HCPCS: 83013; 99211

== ENCOUNTER 2025-06-14 09:44 | Outpatient (AMB) | payer MEDICARE, MEDICAID, SELFPAY ==
--- NOTE | 2025-06-14 10:07 | AM.OFFVISNUR ---
Intake Visit Reasons: h pylori Intake Note: Patient presents for collection of?H Pylori?breath test. Patient has been fasting for 1 hour (nothing to eat, drink, no chewing gum or smoking) has not taken any antacid medication for at least 2 weeks and has no allergies to artificial sweeteners.?? Allergies amitriptyline Adverse Reaction (Intermediate, Verified 04/12/25 08:44) Palpitations metformin Adverse Reaction (Intermediate, Verified 04/12/25 08:44) Diarrhea propranolol Adverse Reaction (Intermediate, Verified 04/12/25 08:44) Palpitations Assessment & Plan Assessment & Plan (1) H. pylori infection: Comment: Recurrent Positive breath test 11/2024, ? Noncompliance to treatment. Started on Pylera by GI 03/2025 Code(s): A04.8 - Other specified bacterial intestinal infections Category: Medical Plan Patient presents for collection of?H Pylori?breath test. Patient has been fasting for 1 hour (nothing to eat, drink, no chewing gum or smoking) has not taken any antacid medication for at least 2 weeks and has no allergies to artificial sweeteners.???This test checks for an overgrowth of bacteria in your stomach. We all have bacteria but some may have more than others. It is treatable. if the test comes back negative there is nothing else to do. If the test result is positive we will treat you with 2 antibiotics and a medication to decrease the acid in your stomach (PPI) for 2 weeks. Two weeks after you have completed the treatment we will retest you to make sure the overgrowth has resolved. Orders: Orders H Pylori Breath Test Today A04.8 - Other specified bacterial intestinal infections, K21.9 - Gastro-esophageal reflux disease without esophagitis Patient Instructions: Process for specimen collection and reason for testing was explained to the patient. Specimen collection. Patient instructed to take a deep breath and then exhale into the blue bag, filling it up as much as possible. Patient instructed to drink a mixture of water and the artificial sweetener with a straw. A 15 minute wait period was observed. Patient instructed to take a deep breath and then exhale into the pink bag, filling it up as much as possible.?? Coding Level of Care Code Est Pt Level 1 (87261) Diagnoses H. pylori infection A04.8
--- OUTSIDE RECORDS SUMMARY | 2025-06-14 10:27 | XMS_ITS | Clinical Summary ---
Author Organization 175 [facility] Address [address] [place] [address] Phone Care Team Providers Care Piece Presser Name Role Phone Lisa Porras MD Primary Care Provider [phone] Surgical History Surgery Date Site/Laterality Comments KIDNEY STONE SURGERY PROCEDURE: SD NEPHROLITHOTOMY REMOVAL CALCULUS OTHER SURGICAL HISTORY 12/2010 PROCEDURE: SD TRANSPEDICULAR DCMPRN SPINAL CORD 1 SEG LUMBAR; COMMENT: and microdiscectomy L4-5 COLONOSCOPY 03/03/12 PROCEDURE: HISTORICAL COLONOSCOPY; COMMENT: normal; repeat in ten yrs ESOPHAGOGASTRODUODENOSCOPY Nov 2015 PROCEDURE: SD ESOPHAGOGASTRODUODENOSCOPY TRANSORAL DIAGNOSTIC; COMMENT: normal Medical History [...] Upcoming Encounters Date Type Department Care Team ([facility] st Contact Info) Description 06/18/2025 9:00 AM EDT Appointment Radiology Department - [address] [phone] 07/11/2025 1:45 PM EDT Office Visit Orthopedic Surgery - [place] [address] [id number] Cleve Eckert, DPM [address] [address] Health Maintenance Due Date Last Done Comments [...] LAB CHEMISTRY METHOD 05/09/2025 2:44 PM EDT [facility] Triglycerides 284(H) 0 - 150 mg/dL LAB CHEMISTRY METHOD 05/09/2025 2:44 PM EDT [facility] HDL 37(L) >=40 mg/dL LAB CHEMISTRY METHOD 05/09/2025 2:44 PM EDT [facility] LDL Calculated 65 0 - 100 mg/dL LAB CHEMISTRY METHOD 05/09/2025 2:44 PM EDT [facility] VLDL Cholesterol Yuri 56.8 mg/dL LAB CHEMISTRY METHOD 05/09/2025 2:44 PM EDT [facility] Non HDL Chol. (LDL+VLDL) 122 <145 mg/dL LAB CHEMISTRY METHOD 05/09/2025 2:44 PM EDT [facility] Chol/HDL Ratio 4.3 0.0 - 4.4 LAB CHEMISTRY METHOD 05/09/2025 2:44 PM EDT [facility] Blood Venous blood specimen / Unknown Venipuncture / Unknown 05/09/2025 10:01 AM EDT 05/09/2025 10:01 AM EDT us Montez Mena MD LAB BLOOD ORDERABLES Final Resu lt Performing Organization Address [facility]/ZIP Co de Phone Number [facility] [address] [place] [address], [place] [phone] * Thyroid stimulating hormone (05/09/2025 10:01 AM EDT) TSH 0.82 0.40 - 4.00 mcIU/mL LAB CHEMISTRY METHOD 05/09/2025 3:24 PM EDT [facility] Blood Venous blood specimen / Unknown Venipuncture / Unknown 05/09/2025 10:01 AM EDT 05/09/2025 10:01 AM EDT us Montez Mena MD LAB BLOOD ORDERABLES Final Resu lt [facility] [address] [place] [address], [place] [phone] * (ABNORMAL) Hemoglobin A1c (05/09/2025 10:01 AM EDT) Hemoglobin A1C 7.6(H) <6.5 % LAB CHEMISTRY METHOD 05/09/2025 2:02 PM EDT [facility] Mean Bld Glu Estim. 171 mg/dL LAB CHEMISTRY METHOD 05/09/2025 2:02 PM [facility] Blood Venous blood specimen / Unknown Venipuncture / Unknown 05/09/2025 10:01 AM EDT 05/09/2025 10:01 AM EDT us Montez Mena MD LAB BLOOD ORDERABLES Final Resu lt [facility] [address] [place] [address], * (ABNORMAL) Comprehensive metabolic panel (05/09/2025 10:01 AM EDT) Sodium 138 133 - 145 mmol/L LAB CHEMISTRY METHOD 05/09/2025 2:44 PM [facility] Potassium 4.3 3.5 - 5.5 mmol/L LAB CHEMISTRY METHOD 05/09/2025 2:44 PM [facility] Chloride 104 96 - 110 mmol/L LAB CHEMISTRY METHOD 05/09/2025 2:44 PM [facility] CO2 26 21 - 32 mmol/L LAB CHEMISTRY METHOD 05/09/2025 2:44 PM [facility] Anion Gap 8 3 - 11 LAB CHEMISTRY METHOD 05/09/2025 2:44 PM [facility] Glucose 143(H) 70 - 100 mg/dL LAB CHEMISTRY METHOD 05/09/2025 2:44 PM [facility] BUN 14 5 - 25 mg/dL LAB CHEMISTRY METHOD 05/09/2025 2:44 PM [facility] Creatinine 0.70 0.50 - 1.10 mg/dL LAB CHEMISTRY METHOD 05/09/2025 2:44 PM [facility] eGFR 96 >=60 mL/min/1. 73m2 LAB CHEMISTRY METHOD 05/09/2025 2:44 PM [facility] Comment:Calculation based on the Chronic Kidney Disease Epidemiology Collaboration (CKD-EPI) equation refit without adjustment for race. BUN/Creatinine Ratio 20.0 LAB CHEMISTRY METHOD 05/09/2025 2:44 PM EDT [facility] Calcium 9.3 8.5 - 10.5 mg/dL LAB CHEMISTRY METHOD 05/09/2025 2:44 PM EDT [facility] AST (SGOT) 25 10 - 42 unit/L LAB CHEMISTRY METHOD 05/09/2025 2:44 PM EDT [facility] ALT (SGPT) 42 10 - 60 unit/L LAB CHEMISTRY METHOD 05/09/2025 2:44 PM EDT [facility] Alkaline Phosphatase 100 42 - 121 unit/L LAB CHEMISTRY METHOD 05/09/2025 2:44 PM EDT [facility] Total Protein 7.4 6.0 - 8.0 g/dL LAB CHEMISTRY METHOD 05/09/2025 2:44 PM EDT [facility] Albumin 4.1 3.2 - 5.0 g/dL LAB CHEMISTRY METHOD 05/09/2025 2:44 PM EDT [facility] Total Bilirubin 0.6 0.0 - 1.4 mg/dL LAB CHEMISTRY METHOD 05/09/2025 2:44 PM EDT [facility] Blood Venous blood specimen / Unknown Venipuncture / Unknown 05/09/2025 10:01 AM EDT 05/09/2025 10:01 AM EDT us Montez Mena MD LAB BLOOD ORDERABLES Final Resu lt [facility] [address] [place] [address], * SCREENING MAMMOGRAPHY BI 2-VIEW BREAST INC [...] to Health Maintenance Insurance MEDICARE [place] Care Teams Piece Presser Relationship Specialty Start Date End Date Lisa Porras MD PCP - General Internal Medicine 05/09/25
== END 2025-06-14 10:11 | disposition home or self-care (01) ==
LOC: HO.HGI 09:44
PROVIDERS: PCP Internal Medicine; Visit Provider Internal Medicine Gastroenterology
DX: A04.8 Other specified bacterial intestinal infections (principal)

== ENCOUNTER 2025-07-28 11:45 | Outpatient (AMB) | payer MEDICARE, SELFPAY ==
[2025-07-28 11:55] VITALS: O2SAT 97; BMI 37.4
--- NOTE | 2025-07-28 11:55 | A.OFFVIS_ITS ---
Vital Signs 07/28/25 11:55 Height 5 ft 5 in Weight 225 lb BMI 37.4 Blood Pressure Location Lt brachial Position Sitting Pulse Oximetry (%) 97 Oxygen Delivery Method Room Air Intake Visit Reasons: GERD/H pylori results Intake Note: Patient follow up for Abdominal bloating/GERD and H pylori/US results Patient denies any GI issues for today. Director Of Food And Beverage Services Required: Yes Director Of Food And Beverage Services Name: Shauna Marrero Accompanied by: Self / Same As Patient Allergies amitriptyline Adverse Reaction (Intermediate, Verified 07/28/25 11:54) Palpitations metformin Adverse Reaction (Intermediate, Verified 07/28/25 11:54) Diarrhea propranolol Adverse Reaction (Intermediate, Verified 07/28/25 11:54) Palpitations Medication List - Last Reconciled 07/28/25 by Seymour Fisher MD aspirin (Ecotrin Low Strength) 81 mg PO DAILY atorvastatin 80 mg PO DAILY ezetimibe 10 mg PO DAILY metformin ER 750 mg PO DAILY omeprazole 20 mg PO DAILY 90 days rqfavsxstk-aocnoytsj-joneczkzs 10-250-12.5 mg (Talicia) 4 caps (4 x 10-250-12.5 mg) PO Q8H 14 days semaglutide (Ozempic) 0.25 mg (0.368 mL) subcut QWEEK HPI HPI GERD/H pylori results: Details: CLINIC VISIT FOR THIS 65-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 TODAY'S VISIT Telephone French sport shoe spike assembler # [id number] Doing OK Zero abdominal pain Results of H Pylori breath test reviewed with the patient - still positive Taking antibiotics for H Pylori - unsure when she will finish them ? in a week Can miss a dose here and there Continues to have intermittent abdominal pain Has a BM every other day. PAST VISIT: Patient daughter who interpreted for the patient over the phone (pt refused to use the telephone/video sport shoe spike assembler). Patient cc: abdominal discomfort on and off, denies any other GI issues. URI infection in January and treated with Azithromycin for 5-6 days. Has been having abdominal pain since - seen in the ER and evaluated by abd US and CT scan Prescribed Sucralfate once a day. Complains of 2-7/10 LUQ pain which radiates to the rt side Feels like her intestines are twisting/knoting. Pain goes away when she lies down and notes pain when she walks Changed her diet - eating yogurt and crackers, baked chicken. Pain gets worse after eating sour foods. Pt states she has regular BM and denies constipation or diarrhea. Denies hematochezia or melena. Notes intermittent heartburn - rare since she resumed taking Omeprazole. I had something going on 3 days ago - some burning in her throat Has not been taking the Omeprazole for the past 2 weeks. Denies diarrhea or constipation EGD and Colon results were reviewed with the patient. Feels nervous when she drinks coffee Notes bloating when she eats cabbage and drinks coffee. EGD and colon were cancelled since she was undergoing cardiac aviles. Scheduled for coronary angiography in Mar, 2024 Pt is accompanied by her daughter who interpreted for the patient Continues to have intermittent heartburn - sometimes it feels like a heart attack Has not been taking Omeprazole for the past 2 months after she ran out - advised to resume. Complains of post prandial bloating Pt was treated with Pylera for H pylori gastritis associated with an ulcer. She stopped PPI for 2 weeks prior to today's visit. Continues to have abdominal bloating after she finishes eating. Called patient's daughter, Louise, at [phone] Patient cc: some abdominal pain and denies any other GI issues. 09/2021 pt was treated with Calrithromycin 500 mg twice daily, amoxicillin 1 gram twice daily and Omeprazole 20 mg twice daily x 14 days for H Pylori infection.Pt completed antibiotic therapy in he was advised to schedule repeat EGD to confirm has healed and H pylori has been eradicated. Pt is accompanied by her daughter, Louise and her 17 month old son. Pt's daughter interpreted for the patient. Pt has been having chest pain and thought she was having a heart attack. Seen at [facility] ED and had blood tests which were negative. Had 8/10 burning retrosternal pain ? Pain was not related to exertion. Pain started in the evening, she went to sleep and pain became worse when she woke. Ate chocolate before pain started. Pain lasted all day. Prescribed Omeprazole 20 mg daily. Patient denies having an upper endoscopy in the past. Had some twinging pain a week ago in the same area as during past episode of diverticulitis. Pain lasted for a day.? Noted some pain today. ? patient denies fever or chills. an episode of diverticulitis in Oct and 2nd episode in Dec. ? Took antibiotics and symptoms have resolved. ? Now I have to be very careful with my diet. ? Notes piercing pain if she takes any spicy food. ? Patient denies change in bowel habits, black stools or rectal bleeding ? Denies dysphagia, heartburn, nausea or vomiting. ? Does not eat much and has gained weight since she is not working due to an ankle injury. ? Continues to have ankle pain ? due to suspected nerve injury. ? Patient denies major cardiac or pulmonary problems, loud snoring was sleep apnea. ? Patient denies being on chronic anticoagulation. ? She denies past problems with anesthesia. ? She had a colonoscopy in 2013 at [facility] in [place] which was negative. ? Patient denies known family history of colon polyps,, colon cancer or other GI malignancy ??IMAGING STUDIES: 12/28/[address] scan showed: ? Focal colonic wall thickening and pericolonic inflammatory changes in ? the mid ascending colon in the region of a small thickened ? diverticulum. Overall the appearance is most suggestive of right-side diverticulitis. ?ENDOSCOPIC STUDIES:?11/11/22 EGD SHOWED: STOMACH: Mild diffuse gastric erythema. Biopsies were obtained. A 1 cms clean based chronic appearing ulcer in the pyloric channel - biopsied. DUODENUM: Normal -? biopsied to check for celiac sprue Plan:? Patient has an appointment on 11/28/22 in the GI Clinic with Seymour Fisher M.D. Above findings were reviewed with the patient with the help of a French collection systems modeler and PUD handout was given in the discharge area. Pt stated she takes Ibuprofen infrequently and has not been taking a PPI. She was advised to resume taking Omeprazole 20 mg every morning. BIOPSIES SHOWED: A.? Small bowel, biopsy:? Small intestinal mucosa with mildly increased intrae pithelial lymphocytes and preserved villous architecture.? See comment. B.? Stomach, pyloric channel ulcer, biopsy: - Mixed pyloric and small intestinal mucosa with chronic active inflammation. - Positive for H pylori.C.? Stomach, antrum, biopsy: - Antral-type mucosa with moderate chronic active inflammation. - Positive for H pylori.D.? Stomach, body, biopsy: - Oxyntic mucosa with mild chronic inactive inflammation. - Positive for H pylori.COMMENT:? The lymphocytes in the small bowel (part A) are likely secondary to the H pylori infection. 09/2021 EGD SHOWED: ESOPHAGUS: GE junction at 38 cms. No esophagitis or Mckeon's.Biopsies were obtained from distal esophagus to check for esophagitis. STOMACH: Antral gastritis.? A 1 cms clean based ulcer in the pyloric channel - biopsied. Plan:? Repeat EGD in 10-12 weeks to confirm pyloric channel ulcer has healed. Patient has an appointment on 12/06/21 in the GI Clinic with Seymour Fisher M.D.. 05/15/20? COLONOSCOPY SHOWED:Four polyps removed Moderate diverticulosis seen in the left colon Moderate hemorrhoids on retroflexed exam. Plan: Await pathology results Patient has an appointment on 05/15/20 in the GI Clinic with Seymour Fisher M.D.- Repeat Colonoscopy interval based on path results in 3-5 years if polyps are adenomatous and 10 years if polyps are hyperplastic. Above findings were reviewed with the patient and colon polyps and diverticulosis handouts were given in the discharge area BIOPSIES SHOWED: A. Colon, transverse polyps, polypectomy: Fragments of tubular adenomas. B. Colon, ascending polyp, polypectomy: Fragments of tubular adenoma. C. Rectum, polyp, polypectomy: Fragments of hyperplastic molly [facility] Medical History Type 2 diabetes mellitus Chronic migraine without aura, not intractable, without status migrainosus H. pylori infection CAD (coronary artery disease) Anxiety Chronic headaches Tinnitus Neck pain Annual physical exam Chronic GERD Obesity Chest pain Mammogram normal Hyperlipidemia Sciatica History of colon polyps History of diverticulitis of colon Nephrolithiasis Surgical History History of esophagogastroduodenoscopy (EGD) Hx of colonoscopy History of ankle surgery (10/06/19) H/O Spinal surgery History of kidney surgery H/O section Family History Father Heart attack Mother Diabetes Heart problem Arthritis Social History Household Members: Children Housing: House Are you a primary child care associate to a significant other at home: No Do you presently have visiting nurse or other home services: No Alcohol intake: never Patient Tobacco Use Status: Current everyday Tobacco user Tobacco use type: Cigarette Cigarette Packs Per Day: 0.5 Cigarettes Per Day: 10.0 Years Smoked: 25 e-Cigarette/Vaping Use: Never Used service: No Current occupational status: employed Cognitive needs: No Hearing needs: No Vision needs: Yes Review of Systems Const All systems reviewed & are unremarkable except as noted in HPI and below Physical Exam Vital Signs: Last Vital Signs Pulse Ox 97 07/28/25 11:55 Oxygen Delivery Method Room Air 07/28/25 11:55 BMI result Body Mass Index 37.4 Const General: healthy appearing and no acute distress Nutritional Appearance: obese Orientation/consciousness: patient oriented x3 Limitations: language barrier HEENT Head: Yes normal to inspection Ears: hearing grossly normal bilaterally Eyes Sclerae: sclerae normal Pupils: Equal, round and reactive pupils present Neck Neck: Yes normal visual inspection Chest Chest palpation & inspection: normal inspection of the chest Resp Effort & Inspection: normal respiratory effort Auscultation: clear to auscultation bilaterally Cardio Palpation: normal PMI Rate: regular rate Rhythm: regular rhythm Heart sounds: S1 normal heart sound present, S2 normal heart sound present and no murmurs GI Palpation (GI): Soft to palpation, nontender and No hepatosplenomegaly present Auscultation: normal bowel sounds Rectal Exam - Female: deferred Skin General skin exam: no rashes or lesions noted Neuro General: patient oriented x3, gait normal and moves all extremities Cranial nerves: Yes Equal, round and reactive pupils present Psych Appearance: grossly normal Mental Status: mental status grossly normal Assessment & Plan Assessment & Plan (1) History of diverticulitis of colon: Code(s): Z87.19 - Personal history of other diseases of the digestive system Category: Medical (2) History of colon polyps: Comment: 05/15/20 diverticulosis and 3 small (< 10 mm) adenomatous polyps removed 07/26/24 Colonoscopy showed: Two small hyperplastic polyps Plan: Repeat Colonoscopy in 5 years Code(s): Z86.010 - Personal history of colon polyps Category: Medical (3) Chronic GERD: Comment: EGD 09/2021 s/p H pylori tx Code(s): K21.9 - Gastro-esophageal reflux disease without esophagitis Category: Medical (4) Abdominal bloating: Code(s): R14.0 - Abdominal distension (gaseous) Category: Medical (5) H. pylori infection: Comment: Recurrent Positive breath test 11/2024, ? Noncompliance to treatment. Started on Pylera by GI 03/2025 Code(s): A04.8 - Other specified bacterial intestinal infections Category: Medical (6) NAFL (nonalcoholic fatty liver): Code(s): K76.0 - Fatty (change of) liver, not elsewhere classified Category: Medical Plan 65-year-old French speaking female referred to GI to schedule a colonoscopy for screening and due to 2 episodes of diverticulitis over 6 months in the past. Patient denied known family history of colon polyps or cancer and is considered average risk for colon cancer. She had a colonoscopy in 2013 at [facility] in [place] which was negative. 05/15/2020 colonoscopy showed diverticulosis and 3 small (< 10 mm) adenomatous polyps were removed. ? Repeat colonoscopy is advised in 3 years. 05/23 pt was seen with abd pain and given PO antibiotics for suspected diverticulitis with resolution 09/03/21 Pt complains of atypical chest pain, seen at [facility] ED and prescribed Omeprazole 20 mg daily - only taking intermittently and advised to take daily. 09/2021 EGD showed a?1 cms clean based ulcer in the pyloric channel - biopsied. Gastric biopsies were positive for Helicobacter pylori - 09/2021 pt was treated with Calrithromycin 500 mg twice daily, amoxicillin 1 gram twice daily and Omeprazole 20 mg twice daily x 14 days for H Pylori infection. Pt completed antibiotic therapy in 09/2021 FU EGD was performed and showed a 1 cms clean based chronic appearing ulcer in the pyloric channel. Gastric biopsies were positive for H Pylori and pt was given a prescription for Pylera x 14 days. 02/24/23 H Pylori breath test today Schedule an EGD (FU of ) and a colonoscopy for FU of colon polyps - scheduled on 12/01/23 02/12/24 Notes intermittent heartburn - rare since she resumed taking Omeprazole. Feels nervous when she drinks coffee Notes bloating when she eats cabbage and drinks coffee. EGD and colon scheduled in Nov, 2023 were cancelled since she was undergoing cardiac work up Scheduled for coronary angiography in Mar, 2024 and a FU appt with Dr Cordon on 04/19/24 07/26/24 EGD + bx for HP culture and sensitivity (FU of and persistent H Pylori infection) and a colonoscopy was performed and results as noted above. Gastric biopsies were positive for HP and no H Pylori was isolated on culture and sensitivity. Appropriate antibiotics will be prescribed based on above results (pt has been treated for HP x 2 in the past without eradication) Repeat EGD in 3 years for Fu of gastric intestinal metaplasia 12/02/24 H Pylori breath test (Omeprazole on hold x 2 weeks) I will contact the pt with results Elevated LFTs -likely due to fatty liver. Pt advised wt reduction 03/24/25 URI infection in January and treated with Azithromycin for 5-6 days. Has been having abdominal pain since - seen in the ER and evaluated by abd US and CT scan Prescribed Sucralfate once a day. Review of pt's medication showed she ran out of Omeprazole and has not been taking it ? since the past 3 months 04/12/25 Intermittent abd pain of unclear etiology. Abd CT scan showed fatty liver and LFTs are elevated. Pt advised to schedule an abdominal ultrasound with elastography. FU in 6 weeks for H Pylori breath test NEHEMIAS 05/31/24 US WITH ELASTOGRAPHY SHOWED: Hepatomegaly and hepatic steatosis. The median shear wave velocity in the liver is 1.39 m/s, corresponding to a median liver stiffness of 5.98 kPa. The IQR/median value is 0.06. Findings are indicative of a low elastography value which rules out advanced chronic liver disease in asymptomatic patients. 06/14/25 breath test for H pylori was positive. 07/28/25 Pt failed H Pylori treatment with Bismuth based quadruple therapy (stated she has been compliant with antibiotic treatment) [place] with Vonoprazan + Amoxcillin x 14 days H PYlori breath test in 6 weeks FU in 3 months Medications: New amoxicillin 1,000 mg (2 x 500 mg) PO Q8H 84 tabs 0RF 14 days A04.8 - Other specified bacterial intestinal infections vonoprazan 20 mg PO BID 28 tabs 0RF 14 days A04.8 - Other specified bacterial intestinal infections Patient Instructions: Take antibiotics for H Pylori for 14 days Return for H Pylori breath test in 6 weeks Stop Omeprazole 2 weeks before appt Coding Level of Care Code Est Pt Level 4 (53966) Diagnoses History of diverticulitis of colon Z87.19 History of colon polyps Z86.010 Chronic GERD K21.9 Abdominal bloating R14.0 H. pylori infection A04.8 NAFL (nonalcoholic fatty liver) K76.0 Time Spent (min) 21
--- OUTSIDE RECORDS SUMMARY | 2025-07-28 16:38 | XMS_ITS | Patient Health Record ---
Author Organization [facility] Address [address] [place] [address] Care Team Providers Care Medical Sociologist Name Role Phone Chad Deleon Primary Care Provider Reason For Referral No Information Plan Of Treatment No Information Insurance Providers Payer Name Payer Address Payer Phone Subscriber Number Group Number Insured Name Patient Relationship to Insured Coverage Start Date Coverage End Date [facility] / [facility] PLAN [address] [address] [id number] Brittney Jasso Self - patient is the insured
== END 2025-07-28 12:41 | disposition home or self-care (01) ==
PROVIDERS: PCP Internal Medicine; Visit Provider Internal Medicine Gastroenterology
DX: Z87.19 Personal history of other diseases of the digestive system (principal); Z86.0100 Personal history of colon polyps, unspecified; K21.9 Gastro-esophageal reflux disease without esophagitis; R14.0 Abdominal distension (gaseous); A04.8 Other specified bacterial intestinal infections; K76.0 Fatty (change of) liver, not elsewhere classified
CPT/HCPCS: 99214

== ENCOUNTER → 2025-07-28 11:45 | Outpatient (BNVA) | payer MEDICARE, SELFPAY | PROVIDERS: PCP Internal Medicine; Visit Provider Internal Medicine Gastroenterology | DX: K21.9 Gastro-esophageal reflux disease without esophagitis (principal); A04.8 Other specified bacterial intestinal infections; Z87.19 Personal history of other diseases of the digestive system; Z86.0100 Personal history of colon polyps, unspecified; R14.0 Abdominal distension (gaseous); K76.0 Fatty (change of) liver, not elsewhere classified; Z72.0 Tobacco use | CPT/HCPCS: 99212 ==

== ENCOUNTER 2025-09-08 08:32 | Outpatient (REF) | payer MEDICARE, SELFPAY | END 2025-09-08 08:33 | disposition home or self-care (01) | LOC: HO.LAB 08:32 | PROVIDERS: PCP Internal Medicine; Visit Provider Internal Medicine Gastroenterology | DX: A04.8 Other specified bacterial intestinal infections (principal) | CPT/HCPCS: 83013 ==

== ENCOUNTER 2025-10-13 09:13 | Outpatient (AMB) | payer MEDICARE, MEDICAID, SELFPAY ==
[2025-10-13 09:15] VITALS: BP 138/82; PULSE 90; O2SAT 96; BMI 38.3
--- NOTE | 2025-10-13 09:15 | AM.OFFWIN_ITS ---
Intake Vital Signs 10/13/25 09:15 Height 5 ft 5 in Weight 230 lb BMI 38.3 BP 138/82 Blood Pressure Location Rt brachial Position Sitting Pulse 90 Pulse Source Pulse Oximeter Pulse Oximetry (%) 96 Oxygen Delivery Method Room Air Intake Visit Reasons: EP sharp pain in left arm need Intake Note: Patient presents c/o left arm/shoulder pain x1 week Patient Tobacco Use Status: Current everyday Tobacco user Allergies amitriptyline Adverse Reaction (Intermediate, Verified 10/13/25 09:18) Palpitations metformin Adverse Reaction (Intermediate, Verified 10/13/25 09:18) Diarrhea propranolol Adverse Reaction (Intermediate, Verified 10/13/25 09:18) Palpitations HPI HPI Comments History of Present Illness Details History of Present Illness - The patient is a 65-year-old female wh o presents 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 - She denies any preceding injury, stren uous activity, or history of prior shoulder injury. - The pain is noted to radiate to her le ft upper back and left anterior chest. - Associated symptoms include an inabili ty to lift her arm, but she denies any numbness or tingling radiating down the arm. - She has been using Aleve at home for t he pain. - She is right handed. - She has some numbness to the fingers o n the left. - The patient also inquired about obtain ing blood work for cholesterol and sugar levels during the visit. Physical Exam General: Cooperative, healthy appearing, comfortable, no acute distress and well developed Orientation: Patient oriented x3 Limitations: Pain in head, arm, back, and chest; unable to lift arm Neck: Normal visual inspection and Yes full ROM. No midline spinous tenderness noted. No step offs noted. No TTP of the cervical muscles or the SCM. Respiratory: Normal respiratory effort and able to speak in complete sentences. Clear to auscultation bilaterally. No w/r/r noted. Cardiovascular: Regular rate and rhythm. Normal S1 and S2. Pulses are 2+ on the UE bilaterally. Skin: No rashes or lesions noted. Neuro: Sensation is intact Extremities: FROM of the left shoulder, passive and active. No click noted. No TTP of the left clavicle, AC joint, scapula, bicipital groove, bicep, tricep on the left. FROM of the left elbow and wrist. Hand human resource internship is intact on the left. Supination and pronation is intact on the left. Lift off is negative. Can test is negative. Apprehension test is negative. Patient was informed and verbally consented to the use of an ambient scribe for clinic note documentation during this visit. [facility] Medical History Type 2 diabetes mellitus Chronic migraine without aura, not intractable, without status migrainosus H. pylori infection CAD (coronary artery disease) Anxiety Chronic headaches Tinnitus Neck pain Annual physical exam Chronic GERD Obesity Chest pain Mammogram normal Hyperlipidemia Sciatica History of colon polyps History of diverticulitis of colon Nephrolithiasis Surgical History History of esophagogastroduodenoscopy (EGD) Hx of colonoscopy History of ankle surgery (10/06/19) H/O Spinal surgery History of kidney surgery H/O section Family History Father Heart attack Mother Diabetes Heart problem Arthritis Social History Household Members: Children Housing: House Are you a primary patient care nursing assistant to a significant other at home: No Do you presently have visiting nurse or other home services: No Alcohol intake: never Patient Tobacco Use Status: Current everyday Tobacco user Tobacco use type: Cigarette Cigarette Packs Per Day: 0.5 Cigarettes Per Day: 10.0 Years Smoked: 25 e-Cigarette/Vaping Use: Never Used service: No Current occupational status: employed Cognitive needs: No Hearing needs: No Vision needs: Yes Review of Systems Const All systems reviewed & are unremarkable except as noted in HPI and below Physical Exam Vital Signs: Last Vital Signs Pulse 90 10/13/25 09:15 BP 138/82 10/13/25 09:15 Pulse Ox 96 10/13/25 09:15 Oxygen Delivery Method Room Air 10/13/25 09:15 BMI result Body Mass Index 38.3 Results Reviewed Results Reviewed: will review the xray in the office today Assessment & Plan Assessment & Plan (1) Left shoulder strain: Code(s): S46.912A - Strain of unspecified muscle, fascia and tendon at shoulder and upper arm level, left arm, initial encounter Qualifiers: Encounter type: initial encounter Qualified Code(s): S46.912A - Strain of unspecified muscle, fascia and tendon at shoulder and upper arm level, left arm, initial encounter Plan Most likely Shoulder Pain from arthritis vs tendonitis vs calcific tendonitis plan - The patient presents with shoulder pain without a history of injury, with differential diagnoses including inflammation, arthritis, or tendonitis. - An X-ray of the shoulder was ordered to rule out underlying pathology. - Naproxen 500 mg was prescribed to be taken twice a day for pain. - An arm sling will be provided for support. - The patient was advised to use heat on her shoulder as she prefers it to ice. - A referral will be made to an travel specialist for further evaluation and potential injection. Orders: Orders XR shoulder LT min 2V Today S46.912A - Strain of unspecified muscle, fascia and tendon at shoulder and upper arm level, left arm, initial encounter Referrals Orthopedics Referral M25.512 - Pain in left shoulder Medications: New naproxen 500 mg PO Q12H PRN 20 tabs 0RF pain 7 days Coding Level of Care Code Est Pt Level 4 (95056) Diagnoses Strain of left shoulder, initial encounter S46.912A Encounter type: initial encounter
== END 2025-10-13 10:13 | disposition home or self-care (01) ==
PROVIDERS: PCP Internal Medicine; Visit Provider Physician Assistant Medical
DX: S46.912A Strain of unspecified muscle, fascia and tendon at shoulder and upper arm level, left arm, initial encounter (principal)

== ENCOUNTER 2025-10-13 09:13 | Outpatient (REF) | payer MEDICARE, SELFPAY ==
--- NOTE | ~2025-10-13 | XR_ITS ---
EXAMINATION: XR SHOULDER, LEFT CLINICAL INFORMATION: S46.912A - Strain of unspecified muscle, fascia and tendon at shoulder a... COMPARISON: None available. TECHNIQUE: AP external rotation, Grashey, scapular Y, and axillary views of the left shoulder. FINDINGS: Mild acromioclavicular arthritis. Minimal superior positioning of the clavicle respect to the acromion. Acromioclavicular distance is maintained. Minimal glenohumeral arthritis. No acute fracture or dislocation. No abnormal soft tissue calcification. XR/XR shoulder LT min 2V IMPRESSION: Mild acromioclavicular arthritis. Mild acromioclavicular malalignment could be related to degeneration, sprain. Electronically signed by: Bay Chowdary MD 10/13/2025 10:22 AM TANYA HERNANDEZ
== END 2025-10-13 09:14 | disposition home or self-care (01) ==
LOC: HO.HMGCX 09:13
PROVIDERS: PCP Internal Medicine; Visit Provider Physician Assistant Medical
DX: S46.912A Strain of unspecified muscle, fascia and tendon at shoulder and upper arm level, left arm, initial encounter (principal); X58.XXXA Exposure to other specified factors, initial encounter
CPT/HCPCS: 73030

== ENCOUNTER → 2025-10-13 09:49 | Outpatient (BNV) | payer MEDICARE, MEDICAID, SELFPAY | PROVIDERS: PCP Internal Medicine; Visit Provider Radiology Diagnostic Ultrasound | DX: S46.912A Strain of unspecified muscle, fascia and tendon at shoulder and upper arm level, left arm, initial encounter (principal); M19.012 Primary osteoarthritis, left shoulder | CPT/HCPCS: 73030 ==